=== PATIENT | female | born 1940 | race Caucasian/White ===

== ENCOUNTER 2019-04-23 11:30 | Outpatient (CLI) | payer MEDICARE, SELFPAY ==
--- NOTE | 2019-04-23 13:45 | MISC_ITS ---
This PFT report (Six Minute Walk) was originally documented on the incorrect visit. Report was moved to the correct account, [id number], on 04/27/2019. PFT Interpretation PFT Interpretation: DOS: 04/23/19 REQUESTING: Ray Moore NP REASON FOR TESTING: Post pulmonary rehab SIX MINUTE WALK This study was performed per ATS guidelines. This patient is on O2 at home, 3 L/min at rest at 4 L/min with exertion. The patient is on pulse O2 at home with an Inogen device. During this test she used continuous flow O2 from this department. The initial saturation was 89% sand pulse was 79. Blood pressure 136/70. She walked for 6 minutes without stopping completing 900 feet, 274 meters. She desaturated to 80% at the end of the walk, gradually improved to 92% at the end of recovery. Pulse increased to 103. IMPRESSION: Patient walked adequate distance for age without stopping. She was hypoxemic on 3 L/min at rest to 80% and 4 L/min with exertion on continuous flow oxygen. We recommend a dedicated Home O2 evaluation. Shara Mack MD Report Initialized date/time: Shara Mack MD 04/23/19 / [id number] Electronically signed by: Shara Mack MD 04/23/19 [id number] [facility]
== END 2019-04-23 11:31 ==
LOC: ANHPFT 07-17 07:29
PROVIDERS: PCP Internal Medicine; Visit Provider Nurse Practitioner Family
DX: J44.1 Chronic obstructive pulmonary disease with (acute) exacerbation (principal); Z72.0 Tobacco use
CPT/HCPCS: 94618

== ENCOUNTER 2019-10-05 10:28 | Outpatient (CLI) | payer MEDICARE, SELFPAY ==
[2019-10-05 10:59] LABS: Alanine Aminotransferase 14 U/L (4-35); Albumin Level 4.3 g/dL (3.5-5.1); Alkaline Phosphatase 88 U/L (38-126); Aspartate Amino Transferase 27 U/L (14-36); Bilirubin,Total 0.3 mg/dL (0.2-1.3); Blood Urea Nitrogen 17 mg/dL (7-17); Calcium 9.1 mg/dL (8.4-10.2); Carbon Dioxide 38 mmol/L (22-30); Chloride 99 mmol/L (98-107); Cholesterol 149 mg/dL (0-200); Estimated Glomerular Filt Rate > 60; Glucose 90 mg/dL (65-105); HDL Direct 71 mg/dL; Potassium 4.5 mmol/L (3.4-5.0); Sodium 140 mmol/L (137-145); Triglycerides 64 mg/dL (<150)
[2019-10-05 11:11] LABS: LDL Cholesterol Direct 56 mg/dL
== END 2019-10-05 10:29 | disposition home or self-care (01) ==
LOC: ANHLAB 10:30
PROVIDERS: PCP Internal Medicine; Visit Provider Nurse Practitioner
DX: Z79.899 Other long term (current) drug therapy (principal); E78.5 Hyperlipidemia, unspecified
CPT/HCPCS: 36415; 80053; 80061; 84443

== ENCOUNTER 2020-09-12 11:10 | Outpatient (CLI) | payer MEDICARE, SELFPAY ==
[2020-09-12 12:02] LABS: Hematocrit 45.9 % (37.0-47.0); Hemoglobin 14.2 g/dL (12.0-15.0)
[2020-09-12 12:18] LABS: Iron 101 ug/dL (37-170)
[2020-09-12 12:27] LABS: LDL Cholesterol Direct 58 mg/dL
[2020-09-12 12:28] LABS: Alanine Aminotransferase 21 U/L (4-35); Albumin Level 4.4 g/dL (3.5-5.1); Alkaline Phosphatase 95 U/L (38-126); Aspartate Amino Transferase 33 U/L (14-36); Bilirubin,Total 0.3 mg/dL (0.2-1.3); Blood Urea Nitrogen 17 mg/dL (7-17); Calcium 9.5 mg/dL (8.4-10.2); Carbon Dioxide > 40 mmol/L (22-30); Chloride 98 mmol/L (98-107); Cholesterol 162 mg/dL (0-200); Estimated Glomerular Filt Rate 60; Glucose 90 mg/dL (65-105); HDL Direct 74 mg/dL; Percent Iron Saturation 33 % (20-50); Potassium 4.5 mmol/L (3.4-5.0); Sodium 142 mmol/L (137-145); Triglycerides 75 mg/dL (<150)
== END 2020-09-12 11:11 | disposition home or self-care (01) ==
PROVIDERS: PCP Internal Medicine; Visit Provider Internal Medicine
DX: D64.9 Anemia, unspecified (principal); E78.5 Hyperlipidemia, unspecified; D50.9 Iron deficiency anemia, unspecified; I10 Essential (primary) hypertension; Z51.81 Encounter for therapeutic drug level monitoring; Z79.899 Other long term (current) drug therapy
CPT/HCPCS: 36415; 80053; 80061; 83540; 83550; 85014; 85018

== ENCOUNTER 2020-12-19 11:00 | Outpatient (CLI) | payer MEDICARE, SELFPAY ==
--- NOTE | ~2020-12-19 | CT_ITS ---
EXAMINATION: CT lung screening DATE: 12/19/2020 11:23 INDICATION: Personal history of nicotine dependence TECHNIQUE: Computed tomography (CT) of the chest was performed without intravenous contrast. The dose -length product was 119.85 mGy-cm. Automated exposure control and iterative reconstruction technique were employed. COMPARISON: Chest x-ray dated 09/09/2018 FINDINGS: Dependent atelectasis left lower lung. No thoracic lymphadenopathy. Heart size upper normal . No significant pleural or pericardial effusion. There is atherosclerosis of the aorta and coronary arteries. There are in numerable scattered calcified granulomas in the lung parenchyma. There are sma ll 2 mm left upper lobe nodules which are not clearly calcified. There is emphysema. There is a T11 b urst fracture, likely chronic. IMPRESSION: 1. Lung-RADS category 2: Benign appearance or behavior. Continue annual screening with noncontrast lo w-dose chest CT in 12 months. Reviewed, dictated and finalized at location A. IMPRESSION: 1. Lung-RADS category 2: Benign appearance or behavior. Continue annual screeni ng with noncontrast low-dose chest CT in 12 months.
== END 2020-12-19 11:01 | disposition home or self-care (01) ==
LOC: ANHIMG 11:05
PROVIDERS: PCP Internal Medicine; Visit Provider Nurse Practitioner Family
DX: Z87.891 Personal history of nicotine dependence (principal)
CPT/HCPCS: 71271

== ENCOUNTER 2021-03-25 08:27 | Outpatient (CLI) | payer MEDICARE, SELFPAY ==
[2021-03-25 09:03] LABS: Alanine Aminotransferase 13 U/L (4-35); Albumin Level 4.2 g/dL (3.5-5.1); Alkaline Phosphatase 107 U/L (38-126); Anion Gap 3 mmol/L (8-16); Aspartate Amino Transferase 25 U/L (14-36); Bilirubin,Total 0.4 mg/dL (0.2-1.3); Blood Urea Nitrogen 19 mg/dL (7-17); Calcium 9.3 mg/dL (8.4-10.2); Carbon Dioxide 39 mmol/L (22-30); Chloride 99 mmol/L (98-107); Cholesterol 148 mg/dL (0-200); Estimated Glomerular Filt Rate > 60; Glucose 103 mg/dL (65-110); HDL Direct 69 mg/dL; Potassium 4.5 mmol/L (3.4-5.0); Sodium 141 mmol/L (137-145); Triglycerides 98 mg/dL (<150)
[2021-03-25 09:13] LABS: LDL Cholesterol Direct 51 mg/dL
== END 2021-03-25 08:28 | disposition home or self-care (01) ==
PROVIDERS: PCP Internal Medicine; Visit Provider Nurse Practitioner
DX: E78.2 Mixed hyperlipidemia (principal)
CPT/HCPCS: 36415; 80053; 80061

== ENCOUNTER 2021-10-05 10:55 | Outpatient (CLI) | payer MEDICARE, SELFPAY ==
[2021-10-05 12:04] LABS: Alanine Aminotransferase 14 U/L (6-35); Alkaline Phosphatase 104 U/L (38-126); Aspartate Amino Transferase 28 U/L (14-36); Bilirubin,Total 0.4 mg/dL (0.2-1.3); Blood Urea Nitrogen 18 mg/dL (7-17); Carbon Dioxide > 40 mmol/L (22-30); Chloride 99 mmol/L (98-107); Cholesterol 146 mg/dL (0-200); Estimated Glomerular Filt Rate > 60; Glucose 89 mg/dL (65-110); HDL Direct 61 mg/dL; Potassium 4.4 mmol/L (3.4-5.0); Sodium 142 mmol/L (137-145); Triglycerides 80 mg/dL (<150)
[2021-10-05 12:06] LABS: Hematocrit 43.8 % (37.0-47.0); Hemoglobin 13.5 g/dL (12.0-15.0)
[2021-10-05 12:15] LABS: LDL Cholesterol Direct 53 mg/dL
== END 2021-10-05 10:56 | disposition home or self-care (01) ==
PROVIDERS: PCP Internal Medicine; Visit Provider Internal Medicine
DX: E78.5 Hyperlipidemia, unspecified (principal); I10 Essential (primary) hypertension; Z51.81 Encounter for therapeutic drug level monitoring; D64.9 Anemia, unspecified
CPT/HCPCS: 36415; 80053; 80061; 85014; 85018

== ENCOUNTER 2021-11-06 08:22 | Outpatient (CLI) | payer MEDICARE, SELFPAY | END 2021-11-06 08:23 | disposition home or self-care (01) | LOC: ANHAUDIO 08:25 | PROVIDERS: PCP Internal Medicine; Referring Provider Nurse Practitioner; Visit Provider Nurse Practitioner | DX: H90.3 Sensorineural hearing loss, bilateral (principal) | CPT/HCPCS: 92557; 92567 ==

== ENCOUNTER 2022-04-09 09:00 | Outpatient (RCR) | payer MEDICARE, SELFPAY | END 2022-04-09 23:59 | disposition home or self-care (01) | LOC: ANHAUDIO 09:00 | PROVIDERS: PCP Internal Medicine; Visit Provider Internal Medicine | DX: Z46.1 Encounter for fitting and adjustment of hearing aid (principal); H91.90 Unspecified hearing loss, unspecified ear | CPT/HCPCS: 99199; V5160; V5261 ==

== ENCOUNTER 2022-04-09 10:41 | Outpatient (CLI) | payer MEDICARE, SELFPAY ==
[2022-04-09 11:28] LABS: Basophils Absolute Auto 0.1 K/mm3 (0.0-0.1); Basophils Percent Auto 1.3 % (0.2-1.2); Eosinophils Absolute Auto 0.2 K/mm3 (0-0.3); Eosinophils Percent Auto 3.1 % (0-4.4); Hematocrit 42.9 % (37.0-47.0); Hemoglobin 12.9 g/dL (12.0-15.0); Immature Granulocyte Absolute 0.01 K/mm3 (0.00-0.031); Immature Granulocyte Percent A 0.2 % (0-0.5); Lymphocytes Absolute Auto 0.99 K/mm3 (0.9-3.2); Lymphocytes Percent Auto 15.5 % (18.3-44.2); Mean Corpuscular HGB Conc 30.1 g/dl (32-36); Mean Corpuscular Hemoglobin 26.7 pg (26-34); Mean Corpuscular Volume 88.8 fl (80-100); Monocytes Absolute Auto 0.4 K/mm3 (0.1-0.6); Monocytes Percent Auto 6.9 % (2.6-8.5); Neutrophils Absolute Auto 4.7 K/mm3 (1.3-6.7); Platelet Count Result 232 k/mm3 (150-375); Red Blood Count 4.83 M/mm3 (4.2-5.4); Red Cell Distribution Width 15.2 % (11.5-14.5); White Blood Count 6.4 K/mm3 (4.5-10.0)
[2022-04-09 11:52] LABS: Alanine Aminotransferase 18 U/L (6-35); Albumin Level 4.3 g/dL (3.5-5.1); Alkaline Phosphatase 95 U/L (38-126); Aspartate Amino Transferase 27 U/L (14-36); Bilirubin,Total 0.3 mg/dL (0.2-1.3); Blood Urea Nitrogen 15 mg/dL (7-17); Calcium 8.8 mg/dL (8.4-10.2); Carbon Dioxide > 40 mmol/L (22-30); Chloride 98 mmol/L (98-107); Cholesterol 151 mg/dL (0-200); Estimated Glomerular Filt Rate > 60; Glucose 89 mg/dL (65-110); HDL Direct 62 mg/dL; Potassium 4.4 mmol/L (3.4-5.0); Sodium 139 mmol/L (137-145); Triglycerides 93 mg/dL (<150)
[2022-04-09 11:54] LABS: LDL Cholesterol Direct 55 mg/dL
[2022-04-09 12:57] LABS: Vitamin D 25 Hydroxy 30.5 ng/mL
[2022-04-09 13:10] LABS: Iron 79 ug/dL (37-170)
[2022-04-09 13:32] LABS: Percent Iron Saturation 25 % (20-50)
== END 2022-04-09 10:42 | disposition home or self-care (01) ==
PROVIDERS: PCP Internal Medicine; Visit Provider Nurse Practitioner
DX: E78.2 Mixed hyperlipidemia (principal); Z13.21 Encounter for screening for nutritional disorder; D50.9 Iron deficiency anemia, unspecified; Z79.899 Other long term (current) drug therapy
CPT/HCPCS: 36415; 80053; 80061; 82306; 83540; 83550; 85025

== ENCOUNTER 2022-10-09 10:19 | Outpatient (CLI) | payer MEDICARE, SELFPAY ==
[2022-10-09 10:42] LABS: Basophils Absolute Auto 0.1 K/mm3 (0.0-0.1); Basophils Percent Auto 1.1 % (0.2-1.2); Eosinophils Absolute Auto 0.3 K/mm3 (0-0.3); Eosinophils Percent Auto 3.9 % (0-4.4); Hematocrit 47.3 % (37.0-47.0); Hemoglobin 14.4 g/dL (12.0-15.0); Immature Granulocyte Absolute 0.01 K/mm3 (0.00-0.031); Immature Granulocyte Percent A 0.2 % (0-0.5); Lymphocytes Absolute Auto 1.26 K/mm3 (0.9-3.2); Lymphocytes Percent Auto 19.8 % (18.3-44.2); Mean Corpuscular HGB Conc 30.4 g/dl (32-36); Mean Corpuscular Hemoglobin 26.3 pg (26-34); Mean Corpuscular Volume 86.3 fl (80-100); Mean Platelet Volume 10.6 fl (7.4-10.4); Monocytes Absolute Auto 0.5 K/mm3 (0.1-0.6); Monocytes Percent Auto 7.1 % (2.6-8.5); Neutrophils Absolute Auto 4.3 K/mm3 (1.3-6.7); Neutrophils Percent Auto 67.9 % (45.5-73.1); Platelet Count Result 236 k/mm3 (150-375); Red Blood Count 5.48 M/mm3 (4.2-5.4); Red Cell Distribution Width 15.2 % (11.5-14.5); White Blood Count 6.4 K/mm3 (4.5-10.0)
[2022-10-09 10:55] LABS: Alanine Aminotransferase 18 U/L (6-35); Albumin Level 4.3 g/dL (3.5-5.1); Alkaline Phosphatase 82 U/L (38-126); Aspartate Amino Transferase 29 U/L (14-36); Bilirubin,Total 0.5 mg/dL (0.2-1.3); Blood Urea Nitrogen 21 mg/dL (7-17); Calcium 9.5 mg/dL (8.4-10.2); Carbon Dioxide > 40 mmol/L (22-30); Chloride 96 mmol/L (98-107); Estimated Glomerular Filt Rate > 60; Glucose 96 mg/dL (65-110); Potassium 4.7 mmol/L (3.4-5.0); Sodium 140 mmol/L (137-145)
[2022-10-09 11:57] LABS: Hemoglobin A1C 5.2 % (<5.7)
== END 2022-10-09 10:20 | disposition home or self-care (01) ==
LOC: ANHLAB 10:20
PROVIDERS: PCP Family Medicine; Visit Provider Nurse Practitioner Family
DX: I10 Essential (primary) hypertension (principal); R73.01 Impaired fasting glucose; Z72.0 Tobacco use
CPT/HCPCS: 36415; 80053; 83036; 85025

== ENCOUNTER 2023-01-10 12:20 | Outpatient (CLI) | payer MEDICARE, SELFPAY ==
[2023-01-10] VITALS (7 sets, daily range): PULSE 77–87; O2SAT 84–90
--- NOTE | 2023-01-10 13:23 | HOMEO2EVAL ---
Evaluation was performed at [facility] Home Oxygen Evaluation RC: Home Oxygen (O2) Evaluation Start: 01/10/23 13:18 Freq: Status: Active Protocol: RPE Activity Type Activity Date Activity User E-sign Co-sign Detail Recorded Client Recorded Date Recorded By Document 01/10/23 12:30 [email or web address] [email or web address] 01/10/23 13:23 PKH Document 01/10/23 12:35 [email or web address] 01/10/23 13:23 PKH Document 01/10/23 12:40 [email or web address] [email or web address] 01/10/23 13:23 PKH Document 01/10/23 12:45 [email or web address] [email or web address] 01/10/23 13:23 PKH Document 01/10/23 12:55 [email or web address] [email or web address] 01/10/23 13:23 PKH Document 01/10/23 13:00 [email or web address] 01/10/23 13:23 PKH Document 01/10/23 13:20 [email or web address] [email or web address] 01/10/23 13:23 PKH 01/10/23 01/10/23 01/10/23 12:30 12:35 12:40 Home O2 Evaluation [Oxygen] -Test Phase Resting Resting Resting -Oxygen Delivery Room Air Nasal Cannula Nasal Cannula -Oxygen Flow Rate (L/min) 1 2 [Pulse Oximetry] -Pulse Oximetry (90-100 %) 84 L 85 L 87 L [Pulse Rate] -Pulse Rate (60-100 beats/min) 87 82 78 01/10/23 01/10/23 01/10/23 12:45 12:55 13:00 Home O2 Evaluation [Oxygen] -Test Phase Resting Exercise Exercise -Oxygen Delivery Nasal Cannula Nasal Cannula -Oxygen Flow Rate (L/min) 3 3 4 [Pulse Oximetry] -Pulse Oximetry (90-100 %) 89 L 87 L 90 [Pulse Rate] -Pulse Rate (60-100 beats/min) 80 77 78 01/10/23 13:20 Home O2 Evaluation [Oxygen] -Test Phase Resting -Oxygen Delivery Nasal Cannula -Oxygen Flow Rate (L/min) 3 [Pulse Oximetry] -Pulse Oximetry (90-100 %) 89 L [Pulse Rate] -Pulse Rate (60-100 beats/min) 80
== END 2023-01-10 12:21 | disposition home or self-care (01) ==
LOC: ANHPFT 12:21
PROVIDERS: PCP Family Medicine; Visit Provider Physician Assistant
DX: J44.9 Chronic obstructive pulmonary disease, unspecified (principal); J96.10 Chronic respiratory failure, unspecified whether with hypoxia or hypercapnia
CPT/HCPCS: 94618

== ENCOUNTER 2023-05-30 11:14 | Outpatient (CLI) | payer MEDICARE, SELFPAY ==
[2023-05-30 11:38] LABS: Basophils Absolute Auto 0.1 K/mm3 (0.0-0.1); Basophils Percent Auto 0.9 % (0.2-1.2); Eosinophils Absolute Auto 0.2 K/mm3 (0-0.3); Eosinophils Percent Auto 3.1 % (0-4.4); Hematocrit 46.9 % (37.0-47.0); Hemoglobin 13.9 g/dL (12.0-15.0); Immature Granulocyte Absolute 0.01 K/mm3 (0.00-0.031); Immature Granulocyte Percent A 0.2 % (0-0.5); Lymphocytes Absolute Auto 1.05 K/mm3 (0.9-3.2); Lymphocytes Percent Auto 16.5 % (18.3-44.2); Mean Corpuscular HGB Conc 29.6 g/dl (32-36); Mean Corpuscular Volume 87.7 fl (80-100); Mean Platelet Volume 10.9 fl (7.4-10.4); Monocytes Absolute Auto 0.4 K/mm3 (0.1-0.6); Monocytes Percent Auto 6.9 % (2.6-8.5); Neutrophils Absolute Auto 4.6 K/mm3 (1.3-6.7); Neutrophils Percent Auto 72.4 % (45.5-73.1); Platelet Count Result 225 k/mm3 (150-375); Red Blood Count 5.35 M/mm3 (4.2-5.4); Red Cell Distribution Width 15.9 % (11.5-14.5); White Blood Count 6.4 K/mm3 (4.5-10.0)
[2023-05-30 11:51] LABS: Alanine Aminotransferase 15 U/L (6-35); Albumin Level 4.1 g/dL (3.5-5.1); Alkaline Phosphatase 100 U/L (38-126); Anion Gap 5 mmol/L (8-16); Aspartate Amino Transferase 26 U/L (14-36); Bilirubin,Total 0.5 mg/dL (0.2-1.3); Blood Urea Nitrogen 21 mg/dL (7-17); Calcium 9.4 mg/dL (8.4-10.2); Carbon Dioxide 37 mmol/L (22-30); Chloride 100 mmol/L (98-107); Cholesterol 219 mg/dL (0-200); Estimated Glomerular Filt Rate > 60; Glucose 92 mg/dL (65-110); HDL Direct 71 mg/dL; Potassium 4.3 mmol/L (3.4-5.0); Sodium 142 mmol/L (137-145); Triglycerides 82 mg/dL (<150)
[2023-05-30 12:02] LABS: LDL Cholesterol Direct 107 mg/dL
[2023-05-30 12:03] LABS: Hemoglobin A1C 5.5 % (<5.7)
[2023-05-30 12:07] LABS: Iron 76 ug/dL (37-170)
[2023-05-30 12:16] LABS: Percent Iron Saturation 25 % (20-50)
[2023-05-30 12:25] LABS: Vitamin D 25 Hydroxy 27.7 ng/mL
== END 2023-05-30 11:15 | disposition home or self-care (01) ==
PROVIDERS: PCP Nurse Practitioner Family; Visit Provider Nurse Practitioner Family
DX: D50.9 Iron deficiency anemia, unspecified (principal); I10 Essential (primary) hypertension; E78.2 Mixed hyperlipidemia; F41.9 Anxiety disorder, unspecified; J44.9 Chronic obstructive pulmonary disease, unspecified; R73.01 Impaired fasting glucose; Z79.899 Other long term (current) drug therapy
CPT/HCPCS: 36415; 80053; 80061; 82306; 83036; 83540; 83550; 85025

== ENCOUNTER 2023-09-22 08:46 | Inpatient (IN) | payer MEDICARE, SELFPAY ==
[2023-09-22] VITALS (18 sets, daily range): BP systolic 124–137; BP diastolic 60–83; PULSE 77–125; RESP 18–28; TEMP 36.7–37.1; O2SAT 92–99; BMI 31.4
--- NOTE | 2023-09-22 | ECHO_ITS ---
Patient Info Name: Shara Pulido Age: 82 years : 1940 Gender: Female Ht: 63 in Wt: 177 lbs BSA: 1.92 m2 HR: 79 bpm BP: 137 / 60 mmHg Heart Rhythm: Sinus Rhythm Technical Quality: Fair Exam Date: 09/22/2023 4:09 PM Exam Location: Echo Lab Patient Status: Outpatient Admit Date: 09/22/2023 Staff Ordering Physician: Jaja James PA-C Strategic Development Manager: Nathaniel Dumas RDCS Attending Provider: Cristian Grande MD Referring Physician: Jacob TRAVIS; Exam Type: CA echo doppler w bubble study Study Info Indications I50.20 - Unspecified systolic (congestive) heart failure R06.02 - Shortness of breath Complete two-dimensional, color flow and Doppler transthoracic echocardiogram is performed with agitated saline. Contrast/Agitated Saline Contrast/Ag. Saline: Agitated Saline Amount: 14.00 ml IV Access Condition: patent with no signs of infiltration Summary 1. Hyperdynamic left ventricular systolic function with grade 1 diastolic noncompliance. 2. Calcified mitral valve annulus. 3. Mild pulmonic regurgitation. 4. Saline contrast injection demonstrates no intracardiac shunt. Left Ventricle Left ventricular chamber dimension is normal. Left ventricular systolic function is hyperdynamic, estimated at >70%. The left ventricular diastolic function is grade I diastolic dysfunction. Right Ventricle Right ventricular chamber dimension is normal. Left Atria Left atrial chamber dimension is mildly enlarged. Right Atria Right atrial chamber dimension is normal. Atrial Septum Intact interatrial septum visualized by agitated saline imaging. Aortic Valve The aortic valve is trileaflet. There is mild aortic valve sclerosis. Pulmonic Valve The pulmonic valve is normal. There is mild pulmonic regurgitation. Mitral Valve The mitral valve has normal leaflets. The mitral valve annulus is moderately calcified. Tricuspid Valve The tricuspid valve leaflets are normal. Pericardium/Pleural The pericardium appears normal. Aorta The aortic root size at the sinus of Valsalva is normal. Left Ventricular Outflow Tract Name Value Normal LVOT 2D LVOT Diameter 2.0 cm Pulmonic Valve Name Value Normal RVOT Doppler RVOT Peak Gradient 3 mmHg PV Doppler PV Peak Gradient 5 mmHg PV Regurgitation Doppler MD Peak End Diastolic Velocity 147 cm/s Mitral Valve Name Value Normal MV Doppler MV Decel [place] 346 cm/s2 MV PHT 61 ms MV Area (PHT)
--- NOTE | ~2023-09-22 | XR_ITS ---
XR chest 2V DATE: 09/22/2023 09:33 INDICATION: Shortness of breath starting last night. History of COPD. TECHNIQUE: AP and lateral views COMPARISON: 09/09/2018 portable AP chest 12/19/2020 CT lung screening examination FINDINGS: There is pulmonary vascular congestion and redistribution. Small bilateral pleural effusion s. Heart size is borderline. There is minimal infiltrate or atelectasis at the lung bases. Aortic arch calcification. Diffuse osteopenia. Prominent loss of height of T11; T11 burst fracture was noted on 12/19/2020 CDT ex amination. IMPRESSION: Pulmonary vascular congestion and redistribution and small pleural effusions consistent w ith congestive heart failure Aortic atherosclerosis Minimal atelectasis or infiltrate at the lung bases Reviewed, dictated and finalized at location B. IMPRESSION: Pulmonary vascular congestion and redistribution and small pleural effusions consistent with congestive heart failure Aortic atherosclerosis Minimal atelectasis or infiltrate at the lung bases
--- NOTE | ~2023-09-22 | US_ITS ---
EXAMINATION: US venous doppler [facility] DATE: 09/22/2023 20:05 INDICATION: Shortness of breath TECHNIQUE: Grayscale ultrasound images without and with compression and Doppler ultrasound images of the bilateral lower extremity veins were obtained. COMPARISON: None. FINDINGS: The visualized portions of right common femoral vein, profunda (deep) femoral vein, femoral vein, pop liteal vein, posterior tibial veins, peroneal veins and greater saphenous vein outflow are patent. The visualized portions of left common femoral vein, profunda femoral vein, femoral vein, popliteal v ein, posterior tibial veins and greater saphenous vein outflow are patent. IMPRESSION: 1. No deep venous thrombosis in either lower limb. Reviewed, dictated and finalized at location A.
--- NOTE | ~2023-09-22 | CT_ITS ---
EXAMINATION: CTA chest PE protocol DATE: 09/22/2023 10:08 INDICATION: Shortness of breath. TECHNIQUE: Computed tomography angiography (CTA) of the chest was performed with 100 mL Omnipaque-350 intravenous contrast timed to evaluate the pulmonary arteries. Coronal maximum intensity projection 3D-reconstructions were created by the technologist. Automated exposure control and iterative reconst ruction technique were employed. The dose-length product was 612.18 mGy-cm. COMPARISON: Chest CT 12/19/2020 FINDINGS: There is severe emphysema. There is mild dependent atelectasis bilaterally. Calcified pulmo nary nodules and calcified hilar mediastinal lymph nodes are consistent with old granulomatous diseas e. There are small pleural effusions. Cardiomegaly is noted. There are coronary artery calcifications . No pericardial effusion. There is no pulmonary embolus. Aortic atherosclerosis is noted. There are masses in the adrenal glands measuring up to 2.1 cm on the left without change, likely adenomas. Ther e is mild thoracic spondylosis. There is a chronic burst fracture of T11. There are chronic compressi on fractures of T12, L1, and L2. IMPRESSION: 1. No pulmonary embolus. Sensitivity is mildly decreased by motion artifact. 2. Small pleural effusions. 3. Severe emphysema. Reviewed, dictated and finalized at location A.
--- NOTE | 2023-09-22 08:56 | ECG_ITS ---
SEE SCANNED COPY FOR CONFIRMED REPORT MTDD
[2023-09-22 09:24] LABS: Basophils Absolute Auto 0.1 K/mm3 (0.0-0.1); Basophils Percent Auto 0.7 % (0.2-1.2); Eosinophils Absolute Auto 0.3 K/mm3 (0-0.3); Eosinophils Percent Auto 4.9 % (0-4.4); Hematocrit 34.7 % (37.0-47.0); Hemoglobin 10.3 g/dL (12.0-15.0); Immature Granulocyte Absolute 0.03 K/mm3 (0.00-0.031); Immature Granulocyte Percent A 0.4 % (0-0.5); Lymphocytes Absolute Auto 0.71 K/mm3 (0.9-3.2); Lymphocytes Percent Auto 10.6 % (18.3-44.2); Mean Corpuscular HGB Conc 29.7 g/dl (32-36); Mean Corpuscular Hemoglobin 26.6 pg (26-34); Mean Corpuscular Volume 89.7 fl (80-100); Mean Platelet Volume 11.3 fl (7.4-10.4); Monocytes Absolute Auto 0.5 K/mm3 (0.1-0.6); Monocytes Percent Auto 7.8 % (2.6-8.5); Neutrophils Absolute Auto 5.1 K/mm3 (1.3-6.7); Neutrophils Percent Auto 75.6 % (45.5-73.1); Platelet Count Result 195 k/mm3 (150-375); Red Blood Count 3.87 M/mm3 (4.2-5.4); Red Cell Distribution Width 15.2 % (11.5-14.5); White Blood Count 6.7 K/mm3 (4.5-10.0)
--- NOTE | 2023-09-22 09:32 | ED.SOB ---
HPI - SOB/Dyspnea General Chief Complaint: Shortness of Breath/Dyspnea <Jaja James PA-C - Last Filed: 09/22/23 12:32> Stated Complaint: SOB <CLARE Bustamante Last Filed: 09/22/23 12:32> Time Seen by Provider: 09/22/23 08:55 <CLARE Bustamante Last Filed: 09/22/23 12:32> Source: patient and old records reviewed <CLARE Bustamante Last Filed: 09/22/23 12:32> Mode of arrival: EMS <CLARE Bustamante Last Filed: 09/22/23 12:32> Limitations: no limitations <CLARE Bustamante Last Filed: 09/22/23 12:32> History of Present Illness HPI Narrative: Patient is an 82 y/o female, with PMH of COPD, HTN, chronic respiratory failure on home oxygen 3L/4L with exertion, J CARLOS on Trilogy, who presents to the ED via EMS with report of SOB. Patient reports having increased shortness of breath since last night. Reports SOB worse with any type of exertion. Had to increase her oxygen to 5 L at the rehab facility. She is currently at [facility] for rehabilitation after a right hip fracture, had surgery at [facility] on Tuesday. Patient also reports having recent cough and chest congestion. She denies fevers, chest pain, sick contacts, lower extremity pain or swelling. <CLARE Bustamante Last Filed: 09/22/23 12:32> Related Data Home Medications: Home Medications Medication Instructions Recorded Confirmed acetaminophen 325 mg tablet 650 mg PO Q6H PRN Pain 09/21/23 09/22/23 albuterol sulfate 2.5 mg/3 mL 2.5 mg inhalation BID PRN 09/21/23 09/22/23 (0.083 %) solution for nebulization Shortness Of Breath cholecalciferol (vitamin D3) 25 50 mcg PO DAILY 09/21/23 09/22/23 mcg (1,000 unit) tablet fluticasone fur. 100 mcg-umeclid 1 inh inhalation DAILY 09/21/23 09/22/23 62.5 mcg-vilant 25 mcg inhalat.powder (Trelegy Ellipta) losartan 100 mg tablet 100 mg PO DAILY 09/21/23 09/22/23 nifedipine 30 mg tablet,extended 30 mg PO DAILY 09/21/23 09/22/23 release 24 hr prednisone 5 mg tablet 2.5 mg PO DAILY 09/21/23 09/22/23 sertraline 100 mg tablet 100 mg PO DAILY 09/21/23 09/22/23 aspirin 81 mg tablet,delayed 81 mg PO QHS 09/22/23 09/22/23 release vit C 250 mg-vit E 90 mg-zinc 40 See Rx Instructions .Route .COMPLEX 09/22/23 09/22/23 mg-copper 1 [id number] capsule (PreserVision AREDS-2) <CLARE Bustamante Last Filed: 09/22/23 12:32> Allergies/Adverse Reactions: Allergies Allergy/AdvReac Type Severity Reaction Status Date / Time levofloxacin Allergy Unknown Hives Verified 09/22/23 14:54 <Jaja James PA-C - Last Filed: 09/22/23 12:32> Review of Systems Review of Systems: CONSTITUTIONAL: Denies fever, chills, or sweats. ENT: See HPI. CARDIOVASCULAR: See HPI. RESPIRATORY: See HPI. NEUROLOGIC: Denies headache, dizziness, numbness, or weakness. <CLARE Bustamante Last Filed: 09/22/23 12:32> All systems reviewed & are unremarkable except as noted in HPI and below <Jaja James PA-C - Last Filed: 09/22/23 12:32> [facility] Past Medical History Medical History: Medical History (Updated 09/22/23 @ 16:31 by Jan Lauren MD) Anxiety Basal cell carcinoma (BCC) of left nasal sidewall Chronic respiratory failure on home O2 COPD (chronic obstructive pulmonary disease) Essential (primary) hypertension Hearing loss Hypertension Iron deficiency anemia Macular degeneration of both eyes Mixed hyperlipidemia J CARLOS (obstructive sleep apnea) Other and unspecified hyperlipidemia Tobacco abuse <Jaja James PA-C - Last Filed: 09/22/23 12:32> Surgical History Surgical History: Surgical History History of hysterectomy History of repair of hip fracture (09/18/23) R subcapital femoral neck fracture, [facility] <Jaja James PA-C - Last Filed: 09/22/23 12:32> Family History Family His
[2023-09-22 09:37] LABS: INR 1.3; Prothrombin Time 16.3 Seconds (11.1-14.7)
[2023-09-22 09:38] LABS: Partial Thromboplastin Time 38.3 Seconds (22.3-36.8)
[2023-09-22 09:40] LABS: Alanine Aminotransferase 9 U/L (6-35); Albumin Level 3.3 g/dL (3.5-5.1); Alkaline Phosphatase 63 U/L (38-126); Anion Gap 1 mmol/L (4-12); Aspartate Amino Transferase 29 U/L (14-36); Bilirubin,Total 0.6 mg/dL (0.2-1.3); Blood Urea Nitrogen 15 mg/dL (7-17); Calcium 8.2 mg/dL (8.4-10.2); Carbon Dioxide 37 mmol/L (22-30); Chloride 102 mmol/L (98-107); Estimated CRCL calculation 61 ml/min; Estimated Glomerular Filt Rate > 60; Glucose 93 mg/dL (65-110); Sodium 140 mmol/L (137-145)
[2023-09-22 09:44] LABS: D Dimer 2.39 ug/mL (<0.48); Hypochromasia 1+; Platelet Estimate Adequate (Adequate); Schistocytes None Seen
[2023-09-22 09:51] LABS: NT Pro B Type Natriuretic Pept 1370 pg/mL (19.9-100); Troponin I < 0.012 ng/mL (0.000-0.034)
[2023-09-22 10:00] LABS: Influenza A QL RT-PCR Negative (Negative); Influenza B QL RT-PCR Negative (Negative); RSV RNA, RT-PCR Negative (Negative); SARS-CoV-2 RNA PCR Negative (Negative)
[2023-09-22 10:20] LABS: Alveolar/Arterial O2 Gradient 204.1 mmHg; Base Excess ABG 6.2 mEq/l (+/-2.0); Carboxyhemoglobin 1.2 % THb (0-2.0); Fractional Inspired Oxygen 44 %; HCO3 ABG 31.6 mEq/l (22.0-26.0); Methemoglobin ABG 0.3 %THb (0-1.5); Oxygen Content ABG 12.2 %vol (16.0-22.0); PO2 ABG 52.6 mmHg (80.0-100.0); Reduced Hemoglobin 12.1 %THb (0-5.0); pH ABG 7.418 (7.350-7.450)
[2023-09-22 10:22] LABS: Oxygen Saturation ABG 87.3 % (95.0-100.0)
[2023-09-22 10:23] LABS: Device NASAL CANNULA; Modified Allen's Test Pass; Oxyhemoglobin 86.4 % THb (90.0-100.0); Site Drawn RIGHT RADIAL
[2023-09-22] MEDS: LEVALBUTEROL NEB 1.25 MG/3 ML INHALATION (10:29)
[2023-09-22] MEDS: IPRATROPIUM BR 0.02% INH SOLN 0.5 MG/2.5 ML VIAL INHALATION ×3 (10:29→20:01)
--- NOTE | 2023-09-22 11:12 | PC.NURSE ---
Report given to Colton RUELAS, all questions answered
[2023-09-22] MEDS: methylPREDNISolone SOD SUCC 125 MG VIAL IV PUSH (12:27)
--- NOTE | 2023-09-22 12:27 | PM.IMHP ---
H&P: HPI History of Present Illness Date/Time: 09/22/23 18:00 Chief Complaint: SOB Narrative: 82 y/o F presents here with SOB with PMH of COPD, HTN, HLD, and basal cell carcinoma (s/p excision). Patient presents here via EMS from [facility] with shortness of breath. Shortness of breath began while patient was inpatient at [facility]. SOB worsened today after she exerted herself (walked to the restroom). Partially alleviated by increased supplemental O2 (up to 10L) and aggravated by exertion. Patient wears 3L at rest and 4-5L NC with exertion of supplemental O2 at baseline. Currently requiring 5L NC. Shortness of breath is accompanied by cough and congestion. Cough has been largely unproductive. Denies chest pain, palpitations, or syncope. Patient is currently at [facility] post-right subcapital femoral neck fracture. Fall occurred on 09/16 (Sat) after a ground level fall. Patient underwent surgical management of the fracture on 09/17 (Sun) at [facility] and was transferred to the rehab facility yesterday, 09/20 (Tue) for PT/OT. Patient still a smoker, patient estimates 2 cig per month and family estimates couple of cigs per week. Has been counseled previusly on smoking cessation. Initial VS at presentation: 98.6? F, HR 82, RR 28, 136/83, and 94% on 5L nasal cannula. ED workup showed: no leukocytosis, hemoglobin 10.3 ( moderate deviation from most recent lab in May of 2023, however does have history of anemia in 2019), INR 1.3, D-dimer elevated, no significant electrolyte derangements, creatinine 0.6 and GFR >60, BNP 1370, and viral PCR negative for flu/COVID/RSV. CXR shows pulmonary vascular congestion and redistribution, small pleural effusions consistent with congestive heart failure, aortic atherosclerosis, mental full atelectasis or infiltrate at the lung bases. Chest CTA showed no PE, small pleural effusions, and severe emphysema. Review of Systems Review of Systems: All systems reviewed & are unremarkable except as noted in HPI and below PMFSH Past Medical History Medical History (Updated 09/22/23 @ 16:31 by Jan Lauren MD) Anxiety Basal cell carcinoma (BCC) of left nasal sidewall Chronic respiratory failure on home O2 COPD (chronic obstructive pulmonary disease) Essential (primary) hypertension Hearing loss Hypertension Iron deficiency anemia Macular degeneration of both eyes Mixed hyperlipidemia J CARLOS (obstructive sleep apnea) Other and unspecified hyperlipidemia Tobacco abuse Surgical History Surgical History History of hysterectomy History of repair of hip fracture (09/18/23) R subcapital femoral neck fracture, [facility] Family History Family History Sibling Diabetes mellitus Family history of cardiovascular disease Family history of coronary artery disease Father Family history of cardiovascular disease Family history of malignant neoplasm Family history of emphysema Mother Family history of cardiovascular disease Other Asthma Social History Social History Smoking packs per day: 1 Smoking cigarettes per day: 20.0 Years smoked: 70 Smoking pack-years: 70.00 Smoking status: Current some day smoker Tobacco type: cigarettes Second hand tobacco smoke exposure: Yes Smoking end date: 05/02/19 Additional smoking assessment comments: Pt states she has one cigarette per month Alcohol intake: never Substance use: never Substance use type: does not use Do You Feel Safe in your Home?: Yes Lack of Transportation: No Lack of Food: Never True Current Housing: I Have Housing Concerned About Future Housing: No Difficulty Paying Gas/Electric Bills: No Difficulty Paying for Meds: No Currently Unemployed: No Education: Grade School Difficulty w/ Childcare or Family Ca
[2023-09-22] MEDS: FUROSEMIDE INJ 40 MG/4 ML VIAL IV PUSH ×2 (12:29→20:17)
[2023-09-22] MEDS: LEVALBUTEROL NEB 1.25 MG/3 ML 0.63 MG INHALATION ×2 (13:16→20:00)
--- NOTE | 2023-09-22 14:29 | ADMGEN ---
This patient, Shara Pulido, was admitted to Medical Room 252-01. Patient/family oriented to hospital policies and general routines including ID bracelet, bed and alarms, visiting hours, pain management, procedures, bathroom and other care routines, personal items, smoking policy, room service/diet, and visiting hours. Information on how to activate the Rapid Response Team has been discussed. Patient/Family are encouraged to report perceived risks to care and to ask questions if they do not understand what they are told or what they should do.
--- NOTE | 2023-09-22 15:23 | PM.CNPUL ---
Assessment and Plan Assessment and plan (1) Acute exacerbation of chronic obstructive pulmonary disease (COPD): Code(s): J44.1 - Chronic obstructive pulmonary disease with (acute) exacerbation Status: Acute Assessment and Plan: gold grade 3 group E COPD patient was 70 pack year tobacco use, PFTs from 2018 with very severe obstructive abnormality, FEV1 0.58 L, 33% predicted, ratio of 37%, hyperinflation, moderately decreased DLCO that normalized when adjusted for alveolar volume. Patient has chronic hypoxemic respiratory failure requiring 3 L at rest, 4 L with activity and 3 L with her trilogy at night. Patient has obstructive sleep apnea and is treated with trilogy. Patient currently has increased cough, increased phlegm production, worsening shortness of breath, worsening hypoxemia and is being treated for COPD exacerbation With steroids, bronchodilators and antibiotics. Plan: Patient is improved and 80% back to her baseline currently. patient receives Solu-Medrol 125 mg IV at 12 noon today. I will decrease her prednisone From 60 mg to 40 mg p.o. starting tomorrow. I will continue levalbuterol 1.25 nebulized q.6 hours and ipratropium 0.5 mg nebulized q.6 hours. I will stop her fluticasone inhaler she is on systemic steroids. The patient has no focal infiltrates on her CT scan suggestive of a pneumonia. She has a Levaquin allergy. I will add azithromycin. I will check a procalcitonin in the morning. I do not see previous alpha 1 anti trypsin genotype and I will send genotype and level tomorrow morning. Goal saturation 90-94% and will wean oxygen accordingly. Regarding other conditions that may be contributing to her respiratory issues the patient had an elevated BNP, small bilateral pleural effusions and was given Lasix for fluid overload. Echocardiogram has been ordered. Patient had a positive D-dimer with a negative CT angiogram of the chest. I will perform lower extremity Dopplers to exclude . DVT Will follow with you. (2) J CARLOS (obstructive sleep apnea): Code(s): G47.33 - Obstructive sleep apnea (adult) (pediatric) Status: Acute Assessment and Plan: Patient has a history of obstructive sleep apnea treated with trilogy. Recent download demonstrates her settings were rate of 12, tidal volume 530, EPAP 8 minimum, EPAP 16 maximum, minimum pressure support 10, maximum pressure support 20, inspiratory time 0.8. Her download demonstrated a mean expiratory pressure of 9, mean inspiratory pressure 25. Plan: I will place her on a hospital AVAPS mode with rate of 12, tidal volume 530, EPAP 8, minimal inspiratory pressure 10, maximum inspiratory pressure 20, inspiratory time 0.8, rise of 3 and 35% FiO2. History of Present Illness History of Present Illness Consult date: 09/22/23 Chief complaint: COPD Exacerbation,New onset CHF,SOB,Chronic 02 The Narrative: 09/22/2023: This is a new pulmonary consult for COPD exacerbation. Patient is followed in the Pulmonary and last seen on 08/22/2023. This is the note Shara is a pleasant 81yo F here for 6 month follow up regarding COPD, chronic respiratory failure on home oxygen 3L/min, J CARLOS on Trilogy. Her daughter, Swati, is with her today. COPD:?Today she tells me overall her breathing has been stable since her last visit without flare ups. Shortness of breath with exertion is stable and unchanged from last visit. Her main concern today is dry mouth and nose and we discussed some supportive care treatments. Dry cough recently. Denies wheezing. Denies feeling phlegm/mucus congestion in chest. Denies nocturnal awakenings with SOB or cough. She is compliant with Trelegy 100 1 puff daily; albuterol PRN by HFA and nebulizer. States she does not use albuterol puff rescue very often, but uses albuterol nebulizer around once per day. O2:?Uses home oxygen 3L/min at rest and 4L/min with activity. Uses a pulse oximeter to monitor her oxygen saturat
[2023-09-22] MEDS: AZITHROMYCIN 500 MG/NS 250 ML 500 MG/250 ML BAG 250 MG IVPB (17:47)
[2023-09-22] MEDS: FLUTICASONE PROP 110 MCG INHALER 12 GM (*SP) 2 PUFF INHALATION (20:01)
[2023-09-22] MEDS: ALPRAZolam (*CRX) 0.25 MG TABLET PO (20:17)
[2023-09-22] MEDS: ASPIRIN 81 MG ENTERIC TABLET PO (20:18)
[2023-09-22 21:38] LABS: MRSA (PCR) NOT DETECTED (NOT DETECTE)
[2023-09-23] VITALS (20 sets, daily range): BP systolic 99–144; BP diastolic 60–72; PULSE 64–122; RESP 18–24; TEMP 36.3–36.9; O2SAT 90–100
[2023-09-23] MEDS: ACETAMINOPHEN 325 MG TABLET 650 MG PO (01:49)
[2023-09-23] MEDS: IPRATROPIUM BR 0.02% INH SOLN 0.5 MG/2.5 ML VIAL INHALATION ×4 (02:26→20:37)
[2023-09-23] MEDS: LEVALBUTEROL NEB 1.25 MG/3 ML 0.63 MG INHALATION ×4 (02:26→20:37)
[2023-09-23 04:59] LABS: Basophils Percent Auto 0.3 % (0.2-1.2); Eosinophils Percent Auto 0.4 % (0-4.4); Hematocrit 31.5 % (37.0-47.0); Hemoglobin 9.7 g/dL (12.0-15.0); Immature Granulocyte Absolute 0.04 K/mm3 (0.00-0.031); Immature Granulocyte Percent A 0.6 % (0-0.5); Lymphocytes Absolute Auto 0.67 K/mm3 (0.9-3.2); Lymphocytes Percent Auto 9.7 % (18.3-44.2); Mean Corpuscular HGB Conc 30.8 g/dl (32-36); Mean Corpuscular Hemoglobin 26.9 pg (26-34); Mean Corpuscular Volume 87.3 fl (80-100); Mean Platelet Volume 11.6 fl (7.4-10.4); Monocytes Absolute Auto 0.5 K/mm3 (0.1-0.6); Monocytes Percent Auto 6.6 % (2.6-8.5); Neutrophils Absolute Auto 5.7 K/mm3 (1.3-6.7); Neutrophils Percent Auto 82.4 % (45.5-73.1); Platelet Count Result 201 k/mm3 (150-375); Red Blood Count 3.61 M/mm3 (4.2-5.4); Red Cell Distribution Width 15.1 % (11.5-14.5); White Blood Count 6.9 K/mm3 (4.5-10.0)
[2023-09-23 05:13] LABS: Alanine Aminotransferase 11 U/L (6-35); Albumin Level 3.2 g/dL (3.5-5.1); Alkaline Phosphatase 57 U/L (38-126); Aspartate Amino Transferase 33 U/L (14-36); Bilirubin,Total 0.5 mg/dL (0.2-1.3); Blood Urea Nitrogen 25 mg/dL (7-17); Calcium 8.1 mg/dL (8.4-10.2); Carbon Dioxide > 40 mmol/L (22-30); Chloride 97 mmol/L (98-107); Estimated CRCL calculation 47 ml/min; Estimated Glomerular Filt Rate > 60; Glucose 107 mg/dL (65-110); Potassium 3.8 mmol/L (3.4-5.0); Sodium 138 mmol/L (137-145)
[2023-09-23 05:32] LABS: Procalcitonin 0.1 ng/mL
[2023-09-23] MEDS: FLUTICASONE PROP 110 MCG INHALER 12 GM (*SP) 2 PUFF INHALATION ×2 (07:15→20:37)
--- NOTE | 2023-09-23 07:23 | PM.IMPN ---
Progress Note: A&P Assessment and Plan (1) Acute and chronic respiratory failure with hypoxia: Code(s): J96.21 - Acute and chronic respiratory failure with hypoxia Status: Acute Assessment and Plan: - did not meet SIRS criteria - ABG, initial: pH 7.418, pCO2 50, pO2 52.6, HCO3 31.6, O2 sat 87.3% on NC 6L. - CXR Pulmonary vascular congestion and redistribution and small pleural effusions consistent with congestive heart failure Aortic atherosclerosis Minimal atelectasis or infiltrate at the lung bases? - Chest CTA 1. No pulmonary embolus. Sensitivity is mildly decreased by motion artifact. 2. Small pleural effusions. 3. Severe emphysema. - WBC 6.7, did complain of cough/congestion, starting empiric abx for COPD exacerbation - BNP elevated - Viral PCR negative - suspect SOB is multifactorial/combined presentation of acute exacerbation of COPD and new onset CHF (see below) - continue AVAPS at night 09/22 note from pulm reviewed: Patient is improved and 80% back to her baseline currently.? patient receives Solu-Medrol 125 mg IV at 12 noon today. I will decrease her prednisone ? From 60 mg to 40 mg p.o. starting tomorrow. ? I will continue levalbuterol 1.25 nebulized q.6 hours and ipratropium 0.5 mg nebulized q.6 hours.? I will stop her fluticasone inhaler she is on systemic steroids. ? The patient has no focal infiltrates on her CT scan suggestive of a pneumonia.? She has a Levaquin allergy.? I will add azithromycin. ? I will check a procalcitonin in the morning.? I do not see previous alpha 1 anti trypsin genotype and I will send genotype and level tomorrow morning. ? Goal saturation 90-94% and will wean oxygen accordingly. (2) New onset of congestive heart failure: Code(s): I50.9 - Heart failure, unspecified Status: Acute Assessment and Plan: - BNP 1370 - evidence of vascular congestion/pleural effusions on imaging - no echo on file, ordered - starting Lasix 40 mg IVP BID - daily weights - monitor I&Os - trend renal function 09/22- echo completed- not read yet (3) Acute exacerbation of chronic obstructive pulmonary disease (COPD): Code(s): J44.1 - Chronic obstructive pulmonary disease with (acute) exacerbation Status: Acute Assessment and Plan: - sputum culture if obtainable - continue Levalbuterol/Atrovent nebs Q6H FELICIA - add prednisone 40 mg PO daily, hold home 2.5 mg PO daily - start empiric abx for COPD exacerbation: starting ceftriaxone and azithromycin on 09/21 - hold Trelegy inhaler - continue supplemental O2, wean as tolerated to home dose - pulmonology consulted, Lucian HOOD. reduced oral prednisone from 60 -> 40 adding procalcitonin add US of BLE o exclude DVT given elevated dimer check alpha 1 anti trypsin genotype - due to anxiety will frequently not take deep inhalation, adding IS 09/22: see plan above procalcitonin wnl (4) Iron deficiency anemia: Code(s): D50.9 - Iron deficiency anemia, unspecified Status: Acute Assessment and Plan: - Hgb 9.4, previously 13.9 in May - suspect this is reduced due to recent fracture and surgery - cannot exclude complication of home Eliquis, no signs of bleeding on exam or reports of dark/tarry stools/BRBPR/hematemesis - MCHC low, given hx of JOSE EDUARDO will add iron supplement (5) Essential (primary) hypertension: Code(s): I10 - Essential (primary) hypertension Status: Acute Assessment and Plan: - chronic, currently 130-144/60 - continue home medications: Losartan 100 mg daily, nifedipine 30 mg ER daily - monitor Plan Patient here with shortness of breath. Recent R hip fracture with surgical management on 09/17, the seed to [facility]. CT negative for PE. US of BLE added to rule out DVT. Workup consistent with new onset CHF and COPD exacerbation. Echo ordered and started on diuresis. Nebs, empiric ceftriaxone/azithromycin, and prednisone added. Continued syl
[2023-09-23] MEDS: LOSARTAN POTASSIUM 100 MG TABLET PO (09:16)
[2023-09-23] MEDS: predniSONE 20 MG TABLET 40 MG PO (09:16)
[2023-09-23] MEDS: SERTRALINE HCL 50 MG TABLET 100 MG PO (09:17)
[2023-09-23] MEDS: POLYSACCHARIDE IRON COMPLEX 150 MG CAPSULE PO (09:17)
[2023-09-23] MEDS: PANTOPRAZOLE 40 MG TABLET PO (09:17)
[2023-09-23] MEDS: NIFEdipine 30 MG TAB.ER.24 PO (09:17)
[2023-09-23] MEDS: FUROSEMIDE INJ 40 MG/4 ML VIAL IV PUSH ×2 (09:18→21:09)
[2023-09-23] MEDS: CHOLECALCIFEROL 1,000 UNITS TABLET 1000 UNITS PO (09:18)
--- NOTE | 2023-09-23 09:18 | PM.PNPUL ---
Progress Note: A&P Assessment and Plan (1) Acute exacerbation of chronic obstructive pulmonary disease (COPD): Code(s): J44.1 - Chronic obstructive pulmonary disease with (acute) exacerbation Status: Acute Assessment and Plan: GOLD grade 3 group E COPD patient was 70 pack year tobacco use, PFTs from 2018 with very severe obstructive abnormality, FEV1 0.58 L, 33% predicted, ratio of 37%, hyperinflation, moderately decreased DLCO that normalized when adjusted for alveolar volume. Patient has chronic hypoxemic respiratory failure requiring 3 L at rest, 4 L with activity and 3 L with her trilogy at night. Patient has obstructive sleep apnea and is treated with trilogy. Patient currently has increased cough, increased phlegm production, worsening shortness of breath, worsening hypoxemia and is being treated for COPD exacerbation With steroids, bronchodilators and antibiotics. Plan: Patient is improved and 80% back to her baseline currently. patient receives Solu-Medrol 125 mg IV at 12 noon today. I will decrease her prednisone From 60 mg to 40 mg p.o. starting tomorrow. I will continue levalbuterol 1.25 nebulized q.6 hours and ipratropium 0.5 mg nebulized q.6 hours. I will stop her fluticasone inhaler she is on systemic steroids. The patient has no focal infiltrates on her CT scan suggestive of a pneumonia. She has a Levaquin allergy. I will add azithromycin. I will check a procalcitonin in the morning. I do not see previous alpha 1 anti trypsin genotype and I will send genotype and level tomorrow morning. Goal saturation 90-94% and will wean oxygen accordingly. Regarding other conditions that may be contributing to her respiratory issues the patient had an elevated BNP, small bilateral pleural effusions and was given Lasix for fluid overload. Echocardiogram has been ordered. Patient had a positive D-dimer with a negative CT angiogram of the chest. I will perform lower extremity Dopplers to exclude DVT 09/23/23: overall patient states she is stable since yesterday. She is feeling 80% back to her normal. Overall she tells me she is breathing back at her baseline. She has no wheezing, her normal cough and no phlegm production. No hemoptysis. She is afebrile. White blood cell count 6.9, creatinine 0.8, procalcitonin 0.1. Patient is currently on 5 L nasal cannula saturations 92%. The patient slept well on the hospital noninvasive ventilator with the AVAPS settings and 35% FiO2. She said the air felt comfortable like her home machine although the mask was more uncomfortable than her home machine. Patient has diuresed 210 mL since admission her weight today is 80.4 with an admission weight of 81.2. Of note patient weight 75.3 kg on 08/22/2023. On further clarification according to the patient when she left [facility] postoperatively she was on 5 L at rest and when they walked her they had to increase her oxygen but she does not know the level that they needed to maintain adequate saturations. When she went to the rehab center at rest she was on 5 L and they had to increase her to 10 L with activity. Plan: Agree treatment for COPD exacerbation. Continue prednisone 40 mg p.o. q.day, day 2 of steroids. Continue ipratropium and levalbuterol nebulizers Q 6 hours. Patient is being treated for possible pneumonia with ceftriaxone and azithromycin, day 2. Would like to minimize patient's exposure to systemic steroids since she has recent fall with hip fracture and hip operation. She has no wheezing today. I will add nebulized budesonide today and if she is clinically stable without wheezes would discontinue steroids after tomorrow's morning dose. Blood cultures were not sent prior to antibiotics, procalcitonin is 0.1 this morning, she is afebrile and has no leukocytosis. Her cough and phlegm production are at her baseline. If she remains without evidence of pneumonia on 09/22 would discontinue ce
[2023-09-23] MEDS: ALPRAZolam (*CRX) 0.25 MG TABLET PO ×2 (09:26→21:57)
[2023-09-23] MEDS: polyethylene glycoL 3350 17 GM POWD.PACK PO (13:37)
[2023-09-23] MEDS: AZITHROMYCIN 500 MG/NS 250 ML 500 MG/250 ML BAG 250 MG IVPB (17:24)
[2023-09-23] MEDS: BUDESONIDE RESPULE NEB 0.5 MG/2 ML AMP INHALATION (20:37)
[2023-09-23] MEDS: ASPIRIN 81 MG ENTERIC TABLET PO (20:58)
[2023-09-24] VITALS (24 sets, daily range): BP systolic 107–137; BP diastolic 31–83; PULSE 69–101; RESP 16–24; TEMP 36.4–36.7; O2SAT 93–97
[2023-09-24] MEDS: IPRATROPIUM BR 0.02% INH SOLN 0.5 MG/2.5 ML VIAL INHALATION ×4 (02:07→19:59)
[2023-09-24] MEDS: LEVALBUTEROL NEB 1.25 MG/3 ML 0.63 MG INHALATION ×4 (02:07→19:58)
[2023-09-24] MEDS: ACETAMINOPHEN 325 MG TABLET 650 MG PO (02:13)
[2023-09-24] MEDS: BUDESONIDE RESPULE NEB 0.5 MG/2 ML AMP INHALATION ×3 (07:01→19:59)
[2023-09-24] MEDS: FLUTICASONE PROP 110 MCG INHALER 12 GM (*SP) 2 PUFF INHALATION ×2 (07:02→19:59)
[2023-09-24] MEDS: predniSONE 20 MG TABLET 40 MG PO (10:01)
[2023-09-24] MEDS: NIFEdipine 30 MG TAB.ER.24 PO (10:02)
[2023-09-24] MEDS: POLYSACCHARIDE IRON COMPLEX 150 MG CAPSULE PO (10:02)
[2023-09-24] MEDS: PANTOPRAZOLE 40 MG TABLET PO (10:02)
[2023-09-24] MEDS: LOSARTAN POTASSIUM 100 MG TABLET PO (10:02)
[2023-09-24] MEDS: FUROSEMIDE INJ 40 MG/4 ML VIAL IV PUSH ×2 (10:02→20:43)
[2023-09-24] MEDS: SERTRALINE HCL 50 MG TABLET 100 MG PO (10:02)
[2023-09-24] MEDS: CHOLECALCIFEROL 1,000 UNITS TABLET 1000 UNITS PO (10:02)
[2023-09-24] MEDS: ALPRAZolam (*CRX) 0.25 MG TABLET PO ×2 (10:14→23:50)
--- NOTE | 2023-09-24 12:20 | PM.IMPN ---
Progress Note: A&P Assessment and Plan (1) Acute and chronic respiratory failure with hypoxia: Code(s): J96.21 - Acute and chronic respiratory failure with hypoxia Status: Acute Assessment and Plan: - did not meet SIRS criteria - ABG, initial: pH 7.418, pCO2 50, pO2 52.6, HCO3 31.6, O2 sat 87.3% on NC 6L. - CXR Pulmonary vascular congestion and redistribution and small pleural effusions consistent with congestive heart failure Aortic atherosclerosis Minimal atelectasis or infiltrate at the lung bases? - Chest CTA 1. No pulmonary embolus. Sensitivity is mildly decreased by motion artifact. 2. Small pleural effusions. 3. Severe emphysema. - WBC 6.7, did complain of cough/congestion, starting empiric abx for COPD exacerbation - BNP elevated - Viral PCR negative - suspect SOB is multifactorial/combined presentation of acute exacerbation of COPD and new onset CHF (see below) - continue AVAPS at night 09/22 note from pulm reviewed: Patient is improved and 80% back to her baseline currently.? patient receives Solu-Medrol 125 mg IV at 12 noon today. I will decrease her prednisone ? From 60 mg to 40 mg p.o. starting tomorrow. ? I will continue levalbuterol 1.25 nebulized q.6 hours and ipratropium 0.5 mg nebulized q.6 hours.? I will stop her fluticasone inhaler she is on systemic steroids. ? The patient has no focal infiltrates on her CT scan suggestive of a pneumonia.? She has a Levaquin allergy.? I will add azithromycin. ? I will check a procalcitonin in the morning.? I do not see previous alpha 1 anti trypsin genotype and I will send genotype and level tomorrow morning. ? Goal saturation 90-94% and will wean oxygen accordingly. 09/23- prednisone stopped will stop ceftriaxone and continue Zithromax. continue IS, opt has her own Cpap now-w ill wear it at night. Worked with PT/OT yesterday- did well. continue with nebulizers today. If stable- trilogy tomorrow and stop nebulizer (2) New onset of congestive heart failure: Code(s): I50.9 - Heart failure, unspecified Status: Acute Assessment and Plan: - BNP 1370 - evidence of vascular congestion/pleural effusions on imaging - no echo on file, ordered - starting Lasix 40 mg IVP BID - daily weights - monitor I&Os - trend renal function 09/22- echo completed (3) Acute exacerbation of chronic obstructive pulmonary disease (COPD): Code(s): J44.1 - Chronic obstructive pulmonary disease with (acute) exacerbation Status: Acute Assessment and Plan: - sputum culture if obtainable - continue Levalbuterol/Atrovent nebs Q6H FELICIA - add prednisone 40 mg PO daily, hold home 2.5 mg PO daily - start empiric abx for COPD exacerbation: starting ceftriaxone and azithromycin on 09/21 - hold Trelegy inhaler - continue supplemental O2, wean as tolerated to home dose - pulmonology consulted, Lucian HOOD. reduced oral prednisone from 60 -> 40 adding procalcitonin add US of BLE o exclude DVT given elevated dimer check alpha 1 anti trypsin genotype - due to anxiety will frequently not take deep inhalation, adding IS 09/22: see plan above procalcitonin wnl (4) Iron deficiency anemia: Code(s): D50.9 - Iron deficiency anemia, unspecified Status: Acute Assessment and Plan: - Hgb 9.4, previously 13.9 in May - suspect this is reduced due to recent fracture and surgery - cannot exclude complication of home Eliquis, no signs of bleeding on exam or reports of dark/tarry stools/BRBPR/hematemesis - MCHC low, given hx of JOSE EDUARDO will add iron supplement (5) Essential (primary) hypertension: Code(s): I10 - Essential (primary) hypertension Status: Acute Assessment and Plan: - chronic, currently controlled - continue home medications: Losartan 100 mg daily, nifedipine 30 mg ER daily - monitor Plan Patient here with shortness of breath. Recent R hip fracture with surgical management on 09/17, the seed to [facility]
[2023-09-24] MEDS: AZITHROMYCIN 500 MG/NS 250 ML 500 MG/250 ML BAG 250 MG IVPB (18:42)
[2023-09-24] MEDS: ASPIRIN 81 MG ENTERIC TABLET PO (20:43)
[2023-09-24] MEDS: guaiFENesin 12 HR 600 MG TABCR PO (20:43)
[2023-09-25] VITALS (18 sets, daily range): BP systolic 126–150; BP diastolic 44–59; PULSE 68–100; RESP 16–20; TEMP 36.4–36.5; O2SAT 92–96
[2023-09-25] MEDS: IPRATROPIUM BR 0.02% INH SOLN 0.5 MG/2.5 ML VIAL INHALATION ×3 (01:38→13:30)
[2023-09-25] MEDS: LEVALBUTEROL NEB 1.25 MG/3 ML 0.63 MG INHALATION ×3 (01:38→13:30)
[2023-09-25] MEDS: ACETAMINOPHEN 325 MG TABLET 650 MG PO (02:35)
--- NOTE | 2023-09-25 08:04 | PM.IMPN ---
Progress Note: A&P Assessment and Plan (1) Acute and chronic respiratory failure with hypoxia: Code(s): J96.21 - Acute and chronic respiratory failure with hypoxia Status: Acute Assessment and Plan: - did not meet SIRS criteria - ABG, initial: pH 7.418, pCO2 50, pO2 52.6, HCO3 31.6, O2 sat 87.3% on NC 6L. - CXR Pulmonary vascular congestion and redistribution and small pleural effusions consistent with congestive heart failure Aortic atherosclerosis Minimal atelectasis or infiltrate at the lung bases? - Chest CTA 1. No pulmonary embolus. Sensitivity is mildly decreased by motion artifact. 2. Small pleural effusions. 3. Severe emphysema. - WBC 6.7, did complain of cough/congestion, starting empiric abx for COPD exacerbation - BNP elevated - Viral PCR negative - suspect SOB is multifactorial/combined presentation of acute exacerbation of COPD and new onset CHF (see below) - continue cpap at night 09/22 note from pulm reviewed: Patient is improved and 80% back to her baseline currently.? patient receives Solu-Medrol 125 mg IV at 12 noon today. I will decrease her prednisone ? From 60 mg to 40 mg p.o. starting tomorrow. ? I will continue levalbuterol 1.25 nebulized q.6 hours and ipratropium 0.5 mg nebulized q.6 hours.? I will stop her fluticasone inhaler she is on systemic steroids. ? The patient has no focal infiltrates on her CT scan suggestive of a pneumonia.? She has a Levaquin allergy.? I will add azithromycin. ? I will check a procalcitonin in the morning.? I do not see previous alpha 1 anti trypsin genotype and I will send genotype and level tomorrow morning. ? Goal saturation 90-94% and will wean oxygen accordingly. 09/23- prednisone stopped will stop ceftriaxone and continue Zithromax. continue IS, opt has her own Cpap now-w ill wear it at night. Worked with PT/OT yesterday- did well. continue with nebulizers today. If stable- trelegy tomorrow and stop nebulizer 09/24 will stop nebulizer and restart home trelegy (2) New onset of congestive heart failure: Code(s): I50.9 - Heart failure, unspecified Status: Acute Assessment and Plan: - BNP 1370 - evidence of vascular congestion/pleural effusions on imaging - no echo on file, ordered - starting Lasix 40 mg IVP BID - daily weights - monitor I&Os - trend renal function 09/22- echo completed [id number] 09/24- no acute events overnight- monitor I&o, tele (3) Acute exacerbation of chronic obstructive pulmonary disease (COPD): Code(s): J44.1 - Chronic obstructive pulmonary disease with (acute) exacerbation Status: Acute Assessment and Plan: - sputum culture if obtainable - continue Levalbuterol/Atrovent nebs Q6H FELICIA - add prednisone 40 mg PO daily, hold home 2.5 mg PO daily - start empiric abx for COPD exacerbation: starting ceftriaxone and azithromycin on 09/21 - hold Trelegy inhaler - continue supplemental O2, wean as tolerated to home dose - pulmonology consulted, Lucian HOOD. reduced oral prednisone from 60 -> 40 adding procalcitonin add US of BLE o exclude DVT given elevated dimer check alpha 1 anti trypsin genotype - due to anxiety will frequently not take deep inhalation, adding IS 09/22: see plan above procalcitonin wnl (4) Iron deficiency anemia: Code(s): D50.9 - Iron deficiency anemia, unspecified Status: Acute Assessment and Plan: - Hgb 9.4, previously 13.9 in May - suspect this is reduced due to recent fracture and surgery - cannot exclude complication of home Eliquis, no signs of bleeding on exam or reports of dark/tarry stools/BRBPR/hematemesis - MCHC low, given hx of JOSE EDUARDO will add iron supplement (5) Essential (primary) hypertension: Code(s): I10 - Essential (primary) hypertension Status: Acute Assessment and Plan: - chronic, currently controlled - continue home medications: Losartan 100 mg daily, nifedipine 30 mg ER daily - monitor
[2023-09-25] MEDS: FLUTICASONE PROP 110 MCG INHALER 12 GM (*SP) 2 PUFF INHALATION ×2 (08:26→19:58)
[2023-09-25] MEDS: guaiFENesin 12 HR 600 MG TABCR PO ×2 (10:13→21:19)
[2023-09-25] MEDS: PANTOPRAZOLE 40 MG TABLET PO (10:13)
[2023-09-25] MEDS: SERTRALINE HCL 50 MG TABLET 100 MG PO (10:13)
[2023-09-25] MEDS: MULTIVITAMINS THERAPEUTIC TAB (*BKC) 1 TABLET PO (10:13)
[2023-09-25] MEDS: NIFEdipine 30 MG TAB.ER.24 PO (10:14)
[2023-09-25] MEDS: LOSARTAN POTASSIUM 100 MG TABLET PO (10:14)
[2023-09-25] MEDS: FUROSEMIDE INJ 40 MG/4 ML VIAL IV PUSH (10:14)
[2023-09-25] MEDS: POLYSACCHARIDE IRON COMPLEX 150 MG CAPSULE PO (10:14)
[2023-09-25] MEDS: CHOLECALCIFEROL 1,000 UNITS TABLET 1000 UNITS PO (10:20)
[2023-09-25] MEDS: AZITHROMYCIN 500 MG/NS 250 ML 500 MG/250 ML BAG 250 MG IVPB (18:03)
[2023-09-25] MEDS: ASPIRIN 81 MG ENTERIC TABLET PO (21:19)
[2023-09-25] MEDS: ALPRAZolam (*CRX) 0.25 MG TABLET PO (21:21)
[2023-09-26] VITALS (14 sets, daily range): BP systolic 99–134; BP diastolic 40–55; PULSE 70–113; RESP 16–20; TEMP 36.6–37.1; O2SAT 88–98
--- NOTE | 2023-09-26 07:46 | PM.IMPN ---
Progress Note: A&P Assessment and Plan (1) Acute and chronic respiratory failure with hypoxia: Code(s): J96.21 - Acute and chronic respiratory failure with hypoxia Status: Acute Assessment and Plan: - did not meet SIRS criteria - ABG, initial: pH 7.418, pCO2 50, pO2 52.6, HCO3 31.6, O2 sat 87.3% on NC 6L. - CXR Pulmonary vascular congestion and redistribution and small pleural effusions consistent with congestive heart failure Aortic atherosclerosis Minimal atelectasis or infiltrate at the lung bases? - Chest CTA 1. No pulmonary embolus. Sensitivity is mildly decreased by motion artifact. 2. Small pleural effusions. 3. Severe emphysema. - WBC 6.7, did complain of cough/congestion, starting empiric abx for COPD exacerbation - BNP elevated - Viral PCR negative - suspect SOB is multifactorial/combined presentation of acute exacerbation of COPD and new onset CHF (see below) - continue cpap at night 09/22 note from pulm reviewed: Patient is improved and 80% back to her baseline currently.? patient receives Solu-Medrol 125 mg IV at 12 noon today. I will decrease her prednisone ? From 60 mg to 40 mg p.o. starting tomorrow. ? I will continue levalbuterol 1.25 nebulized q.6 hours and ipratropium 0.5 mg nebulized q.6 hours.? I will stop her fluticasone inhaler she is on systemic steroids. ? The patient has no focal infiltrates on her CT scan suggestive of a pneumonia.? She has a Levaquin allergy.? I will add azithromycin. ? I will check a procalcitonin in the morning.? I do not see previous alpha 1 anti trypsin genotype and I will send genotype and level tomorrow morning. ? Goal saturation 90-94% and will wean oxygen accordingly. 09/23- prednisone stopped will stop ceftriaxone and continue Zithromax. continue IS, opt has her own Cpap now-w ill wear it at night. Worked with PT/OT yesterday- did well. continue with nebulizers today. If stable- trelegy tomorrow and stop nebulizer 09/24 will stop nebulizer and restart home trelegy (2) New onset of congestive heart failure: Code(s): I50.9 - Heart failure, unspecified Status: Acute Assessment and Plan: - BNP 1370 - evidence of vascular congestion/pleural effusions on imaging - no echo on file, ordered - starting Lasix 40 mg IVP BID - daily weights - monitor I&Os - trend renal function 09/22- echo completed [id number] 09/24- no acute events overnight- monitor I&o, tele 09/25- unmeasured output. lasix was switchd to PO instead of IV in anticipation of discharge... (3) Acute exacerbation of chronic obstructive pulmonary disease (COPD): Code(s): J44.1 - Chronic obstructive pulmonary disease with (acute) exacerbation Status: Acute Assessment and Plan: - sputum culture if obtainable - continue Levalbuterol/Atrovent nebs Q6H FELICIA - add prednisone 40 mg PO daily, hold home 2.5 mg PO daily - start empiric abx for COPD exacerbation: starting ceftriaxone and azithromycin on 09/21 - hold Trelegy inhaler - continue supplemental O2, wean as tolerated to home dose - pulmonology consulted, Lucian HOOD. reduced oral prednisone from 60 -> 40 adding procalcitonin add US of BLE o exclude DVT given elevated dimer check alpha 1 anti trypsin genotype - due to anxiety will frequently not take deep inhalation, adding IS 09/22: see plan above procalcitonin wnl (4) Iron deficiency anemia: Code(s): D50.9 - Iron deficiency anemia, unspecified Status: Acute Assessment and Plan: - Hgb 9.4, previously 13.9 in May - suspect this is reduced due to recent fracture and surgery - cannot exclude complication of home Eliquis, no signs of bleeding on exam or reports of dark/tarry stools/BRBPR/hematemesis - MCHC low, given hx of JOSE EDUARDO will add iron supplement (5) Essential (primary) hypertension: Code(s): I10 - Essential (primary) hypertension Status: Acute Assessment and Plan: - chronic, currently control
[2023-09-26] MEDS: FLUTICASONE/UMECLIDIN/VILANTER 100-62.5-25 MCG ELLIPTA 1 PUFF INHALATION (08:11)
[2023-09-26 08:18] LABS: Basophils Absolute Auto 0.1 K/mm3 (0.0-0.1); Basophils Percent Auto 0.7 % (0.2-1.2); Eosinophils Absolute Auto 0.5 K/mm3 (0-0.3); Eosinophils Percent Auto 5.3 % (0-4.4); Hematocrit 35.4 % (37.0-47.0); Hemoglobin 10.8 g/dL (12.0-15.0); Immature Granulocyte Absolute 0.22 K/mm3 (0.00-0.031); Immature Granulocyte Percent A 2.2 % (0-0.5); Lymphocytes Absolute Auto 1.34 K/mm3 (0.9-3.2); Lymphocytes Percent Auto 13.2 % (18.3-44.2); Mean Corpuscular HGB Conc 30.5 g/dl (32-36); Mean Corpuscular Hemoglobin 26.9 pg (26-34); Mean Corpuscular Volume 88.1 fl (80-100); Mean Platelet Volume 11.2 fl (7.4-10.4); Monocytes Absolute Auto 0.8 K/mm3 (0.1-0.6); Monocytes Percent Auto 7.6 % (2.6-8.5); Neutrophils Absolute Auto 7.3 K/mm3 (1.3-6.7); Platelet Count Result 301 k/mm3 (150-375); Red Blood Count 4.02 M/mm3 (4.2-5.4); Red Cell Distribution Width 15.9 % (11.5-14.5); White Blood Count 10.2 K/mm3 (4.5-10.0)
[2023-09-26 08:43] LABS: Alanine Aminotransferase 31 U/L (6-35); Albumin Level 3.6 g/dL (3.5-5.1); Alkaline Phosphatase 67 U/L (38-126); Aspartate Amino Transferase 42 U/L (14-36); Bilirubin,Total 0.5 mg/dL (0.2-1.3); Blood Urea Nitrogen 40 mg/dL (7-17); Calcium 8.6 mg/dL (8.4-10.2); Carbon Dioxide > 40 mmol/L (22-30); Chloride 93 mmol/L (98-107); Estimated CRCL calculation 40 ml/min; Estimated Glomerular Filt Rate 60; Glucose 94 mg/dL (65-110); Potassium 3.3 mmol/L (3.4-5.0); Sodium 138 mmol/L (137-145)
[2023-09-26 08:58] LABS: NT Pro B Type Natriuretic Pept 104 pg/mL (19.9-100)
[2023-09-26] MEDS: FUROSEMIDE 40 MG TABLET PO (09:52)
[2023-09-26] MEDS: guaiFENesin 12 HR 600 MG TABCR PO ×2 (09:52→20:21)
[2023-09-26] MEDS: POLYSACCHARIDE IRON COMPLEX 150 MG CAPSULE PO (09:52)
[2023-09-26] MEDS: CHOLECALCIFEROL 1,000 UNITS TABLET 1000 UNITS PO (09:53)
[2023-09-26] MEDS: NIFEdipine 30 MG TAB.ER.24 PO (09:53)
[2023-09-26] MEDS: PANTOPRAZOLE 40 MG TABLET PO (09:53)
[2023-09-26] MEDS: MULTIVITAMINS THERAPEUTIC TAB (*BKC) 1 TABLET PO (09:53)
[2023-09-26] MEDS: LOSARTAN POTASSIUM 100 MG TABLET PO (09:53)
[2023-09-26] MEDS: SERTRALINE HCL 50 MG TABLET 100 MG PO (09:53)
--- NOTE | 2023-09-26 12:24 | PM.PNPUL ---
Progress Note: A&P Assessment and Plan (1) New onset of congestive heart failure: Code(s): I50.9 - Heart failure, unspecified Status: Acute (2) Acute and chronic respiratory failure with hypoxia: Code(s): J96.21 - Acute and chronic respiratory failure with hypoxia Status: Acute Assessment and Plan: This 82-year-old female with history of severe COPD related to severe confluent centrilobular emphysema by chest CT with chronic hypoxemic respiratory failure on home ventilatory support for COPD and obstructive sleep apnea, chronically on triple inhaler and also low-dose steroids until recently presumably for COPD exacerbations was hospitalized because of worsening shortness of breath and hypoxemia. She was found to have bilateral pleural effusions probably related to congestive heart failure/fluid overload; of note the patient recently underwent hip replacement and underwent physical therapy at the rehab center for 2 days following surgery. On physical exam the patient has distant breath sounds but no wheezing, related to her advanced COPD. She thinks she is back at baseline. She still on antibiotics and has also received treatment for COPD exacerbation with a steroids. Currently she is off steroids. Plan: Appears as though the patient is back at baseline. Okay to discharge her back to rehab center. She will continue with her triple inhaler short-acting bronchodilators and home oxygen and her home ventilator as before. Patient will need to to see her cytometry technologist at [place] [facility] in approximately 1 month from today. I will sign off please call with any questions. (3) SOB (shortness of breath): Code(s): R06.02 - Shortness of breath Status: Acute (4) Acute exacerbation of chronic obstructive pulmonary disease (COPD): Code(s): J44.1 - Chronic obstructive pulmonary disease with (acute) exacerbation Status: Acute (5) J CARLOS (obstructive sleep apnea): Code(s): G47.33 - Obstructive sleep apnea (adult) (pediatric) Status: Acute Subjective Date/time seen: 09/26/23 12:24 Interval history: This 82-year-old female has had a chronic hypoxemic respiratory failure related to advanced COPD. Patient was brought into the hospital after she was found to have a more shortness of breath and worsening hypoxemia at rehab center where she was going physical therapy following hip replacement. She has severe COPD by pulmonary function testing done 6 years ago. Her FEV1 in chart was 0.6 L or 33% predicted. The patient has been chronically on supplemental oxygen 247, maintenance bronchodilators, low-dose prednisone presumably for COPD exacerbations in. In addition she has history of obstructive sleep apnea and has been on trilogy ventilator. On admission she was found to have a small pleural effusions bilaterally. The patient has been treated with nebulized bronchodilators antibiotics and diuretics. Her respiratory status has improved over the last few days. Review of Systems Review of Systems: All systems reviewed & are unremarkable except as noted in HPI and below (HPI and below) Exam Narrative: GENERAL APPEARANCE: Well developed, well nourished, alert and cooperative, and appears to be in mild respiratory distress while on supplemental oxygen SKIN: Inspection of the skin reveals no rashes, ulcerations or petechiae. HEENT: Sclerae anicteric and conjunctivae pink and moist. Extraocular movements were intact and pupils were equal, round, and reactive to light. The oral mucosa, hard and soft palate, tongue and posterior pharynx were normal. NECK: Supple. There was no thyroid enlargement, and no tenderness, or masses were felt. CHEST: Increased AP diameter, mild kyphosis LUNGS: Distant breath sounds no wheezing CARDIAC: There was a regular rate and rhythm without any murmurs, gallops, rubs. ABDOMEN: Soft and nontender with normal bowel sounds. There was no organomegaly.
[2023-09-26] MEDS: AZITHROMYCIN 500 MG/NS 250 ML 500 MG/250 ML BAG 250 MG IVPB (17:16)
[2023-09-26] MEDS: ASPIRIN 81 MG ENTERIC TABLET PO (20:21)
[2023-09-26] MEDS: ALPRAZolam (*CRX) 0.25 MG TABLET PO (20:22)
[2023-09-26] MEDS: ACETAMINOPHEN 325 MG TABLET 650 MG PO (20:24)
[2023-09-27] VITALS (13 sets, daily range): BP systolic 126–143; BP diastolic 41–91; PULSE 67–97; RESP 18–24; TEMP 36.1–36.7; O2SAT 93–100
[2023-09-27] MEDS: FLUTICASONE PROP 110 MCG INHALER 12 GM (*SP) 2 PUFF INHALATION ×2 (07:09→20:18)
[2023-09-27] MEDS: FLUTICASONE/UMECLIDIN/VILANTER 100-62.5-25 MCG ELLIPTA 1 PUFF INHALATION (07:09)
[2023-09-27] MEDS: NIFEdipine 30 MG TAB.ER.24 PO (08:35)
[2023-09-27] MEDS: MULTIVITAMINS THERAPEUTIC TAB (*BKC) 1 TABLET PO (08:35)
[2023-09-27] MEDS: LOSARTAN POTASSIUM 100 MG TABLET PO (08:35)
[2023-09-27] MEDS: POLYSACCHARIDE IRON COMPLEX 150 MG CAPSULE PO (08:35)
[2023-09-27] MEDS: guaiFENesin 12 HR 600 MG TABCR PO ×2 (08:36→20:46)
[2023-09-27] MEDS: CHOLECALCIFEROL 1,000 UNITS TABLET 1000 UNITS PO (08:36)
[2023-09-27] MEDS: PANTOPRAZOLE 40 MG TABLET PO (08:36)
[2023-09-27] MEDS: SERTRALINE HCL 50 MG TABLET 100 MG PO (08:36)
[2023-09-27] MEDS: FUROSEMIDE 40 MG TABLET PO (08:36)
--- NOTE | 2023-09-27 08:53 | PM.IMPN ---
Progress Note: A&P Assessment and Plan (1) Acute and chronic respiratory failure with hypoxia: Code(s): J96.21 - Acute and chronic respiratory failure with hypoxia Status: Acute Assessment and Plan: - did not meet SIRS criteria - ABG, initial: pH 7.418, pCO2 50, pO2 52.6, HCO3 31.6, O2 sat 87.3% on NC 6L. - CXR Pulmonary vascular congestion and redistribution and small pleural effusions consistent with congestive heart failure Aortic atherosclerosis Minimal atelectasis or infiltrate at the lung bases? - Chest CTA 1. No pulmonary embolus. Sensitivity is mildly decreased by motion artifact. 2. Small pleural effusions. 3. Severe emphysema. - WBC 6.7, did complain of cough/congestion, starting empiric abx for COPD exacerbation - BNP elevated - Viral PCR negative - suspect SOB is multifactorial/combined presentation of acute exacerbation of COPD and new onset CHF (see below) - continue cpap at night 09/22 note from pulm reviewed: Patient is improved and 80% back to her baseline currently.? patient receives Solu-Medrol 125 mg IV at 12 noon today. I will decrease her prednisone ? From 60 mg to 40 mg p.o. starting tomorrow. ? I will continue levalbuterol 1.25 nebulized q.6 hours and ipratropium 0.5 mg nebulized q.6 hours.? I will stop her fluticasone inhaler she is on systemic steroids. ? The patient has no focal infiltrates on her CT scan suggestive of a pneumonia.? She has a Levaquin allergy.? I will add azithromycin. ? I will check a procalcitonin in the morning.? I do not see previous alpha 1 anti trypsin genotype and I will send genotype and level tomorrow morning. ? Goal saturation 90-94% and will wean oxygen accordingly. 09/23- prednisone stopped will stop ceftriaxone and continue Zithromax. continue IS, opt has her own Cpap now-w ill wear it at night. Worked with PT/OT yesterday- did well. continue with nebulizers today. If stable- trelegy tomorrow and stop nebulizer 09/24 will stop nebulizer and restart home trelegy 09/25- stable- continue 09/26 anticipate discharge back to facility (2) New onset of congestive heart failure: Code(s): I50.9 - Heart failure, unspecified Status: Acute Assessment and Plan: - BNP 1370 - evidence of vascular congestion/pleural effusions on imaging - no echo on file, ordered - starting Lasix 40 mg IVP BID - daily weights - monitor I&Os - trend renal function 09/22- echo completed [id number] 09/24- no acute events overnight- monitor I&o, tele 09/25- unmeasured output. lasix was switchd to PO instead of IV in anticipation of discharge... 09/26- stable (3) Acute exacerbation of chronic obstructive pulmonary disease (COPD): Code(s): J44.1 - Chronic obstructive pulmonary disease with (acute) exacerbation Status: Acute Assessment and Plan: - sputum culture if obtainable - continue Levalbuterol/Atrovent nebs Q6H FELICIA - add prednisone 40 mg PO daily, hold home 2.5 mg PO daily - start empiric abx for COPD exacerbation: starting ceftriaxone and azithromycin on 09/21 - hold Trelegy inhaler - continue supplemental O2, wean as tolerated to home dose - pulmonology consulted, Lucian HOOD. reduced oral prednisone from 60 -> 40 adding procalcitonin add US of BLE o exclude DVT given elevated dimer check alpha 1 anti trypsin genotype - due to anxiety will frequently not take deep inhalation, adding IS 09/22: see plan above procalcitonin wnl (4) Iron deficiency anemia: Code(s): D50.9 - Iron deficiency anemia, unspecified Status: Acute Assessment and Plan: - Hgb 9.4, previously 13.9 in May - suspect this is reduced due to recent fracture and surgery - cannot exclude complication of home Eliquis, no signs of bleeding on exam or reports of dark/tarry stools/BRBPR/hematemesis - MCHC low, given hx of JOSE EDUARDO will add iron supplement (5) Essential (primary) hypertension: Code(s): I10 - Essential (primary) hypertension
[2023-09-27 10:23] LABS: Alpha-1-Antitrypsin, QN 273 mg/dL (83-199)
--- NOTE | 2023-09-27 11:28 | P.DS_ITS ---
DS: Admitting Diagnosis Discharge Date 09/26 Admitting Diagnosis sob DS: Discharge Diagnosis Discharge Diagnosis (1) Acute and chronic respiratory failure with hypoxia: Code(s): J96.21 - Acute and chronic respiratory failure with hypoxia Status: Acute Assessment and Plan: - did not meet SIRS criteria - ABG, initial: pH 7.418, pCO2 50, pO2 52.6, HCO3 31.6, O2 sat 87.3% on NC 6L. - CXR Pulmonary vascular congestion and redistribution and small pleural effusions consistent with congestive heart failure Aortic atherosclerosis Minimal atelectasis or infiltrate at the lung bases? - Chest CTA 1. No pulmonary embolus. Sensitivity is mildly decreased by motion artifact. 2. Small pleural effusions. 3. Severe emphysema. - WBC 6.7, did complain of cough/congestion, starting empiric abx for COPD exacerbation - BNP elevated - Viral PCR negative - suspect SOB is multifactorial/combined presentation of acute exacerbation of COPD and new onset CHF (see below) - continue cpap at night 09/22 note from pulm reviewed: Patient is improved and 80% back to her baseline currently.? patient receives Solu-Medrol 125 mg IV at 12 noon today. I will decrease her prednisone ? From 60 mg to 40 mg p.o. starting tomorrow. ? I will continue levalbuterol 1.25 nebulized q.6 hours and ipratropium 0.5 mg nebulized q.6 hours.? I will stop her fluticasone inhaler she is on systemic steroids. ? The patient has no focal infiltrates on her CT scan suggestive of a pneumonia.? She has a Levaquin allergy.? I will add azithromycin. ? I will check a procalcitonin in the morning.? I do not see previous alpha 1 anti trypsin genotype and I will send genotype and level tomorrow morning. ? Goal saturation 90-94% and will wean oxygen accordingly. 09/23- prednisone stopped will stop ceftriaxone and continue Zithromax. continue IS, opt has her own Cpap now-w ill wear it at night. Worked with PT/OT yesterday- did well. continue with nebulizers today. If stable- trelegy tomorrow and stop nebulizer 09/24 will stop nebulizer and restart home trelegy 09/25- stable- continue 09/26 anticipate discharge back to facility (2) New onset of congestive heart failure: Code(s): I50.9 - Heart failure, unspecified Status: Acute Assessment and Plan: - BNP 1370 - evidence of vascular congestion/pleural effusions on imaging - no echo on file, ordered - starting Lasix 40 mg IVP BID - daily weights - monitor I&Os - trend renal function 09/22- echo completed [id number] 09/24- no acute events overnight- monitor I&o, tele 09/25- unmeasured output. lasix was switchd to PO instead of IV in anticipation of discharge... 09/26- stable (3) Acute exacerbation of chronic obstructive pulmonary disease (COPD): Code(s): J44.1 - Chronic obstructive pulmonary disease with (acute) exacerbation Status: Acute Assessment and Plan: - sputum culture if obtainable - continue Levalbuterol/Atrovent nebs Q6H FELICIA - add prednisone 40 mg PO daily, hold home 2.5 mg PO daily - start empiric abx for COPD exacerbation: starting ceftriaxone and azithromycin on 09/21 - hold Trelegy inhaler - continue supplemental O2, wean as tolerated to home dose - pulmonology consulted, Lucian HOOD. reduced oral prednisone from 60 -> 40 adding procalcitonin add US of BLE o exclude DVT given elevated dimer check alpha 1 anti trypsin genotype - due to anxiety will frequently not take deep inhalation, adding IS 09/22: see plan above procalcitonin wnl (4) Iron deficiency anemia: Code(s): D5
--- NOTE | 2023-09-27 15:37 | P.PNIM_ITS ---
Progress Note: A&P Assessment and Plan (1) Acute and chronic respiratory failure with hypoxia: Code(s): J96.21 - Acute and chronic respiratory failure with hypoxia Status: Acute Assessment and Plan: - did not meet SIRS criteria - ABG, initial: pH 7.418, pCO2 50, pO2 52.6, HCO3 31.6, O2 sat 87.3% on NC 6L. - CXR Pulmonary vascular congestion and redistribution and small pleural effusions consistent with congestive heart failure Aortic atherosclerosis Minimal atelectasis or infiltrate at the lung bases? - Chest CTA 1. No pulmonary embolus. Sensitivity is mildly decreased by motion artifact. 2. Small pleural effusions. 3. Severe emphysema. - WBC 6.7, did complain of cough/congestion, starting empiric abx for COPD exacerbation - BNP elevated - Viral PCR negative - suspect SOB is multifactorial/combined presentation of acute exacerbation of COPD and new onset CHF (see below) - continue cpap at night 09/22 note from pulm reviewed: Patient is improved and 80% back to her baseline currently.? patient receives Solu-Medrol 125 mg IV at 12 noon today. I will decrease her prednisone ? From 60 mg to 40 mg p.o. starting tomorrow. ? I will continue levalbuterol 1.25 nebulized q.6 hours and ipratropium 0.5 mg nebulized q.6 hours.? I will stop her fluticasone inhaler she is on systemic steroids. ? The patient has no focal infiltrates on her CT scan suggestive of a pneumonia.? She has a Levaquin allergy.? I will add azithromycin. ? I will check a procalcitonin in the morning.? I do not see previous alpha 1 anti trypsin genotype and I will send genotype and level tomorrow morning. ? Goal saturation 90-94% and will wean oxygen accordingly. 09/23- prednisone stopped will stop ceftriaxone and continue Zithromax. continue IS, opt has her own Cpap now-w ill wear it at night. Worked with PT/OT yesterday- did well. continue with nebulizers today. If stable- trelegy tomorrow and stop nebulizer 09/24 will stop nebulizer and restart home trelegy 09/25- stable- continue 09/26 anticipate discharge back to facility (2) New onset of congestive heart failure: Code(s): I50.9 - Heart failure, unspecified Status: Acute Assessment and Plan: - BNP 1370 - evidence of vascular congestion/pleural effusions on imaging - no echo on file, ordered - starting Lasix 40 mg IVP BID - daily weights - monitor I&Os - trend renal function 09/22- echo completed [id number] 09/24- no acute events overnight- monitor I&o, tele 09/25- unmeasured output. lasix was switchd to PO instead of IV in anticipation of discharge... 09/26- stable (3) Acute exacerbation of chronic obstructive pulmonary disease (COPD): Code(s): J44.1 - Chronic obstructive pulmonary disease with (acute) exacerbation Status: Acute Assessment and Plan: - sputum culture if obtainable - continue Levalbuterol/Atrovent nebs Q6H FELICIA - add prednisone 40 mg PO daily, hold home 2.5 mg PO daily - start empiric abx for COPD exacerbation: starting ceftriaxone and azithromycin on 09/21 - hold Trelegy inhaler - continue supplemental O2, wean as tolerated to home dose - pulmonology consulted, Lucian HOOD. reduced oral prednisone from 60 -> 40 adding procalcitonin add US of BLE o exclude DVT given elevated dimer check alpha 1 anti trypsin genotype - due to anxiety will frequently not take deep inhalation, adding IS 09/22: see plan above procalcitonin wnl (4) Iron deficiency anemia: Code(s): D50.9 - Iron deficiency anemia, unspecified Status: Acute Assessment and Plan:
[2023-09-27] MEDS: ASPIRIN 81 MG ENTERIC TABLET PO (20:46)
[2023-09-27] MEDS: ALPRAZolam (*CRX) 0.25 MG TABLET PO (20:46)
[2023-09-27] MEDS: ACETAMINOPHEN 325 MG TABLET 650 MG PO (20:52)
[2023-09-28] VITALS (7 sets, daily range): BP systolic 131; BP diastolic 64; PULSE 70–79; RESP 13–18; TEMP 36.4; O2SAT 91–100
--- NOTE | 2023-09-28 07:42 | PM.DS ---
DS: Admitting Diagnosis Discharge Date 09/28/2023 0800 Admitting Diagnosis Acute on chronic respiratory failure DS: Discharge Diagnosis Discharge Diagnosis (1) Acute and chronic respiratory failure with hypoxia: Code(s): J96.21 - Acute and chronic respiratory failure with hypoxia Status: Acute Assessment and Plan: - did not meet SIRS criteria - ABG, initial: pH 7.418, pCO2 50, pO2 52.6, HCO3 31.6, O2 sat 87.3% on NC 6L. - CXR Pulmonary vascular congestion and redistribution and small pleural effusions consistent with congestive heart failure Aortic atherosclerosis Minimal atelectasis or infiltrate at the lung bases? - Chest CTA 1. No pulmonary embolus. Sensitivity is mildly decreased by motion artifact. 2. Small pleural effusions. 3. Severe emphysema. - WBC 6.7, did complain of cough/congestion, starting empiric abx for COPD exacerbation - BNP elevated - Viral PCR negative - suspect SOB is multifactorial/combined presentation of acute exacerbation of COPD and new onset CHF (see below) - continue cpap at night 09/22 note from pulm reviewed: Patient is improved and 80% back to her baseline currently.? patient receives Solu-Medrol 125 mg IV at 12 noon today. I will decrease her prednisone ? From 60 mg to 40 mg p.o. starting tomorrow. ? I will continue levalbuterol 1.25 nebulized q.6 hours and ipratropium 0.5 mg nebulized q.6 hours.? I will stop her fluticasone inhaler she is on systemic steroids. ? The patient has no focal infiltrates on her CT scan suggestive of a pneumonia.? She has a Levaquin allergy.? I will add azithromycin. ? I will check a procalcitonin in the morning.? I do not see previous alpha 1 anti trypsin genotype and I will send genotype and level tomorrow morning. ? Goal saturation 90-94% and will wean oxygen accordingly. 09/23- prednisone stopped will stop ceftriaxone and continue Zithromax. continue IS, opt has her own Cpap now-w ill wear it at night. Worked with PT/OT yesterday- did well. continue with nebulizers today. If stable- trelegy tomorrow and stop nebulizer 09/24 will stop nebulizer and restart home trelegy 09/25- stable- continue 09/26 anticipate discharge back to facility (2) New onset of congestive heart failure: Code(s): I50.9 - Heart failure, unspecified Status: Acute Assessment and Plan: - BNP 1370 - evidence of vascular congestion/pleural effusions on imaging - no echo on file, ordered - starting Lasix 40 mg IVP BID - daily weights - monitor I&Os - trend renal function 09/22- echo completed [id number] 09/24- no acute events overnight- monitor I&o, tele 09/25- unmeasured output. lasix was switchd to PO instead of IV in anticipation of discharge... 09/26- stable (3) Acute exacerbation of chronic obstructive pulmonary disease (COPD): Code(s): J44.1 - Chronic obstructive pulmonary disease with (acute) exacerbation Status: Acute Assessment and Plan: - sputum culture if obtainable - continue Levalbuterol/Atrovent nebs Q6H FELICIA - add prednisone 40 mg PO daily, hold home 2.5 mg PO daily - start empiric abx for COPD exacerbation: starting ceftriaxone and azithromycin on 09/21 - hold Trelegy inhaler - continue supplemental O2, wean as tolerated to home dose - pulmonology consulted, Lucian HOOD. reduced oral prednisone from 60 -> 40 adding procalcitonin add US of BLE o exclude DVT given elevated dimer check alpha 1 anti trypsin genotype - due to anxiety will frequently not take deep inhalation, adding IS 09/22: see plan above procalcitonin wnl (4) Iron deficiency anemia: Code(s): D50.9 - Iron deficiency anemia, unspecified Status: Acute Assessment and Plan: - Hgb 9.4, previously 13.9 in May - suspect this is reduced due to recent fracture and surgery - cannot exclude complication of home Eliquis, no signs of bleeding on exam or reports of dark/tarry stools/BRBPR/hematemesis - MCHC low, given hx of JOSE EDUARDO wi
[2023-09-28] MEDS: PANTOPRAZOLE 40 MG TABLET PO (08:32)
[2023-09-28] MEDS: NIFEdipine 30 MG TAB.ER.24 PO (08:32)
[2023-09-28] MEDS: FLUTICASONE PROP 110 MCG INHALER 12 GM (*SP) 2 PUFF INHALATION (08:32)
[2023-09-28] MEDS: guaiFENesin 12 HR 600 MG TABCR PO (08:32)
[2023-09-28] MEDS: POLYSACCHARIDE IRON COMPLEX 150 MG CAPSULE PO (08:32)
[2023-09-28] MEDS: MULTIVITAMINS THERAPEUTIC TAB (*BKC) 1 TABLET PO (08:32)
[2023-09-28] MEDS: LOSARTAN POTASSIUM 100 MG TABLET PO (08:32)
[2023-09-28] MEDS: FUROSEMIDE 40 MG TABLET PO (08:32)
[2023-09-28] MEDS: CHOLECALCIFEROL 1,000 UNITS TABLET 1000 UNITS PO (08:32)
[2023-09-28] MEDS: SERTRALINE HCL 50 MG TABLET 100 MG PO (08:32)
== END 2023-09-28 14:19 | DRG 291 ==
LOC: ANHED 12:04 → ANH2MED 12:18
PROVIDERS: Internal Medicine Pulmonary Disease; Nurse Practitioner; Student in an Organized Health Care Education/Training Program; Admitting Provider Internal Medicine; Emergency Provider Physician Assistant; PCP Nurse Practitioner Family; Visit Provider Nurse Practitioner
DX: I11.0 Hypertensive heart disease with heart failure (principal); I50.33 Acute on chronic diastolic (congestive) heart failure; J96.21 Acute and chronic respiratory failure with hypoxia; J44.1 Chronic obstructive pulmonary disease with (acute) exacerbation; J96.10 Chronic respiratory failure, unspecified whether with hypoxia or hypercapnia; D50.9 Iron deficiency anemia, unspecified; E78.2 Mixed hyperlipidemia; H35.30 Unspecified macular degeneration; G47.33 Obstructive sleep apnea (adult) (pediatric); F41.9 Anxiety disorder, unspecified; W19.XXXD Unspecified fall, subsequent encounter; Z20.822 Contact with and (suspected) exposure to COVID-19; S72.011D Unspecified intracapsular fracture of right femur, subsequent encounter for closed fracture with routine healing; Z79.82 Long term (current) use of aspirin; Z99.81 Dependence on supplemental oxygen; Z72.0 Tobacco use
CPT/HCPCS: 36415; 36600; 71046; 71275; 80053; 82103; 82104; 82375; 82805; 83050; 83880; 84145; 84484; 85025; 85380; 85610; 85730; 87637; 87641; 93005; 93306; 93970; 94002; 94640; 96365; 96374; 96375; 97110; 97116; 97162; 97166; 97530; 97535; 99285; A9270; G0378; J0456; J0696; J1940; J2919; J7512; Q9967

== ENCOUNTER 2023-11-22 12:06 | Outpatient (CLI) | payer MEDICARE, SELFPAY ==
[2023-11-22 12:40] LABS: Basophils Absolute Auto 0.1 K/mm3 (0.0-0.1); Eosinophils Absolute Auto 0.3 K/mm3 (0-0.3); Eosinophils Percent Auto 3.8 % (0-4.4); Hematocrit 40.9 % (37.0-47.0); Immature Granulocyte Absolute 0.03 K/mm3 (0.00-0.031); Immature Granulocyte Percent A 0.4 % (0-0.5); Lymphocytes Absolute Auto 1.12 K/mm3 (0.9-3.2); Lymphocytes Percent Auto 15.8 % (18.3-44.2); Mean Corpuscular HGB Conc 29.3 g/dl (32-36); Mean Corpuscular Hemoglobin 25.6 pg (26-34); Mean Corpuscular Volume 87.2 fl (80-100); Mean Platelet Volume 11.5 fl (7.4-10.4); Monocytes Absolute Auto 0.5 K/mm3 (0.1-0.6); Monocytes Percent Auto 6.5 % (2.6-8.5); Neutrophils Absolute Auto 5.1 K/mm3 (1.3-6.7); Neutrophils Percent Auto 72.5 % (45.5-73.1); Platelet Count Result 306 k/mm3 (150-375); Red Blood Count 4.69 M/mm3 (4.2-5.4); White Blood Count 7.1 K/mm3 (4.5-10.0)
[2023-11-22 12:56] LABS: Alanine Aminotransferase 13 U/L (6-35); Albumin Level 4.2 g/dL (3.5-5.1); Alkaline Phosphatase 86 U/L (38-126); Anion Gap 6 mmol/L (4-12); Aspartate Amino Transferase 24 U/L (14-36); Bilirubin,Total 0.3 mg/dL (0.2-1.3); Blood Urea Nitrogen 14 mg/dL (7-17); Calcium 9.4 mg/dL (8.4-10.2); Carbon Dioxide 39 mmol/L (22-30); Chloride 96 mmol/L (98-107); Estimated Glomerular Filt Rate > 60; Glucose 86 mg/dL (65-110); Potassium 4.3 mmol/L (3.4-5.0); Sodium 141 mmol/L (137-145)
[2023-11-22 13:17] LABS: Iron 43 ug/dL (37-170)
[2023-11-22 13:23] LABS: Thyroid Stimulating Hormone 0.945 uIU/mL (0.465-4.680)
[2023-11-22 13:33] LABS: Percent Iron Saturation 12 % (20-50)
[2023-11-22 13:47] LABS: Free T4 Free Thyroxine 1.48 ng/mL (0.78-2.19)
== END 2023-11-22 12:07 | disposition home or self-care (01) ==
LOC: ANHLAB 12:09
PROVIDERS: PCP Nurse Practitioner Family; Visit Provider Nurse Practitioner Family
DX: D64.9 Anemia, unspecified (principal); D50.9 Iron deficiency anemia, unspecified; R19.7 Diarrhea, unspecified; R68.89 Other general symptoms and signs
CPT/HCPCS: 36415; 80053; 83540; 83550; 84439; 84443; 85025

== ENCOUNTER 2023-11-26 09:41 | Outpatient (CLI) | payer MEDICARE, SELFPAY ==
--- NOTE | ~2023-11-26 | XR_ITS ---
XR chest 2V 11/26/2023 10:00 Indication: History of COPD. Shortness of breath. Recent hospital stay. Procedure: 2 view chest Comparison: Comparison to multiple prior studies sequentially, with oldest reviewed study dated 07/2017. Findings: The lungs are hyperinflated which is consistent with, but not diagnostic of chronic obstruc tive pulmonary disease. Prominent central pulmonary arteries suggesting pulmonary hypertension. There is evidence of chronic granulomatous disease. Small pleural effusions. There are multiple lower thor acic wedge compression fractures which appear chronic. There is atherosclerosis of the aorta. Mild ca rdiomegaly. Basilar atelectasis. Impression: 1: Mild cardiomegaly with pulmonary vascular congestion. Reviewed, dictated and finalized at location B. Impression: 1: Mild cardiomegaly with pulmonary vascular congestion.
[2023-11-26 12:36] LABS: Toxigenic C. Diff NEGATIVE (NEGATIVE)
== END 2023-11-26 09:42 | disposition home or self-care (01) ==
PROVIDERS: PCP Nurse Practitioner Family; Visit Provider Nurse Practitioner Family
DX: J90 Pleural effusion, not elsewhere classified (principal); D50.9 Iron deficiency anemia, unspecified; D64.9 Anemia, unspecified; R19.7 Diarrhea, unspecified; R68.89 Other general symptoms and signs; I51.7 Cardiomegaly
CPT/HCPCS: 71046; 87045; 87177; 87209; 87425; 87427; 87449; 87493; 89055

== ENCOUNTER 2024-02-03 11:27 | Outpatient (CLI) | payer MEDICARE, SELFPAY ==
--- NOTE | ~2024-02-03 | XR_ITS ---
EXAMINATION: XR abdomen/kub 1V DATE: 02/03/2024 11:43 INDICATION: Diarrhea. TECHNIQUE: A supine view of the abdomen on 2 radiographs was obtained. COMPARISON: None. FINDINGS: There are no dilated loops of bowel. There is a moderate volume of stool in the colon. Ther e is a bipolar right hip hemiarthroplasty. IMPRESSION: 1. Nonobstructive bowel gas pattern. Reviewed, dictated and finalized at location A.
== END 2024-02-03 11:28 | disposition home or self-care (01) ==
LOC: ANHIMG 11:29
PROVIDERS: PCP Nurse Practitioner Family; Visit Provider Nurse Practitioner Family
DX: R14.3 Flatulence (principal); R19.7 Diarrhea, unspecified
CPT/HCPCS: 74018

== ENCOUNTER 2024-02-07 07:58 | Outpatient (CLI) | payer MEDICARE, SELFPAY ==
[2024-02-07 08:44] LABS: Basophils Absolute Auto 0.1 K/mm3 (0.0-0.1); Basophils Percent Auto 0.7 % (0.2-1.2); Eosinophils Absolute Auto 0.2 K/mm3 (0-0.3); Eosinophils Percent Auto 3.4 % (0-4.4); Hematocrit 44.6 % (37.0-47.0); Hemoglobin 13.2 g/dL (12.0-15.0); Immature Granulocyte Absolute 0.02 K/mm3 (0.00-0.031); Immature Granulocyte Percent A 0.3 % (0-0.5); Lymphocytes Absolute Auto 1.13 K/mm3 (0.9-3.2); Mean Corpuscular HGB Conc 29.6 g/dl (32-36); Mean Corpuscular Volume 84.6 fl (80-100); Mean Platelet Volume 10.9 fl (7.4-10.4); Monocytes Absolute Auto 0.6 K/mm3 (0.1-0.6); Monocytes Percent Auto 7.9 % (2.6-8.5); Neutrophils Absolute Auto 5.1 K/mm3 (1.3-6.7); Neutrophils Percent Auto 71.7 % (45.5-73.1); Platelet Count Result 211 k/mm3 (150-375); Red Blood Count 5.27 M/mm3 (4.2-5.4); Red Cell Distribution Width 18.1 % (11.5-14.5); White Blood Count 7.1 K/mm3 (4.5-10.0)
[2024-02-07 08:50] LABS: Add Urine Microscopic? YES; Appearance Urine Clear (Clear); Bacteria Urine 1+ /hpf; Bilirubin Urine Negative (Negative); Blood Urine Negative (Negative); Color Urine Yellow (Yellow); Glucose Urine UA Negative (Negative); Ketones Urine Negative (Negative); Leukocyte Esterase Ur 2+ LEU/UL (Negative); Nitrate Urine Negative (Negative); Non Pathogenic Casts 0-2; Protein Urine Trace mg/dL (Negative); RBC Urine 0-2 /hpf (0-2); Specific Grav Ur 1.024 (1.001-1.035); Squamous Epithelial Cell Urine Occasional /hpf (Few); Urobilinogen Urine 0.2 mg/dL (<2.0); WBC Urine 21-50 /hpf (0-3); pH Urine 5.5 (5.0-9.0)
[2024-02-07 09:05] LABS: Alanine Aminotransferase 19 U/L (6-35); Alkaline Phosphatase 105 U/L (38-126); Aspartate Amino Transferase 29 U/L (14-36); Bilirubin,Total 0.3 mg/dL (0.2-1.3); Blood Urea Nitrogen 23 mg/dL (7-17); Calcium 8.8 mg/dL (8.4-10.2); Carbon Dioxide > 40 mmol/L (22-30); Chloride 99 mmol/L (98-107); Cholesterol 214 mg/dL (0-200); Estimated Glomerular Filt Rate > 60; Glucose 91 mg/dL (65-110); HDL Direct 62 mg/dL; Sodium 143 mmol/L (137-145); Triglycerides 112 mg/dL (<150)
[2024-02-07 09:10] LABS: LDL Cholesterol Direct 90 mg/dL
[2024-02-07 09:27] LABS: Anisocytosis 1+; Platelet Estimate Adequate (Adequate); Schistocytes None Seen
[2024-02-09 00:32] LABS: Amphetamines NEGATIVE ng/mL (<500); Barbiturates NEGATIVE ng/mL (<300); Benzodiazepines POSITIVE ng/mL (<100); Cocaine Metabolite NEGATIVE ng/mL (<150); Marijuana Metabolite NEGATIVE ng/mL (<20); Methadone Metabolite NEGATIVE ng/mL (<100); Opiates NEGATIVE ng/mL (<100); Oxidant NEGATIVE mcg/mL (<200); PCP NEGATIVE ng/mL (<25); pH 5.5 (4.5-9.0)
== END 2024-02-07 07:59 | disposition home or self-care (01) ==
PROVIDERS: PCP Nurse Practitioner Family; Visit Provider Nurse Practitioner Family
DX: J44.9 Chronic obstructive pulmonary disease, unspecified (principal); I10 Essential (primary) hypertension; G47.33 Obstructive sleep apnea (adult) (pediatric); R78.2 Finding of cocaine in blood; Z51.81 Encounter for therapeutic drug level monitoring
CPT/HCPCS: 36415; 80053; 80061; 80307; 81001; 85025

== ENCOUNTER 2024-03-09 13:47 | Inpatient (IN) | payer MEDICARE, SELFPAY ==
[2024-03-09] VITALS (16 sets, daily range): BP systolic 101–146; BP diastolic 44–62; PULSE 79–122; RESP 18–36; TEMP 36.6–37.1; O2SAT 89–100; BMI 28.0
--- NOTE | ~2024-03-09 | XR_ITS ---
EXAMINATION: XR chest 1V portable DATE: 03/09/2024 14:31 INDICATION: Shortness of breath. TECHNIQUE: A single frontal view of the chest was obtained. COMPARISON: Chest 2 views 11/26/2023, chest CT 09/22/2023 FINDINGS: There are lucencies in the lungs, consistent with emphysema. Calcified pulmonary nodules an d calcified hilar and mediastinal lymph nodes are consistent with old granulomatous disease. There is mild atelectasis at the lung bases. No pleural effusion or pneumothorax. Cardiomegaly is noted. IMPRESSION: 1. Emphysema. 2. Mild atelectasis at the lung bases. 3. Cardiomegaly. Reviewed, dictated and finalized at location A. CTOR OF PATIENT SAFETY
--- NOTE | 2024-03-09 13:52 | ECG_ITS ---
Test Date: 2024-03-09 14:05:31 Measurements Intervals [place] Rate: 120 P: 80 [place]: 146 QRS: 64 QRSD: 138 T: 32 QT: 354 QTc: 502 Interpretive Statements SINUS TACHYCARDIA WITH FREQUENT VENTRICULAR PREMATURE COMPLEXES RIGHT AXIS DEVIATIONRIGHT BUNDLE BRANCH BLOCK BASELINE ARTIFACT- I, II, III, AVR, AVL, AVF, V1-V6 ABNORMAL ECG No previous ECG available for comparison Electronically Signed On 03-09-2024 14:32:31 [employer] by David Carter D.O.
--- NOTE | 2024-03-09 14:01 | ED_ITS ---
HPI - SOB/Dyspnea General Chief Complaint: Shortness of Breath/Dyspnea Stated Complaint: dyspnea Time Seen by Provider: 03/09/24 13:48 Source: patient Limitations: no limitations History of Present Illness HPI Narrative: Patient with advanced COPD on home oxygen presenting for severe respiratory distress. Has had a cough and congestion worsening for the last few days in the breathing worse today. EMS found her at 80% on her home oxygen and placed her on 5 L nasal cannula which brought her up to 89% and then on CPAP. Immediately placed on BiPAP she wrap here. States she is feeling slightly better but still short of breath. She got a breathing treatment EN route. Related Data Home Medications Medication Instructions Recorded Confirmed cholecalciferol (vitamin D3) 25 50 mcg PO DAILY 09/21/23 03/05/24 mcg (1,000 unit) tablet nifedipine 30 mg tablet,extended 30 mg PO DAILY 09/21/23 03/05/24 release 24 hr vit C 250 mg-vit E 90 mg-zinc 40 See Rx Instructions .Route .COMPLEX 09/22/23 03/05/24 mg-copper 1 [id number]-[id number] capsule (PreserVision AREDS-2) Allergies Allergy/AdvReac Type Severity Reaction Status Date / Time levofloxacin Allergy Unknown Itching,Hiv Verified 03/09/24 14:16 es Review of Systems Review of Systems: All systems reviewed & are unremarkable except as noted in HPI and below PMFSH Past Medical History Medical History Anxiety Basal cell carcinoma (BCC) of left nasal sidewall Chronic respiratory failure on home O2 Compression fracture of body of thoracic vertebra COPD (chronic obstructive pulmonary disease) Epigastric abdominal pain Essential (primary) hypertension Hearing loss Hypertension Iron deficiency anemia Macular degeneration of both eyes Mixed hyperlipidemia J CARLOS (obstructive sleep apnea) Osteoporosis Other and unspecified hyperlipidemia Tobacco abuse Surgical History Surgical History History of hysterectomy History of repair of hip fracture (09/18/23) R subcapital femoral neck fracture, [facility] Family History Family History Sibling Diabetes mellitus Family history of cardiovascular disease Family history of coronary artery disease Father Family history of cardiovascular disease Family history of malignant neoplasm Family history of emphysema Mother Family history of cardiovascular disease Other Asthma Social History Social History Years smoked: 70 Smoking status: Former smoker Second hand tobacco smoke exposure: Yes Additional smoking assessment comments: Pt states she has one cigarette per month Alcohol intake: never Substance use: never Substance use type: does not use Do You Feel Safe in your Home?: Yes Lack of Transportation: No Lack of Food: Never True Current Housing: I Have Housing Concerned About Future Housing: No Difficulty Paying Gas/Electric Bills: No Difficulty Paying for Meds: No Currently Unemployed: No Education: Grade School Difficulty w/ Childcare or Family Care: No Living arrangements: with family Occupation/Education: retired Gender identity (if verbalized by the patient): Female Sexual Orientation (if Verbalized by the Patient): Straight or Heterosexual Spiritual care concerns: No Agree to blood products: Yes Exam Narrative: Constitutional: Generally well appearing, moderate to severe respiratory distress Head: Atraumatic, no deformities. Eyes: Pupils equal, round, and reactive to light. Neck: Supple, no tracheal deviation, no JVD. ENMT: Mucous membranes moist Cardiovascular: S1, S2 auscultated. No murmurs, rubs, or gallops. No S3/S4. Normal Distal pulses. No peripheral edema. Respiratory: Lung sounds diminished bilaterally. Mild wheezing expiratory. No rales or rhonchi. Respiratory distress Gastrointestinal: Abdomen was soft and non-tender. Non-distended. No rebound or guarding. Genitourinary: Deferred Musculoskeletal: Normal muscle tone and bulk. No obvious deformities or ten derness over extremities. Skin: No rashes. Neurological: Strength 5/5 in extremities. Cranial nerves I-XII grossly intact. Distal sensation intact. Mental Status: Awake, alert and oriented x3. Follows commands Course Vital Signs Vital signs: Vital Signs Temperature 36.6 C 03/09/24 13:47 Pulse Rate 122 H 03/09/24 13:47 Respiratory Rate 31 H 03/09/24 13:47 Blood Pressure 102/44 L 03/09/24 13:47 Pulse Oximetry 94 03/09/24 13:47 Oxygen Delivery BiPAP 03/09/24 13:47 Temperature 36.6 C 03/09/24 13:47 Pulse Rate 119 H 03/09/24 13:59 Respiratory Rate 36 H 03/09/24 13:59 Blood Pressure 101/45 L 03/09/24 13:59 Pulse Oximetry 98 03/09/24 13:59 Oxygen Delivery BiPAP 03/09/24 13:59 MDM - SOB/Dyspnea MDM Narrative Medical decision making narrative: 83-year-old with COPD brought for acute respiratory distress. Media placed in room. Given CPAP transition. Saturating 100% feeling ?better. Her breathing treatment EN route. IV established. She is tachycardic and on the hypotensive side so obtained sepsis workup uncertain antibiotics. Given IV fluid bolus 30 cc/kg. Patient recess, looking somewhat improved, heart rate is coming down and blood pressures improved after IV fluid bolus. Will remain on BiPAP. Given dexamethasone. Discussed with hospitalist and will admit to IMU for acute hypoxic respiratory failure requiring BiPAP, COPD exacerbation. Patient is agreeable Lab Data 03/09/24 14:09 03/09/24 14:09 Labs: Lab Results 03/09/24 03/09/24 Range/Units 14:09 14:23 WBC 14.2 H (4.5-10.0) K/mm3 RBC 4.84 (4.2-5.4) M/mm3 Hgb 12.5 (12.0-15.0) g/dL Hct 40.4 (37.0-47.0) % MCV 83.5 (80-100) fl MCH 25.8 L (26-34) pg MCHC 30.9 L (32-36) g/dl RDW 18.3 H (11.5-14.5) % Plt Count 187 (150-375) k/mm3 MPV 10.8 H (7.4-10.4) fl Immature Gran % (Auto) 0.4 (0-0.5) % Neut % (Auto) 81.7 H (45.5-73.1) % Lymph % (Auto) 9.7 L (18.3-44.2) % [place] % (Auto) 7.3 (2.6-8.5) % Eos % (Auto) 0.5 (0-4.4) % Baso % (Auto) 0.4 (0.2-1.2) % Lymph # (Auto) 1.38 (0.9-3.2) K/mm3 [place] # (Auto) 1.0 H (0.1-0.6) K/mm3 Eos # (Auto) 0.1 (0-0.3) K/mm3 Baso # (Auto) 0.1 (0.0-0.1) K/mm3 Abs Immat Gran (auto) 0.05 H (0.00-0.031) K/mm3 Absolute Neuts (auto) 11.6 H (1.3-6.7) K/mm3 Absolute Nucleated RBC 0.000 (0.0-0.012) K/mm3 Nucleated RBC % 0.0 (0.0-0.2) % PT 15.0 H (11.1-14.7) Seconds INR 1.1 APTT 30.1 (22.3-36.8) Seconds Expiratory Pressure 7 CMH2O Inspiratory Pressure 14 CMH2O Sodium 137 (137-145) mmol/L Potassium 3.5 (3.4-5.0) mmol/L Chloride 96 L (98-107) mmol/L Carbon Dioxide 34 H (22-30) mmol/L Anion Gap 7 (4-12) mmol/L BUN 21 H (7-17) mg/dL Creatinine 0.60 L (0.7-1.0) mg/dL Estim Creat Clear Calc 51 ml/min Estimated GFR > 60 (59 - ) Glucose 133 H (65-110) mg/dL Lactic Acid 1.6 (0.7-2.0) mmol/L Calcium 9.6 (8.4-10.2) mg/dL Total Bilirubin 0.8 (0.2-1.3) mg/dL AST 20 (14-36) U/L ALT 12 (6-35) U/L Alkaline Phosphatase 109 (38-126) U/L Troponin I < 0.012 (0.000-0.034) ng/mL C-Reactive Protein 3.5 H (<1.0) mg/dL Total Protein 8.0 (6.3-8.2) g/dL Albumin 4.3 (3.5-5.1) g/dL ABG Data ABG results: 03/09/24 14:23 Puncture Site Right radial ABG pH 7.367 ABG pCO2 54.6 H ABG pO2 56.4 L ABG PO2/FiO2 Ratio 1.88 ABG HCO3 30.6 H ABG O2 Saturation 87.9 L ABG O2 Content 16.3 ABG Base Excess 4.0 A-a Gradient 93.3 Oxyhemoglobin 87.7 L* Total Hemoglobin 13.2 O2 Delivery Device Non-invasive vent O2 Liters/Min Not Reportable Vent Rate 12 FiO2 30 Discharge Plan Discharge Clinical Impression: Acute hypoxic on chronic hypercapnic respiratory failure, Acute exacerbation of chronic obstructive pulmonary disease Sepsis Qualifiers: Sepsis type: sepsis due to unspecified organism Sepsis acute organ dysfunction status: with acute organ dysfunction Severe sepsis acute organ dysfunction type: acute respiratory failure Acute respiratory failure type: with hypoxia Severe sepsis shock status: without septic shock Qualified Code(s): A41.9 - Sepsis, unspecified organism Patient Disposition: Still a Patient Condition: Serious Prescriptions: No Action sertraline 100 mg tablet 150 mg PO DAILY Qty: 135 1RF alprazolam 0.25 mg tablet See Rx Instructions PO TID PRN (Reason: Anxiety) Qty: 90 0RF Rx Instructions: .25mg or .5 mg tid prn anxiety Trelegy Ellipta 200-62.5-25 mcg blister with device 0RF omeprazole 40 mg capsule,delayed release(DR/EC) 40 mg PO DAILY 30 Days Qty: 30 2RF PreserVision AREDS-2 250-90-40-1 mg Capsule See Rx Instructions .ROUTE .COMPLEX Rx Instructions: Pt takes BID, morning and evening. losartan 100 mg tablet 100 mg PO DAILY Qty: 90 1RF diphenoxylate-atropine [Lomotil] 2.5-0.025 mg tablet 1 tablet PO TID PRN (Reason: diarrhea) Qty: 30 0RF Trelegy Ellipta 100-62.5-25 mcg blister with device 1 inh inhalation DAILY Qty: 60 3RF Rx Instructions: Rinse mouth and spit after each use albuterol sulfate 90 mcg/actuation HFA aerosol inhaler 1 - 2 puff inhalation Q4-6H PRN (Reason: shortness of breath or wheezing) Qty: 8.5 3RF albuterol sulfate 2.5 mg /3 mL (0.083 %) Solution For Nebulization 2.5 mg inhalation BID@0800,1400 Qty: 75 0RF acetaminophen 325 mg Tablet 975 mg PO BID PRN (Reason: Pain) Qty: 14 0RF cholecalciferol (vitamin D3) 25 mcg (1,000 unit) Tablet 50 mcg PO DAILY nifedipine 30 mg tablet extended release 24hr 30 mg PO DAILY Follow-up/Referrals: Sita Syed APRN [Primary Care Provider] - Time of Disposition: 15:08
[2024-03-09] MEDS: dexAMETHasone SOD PHOS INJ 10 MG/ML 1 ML VIAL IV PUSH (14:17)
[2024-03-09] MEDS: SODIUM CHLORIDE 0.9% IV 2,000 ML/1,000 ML BAG 999 ML IV CONT ×2 (14:19→15:46)
[2024-03-09] MEDS: cefTRIAXone 2 GM/NS 100 ML 2 GM/100 ML BAG IVPB (14:21)
[2024-03-09 14:24] LABS: Basophils Absolute Auto 0.1 K/mm3 (0.0-0.1); Basophils Percent Auto 0.4 % (0.2-1.2); Eosinophils Absolute Auto 0.1 K/mm3 (0-0.3); Eosinophils Percent Auto 0.5 % (0-4.4); Hematocrit 40.4 % (37.0-47.0); Hemoglobin 12.5 g/dL (12.0-15.0); Immature Granulocyte Absolute 0.05 K/mm3 (0.00-0.031); Immature Granulocyte Percent A 0.4 % (0-0.5); Lymphocytes Absolute Auto 1.38 K/mm3 (0.9-3.2); Lymphocytes Percent Auto 9.7 % (18.3-44.2); Mean Corpuscular HGB Conc 30.9 g/dl (32-36); Mean Corpuscular Hemoglobin 25.8 pg (26-34); Mean Corpuscular Volume 83.5 fl (80-100); Mean Platelet Volume 10.8 fl (7.4-10.4); Monocytes Percent Auto 7.3 % (2.6-8.5); Neutrophils Absolute Auto 11.6 K/mm3 (1.3-6.7); Neutrophils Percent Auto 81.7 % (45.5-73.1); Platelet Count Result 187 k/mm3 (150-375); Red Blood Count 4.84 M/mm3 (4.2-5.4); Red Cell Distribution Width 18.3 % (11.5-14.5); White Blood Count 14.2 K/mm3 (4.5-10.0)
[2024-03-09 14:26] LABS: Alveolar/Arterial O2 Gradient 93.3 mmHg; Fractional Inspired Oxygen 30 %; HCO3 ABG 30.6 mEq/l (22.0-26.0); Oxygen Content ABG 16.3 %vol (16.0-22.0); PCO2 ABG 54.6 mmHg (35.0-45.0); PO2 ABG 56.4 mmHg (80.0-100.0); PO2 FiO2 Ratio Arterial Blood 1.88 %; Total Hemoglobin 13.2 g/dL (12.0-18.0); pH ABG 7.367 (7.350-7.450)
[2024-03-09 14:28] LABS: Oxygen Saturation ABG 87.9 % (95.0-100.0)
[2024-03-09 14:29] LABS: Device NON-INVASIVE VENT; Modified Allen's Test Pass; Oxyhemoglobin 87.7 % THb (90.0-100.0); Site Drawn RIGHT RADIAL
[2024-03-09 14:30] LABS: Non-Invasive Expiratory Pressure 7 CMH2O; Non-Invasive Inspiratory Pressure 14 CMH2O; Non-Invasive Vent Rate 12 /MIN
[2024-03-09 14:36] LABS: INR 1.1
[2024-03-09 14:37] LABS: Partial Thromboplastin Time 30.1 Seconds (22.3-36.8)
[2024-03-09 14:46] LABS: Lactic Acid Reflex 1.6 mmol/L (0.7-2.0)
[2024-03-09 14:50] LABS: Alanine Aminotransferase 12 U/L (6-35); Albumin Level 4.3 g/dL (3.5-5.1); Alkaline Phosphatase 109 U/L (38-126); Anion Gap 7 mmol/L (4-12); Aspartate Amino Transferase 20 U/L (14-36); Bilirubin,Total 0.8 mg/dL (0.2-1.3); Blood Urea Nitrogen 21 mg/dL (7-17); Calcium 9.6 mg/dL (8.4-10.2); Carbon Dioxide 34 mmol/L (22-30); Chloride 96 mmol/L (98-107); Estimated CRCL calculation 51 ml/min; Estimated Glomerular Filt Rate > 60; Glucose 133 mg/dL (65-110); Potassium 3.5 mmol/L (3.4-5.0); Sodium 137 mmol/L (137-145)
[2024-03-09 15:07] LABS: CRP 3.5 mg/dL (<1.0); Troponin I < 0.012 ng/mL (0.000-0.034)
[2024-03-09] MEDS: VANCOMYCIN 1,750 MG/NS 500 ML 1,750 MG/500 ML BAG 250 MG IVPB (15:46)
[2024-03-09 16:33] LABS: MRSA (PCR) NOT DETECTED (NOT DETECTE)
--- NOTE | 2024-03-09 17:22 | ADMGEN ---
This patient, Shara Pulido, was admitted to IMU Room 207-01 at 1722. Patient/family oriented to hospital policies and general routines including ID bracelet, bed and alarms, visiting hours, pain management, procedures, bathroom and other care routines, personal items, smoking policy, room service/diet, and visiting hours. Information on how to activate the Rapid Response Team has been discussed. Patient/Family are encouraged to report perceived risks to care and to ask questions if they do not understand what they are told or what they should do.
--- NOTE | 2024-03-09 17:45 | PM.IMHP ---
H&P: HPI History of Present Illness Date/Time: 03/09/24 17:30 Chief Complaint: Shortness of breath. Narrative: This is a very pleasant 83-year-old female with chronic respiratory failure with hypoxia on home oxygen, chronic obstructive pulmonary disease, obstructive sleep apnea on BiPAP, hypertension, depression, and anxiety who presented to the emergency department for evaluation of shortness of breath. The patient provides the following history. She has not been feeling well since Tuesday with increasing dyspnea on lesser and lesser exertion, wheezing, and a nonproductive cough. She has been taking Mucinex however her cough remains productive though she feels as though she has something to cough up. Her appetite has not been great and she has been a bit nauseated as well. She had sweats yesterday. She denies fever, sinus congestion, sore throat, chest pain, pleuritic pain, vomiting, lower extremity edema, and calf pain. No known sick contacts. On EMS arrival her SpO2 was 89% on her usual 5 L.. She was given Solu-Medrol 125 mg and was administered a DuoNeb. In the ED: She rides on CPAP but was transition to BiPAP on arrival due to work of breathing, with improvement. She has been afebrile since arrival. Labs were significant for a WBC count of 14.2, CRP 3.5, lactic acid 1.6, carbon dioxide 24. Chest x-ray showed emphysema, mild atelectasis at the lung bases, and cardiomegaly. She received another DuoNeb and ceftriaxone 2 g. She is being admitted in this setting for further treatment of COPD exacerbation. Review of Systems Review of Systems: 12 systems were reviewed and are negative except for as per HPI. [facility] Past Medical History Medical History (Updated 03/09/24 @ 23:12 by Natasha Davenport PA-C) Anxiety Basal cell carcinoma (BCC) of left nasal sidewall Chronic obstructive pulmonary disease Chronic respiratory failure with hypoxia, on home oxygen therapy Compression fracture of body of thoracic vertebra Hearing loss Hypertension Iron deficiency anemia Macular degeneration of both eyes Mixed hyperlipidemia Obstructive sleep apnea treated with BiPAP Osteoporosis Surgical History Surgical History (Updated 03/09/24 @ 18:11 by Natasha Davenport PA-C) History of bilateral cataract extraction History of carpal tunnel release History of hysterectomy for benign disease History of repair of hip fracture (09/18/23) R subcapital femoral neck fracture, [facility] Family History Family History Sibling Diabetes mellitus Family history of cardiovascular disease Family history of coronary artery disease Father Family history of cardiovascular disease Family history of malignant neoplasm Family history of emphysema Mother Family history of cardiovascular disease Other Asthma Social History Social History (Updated 03/09/24 @ 18:11 by Natasha Davenport PA-C) Social History: Surrogate medical decision maker: Swati Lau, daughter. Code status: Full code. Years smoked: 70 Smoking status: Former smoker Second hand tobacco smoke exposure: Yes Additional smoking assessment comments: Pt states she has one cigarette per month Alcohol intake: never Substance use: never Substance use type: does not use Do You Feel Safe in your Home?: Yes Lack of Transportation: No Lack of Food: Never True Current Housing: I Do Not Have Housing Concerned About Future Housing: No Difficulty Paying Gas/Electric Bills: No Difficulty Paying for Meds: No Currently Unemployed: No Education: Grade School Difficulty w/ Childcare or Family Care: No Living arrangements: with family Occupation/Education: retired Spiritual care concerns: No Agree to blood products: Yes Meds Home Medications and Allergies Home Medications Medication Instructions Recorded Confirmed Type cholecalciferol (vitamin D3) 25 50 mcg PO DAILY 09/21/23 03/09/24 History mcg (1,000 unit) tablet nifedipine 30 mg tablet,extended 30 mg PO DAILY 09/21/23 03/09/24 History release 24 hr vit C 250 mg-vit E 90 mg-zinc 40 1 cap PO BID 09/22/23 03/09/24 History mg-copper 1 [id number] capsule (PreserVision AREDS-2) losartan 100 mg tablet 100 mg PO DAILY #90 tabs 11/11/23 03/09/24 Rx albuterol sulfate 90 mcg/actuation 1 inh inhalation QID PRN Shortness 03/09/24 03/09/24 History aerosol inhaler Of Breath Or Wheezing alprazolam 0.25 mg tablet 0.25 mg PO TID PRN Anxiety 03/09/24 03/09/24 History fluticasone fur. 100 mcg-umeclid 1 inh inhalation DAILY 03/09/24 03/09/24 History 62.5 mcg-vilant 25 mcg inhalat.powder (Trelegy Ellipta) omeprazole 40 mg capsule,delayed 40 mg PO QAM 03/09/24 03/09/24 History release prednisone 5 mg tablet 2.5 mg PO DAILY 03/09/24 03/09/24 History sertraline 100 mg tablet 100 mg PO DAILY 03/09/24 03/09/24 History Allergies Allergy/AdvReac Type Severity Reaction Status Date / Time levofloxacin Allergy Unknown Itching,Hiv Verified 03/09/24 14:16 es Vital Signs Vital Signs - 24 hr 03/09/24 13:47 03/09/24 13:59 03/09/24 13:59 Temperature 97.8 F Pulse Rate 122 H 120 H Respiratory Rate 31 H Blood Pressure 102/44 L Pulse Oximetry 94 94 Oxygen Delivery BiPAP BiPAP Oxygen Flow Rate 03/09/24 13:59 03/09/24 13:59 03/09/24 14:30 Temperature Pulse Rate 122 H 119 H 113 H Respiratory Rate 24 H 36 H 20 Blood Pressure 101/45 L 117/58 L Pulse Oximetry 97 98 100 Oxygen Delivery BiPAP Oxygen Flow Rate 03/09/24 14:45 03/09/24 15:17 03/09/24 15:59 Temperature 97.8 F Pulse Rate 107 H 108 H 100 Respiratory Rate 27 H 23 H 25 H Blood Pressure 134/57 L 146/56 H 121/44 L Pulse Oximetry 100 100 100 Oxygen Delivery Oxygen Flow Rate 03/09/24 15:57 03/09/24 16:15 03/09/24 17:25 Temperature Pulse Rate 96 102 H Respiratory Rate 18 33 H Blood Pressure 121/44 L Pulse Oximetry 100 100 92 Oxygen Delivery BiPAP Nasal Cannula Oxygen Flow Rate 3 Exam Narrative: General: Chronically ill-appearing female sitting up in bed in no acute distress. Weight: 71.9 kg. BMI: 20.1. HEENT: Slightly hard of hearing. She is wearing corrective lenses. PERRL, EOMI. Sclera anicteric. Oral mucosa moist. Neck: Supple. No JVD. Respiratory: Mildly tachypneic. She is speaking in full sentences appears in no respiratory distress. Significantly diminished lung sounds throughout with expiratory wheezing. Occasional cough. Cardiovascular: Regular rate and rhythm with S1-S2. Occasional ectopy. Gastrointestinal: Abdomen is soft, nontender, and nondistended with positive bowel sounds. Skin: Warm and dry. No rash or lesions on limited exam. Extremities: No cyanosis, clubbing, or edema. Radial and pedal pulses intact. No palpable knots or cords. Negative Keri sign bilaterally. Neurological: Alert. Cranial nerves 2-12 are grossly intact. No gross focal deficits to casual conversation. Psychiatric: Pleasant and cooperative with normal mood and affect. Judgment and insight intact. H&P: Results Labs Labs: Short CBC 03/09/24 Range/Units 14:09 WBC 14.2 H (4.5-10.0) K/mm3 Hgb 12.5 (12.0-15.0) g/dL Hct 40.4 (37.0-47.0) % Plt Count 187 (150-375) k/mm3 BMP 03/09/24 14:09 Sodium 137 Potassium 3.5 Chloride 96 L Carbon Dioxide 34 H BUN 21 H Creatinine 0.60 L Glucose 133 H Calcium 9.6 Cardiac Enzymes 03/09/24 Range/Units 14:09 Troponin I < 0.012 (0.000-0.034) ng/mL Liver Function 03/09/24 Range/Units 14:09 Total Bilirubin 0.8 (0.2-1.3) mg/dL AST 20 (14-36) U/L ALT 12 (6-35) U/L Alkaline Phosphatase 109 (38-126) U/L Albumin 4.3 (3.5-5.1) g/dL Imaging Chest X-Ray 03/09/24 14:33 IMPRESSION: 1. Emphysema. 2. Mild atelectasis at the lung bases. 3. Cardiomegaly. ABG ABG results: 03/09/24 14:23 Puncture Site Right radial ABG pH 7.367 ABG pCO2 54.6 H ABG pO2 56.4 L ABG PO2/FiO2 Ratio 1.88 ABG HCO3 30.6 H ABG O2 Saturation 87.9 L ABG O2 Content 16.3 ABG Base Excess 4.0 A-a Gradient 93.3 Oxyhemoglobin 87.7 L* Total Hemoglobin 13.2 O2 Delivery Device Non-invasive vent O2 Liters/Min Not Reportable Vent Rate 12 FiO2 30 Assessment and Plan Assessment and plan (1) Acute and chronic respiratory failure with hypoxia: Code(s): J96.21 - Acute and chronic respiratory failure with hypoxia Status: Acute (2) Acute exacerbation of chronic obstructive pulmonary disease (COPD): Code(s): J44.1 - Chronic obstructive pulmonary disease with (acute) exacerbation Status: Acute (3) Obstructive sleep apnea treated with BiPAP: Code(s): G47.33 - Obstructive sleep apnea (adult) (pediatric) Status: Acute (4) Hypertension: Code(s): I10 - Essential (primary) hypertension Status: Acute Plan The patient presented to the emergency department for evaluation of shortness of breath as detailed in HPI. Labs, imaging, EKG, and all reports were personally reviewed. Clinically she has is COPD exacerbation, possibly precipitated by URI. Chest x-ray did not show any acute findings however given new cough she has been started on antibiotics. Continue scheduled bronchodilators and Solu-Medrol. She is currently at her baseline oxygen requirement. BiPAP will be provided for the patient to use while hospitalized. Blood pressures were reviewed and they are stable. Her home medications will be reviewed and resumed as appropriate. Findings and treatment plan were discussed with the patient and her daughter. Questions were solicited and answered to satisfaction. The patient's medical management will be taken over by the hospitalist team in a.m. Quality VTE Prophylaxis VTE prophylaxis: pharmacologic ordered Hospitalist [facility] Advance Care Plan I have confirmed that the patient's Advanced Care Plan is present, code status is documented, or surrogate decision maker is listed in patient medical record.: Yes Medication Reconciliation I have utilized all available resources to obtain, update and review the patients current medications (includes all prescriptions, OTC, herbals, cannabis, and nutritional supplements).: Yes
[2024-03-09] MEDS: IPRATROPIUM BR 0.02% INH SOLN 0.5 MG/2.5 ML VIAL INHALATION (23:31)
[2024-03-09] MEDS: guaiFENesin 12 HR 600 MG TABCR 1200 MG PO (23:46)
[2024-03-09] MEDS: AZITHROMYCIN 250 MG TABLET 500 MG PO (23:46)
[2024-03-09] MEDS: methylPREDNISolone SOD SUCC 125 MG VIAL 60 MG IV PUSH (23:47)
[2024-03-09] MEDS: OPTI-GEN TAB 1 TABLET PO (23:47)
[2024-03-09] MEDS: ALPRAZolam (*CRX) 0.25 MG TABLET PO (23:47)
[2024-03-10] VITALS (28 sets, daily range): BP systolic 113–141; BP diastolic 51–100; PULSE 61–96; RESP 18–34; TEMP 36.4–36.8; O2SAT 90–100
--- NOTE | 2024-03-10 | ECHO_ITS ---
Patient Info Name: Shara Pulido Age: 83 years : 1940 Gender: Female Ht: 63 in Wt: 155 lbs BSA: 1.79 m2 HR: 70 bpm Heart Rhythm: Sinus Rhythm Technical Quality: Good Exam Date: 03/10/2024 12:04 PM Exam Location: Echo Lab Patient Status: Inpatient Admit Date: 03/09/2024 Staff Ordering Physician: Joel Palacios MD Security Officers And Guards: Keyur Rich RDCS Attending Provider: Joel Palacios MD Exam Type: CA echo doppler color flow Study Info Indications - chf Complete two-dimensional, color flow and Doppler transthoracic echocardiogram is performed. Summary 1. Complete two-dimensional, color flow and Doppler transthoracic echocardiogram is performed. 2. Left ventricular chamber dimension is normal. 3. Left ventricular systolic function is normal, estimated at 65-70%. 4. There is no increased left ventricular wall thickness. 5. Left ventricular septal wall motion is normal. 6. The left ventricular diastolic function is grade I diastolic dysfunction. 7. Right ventricular chamber dimension is normal. 8. Right ventricular systolic function is normal. 9. There is mild tricuspid valve regurgitation. 10. Moderate pulmonary hypertension, estimated pulmonary arterial systolic pressure is 51 mmHg. Left Ventricle Left ventricular chamber dimension is normal. Left ventricular systolic function is normal, estimated at 65-70%. There is no increased left ventricular wall thickness. Left ventricular septal wall motion is normal. The left ventricular diastolic function is grade I diastolic dysfunction. Right Ventricle Right ventricular chamber dimension is normal. Right ventricular systolic function is normal. Left Atria Left atrial chamber dimension is normal. Right Atria Right atrial chamber dimension is normal. Aortic Valve The aortic valve is trileaflet. There is no aortic valve sclerosis. There is no aortic valve stenosis. There is no aortic valve regurgitation. Pulmonic Valve The pulmonic valve is not well visualized. Mitral Valve There is no mitral valve stenosis. There is trace mitral valve regurgitation. Moderate mitral annular calcification. Tricuspid Valve The tricuspid valve leaflets are normal. There is no significant tricuspid valve stenosis. There is mild tricuspid valve regurgitation. Moderate pulmonary hypertension, estimated pulmonary arterial systolic pressure is 51 mmHg. Pericardium/Pleural The pericardium appears normal. There is no pericardial effusion. Inferior Vena Cava Dilated inferior vena cava with >50% collapse upon inspiration consistent with normal right atrial pressure, 10 mmHg. Aorta The aortic root size at the sinus of Valsalva is normal. The prox ascending aorta size is normal. Left Ventricular Outflow Tract Name Value Normal LVOT 2D LVOT Diameter 2.1 cm LVOT Doppler LVOT Peak Gradient 6 mmHg LVOT Mean Gradient 4 mmHg LVOT VTI 31 cm LVOT VTI/AV VTI Ratio 0.8 LVOT Stroke Volume 106 ml LVOT CO 8.2 l/min LVOT CI 4.6 l/min/m2 Mitral Valve Name Value Normal MV Doppler MV Peak Gradient 12 mmHg MV Mean Gradient 5 mmHg MV Decel [place] 569 cm/s2 MV PHT 52 ms MV Area (PHT) 4.3 cm2 4.0-5.0 MV Area (Cont Eq VTI) 2.4 cm2 MV Regurgitation Doppler MR Peak Gradient 81 mmHg MV Diastolic Function MV E Peak Velocity 101 cm/s MV A Peak Velocity 135 cm/s MV E/A 0.7 MV Decel Time 178 ms MV Annular TDI MV E/e' (Septal) 14.4 <=8.0 MV E/e' (Lateral) 12.8 <=8.0 MV E/e' (Average) 13.6 Tricuspid Valve Name Value Normal TV Regurgitation Doppler TR Peak Velocity 319 cm/s TR Peak Gradient 41 mmHg Estimated PAP/RSVP RA Pressure 10 mmHg <=5 PA Systolic Pressure 51 mmHg <36 RV Systolic Pressure 51 mmHg <36 Aortic Valve Name Value Normal AV Doppler AV Peak Velocity 164 cm/s AV Peak Gradient 11 mmHg AV Mean Gradient 7 mmHg AV VTI 37 cm AV Area (Cont Eq VTI) 2.8 cm2 >=3.0 AV Area (Cont Eq Carl) 2.6 cm2 AV Regurgitation 2D LVOT Area 3.4 cm2 AV Regurgitation Doppler AR Decel Time 8,905 ms AR Decel [place] 36 cm/s2 AR PHT 2,583 ms Ventricles Name Value Normal LV Dimensions 2D/MM IVS Diastolic Thickness (2D) 1.1 cm 0.6-1.0 LVID Diastole (2D) 4.0 cm 3.8-5.2 LVIW Diastolic Thickness (2D) 1.1 cm 0.6-0.9 LVID Systole (2D) 2.5 cm 2.2-3.5 LVOT Diameter 2.1 cm LV Mass (2D Cubed) 143.74 g 67.00-162.00 LV Mass Index (2D Cubed) 80 g/m2 43-95 Relative Wall Thickness (2D) 0.53 LV Fractional Shortening/Ejection Fraction 2D/MM LV Fractional Shortening (2D) 38 % 27-45 LV EF (2D Teicholz) 69 % 54-74 LV Diastolic Volume (4C MOD) 90 ml LV EF (4C MOD) 78 % LV Diastolic Volume (2C MOD) 70 ml LV EF (2C MOD) 53 % LV Diastolic Volume (BP MOD) 80 ml 46-106 LV Diastolic Volume Index (BP MOD) 45 ml/m2 29-61 LV Systolic Volume (BP MOD) 26 ml 14-42 LV Systolic Volume Index (BP MOD) 15 ml/m2 8-24 LV EF (BP MOD) 67 % 54-74 LV Diastolic Length (4C) 7.4 cm LV Systolic Length (4C) 5.9 cm LV Stroke Volume (4C MOD) 70 ml Atria Name Value Normal LA Dimensions LA Volume (4C A-L) 32 ml LA Volume (BP A-L) 42 ml RA Dimensions RA Area (4C) 14.1 cm2 <=18.0 Report Signatures
[2024-03-10 00:26] LABS: Add Urine Microscopic? YES; Appearance Urine Cloudy (Clear); Bacteria Urine None Seen /hpf; Bilirubin Urine Negative (Negative); Blood Urine Negative (Negative); Color Urine Yellow (Yellow); Glucose Urine UA Negative (Negative); Ketones Urine Trace mg/dL (Negative); Leukocyte Esterase Ur Negative LEU/UL (Negative); Nitrate Urine Negative (Negative); Protein Urine Trace mg/dL (Negative); RBC Urine 0-2 /hpf (0-2); Specific Grav Ur 1.016 (1.001-1.035); Squamous Epithelial Cell Urine None Seen /hpf (Few); Urobilinogen Urine 0.2 mg/dL (<2.0); WBC Urine 0-5 /hpf (0-3); pH Urine 5.5 (5.0-9.0)
[2024-03-10 00:35] LABS: Influenza A QL RT-PCR Negative (Negative); Influenza B QL RT-PCR Negative (Negative); SARS-CoV-2 RNA PCR Negative (Negative)
[2024-03-10 04:52] LABS: Hematocrit 35.5 % (37.0-47.0); Mean Corpuscular Hemoglobin 25.9 pg (26-34); Mean Corpuscular Volume 83.5 fl (80-100); Mean Platelet Volume 11.3 fl (7.4-10.4); Platelet Count Result 165 k/mm3 (150-375); Red Blood Count 4.25 M/mm3 (4.2-5.4); Red Cell Distribution Width 18.1 % (11.5-14.5)
[2024-03-10 05:02] LABS: Anion Gap 3 mmol/L (4-12); Blood Urea Nitrogen 18 mg/dL (7-17); Calcium 8.2 mg/dL (8.4-10.2); Carbon Dioxide 32 mmol/L (22-30); Chloride 104 mmol/L (98-107); Estimated CRCL calculation 57 ml/min; Estimated Glomerular Filt Rate > 60; Glucose 159 mg/dL (65-110); Magnesium 1.8 mg/dL (1.6-2.3); Potassium 4.1 mmol/L (3.4-5.0); Sodium 139 mmol/L (137-145)
[2024-03-10] MEDS: methylPREDNISolone SOD SUCC 125 MG VIAL 60 MG IV PUSH ×3 (06:45→18:30)
[2024-03-10] MEDS: IPRATROPIUM BR 0.02% INH SOLN 0.5 MG/2.5 ML VIAL INHALATION ×2 (07:00→11:00)
[2024-03-10] MEDS: FLUTICASONE/UMECLIDIN/VILANTER 100-62.5-25 MCG ELLIPTA 1 PUFF INHALATION (07:00)
--- NOTE | 2024-03-10 07:31 | PM.IMPN ---
Progress Note: A&P Assessment and Plan (1) Acute and chronic respiratory failure with hypoxia: Code(s): J96.21 - Acute and chronic respiratory failure with hypoxia Status: Acute (2) Acute exacerbation of chronic obstructive pulmonary disease (COPD): Code(s): J44.1 - Chronic obstructive pulmonary disease with (acute) exacerbation Status: Acute (3) Obstructive sleep apnea treated with BiPAP: Code(s): G47.33 - Obstructive sleep apnea (adult) (pediatric) Status: Acute (4) Hypertension: Code(s): I10 - Essential (primary) hypertension Status: Acute Plan The patient presented to the emergency department for evaluation of shortness of breath as detailed in HPI. Labs, imaging, EKG, and all reports were personally reviewed. Clinically she has is COPD exacerbation, possibly precipitated by URI. Chest x-ray did not show any acute findings however given new cough she has been started on antibiotics. Continue scheduled bronchodilators and Solu-Medrol. She is currently at her baseline oxygen requirement. BiPAP will be provided for the patient to use while hospitalized. Blood pressures were reviewed and they are stable. Her home medications will be reviewed and resumed as appropriate. Findings and treatment plan were discussed with the patient and her daughter. Questions were solicited and answered to satisfaction. The patient's medical management will be taken over by the hospitalist team in a.m. COPD exacerbation vs CHF exacerbation -Previous exacerbation on 09/22/2023 -Multiple comorbid conditions including CHF -COPD Exacerbation requiring BiPAP -Pulmonology workup done as OP -Home O2 3L -Long Smoking Hx -ECHO ordered -D/C Vancomycin since Nasal MRSA not detected -Started on Ceftriaxone and Azithromycin -Negative for Influenza and COVID -Ordered RSV -Methylprednisone 60 mg IV q 6hrs -On Trelegy Ellipta home med -Ipratropium q 4hrs Diastolic heart failure -Continue nifedipine 30 mg p.o. q.d. -Continue losartan 100 mg p.o. q.d. -09/22/23 - Echo - Hyperdynamic LV systolic function with grade I diastolic dysfunction. Calcified mitral valve annulus. Mild pulmonic regurgitation. No intracardiac shunt on bubble study. -She was seen by Biopro[employer] Engineer Dr Italia Raymundo on 01/24/2024 ,advised in regards to her diastolic HF she did have an episode of fluid retention after having surgery back in August 2023, that was treated with Lasix. He advised conservative management with Losartan and nifedipine. -ECHO ordered Subjective Date/time seen: 03/10/24 07:31 Interval history: 83-year-old female with a past medical surgical history of chronic respiratory failure on home oxygen, J CARLOS on Trilogy,anxiety, basal cell carcinoma, COPD on 3 L NC, hypertension, iron deficiency anemia, macular degeneration both eyes, hyperlipidemia, obstructed sleep apnea, osteoporosis, hysterectomy, hip fracture, and tobacco use,chronic diarrhea (resolved)since mid-October 2023, following a partial hip replacement surgery. Off note 09/22/23 - Echo - Hyperdynamic LV systolic function with grade I diastolic dysfunction. Calcified mitral valve annulus. Mild pulmonic regurgitation. No intracardiac shunt on bubble study. 09/22/23 - CTA chest - There is severe emphysema. There is mild dependent atelectasis bilaterally. Calcified pulmonary nodules and calcified hilar mediastinal lymph nodes are consistent with old granulomatous disease. There are small pleural effusions. Cardiomegaly is noted. There are coronary artery calcifications. No pericardial effusion. There is no pulmonary embolus. Aortic atherosclerosis is noted. 09/22/23 - CXR - Pulmonary vascular congestion and redistribution and small pleural effusions consistent with congestive heart failure. Aortic atherosclerosis. Minimal atelectasis or infiltrate at the lung bases. 01/10/23 - Home O2 eval - She required 3L/min O2 at rest and 4L/min O2 with exertion. 12/19/20 - LDCT chest - Emphysema. Dependent atelectasis left lower lung. Numerable scattered calcified granulomas in the lung parenchyma. Small 2 mm left upper lobe nodules not clearly calcified. She had a fall on 09/17/23 and broke her hip, hospitalized [facility] and had hip replacement surgery the following day. After 3 or 4 days at [facility] post-op she was discharged to [facility], stayed overnight and the following day she had issues with SOB and was brought to [facility]. She was hospitalized 09/21-09/28/23 for COPD exacerbation and suspected new onset CHF. CXR with pulmonary vascular congestion and pleural effusions. Treated with steroids and nebulizer treatments, as well as antibiotics for COPD exacerbation. She was seen by our pulmonary team while inpatient - Dr Lauren and Dr Winn. Discharged to [facility] 09/28/23 and discharged from rehab 10/10/23. She was seen by Biopro[employer] Engineer Dr Italia Raymundo on 01/24/2024 ,advised in regards to her diastolic HF she did have an episode of fluid retention after having surgery back in August 2023, that was treated with Lasix. He advised conservative management with Losartan and nifedipine. She seen by Josy Barnes on 02/02 and recorded as she is compliant with Trelegy 100 1 puff daily; albuterol PRN by HFA and nebulizer. States she is using albuterol HFA multiple times per week but usually not daily. She has not been using her nebulizer breathing treatments.Uses home oxygen 3L/min at rest and 4L/min with activity. She tells me she is pretty much using 3 liters/minute at all times. She checks her oxygen saturation every morning and tells me her resting oxygen saturation on 3 liters/minute is typically 90%. She sometimes remembers to increase her oxygen to 4 L with exertion 03/09: Presented to the emergency department for evaluation of shortness of breath. The patient provides the following history. She has not been feeling well since Tuesday with increasing dyspnea on lesser and lesser exertion, wheezing, and a nonproductive cough. She has been taking Mucinex however her cough remains productive though she feels as though she has something to cough up. Her appetite has not been great and she has been a bit nauseated as well. She had sweats yesterday. She denies fever, sinus congestion, sore throat, chest pain, pleuritic pain, vomiting, lower extremity edema, and calf pain. No known sick contacts. On EMS arrival her SpO2 was 89% on her usual 5 L.. She was given Solu-Medrol 125 mg and was administered a DuoNeb. In the ED: She rides on CPAP but was transition to BiPAP on arrival due to work of breathing, with improvement. She has been afebrile since arrival. Labs were significant for a WBC count of 14.2, CRP 3.5, lactic acid 1.6, carbon dioxide 24. Chest x-ray showed emphysema, mild atelectasis at the lung bases, and cardiomegaly. She received another DuoNeb and ceftriaxone 2 g. She is being admitted in this setting for further treatment of COPD exacerbation. Review of Systems Review of Systems: 12 systems were reviewed and are negative except for as per HPI. Exam Narrative: General: Chronically ill-appearing female sitting up in bed in no acute distress. Weight: 71.9 kg. BMI: 20.1. HEENT: Slightly hard of hearing. She is wearing corrective lenses. PERRL, EOMI. Sclera anicteric. Oral mucosa moist. Neck: Supple. No JVD. Respiratory: Mildly tachypneic. She is speaking in full sentences appears in no respiratory distress. Significantly diminished lung sounds throughout with expiratory wheezing. Occasional cough. Cardiovascular: Regular rate and rhythm with S1-S2. Occasional ectopy. Gastrointestinal: Abdomen is soft, nontender, and nondistended with positive bowel sounds. Skin: Warm and dry. No rash or lesions on limited exam. Extremities: No cyanosis, clubbing, or edema. Radial and pedal pulses intact. No palpable knots or cords. Negative Keri sign bilaterally. Neurological: Alert. Cranial nerves 2-12 are grossly intact. No gross focal deficits to casual conversation. Psychiatric: Pleasant and cooperative with normal mood and affect. Judgment and insight intact. Objective Data Vital Signs Vital Signs: Vital Signs - 24 hr 03/09/24 13:47 03/09/24 13:59 03/09/24 13:59 Temperature 97.8 F Pulse Rate 122 H 120 H Respiratory Rate 31 H Blood Pressure 102/44 L Pulse Oximetry 94 94 Oxygen Delivery BiPAP BiPAP Oxygen Flow Rate Fraction of Inspired Oxygen 03/09/24 13:59 03/09/24 13:59 03/09/24 14:30 Temperature Pulse Rate 122 H 119 H 113 H Respiratory Rate 24 H 36 H 20 Blood Pressure 101/45 L 117/58 L Pulse Oximetry 97 98 100 Oxygen Delivery BiPAP Oxygen Flow Rate Fraction of Inspired Oxygen 03/09/24 14:45 03/09/24 15:17 03/09/24 15:59 Temperature 97.8 F Pulse Rate 107 H 108 H 100 Respiratory Rate 27 H 23 H 25 H Blood Pressure 134/57 L 146/56 H 121/44 L Pulse Oximetry 100 100 100 Oxygen Delivery Oxygen Flow Rate Fraction of Inspired Oxygen 03/09/24 15:57 03/09/24 16:15 03/09/24 17:25 Temperature Pulse Rate 96 102 H Respiratory Rate 18 33 H Blood Pressure 121/44 L Pulse Oximetry 100 100 92 Oxygen Delivery BiPAP Nasal Cannula Oxygen Flow Rate 3 Fraction of Inspired Oxygen 03/09/24 17:22 03/09/24 18:00 03/09/24 19:00 Temperature 98.8 F Pulse Rate 107 H 103 H Respiratory Rate 28 H Blood Pressure 132/47 L Pulse Oximetry 89 L 91 Oxygen Delivery Nasal Cannula Oxygen Flow Rate 5 Fraction of Inspired Oxygen 03/09/24 20:00 03/09/24 20:45 03/09/24 23:32 Temperature 98 F Pulse Rate 94 94 79 Respiratory Rate 20 20 20 Blood Pressure 103/62 Pulse Oximetry 96 96 Oxygen Delivery Nasal Cannula Oxygen Flow Rate 5 Fraction of Inspired Oxygen 03/10/24 00:00 03/10/24 00:10 03/10/24 00:55 Temperature 97.6 F Pulse Rate 86 86 77 Respiratory Rate 34 H 32 H 23 H Blood Pressure 113/52 L Pulse Oximetry 100 100 100 Oxygen Delivery BiPAP BiPAP Oxygen Flow Rate Fraction of Inspired Oxygen 55 03/10/24 03:00 03/10/24 03:00 03/10/24 03:09 Temperature Pulse Rate 83 83 82 Respiratory Rate 24 H 24 H 23 H Blood Pressure Pulse Oximetry 99 Oxygen Delivery BiPAP Oxygen Flow Rate Fraction of Inspired Oxygen 03/09/24 20:00 03/09/24 22:00 03/10/24 00:00 Temperature Pulse Rate 98 87 83 Respiratory Rate Blood Pressure Pulse Oximetry Oxygen Delivery Oxygen Flow Rate Fraction of Inspired Oxygen 03/10/24 02:00 03/10/24 04:00 03/10/24 04:00 Temperature 97.7 F Pulse Rate 76 68 67 Respiratory Rate 24 H Blood Pressure 132/62 Pulse Oximetry 100 Oxygen Delivery Oxygen Flow Rate Fraction of Inspired Oxygen 03/10/24 04:00 Temperature Pulse Rate 67 Respiratory Rate 24 H Blood Pressure Pulse Oximetry 100 Oxygen Delivery BiPAP Oxygen Flow Rate Fraction of Inspired Oxygen 55 Intake/Output Intake/Output: Intake & Output 03/07/24 03/08/24 03/09/24 03/10/24 23:59 23:59 23:59 23:59 Intake Total 2840 400 Output Total 1100 Balance 1740 400 Meds/Results Medications: Active Medications Generic Name Dose Route Start Last Admin Trade Name Freq PRN Reason Stop Dose Admin Alprazolam 0.25 mg 03/09/24 23:03 03/09/24 23:47 Alprazolam (*Crx) 0.25 Mg Tablet PO 0.25 mg TID PRN Administration Anxiety Azithromycin 250 mg 03/10/24 09:00 Azithromycin 250 Mg Tablet PO 03/13/24 09:01 DAILY [facility] Enoxaparin Sodium 40 mg 03/10/24 09:00 Enoxaparin 40 Mg/0.4 Ml Syringe SUB-Q DAILY [facility] Fluticasone/Umeclidinium/Vilanterol 1 puff 03/10/24 09:00 Fluticasone/Umeclidin/Vilanter 100-62.5-25 Mcg Ellipta INHALATION DAILY [facility] Guaifenesin 1,200 mg 03/10/24 09:00 Guaifenesin 12 Hr 600 Mg Tabcr PO Q12HR [facility] Vancomycin HCl 1,250 mg in 250 mls @ 166.667 mls/hr 03/10/24 15:00 Vancomycin 1,250 Mg/Ns 250 Ml IVPB Q24H [facility] Ipratropium [place] 0.5 mg 03/10/24 00:00 03/10/24 06:51 Ipratropium Br 0.02% Inh Soln 0.5 Mg/2.5 Ml Vial INHALATION Not Given Q4HRT [facility] Losartan Potassium 100 mg 03/10/24 09:00 Losartan Potassium 100 Mg Tablet PO DAILY [facility] Methylprednisolone Sodium Succinate 60 mg 03/10/24 00:00 03/10/24 06:45 Methylprednisolone Sod Succ 125 Mg Vial IV PUSH 60 mg Q6H FELICIA Administration Multivitamins/Minerals 1 tablet 03/10/24 09:00 Opti-Gen Tab PO BID [facility] Nifedipine 30 mg 03/10/24 09:00 Nifedipine 30 Mg Tab.Er.24 PO DAILY [facility] Pantoprazole Sodium 40 mg 03/10/24 09:00 Pantoprazole 40 Mg Tablet PO Q12HR [facility] Sertraline HCl 100 mg 03/10/24 09:00 Sertraline Hcl 50 Mg Tablet PO DAILY [facility] Vitamin D 2,000 units 03/10/24 09:00 Cholecalciferol 1,000 Units Tablet PO DAILY [facility] Radiology Results: ITS Impressions Chest X-Ray 03/09/24 14:33 IMPRESSION: 1. Emphysema. 2. Mild atelectasis at the lung bases. 3. Cardiomegaly. Labs Labs: Laboratory Results - last 24 hr 03/09/24 03/09/24 03/09/24 14:09 14:23 15:16 WBC 14.2 H RBC 4.84 Hgb 12.5 Hct 40.4 MCV 83.5 MCH 25.8 L MCHC 30.9 L RDW 18.3 H Plt Count 187 MPV 10.8 H Immature Gran % (Auto) 0.4 Neut % (Auto) 81.7 H Lymph % (Auto) 9.7 L [place] % (Auto) 7.3 Eos % (Auto) 0.5 Baso % (Auto) 0.4 Lymph # (Auto) 1.38 [place] # (Auto) 1.0 H Eos # (Auto) 0.1 Baso # (Auto) 0.1 Abs Immat Gran (auto) 0.05 H Absolute Neuts (auto) 11.6 H Absolute Nucleated RBC 0.000 Nucleated RBC % 0.0 PT 15.0 H INR 1.1 APTT 30.1 Puncture Site Right radial ABG pH 7.367 ABG pCO2 54.6 H ABG pO2 56.4 L ABG PO2/FiO2 Ratio 1.88 ABG HCO3 30.6 H ABG O2 Saturation 87.9 L ABG O2 Content 16.3 ABG Base Excess 4.0 A-a Gradient 93.3 Oxyhemoglobin 87.7 L* Total Hemoglobin 13.2 O2 Delivery Device Non-invasive vent O2 Liters/Min Not Reportable Vent Rate 12 FiO2 30 Expiratory Pressure 7 Inspiratory Pressure 14 Sodium 137 Potassium 3.5 Chloride 96 L Carbon Dioxide 34 H Anion Gap 7 BUN 21 H Creatinine 0.60 L Estim Creat Clear Calc 51 Estimated GFR > 60 Glucose 133 H Lactic Acid 1.6 Calcium 9.6 Magnesium Total Bilirubin 0.8 AST 20 ALT 12 Alkaline Phosphatase 109 Troponin I < 0.012 C-Reactive Protein 3.5 H Total Protein 8.0 Albumin 4.3 Urine Color Urine Appearance Urine pH Ur Specific [place] Urine Protein Urine Glucose (UA) Urine Ketones Ur Blood (Man) Urine Nitrate Urine Bilirubin Urine Urobilinogen Leukocyte Esterase Rfl Urine RBC Urine WBC Ur Squamous Epith Cells Urine Bacteria Urine Casts Nasal MRSA (PCR) Not detected Influenza A (RT-PCR) Influenza B (RT-PCR) SARS-CoV-2 RNA (RT-PCR) 03/09/24 03/09/24 03/10/24 22:52 23:56 04:45 WBC 12.0 H RBC 4.25 Hgb 11.0 L Hct 35.5 L MCV 83.5 MCH 25.9 L MCHC 31.0 L RDW 18.1 H Plt Count 165 MPV 11.3 H Immature Gran % (Auto) Neut % (Auto) Lymph % (Auto) [place] % (Auto) Eos % (Auto) Baso % (Auto) Lymph # (Auto) [place] # (Auto) Eos # (Auto) Baso # (Auto) Abs Immat Gran (auto) Absolute Neuts (auto) Absolute Nucleated RBC Nucleated RBC % PT INR APTT Puncture Site ABG pH ABG pCO2 ABG pO2 ABG PO2/FiO2 Ratio ABG HCO3 ABG O2 Saturation ABG O2 Content ABG Base Excess A-a Gradient Oxyhemoglobin Total Hemoglobin O2 Delivery Device O2 Liters/Min Vent Rate FiO2 Expiratory Pressure Inspiratory Pressure Sodium 139 Potassium 4.1 Chloride 104 Carbon Dioxide 32 H Anion Gap 3 L BUN 18 H Creatinine 0.60 L Estim Creat Clear Calc 57 Estimated GFR > 60 Glucose 159 H Lactic Acid Calcium 8.2 L Magnesium 1.8 Total Bilirubin AST ALT Alkaline Phosphatase Troponin I C-Reactive Protein Total Protein Albumin Urine Color Yellow Urine Appearance Cloudy H Urine pH 5.5 Ur Specific [place] 1.016 Urine Protein Trace Urine Glucose (UA) Negative Urine Ketones Trace H Ur Blood (Man) Negative Urine Nitrate Negative Urine Bilirubin Negative Urine Urobilinogen 0.2 Leukocyte Esterase Rfl Negative Urine RBC 0-2 Urine WBC 0-5 Ur Squamous Epith Cells None seen Urine Bacteria None seen Urine Casts 3-5 Nasal MRSA (PCR) Influenza A (RT-PCR) Negative Influenza B (RT-PCR) Negative SARS-CoV-2 RNA (RT-PCR) Negative Quality VTE Prophylaxis VTE prophylaxis: pharmacologic ordered Hospitalist MIPS Advance Care Plan I have confirmed that the patient's Advanced Care Plan is present, code status is documented, or surrogate decision maker is listed in patient medical record.: Yes Medication Reconciliation I have utilized all available resources to obtain, update and review the patients current medications (includes all prescriptions, OTC, herbals, cannabis, and nutritional supplements).: Yes
[2024-03-10] MEDS: NIFEdipine 30 MG TAB.ER.24 PO (08:23)
[2024-03-10] MEDS: ENOXAPARIN 40 MG/0.4 ML SYRINGE SUB-Q (08:23)
[2024-03-10] MEDS: CHOLECALCIFEROL 1,000 UNITS TABLET 2000 UNITS PO (08:24)
[2024-03-10] MEDS: ALPRAZolam (*CRX) 0.25 MG TABLET PO ×2 (08:24→22:09)
[2024-03-10] MEDS: PANTOPRAZOLE 40 MG TABLET PO ×2 (08:24→22:07)
[2024-03-10] MEDS: LOSARTAN POTASSIUM 100 MG TABLET PO (08:24)
[2024-03-10] MEDS: SERTRALINE HCL 50 MG TABLET 100 MG PO (08:24)
[2024-03-10] MEDS: AZITHROMYCIN 250 MG TABLET PO (08:24)
[2024-03-10] MEDS: OPTI-GEN TAB 1 TABLET PO ×2 (08:25→18:29)
[2024-03-10] MEDS: guaiFENesin 12 HR 600 MG TABCR 1200 MG PO ×2 (08:25→22:07)
--- NOTE | 2024-03-10 15:21 | P.CONPL_ITS ---
Assessment and Plan Assessment and plan (1) Acute exacerbation of chronic obstructive pulmonary disease (COPD): Code(s): J44.1 - Chronic obstructive pulmonary disease with (acute) exacerbation Status: Acute Assessment and Plan: She is GOLD 3 based on the 2018 PFT with FEV1 33% predicted, 0.58 L and FEV1/FVC 37%. We have no recent PFTs in the system, these are 6 years old, so she may be in the GOLD 4 end-stage area by now. She has not had an exacerb[facility] of [facility], was in the hospital in August 2023 transferred to acute care from rehab where she was getting better from her right hip fracture and had new onset CHF. She does appear to be having a COPD exacerbation now. (2) Acute hypoxic on chronic hypercapnic respiratory failure: Code(s): J96.01 - Acute respiratory failure with hypoxia; J96.12 - Chronic respiratory failure with hypercapnia Status: Acute Assessment and Plan: She is on 5 L/min at home, had a saturation of 80% at home before arrival, then 89% on her usual 5 l/min. Now she is on 5 L/min with sat 92-99%. She uses a Trilogy non invasive ventilator at home, and here used BiPAP for her March 09 ABG pH 7.36; pCo2 54.6; pO2 56.4; HCO3 = 30.6, saturation 87.9 on BiPAP 14/7 with O2 - 30% rate 12; pCO2 has been 50 -77 over the last few years. (3) Steroid-dependent COPD: Code(s): J44.9 - Chronic obstructive pulmonary disease, unspecified; Z92.241 - Personal history of systemic steroid therapy Status: Acute Assessment and Plan: She has been on steroids for years for her COPD, recently stopped, not sure how many days ago, but this may have precipitated her deterioration. (4) History of tobacco abuse: Code(s): Z87.891 - Personal history of nicotine dependence Status: Acute Assessment and Plan: Last cigarette was November 04, 2023; has not smoked in earnest since about August 2023. Smoked 70 pack years. (5) SOB (shortness of breath): Code(s): R06.02 - Shortness of breath Status: Acute Assessment and Plan: She was admitted with increased shortness of breath, has poor exercise tolerance, has not had pulmonary rehabilitation. She had PT for her right hip s urgery in August 2023. We need to talk about pulmonary rehab when she is stable. (6) J CARLOS (obstructive sleep apnea): Code(s): G47.33 - Obstructive sleep apnea (adult) (pediatric) Status: Acute Assessment and Plan: She uses a Trilogy AVAPS mode non invasive ventilator at home, can use this here Her settings rate 12 breaths per minute, tidal volume 530 mL, EPAP maximum 16 cm water pressure, EPAP minimum 8 cm water pressure, inspiratory time 0.8 seconds, rise of 3. Plan plan: 1. Continue treatment for COPD exacerbation, reduce dose of steroids to solumedrol 40 mg IV Q 8 hrs, continue nebulized short acting bronchodilator, stop ipratropium with acute urinary retention as the anticholinergic can cause this problem; vibratory valve to help clear secretions. 2. She is a candidate to start dupilumab for COPD after discharge with an admission for COPD exacerbation on out-patient therapy with triple inhalers, and her eosinophils are > than 300 on September 23, 2023. She has been on oral steroids for years, 2.5 mg every other day, stopped recently, and this may have caused her to worsen. Dupixent is out patient only, and we can start this a couple weeks after discharge when she is stable. 3. She can choose to use a half a nebulized albuterol treatment if she gets too tachycardic with a whole treatment. 4. She is paying too much for nebulized albuterol; several hundred dollars. Her albuterol inhalers are very inexpensive. She needs to be able to use nebulized albuterol or lev-albuterol if we can get this approved and if it causes less tachycardia. 5. Discuss pulmonary rehab after discharge. She will need another PFT and walk study. 6. Expect at least 2 nights in the hospital. History of Present Illness History of Present Illness Consult date: 03/10/24 Requesting physician: Joel Palacios MD Chief complaint: Respiratory failure Narrative: Patient was seen Mar 10, 2024 at 17:00 Room 207. Her daughter Jennifer is a the bedside playing [employer] with her. NEW: Shara Pulido is an 83-year-old woman known to our service, last office visit 02/03/2024; Has COPD, chronic hypercapnic hypoxemic respiratory failure on O2 5 L/min at home, J CARLOS on Trilogy, compliant with using Trilogy. She has a remote history of histoplasmosis. She lives with daughter Jennifer and her sone in law. Patient quit smoking October 2023. She is up to date on all vaccines, has had RSV, flu, updated COVID booster and pneumococcal vaccine. She is managed on Trelegy 100, one puff a day, and albuterol inhaler, not often. She rarely uses albuterol in the nebulizer due to getting tremors, but daughter says that her quality of life is much better when she uses albuterol at least once a day. They are also over-paying for this, a few hundred dollars a prescription which should be a very low cost; albuterol solution is a $4/$10 drug at most pharmacies. She is not very active, has an electric scooter when she is out of the house; she can walk down a few stairs to the garage to get to the car. Cannot walk up stairs, cannot do laundry. She makes breakfast and lunch, cleans her room, not much else. She has not had pulmonary rehab, but did have rehab after her hip fracture and repair August 2023. She had a routine GI appt on Tuesday, Mar 05. She started feeling sick TuesdayMar 07, first with a sore throat that left by the next day, then more dyspnea, n on-productive coughing, wheezing without chest pain, leg swelling, fever or chills, and no GI symptoms. That evening, she had a generous serving of ice cream while Jennifer and her were out of the house. She tried Mucinex without much help. She has not been exposed to any sick contacts. She stopped taking her prednisone more than a few days before admission, no clear reason why. She says that she missed a day or two of prednisone, however her daughter thinks it was more days. She has not used her albuterol in the nebulizer for the last 6 months. Some of the information she is giving me today is different from what she told Josy in the office in January. She called our office Tuesday with symptoms, was told to go to ER. Her daughter was taking her by car, was pulling out of driveway when the patient felt hot all over, vomited. They pulled back in the driveway, called 911. She had a nebulizer breathing treatment in the ambulance & vomited again. Her sat was 89% on her home O2 of 5 L. She came to ER, had stable CXR without pneumonia, WBC elevated 14.2, lactic acid 1.6, no fever, stable BP 139/62. She was treated with IV solumedrol, nebulized bronchodilators, antibiotics empirically although she has no infiltrate. She had acute urinary retention, had to have a straight cath to get urine out, bladder scan showed a big bladder. I cannot find the amount of residual urine, but she has ipratropium on her in-patient medication list, and I stopped it because it is an anticholinergic, can cause acute urinary retention. HISTORY = = = = = = = = = = = last office visit with N.R; 02/03/2024; 83yo F here for follow up regarding COPD, chronic respiratory failure on home oxygen, J CARLOS on Trilogy. Her daughter, Swati, is with her today. She lives at home with her other daughter, Jennifer. She had a fall on 09/17/23 and broke her hip, [facility] and had hip replacement surgery the following day. After 3 or 4 days at [facility] post-op she was discharged to [facility], stayed overnight and the following day she had issues with SOB and was brought to [facility]. She was hospitalized 09/21-09/28/23 for COPD exacerbation and suspected new onset CHF. CXR with pulmonary vascular congestion and pleural effusions. Treated with steroids and nebulizer treatments, as well as antibiotics for COPD exacerbation. She was seen by our pulmonary team while inpatient - Dr Lauren and Dr Winn. Discharged to [facility] 09/28/23 and discharged from rehab 10/10/23. S COPD: Overall she's doing much better than she was 3 months ago at our last visit. Had a slow recovery after hip surgery and her hospitalization as detailed above. She has been regaining some strength and tells me today her breathing feels back to her baseline now. Overall shortness of breath improved. States she is not coughing much. Occasional wheezing heard by her daughter though she does not notice this. Denies chest congestion. Denies chest pain. She is compliant with Trelegy 100 1 puff daily; albuterol PRN by HFA and nebulizer. States she is using albuterol HFA multiple times per week but usually not daily. She has not been using her nebulizer breathing treatments. O2: Uses home oxygen 3L/min at rest and 4L/min with activity. She tells me she is pretty much using 3 liters/minute at all times. She checks her oxygen saturation every morning and tells me her resting oxygen saturation on 3 liters/minute is typically 90%. She sometimes remembers to increase her oxygen to 4 L with exertion. Sleep: She is compliant wearing Trilogy with sleep every night. States overall she is sleeping okay. Nocturia 0-1 time per night. Denies morning headaches. She is using a fullface mass with trilogy which is working well for her. Tobacco: She quit smoking for the most part in 2019, but occasionally still smokes a cigarette. Her last cigarette was October 2023. DATA * She had a higher than normal alpha-1 anti-trypsin level September 23, 2023 = 273, so she does not have A1AT deficiency. * PFT 2018 - FEV1 0.58 L, 33%, FEV1% = 37%. this is severe COPD. * 03/09/24 WBC 14.2, Mar 10, wbc 12K. Mar 09, 2024= 7.36/54.6/56.4/30.6/87.9 on BiPAP 14/7 30% rate 12; pCO2 has been 50 -77 over the last few years; in 2018 was over 100; Na+ 139, K+ 4.1, Chloride 104, CO2 = 32, BUN 18, creat 0.6, glucose 159 * 03/09/24; CXR : 1. Emphysema. 2. Mild atelectasis at the lung bases. 3. Cardiomegaly. Calcium 8.2, Magnesium 1.8; 09/22/23 - Echo - Hyperdynamic LV systolic function with grade I diastolic dysfunction. Calcified mitral valve annulus. Mild pulmonic regurgitation. No intracardiac shunt on bubble study. * 09/22/23 - CTA chest - There is severe emphysema. There is mild dependent atelectasis bilaterally. Calcified pulmonary nodules and calcified hilar mediastinal lymph nodes are consistent with old granulomatous disease. There are small pleural effusions. Cardiomegaly is noted. There are coronary artery calcifications. No pericardial effusion. There is no pulmonary embolus. Aortic atherosclerosis is noted. * 09/22/23 - CXR - Pulmonary vascular congestion and redistribution and small pleural effusions consistent with congestive heart failure. Aortic atherosclerosis. Minimal atelectasis or infiltrate at the lung bases. * 01/10/23 - Home O2 eval - She required 3L/min O2 at rest and 4L/min O2 with exertion. * 12/19/20 - LDCT chest - Emphysema. Dependent atelectasis left lower lung. Numerable scattered calcified granulomas in the lung parenchyma. Small 2 mm left upper lobe nodules not clearly calcified. Review of Systems Review of Systems: All systems reviewed & are unremarkable except as noted in HPI and below [facility] Past Medical History Medical History (Updated 03/10/24 @ 20:06 by Shara Mack MD) Anxiety Basal cell carcinoma (BCC) of left nasal sidewall Chronic obstructive pulmonary disease Chronic respiratory failure with hypoxia, on home oxygen therapy Compression fracture of body of thoracic vertebra Hearing loss Histoplasmosis Hypertension Iron deficiency anemia Macular degeneration of both eyes Mixed hyperlipidemia Obstructive sleep apnea treated with BiPAP Osteoporosis Surgical History Surgical History (Updated 03/09/24 @ 18:11 by Natasha Davenport PA-C) History of bilateral cataract extraction History of carpal tunnel release History of hysterectomy for benign disease History of repair of hip fracture (09/18/23) R subcapital femoral neck fracture, [facility] Family History Family History Sibling Diabetes mellitus Family history of cardiovascular disease Family history of coronary artery disease Father Family history of cardiovascular disease Family history of malignant neoplasm Family history of emphysema Mother Family history of cardiovascular disease Other Asthma Social History Social History (Updated 03/09/24 @ 18:11 by Natasha Davenport PA-C) Social History: Surrogate medical decision maker: Swati Lua, daughter. Code status: Full code. Years smoked: 70 Smoking status: Former smoker Second hand tobacco smoke exposure: Yes Additional smoking assessment comments: Pt states she has one cigarette per month Alcohol intake: never Substance use: never Substance use type: does not use Do You Feel Safe in your Home?: Yes Lack of Transportation: No Lack of Food: Never True Current Housing: I Do Not Have Housing Concerned About Future Housing: No Difficulty Paying Gas/Electric Bills: No Difficulty Paying for Meds: No Currently Unemployed: No Education: Grade School Difficulty w/ Childcare or Family Care: No Living arrangements: with family Occupation/Education: retired Spiritual care concerns: No Agree to blood products: Yes Meds Home Medications and Allergies Home Medications Medication Instructions Recorded Confirmed Type cholecalciferol (vitamin D3) 25 50 mcg PO DAILY 09/21/23 03/09/24 History mcg (1,000 unit) tablet nifedipine 30 mg tablet,extended 30 mg PO DAILY 09/21/23 03/09/24 History release 24 hr vit C 250 mg-vit E 90 mg-zinc 40 1 cap PO BID 09/22/23 03/09/24 History mg-copper 1 [id number] capsule (PreserVision AREDS-2) losartan 100 mg tablet 100 mg PO DAILY #90 tabs 11/11/23 03/09/24 Rx albuterol sulfate 90 mcg/actuation 1 inh inhalation QID PRN Shortness 03/09/24 03/09/24 History aerosol inhaler Of Breath Or Wheezing alprazolam 0.25 mg tablet 0.25 mg PO TID PRN Anxiety 03/09/24 03/09/24 History fluticasone fur. 100 mcg-umeclid 1 inh inhalation DAILY 03/09/24 03/09/24 History 62.5 mcg-vilant 25 mcg inhalat.powder (Trelegy Ellipta) omeprazole 40 mg capsule,delayed 40 mg PO QAM 03/09/24 03/09/24 History release prednisone 5 mg tablet 2.5 mg PO DAILY 03/09/24 03/09/24 History sertraline 100 mg tablet 100 mg PO DAILY 03/09/24 03/09/24 History Allergies Allergy/AdvReac Type Severity Reaction Status Date / Time levofloxacin Allergy Unknown Itching,Hiv Verified 03/09/24 14:16 es Vital Signs Vital Signs - 24 hr 03/09/24 15:59 03/09/24 15:57 03/09/24 16:15 Temperature 36.6 C Pulse Rate 100 96 102 H Respiratory Rate 25 H 18 33 H Blood Pressure 121/44 L 121/44 L Pulse Oximetry 100 100 100 Oxygen Delivery BiPAP Oxygen Flow Rate Fraction of Inspired Oxygen 03/09/24 17:25 03/09/24 17:22 03/09/24 18:00 Temperature 37.1 C Pulse Rate 107 H 103 H Respiratory Rate 28 H Blood Pressure 132/47 L Pulse Oximetry 92 89 L Oxygen Delivery Nasal Cannula Oxygen Flow Rate 3 Fraction of Inspired Oxygen 03/09/24 19:00 03/09/24 20:00 03/09/24 20:45 Temperature 36.6 C Pulse Rate 94 94 Respiratory Rate 20 20 Blood Pressure 103/62 Pulse Oximetry 91 96 96 Oxygen Delivery Nasal Cannula Nasal Cannula Oxygen Flow Rate 5 5 Fraction of Inspired Oxygen 03/09/24 23:32 03/10/24 00:00 03/10/24 00:10 Temperature 36.4 C Pulse Rate 79 86 86 Respiratory Rate 20 34 H 32 H Blood Pressure 113/52 L Pulse Oximetry 100 100 Oxygen Delivery BiPAP Oxygen Flow Rate Fraction of Inspired Oxygen 55 03/10/24 00:55 03/10/24 03:00 03/10/24 03:00 Temperature Pulse Rate 77 83 83 Respiratory Rate 23 H 24 H 24 H Blood Pressure Pulse Oximetry 100 99 Oxygen Delivery BiPAP BiPAP Oxygen Flow Rate Fraction of Inspired Oxygen 03/10/24 03:09 03/09/24 20:00 03/09/24 22:00 Temperature Pulse Rate 82 98 87 Respiratory Rate 23 H Blood Pressure Pulse Oximetry Oxygen Delivery Oxygen Flow Rate Fraction of Inspired Oxygen 03/10/24 00:00 03/10/24 02:00 03/10/24 04:00 Temperature Pulse Rate 83 76 68 Respiratory Rate Blood Pressure Pulse Oximetry Oxygen Delivery Oxygen Flow Rate Fraction of Inspired Oxygen 03/10/24 04:00 03/10/24 04:00 03/10/24 07:00 Temperature 36.5 C Pulse Rate 67 67 79 Respiratory Rate 24 H 24 H 20 Blood Pressure 132/62 Pulse Oximetry 100 100 97 Oxygen Delivery BiPAP Nasal Cannula Oxygen Flow Rate 5 Fraction of Inspired Oxygen 55 03/10/24 07:00 03/10/24 07:10 03/10/24 08:00 Temperature Pulse Rate 79 82 Respiratory Rate 20 20 Blood Pressure Pulse Oximetry 96 Oxygen Delivery Nasal Cannula Oxygen Flow Rate 5 Fraction of Inspired Oxygen 03/10/24 08:16 03/10/24 06:00 03/10/24 06:50 Temperature 36.5 C Pulse Rate 96 72 74 Respiratory Rate 20 22 H Blood Pressure 125/51 L Pulse Oximetry 96 97 Oxygen Delivery Nasal Cannula Oxygen Flow Rate 5 Fraction of Inspired Oxygen 03/10/24 11:00 03/10/24 11:00 03/10/24 11:10 Temperature Pulse Rate 88 88 87 Respiratory Rate 20 20 20 Blood Pressure Pulse Oximetry 95 Oxygen Delivery Nasal Cannula Oxygen Flow Rate 5 Fraction of Inspired Oxygen 03/10/24 08:00 03/10/24 10:00 03/10/24 11:44 Temperature 36.7 C Pulse Rate 94 89 72 Respiratory Rate 18 Blood Pressure 134/56 L Pulse Oximetry 98 Oxygen Delivery Oxygen Flow Rate Fraction of Inspired Oxygen 03/10/24 11:44 03/10/24 12:00 03/10/24 14:00 Temperature Pulse Rate 84 85 Respiratory Rate Blood Pressure Pulse Oximetry 99 Oxygen Delivery Nasal Cannula Oxygen Flow Rate 5 Fraction of Inspired Oxygen Exam Narrative: GEN: Alert, oriented, mild increased respiratory effort. She is wearing nasal cannula with O2 at 5 L/min. Not in distress. She can speak in short sentences. Memory is a bit off. HEENT: pupils are equal, EOMI, symmetrical face; oral membranes moist, Mallampati II airway NECK: Trachea is midline CHEST: Equal air entry, symmetric excursion, decreased clear breath sounds without wheezing CV: Regular S1S2 no m/g/r ABD : (+) bowel sounds Extremities : no clubbing, cyanosis, or edema PSYCH: normal thought and speech Results Laboratory Findings 03/10/24 04:45 03/10/24 04:45 ABG, PT/INR, D-dimer: ABG ABG pH 7.367 (7.350-7.450) 03/09/24 14:23 ABG pCO2 54.6 mmHg (35.0-45.0) H 03/09/24 14:23 ABG pO2 56.4 mmHg (80.0-100.0) L 03/09/24 14:23 ABG O2 Saturation 87.9 % (95.0-100.0) L 03/09/24 14:23 PT/INR, D-dimer PT 15.0 Seconds (11.1-14.7) H 03/09/24 14:09 INR 1.1 03/09/24 14:09 Abnormal lab findings: Abnormal Labs 03/09/24 03/09/24 03/09/24 14:09 14:23 23:56 WBC 14.2 H Hgb Hct MCH 25.8 L MCHC 30.9 L RDW 18.3 H MPV 10.8 H Neut % (Auto) 81.7 H Lymph % (Auto) 9.7 L [place] # (Auto) 1.0 H Abs Immat Gran (auto) 0.05 H Absolute Neuts (auto) 11.6 H PT 15.0 H ABG pCO2 54.6 H ABG pO2 56.4 L ABG HCO3 30.6 H ABG O2 Saturation 87.9 L Oxyhemoglobin 87.7 L* Chloride 96 L Carbon Dioxide 34 H Anion Gap BUN 21 H Creatinine 0.60 L Glucose 133 H Calcium C-Reactive Protein 3.5 H Urine Appearance Cloudy H Urine Ketones Trace H 03/10/24 04:45 WBC 12.0 H Hgb 11.0 L Hct 35.5 L MCH 25.9 L MCHC 31.0 L RDW 18.1 H MPV 11.3 H Neut % (Auto) Lymph % (Auto) Fallon # (Auto) Abs Immat Gran (auto) Absolute Neuts (auto) PT ABG pCO2 ABG pO2 ABG HCO3 ABG O2 Saturation Oxyhemoglobin Chloride Carbon Dioxide 32 H Anion Gap 3 L BUN 18 H Creatinine 0.60 L Glucose 159 H Calcium 8.2 L C-Reactive Protein Urine Appearance Urine Ketones
[2024-03-10 21:37] LABS: Influenza A QL RT-PCR Negative (Negative); Influenza B QL RT-PCR Negative (Negative); RSV RNA, RT-PCR Negative (Negative); SARS-CoV-2 RNA PCR Negative (Negative)
[2024-03-10] MEDS: methylPREDNISolone SOD SUCC 40 MG VIAL IV PUSH (22:08)
[2024-03-11] VITALS (21 sets, daily range): BP systolic 128–147; BP diastolic 53–60; PULSE 55–99; RESP 14–24; TEMP 36.4–36.8; O2SAT 95–100
[2024-03-11] MEDS: IPRATROPIUM BR 0.02% INH SOLN 0.5 MG/2.5 ML VIAL (03:09)
[2024-03-11] MEDS: methylPREDNISolone SOD SUCC 40 MG VIAL IV PUSH ×3 (05:09→21:21)
[2024-03-11 05:17] LABS: Hematocrit 36.1 % (37.0-47.0); Hemoglobin 10.9 g/dL (12.0-15.0); Mean Corpuscular HGB Conc 30.2 g/dl (32-36); Mean Corpuscular Hemoglobin 25.5 pg (26-34); Mean Corpuscular Volume 84.5 fl (80-100); Mean Platelet Volume 11.3 fl (7.4-10.4); Platelet Count Result 186 k/mm3 (150-375); Red Blood Count 4.27 M/mm3 (4.2-5.4); White Blood Count 13.1 K/mm3 (4.5-10.0)
[2024-03-11 05:35] LABS: Alanine Aminotransferase 16 U/L (6-35); Albumin Level 3.6 g/dL (3.5-5.1); Alkaline Phosphatase 90 U/L (38-126); Anion Gap 3 mmol/L (4-12); Aspartate Amino Transferase 24 U/L (14-36); Bilirubin,Total 0.4 mg/dL (0.2-1.3); Blood Urea Nitrogen 22 mg/dL (7-17); Calcium 8.4 mg/dL (8.4-10.2); Carbon Dioxide 32 mmol/L (22-30); Chloride 105 mmol/L (98-107); Estimated CRCL calculation 58 ml/min; Estimated Glomerular Filt Rate > 60; Glucose 133 mg/dL (65-110); Potassium 3.8 mmol/L (3.4-5.0); Sodium 140 mmol/L (137-145)
[2024-03-11] MEDS: ENOXAPARIN 40 MG/0.4 ML SYRINGE SUB-Q (08:21)
[2024-03-11] MEDS: guaiFENesin 12 HR 600 MG TABCR 1200 MG PO ×2 (08:21→21:21)
[2024-03-11] MEDS: OPTI-GEN TAB 1 TABLET PO ×2 (08:22→17:36)
[2024-03-11] MEDS: ALPRAZolam (*CRX) 0.25 MG TABLET PO ×2 (08:22→21:24)
[2024-03-11] MEDS: SERTRALINE HCL 50 MG TABLET 100 MG PO (08:22)
[2024-03-11] MEDS: AZITHROMYCIN 250 MG TABLET PO (08:22)
[2024-03-11] MEDS: CHOLECALCIFEROL 1,000 UNITS TABLET 2000 UNITS PO (08:22)
[2024-03-11] MEDS: NIFEdipine 30 MG TAB.ER.24 PO (08:22)
[2024-03-11] MEDS: PANTOPRAZOLE 40 MG TABLET PO ×2 (08:22→21:21)
[2024-03-11] MEDS: LOSARTAN POTASSIUM 100 MG TABLET PO (08:22)
[2024-03-11] MEDS: FLUTICASONE/UMECLIDIN/VILANTER 100-62.5-25 MCG ELLIPTA 1 PUFF INHALATION (09:42)
--- NOTE | 2024-03-11 11:26 | P.PNIM_ITS ---
Progress Note: A&P Assessment and Plan (1) Acute and chronic respiratory failure with hypoxia: Code(s): J96.21 - Acute and chronic respiratory failure with hypoxia Status: Acute (2) Acute exacerbation of chronic obstructive pulmonary disease (COPD): Code(s): J44.1 - Chronic obstructive pulmonary disease with (acute) exacerbation Status: Acute (3) Obstructive sleep apnea treated with BiPAP: Code(s): G47.33 - Obstructive sleep apnea (adult) (pediatric) Status: Acute (4) Hypertension: Code(s): I10 - Essential (primary) hypertension Status: Acute Plan The patient presented to the emergency department for evaluation of shortness of breath as detailed in HPI. Labs, imaging, EKG, and all reports were personally reviewed. Clinically she has is COPD exacerbation, possibly precipitated by URI. Chest x-ray did not show any acute findings however given new cough she has been started on antibiotics. Continue scheduled bronchodilators and Solu-Medrol. She is currently at her baseline oxygen requirement. BiPAP will be provided for the patient to use while hospitalized. Blood pressures were reviewed and they are stable. Her home medications will be reviewed and resumed as appropriate. Findings and treatment plan were discussed with the patient and her daughter. Questions were solicited and answered to satisfaction. The patient's medical management will be taken over by the hospitalist team in a.m. COPD exacerbation vs CHF exacerbation -Previous exacerbation on 09/22/2023 -Multiple comorbid conditions including CHF -COPD Exacerbation requiring BiPAP -She has been on steroids for years for her COPD, recently stopped, not sure how many days ago, but this may have precipitated her deterioration. -GOLD stage E requiring Dupixent -Pulmonology workup done as OP -Home O2 3L -Long Smoking Hx -ECHO ordered -D/C Vancomycin since Nasal MRSA not detected -Started on Ceftriaxone and Azithromycin -Negative for Influenza and COVID -Ordered RSV -Methylprednisone 60 mg IV q 6hrs -On Trelegy Ellipta home med -d/c Ipratropium q 4hrs due to urinary retention Diastolic heart failure -Continue nifedipine 30 mg p.o. q.d. -Continue losartan 100 mg p.o. q.d. -09/22/23 - Echo - Hyperdynamic LV systolic function with grade I diastolic dysfunction. Calcified mitral valve annulus. Mild pulmonic regurgitation. No intracardiac shunt on bubble study. -She was seen by [employer] Dr Italia Raymundo on 01/24/2024 ,advised in regards to her diastolic HF she did have an episode of fluid retention after having surgery back in August 2023, that was treated with Lasix. He advised conservative management with Losartan and nifedipine. -ECHO ordered Subjective Date/time seen: 03/11/24 11:26 Interval history: No acute events overnight. Patient is evaluated by and patient was pleased to meet her since she has seen her before and managed her COPD. According to [employer] Project Mgr she is GOLD E (Eosinophils >300)requiring Dupixent and can be started as OP. Patient also needs pulmonary rehab after discharge. Review of Systems Review of Systems: 12 systems were reviewed and are negativ e except for as per HPI. Exam Narrative: General: Chronically ill-appearing female sitting up in bed in no acute distress. Weight: 71.9 kg. BMI: 20.1. HEENT: Slightly hard of hearing. She is wearing corrective lenses. PERRL, EOMI. Sclera anicteric. Oral mucosa moist. Neck: Supple. No JVD. Respiratory: Mildly tachypneic. She is speaking in full sentences appears in no respiratory distress. Significantly diminished lung sounds throughout with expiratory wheezing. Occasional cough. Cardiovascular: Regular rate and rhythm with S1-S2. Occasional ectopy. Gastrointestinal: Abdomen is soft, nontender, and nondistended with positive bowel sounds. Skin: Warm and dry. No rash or lesions on limited exam. Extremities: No cyanosis, clubbing, or edema. Radial and pedal pulses intact. No palpable knots or cords. Negative Keri sign bilaterally. Neurological: Alert. Cranial nerves 2-12 are grossly intact. No gross focal deficits to casual conversation. Psychiatric: Pleasant and cooperative with normal mood and affect. Judgment and insight intact. Objective Data Vital Signs Vital Signs: Vital Signs - 24 hr 03/10/24 11:44 03/10/24 11:44 03/10/24 12:00 Temperature 98.1 F Pulse Rate 72 84 Respiratory Rate 18 Blood Pressure 134/56 L Pulse Oximetry 98 99 Oxygen Delivery Nasal Cannula Oxygen Flow Rate 5 Fraction of Inspired Oxygen 03/10/24 14:00 03/10/24 16:11 03/10/24 16:00 Temperature 98.1 F Pulse Rate 85 87 Respiratory Rate 20 Blood Pressure 139/62 Pulse Oximetry 92 97 Oxygen Delivery Nasal Cannula Oxygen Flow Rate 5 Fraction of Inspired Oxygen 03/10/24 16:00 03/10/24 18:00 03/10/24 19:54 Temperature 98.2 F Pulse Rate 89 80 96 Respiratory Rate 19 Blood Pressure 141/100 H Pulse Oximetry 96 Oxygen Delivery Oxygen Flow Rate Fraction of Inspired Oxygen 03/10/24 20:12 03/10/24 23:21 03/10/24 21:00 Temperature 98.2 F Pulse Rate 88 61 96 Respiratory Rate 20 24 H 19 Blood Pressure 121/51 L Pulse Oximetry 90 99 96 Oxygen Delivery Nasal Cannula Nasal Cannula Oxygen Flow Rate 5 5 Fraction of Inspired Oxygen 03/10/24 20:00 03/10/24 22:00 03/11/24 00:00 Temperature Pulse Rate 77 78 56 L Respiratory Rate Blood Pressure Pulse Oximetry Oxygen Delivery Oxygen Flow Rate Fraction of Inspired Oxygen 03/11/24 00:00 03/11/24 02:00 03/11/24 03:00 Temperature Pulse Rate 61 63 58 L Respiratory Rate 24 H 14 Blood Pressure Pulse Oximetry 99 99 Oxygen Delivery BiPAP BiPAP Oxygen Flow Rate Fraction of Inspired Oxygen 55 03/11/24 03:00 03/11/24 03:10 03/11/24 03:53 Temperature 98.3 F Pulse Rate 58 L 62 67 Respiratory Rate 14 16 18 Blood Pressure 142/57 H Pulse Oximetry 100 Oxygen Delivery Oxygen Flow Rate Fraction of Inspired Oxygen 03/11/24 04:00 03/11/24 04:00 03/11/24 06:00 Temperature Pulse Rate 67 55 L 81 Respiratory Rate 18 Blood Pressure Pulse Oximetry 100 Oxygen Delivery BiPAP Oxygen Flow Rate Fraction of Inspired Oxygen 55 03/11/24 07:53 03/11/24 08:00 03/11/24 09:42 Temperature 97.6 F Pulse Rate 72 Respiratory Rate 16 Blood Pressure 140/57 L Pulse Oximetry 98 97 95 Oxygen Delivery High Flow Nasal Cannula Nasal Cannula Oxygen Flow Rate 3.5 3.5 Fraction of Inspired Oxygen Intake/Output Intake/Output: Intake & Output 03/08/24 03/09/24 03/10/24 03/11/24 23:59 23:59 23:59 23:59 Intake Total 2840 1640 490 Output Total 0126 053 7913 Balance 1740 790 -560 Meds/Results Medications: Active Medications Generic Name Dose Route Start Last Admin Trade Name Krystal PRN Reason Stop Dose Admin Alprazolam 0.25 mg 03/09/24 23:03 03/11/24 08:22 Alprazolam (*Crx) 0.25 Mg Tablet PO 0.25 mg TID PRN Administration Anxiety Azithromycin 250 mg 03/10/24 09:00 03/11/24 08:22 Azithromycin 250 Mg Tablet PO 03/13/24 09:01 250 mg DAILY FELICIA Administration Enoxaparin Sodium 40 mg 03/10/24 09:00 03/11/24 08:21 Enoxaparin 40 Mg/0.4 Ml Syringe SUB-Q 40 mg DAILY FELICIA Administration Fluticasone/Umeclidinium/Vilanterol 1 puff 03/10/24 09:00 03/11/24 09:42 Fluticasone/Umeclidin/Vilanter 100-62.5-25 Mcg Ellipta INHALATION 1 puff DAILY FELICIA Administration Guaifenesin 1,200 mg 03/10/24 09:00 03/11/24 08:21 Guaifenesin 12 Hr 600 Mg Tabcr PO 1,200 mg Q12HR FELICIA Administration Ceftriaxone Sodium 1 gm in 50 mls @ 100 mls/hr 03/10/24 09:00 03/11/24 08:22 Rocephin 1 Gm/Ns 50 Ml IVPB 100 mls/hr Q24H FELICIA Administration Losartan Potassium 100 mg 03/10/24 09:00 03/11/24 08:22 Losartan Potassium 100 Mg Tablet PO 100 mg DAILY FELICIA Administration Methylprednisolone Sodium Succinate 40 mg 03/10/24 22:00 03/11/24 05:09 Methylprednisolone Sod Succ 40 Mg Vial IV PUSH 40 mg Q8HR FELICIA Administration Multivitamins/Minerals 1 tablet 03/10/24 09:00 03/11/24 08:22 Opti-Gen Tab PO 1 tablet BID FELICIA Administration Nifedipine 30 mg 03/10/24 09:00 03/11/24 08:22 Nifedipine 30 Mg Tab.Er.24 PO 30 mg DAILY FELICIA Administration Pantoprazole Sodium 40 mg 03/10/24 09:00 03/11/24 08:22 Pantoprazole 40 Mg Tablet PO 40 mg Q12HR FELICIA Administration Perflutren Lipid Microsphere 0 ml 03/10/24 07:56 Perflutren Lipid Microspheres 1.5 Ml Vial Diluted To 10 Ml Total Volume IV PUSH 03/13/24 07:56 ONCE PRN adequate visualization Protocol Sertraline HCl 100 mg 03/10/24 09:00 03/11/24 08:22 Sertraline Hcl 50 Mg Tablet PO 100 mg DAILY FELICIA Administration Vitamin D 2,000 units 03/10/24 09:00 03/11/24 08:22 Cholecalciferol 1,000 Units Tablet PO 2,000 units DAILY FELICIA Administration Radiology Results: ITS Impressions Chest X-Ray 03/09/24 14:33 IMPRESSION: 1. Emphysema. 2. Mild atelectasis at the lung bases. 3. Cardiomegaly. Labs Labs: Laboratory Results - last 24 hr 03/10/24 03/10/24 03/11/24 13:17 13:17 04:45 WBC 13.1 H RBC 4.27 Hgb 10.9 L Hct 36.1 L MCV 84.5 MCH 25.5 L MCHC 30.2 L RDW 18.0 H Plt Count 186 MPV 11.3 H Sodium 140 Potassium 3.8 Chloride 105 Carbon Dioxide 32 H Anion Gap 3 L BUN 22 H Creatinine 0.60 L Estim Creat Clear Calc 58 Estimated GFR > 60 Glucose 133 H Calcium 8.4 Total Bilirubin 0.4 AST 24 ALT 16 Alkaline Phosphatase 90 Total Protein 7.0 Albumin 3.6 Influenza A (RT-PCR) Negative Influenza B (RT-PCR) Negative RSV (RT-PCR) Cancelled Negative SARS-CoV-2 RNA (RT-PCR) Negative Quality VTE Prophylaxis VTE prophylaxis: pharmacologic ordered Hospitalist MIPS Advance Care Plan I have confirmed that the patient's Advanced Care Plan is present, code status is documented, or surrogate decision maker is listed in patient medical record.: Yes Medication Reconciliation I have utilized all available resources to obtain, update and review the patients current medications (includes all prescriptions, OTC, herbals, cannabis, and nutritional supplements).: Yes
[2024-03-11] MEDS: BISMUTH SUBSALICYLATE 262 MG CHEWABLE TABLET 524 MG PO (12:21)
--- NOTE | 2024-03-11 14:18 | P.PNPL_ITS ---
Progress Note: A&P Assessment and Plan (1) Acute exacerbation of chronic obstructive pulmonary disease (COPD): Code(s): J44.1 - Chronic obstructive pulmonary disease with (acute) exacerbation Status: Acute Assessment and Plan: She is GOLD 3 based on the 2018 PFT with FEV1 33% predicted, 0.58 L and FEV1/FVC 37%. We have no recent PFTs in the system, these are 6 years old, so she may be in the GOLD 4 end-stage area by now. She has not had an exacerbation of [facility], was in the hospital in August 2023 transferred to acute care from rehab where she was getting better from her right hip fracture and had new onset CHF. She does appear to be having a COPD exacerbation now, improving on steroids, broncodilators, empiric antibiotics without pneumonia on CXR. She had acute urinary retention with concerns for UTI on this admission, however I do not see any cultures showing UTI. . (2) Acute hypoxic on chronic hypercapnic respiratory failure: Code(s): J96.01 - Acute respiratory failure with hypoxia; J96.12 - Chronic respiratory failure with hypercapnia Status: Acute Assessment and Plan: She is on 5 L/min at home, had a saturation of 80% at home before arrival, then 89% on her usual 5 l/min. Now she is on 5 L/min with sat 92-99%. She uses a Trilogy non invasive ventilator at home, and here used BiPAP for her March 09 ABG pH 7.36; pCo2 54.6; pO2 56.4; HCO3 = 30.6, saturation 87.9 on BiPAP 14/ with O2 - 30% rate 12; pCO2 has been 50 -77 over the last few years. She is now on 5 L/min, sat is high 90s, so O2 now could be weaned. (3) Steroid-dependent COPD: Code(s): J44.9 - Chronic obstructive pulmonary disease, unspecified; Z92.241 - Personal history of systemic steroid therapy Status: Acute Assessment and Plan: She has been on steroids for years for her COPD, recently stopped, not sure how many days ago, but this may have precipitated her deterioration. She was taking 5 mg, a half a tablet every other day. Sh has been on higher amounts. Since she has been steroid dependent since 2018, she has stayed out of the hospital. Her last admission for COPD was 2018 in [place] with another pulmonary group. This is her first admission since 2018. Kiersten does not have sputum, only has when sick at times, none regularly. My plan is to start Dupixent when she is stable, this is an out patient medication. She qualifies with increased eosinophils. : (4) History of tobacco abuse: Code(s): Z87.891 - Personal history of nicotine dependence Status: Acute Assessment and Plan: Last cigarette was November 04, 2023; has not smoked in earnest since about August 2023. Smoked 70 pack years. She also needs to avoid second hand smoke. (5) SOB (shortness of breath): Code(s): R06.02 - Shortness of breath Status: Acute Assessment and Plan: She was admitted with increased shortness of breath, has poor exercise tolerance, has not had pulmonary rehabilitation. She had PT for her right hip surgery in August 2023. We need to talk about pulmonary rehab when she is stable. (6) J CARLOS (obstructive sleep apnea): Code(s): G47.33 - Obstructive sleep apnea (adult) (pediatric) Status: Acute Assessment and Plan: She uses a Trilogy AVAPS mode non invasive ventilator at home, can use this here Her settings rate 12 breaths per minute, tidal volume 530 mL, EPAP maximum 16 cm water pressure, EPAP minimum 8 cm water pressure, inspiratory time 0.8 seconds, rise of 3. Plan plan: 1. Continue treatment for COPD exacerbation, reduce dose of steroids; continue nebulized short acting bronchodilator, no ipratropium with acute urinary retention as the anticholinergic can cause this problem; vibratory valve to help clear secretions. 2. She is a candidate to start dupilumab for COPD after discharge with an admission for COPD exacerbation on out-patient therapy with triple inhalers, and her eosinophils are > than 300 on September 23, 2023. She has been on oral steroids for years, 2.5 mg every other day, stopped recently, and this may have caused her to worsen. Dupixent is out patient only, and we can start this a couple weeks after discharge when she is stable. 3. She can choose to use a half a nebulized albuterol treatment if she gets too tachycardic with a whole treatment. 4. She is paying too much for nebulized albuterol; several hundred dollars. Her albuterol inhalers are very inexpensive. She needs to be able to use nebulized albuterol or lev-albuterol if we can get this approved and if it causes less tachycardia. 5. Discuss pulmonary rehab after discharge. She will need another PFT and walk study. Subjective Date/time seen: 03/11/24 14:18 Interval history: hospital follow up; 03.11.24; Feeling better, daughter is at the bedside. She is not producing any sputum. O2 requirement is stable; She is eating and drinking well. Weight is up 11.9.24; new consult; Shara Pulido is an 83-year-old woman known to our service, last office visit 02/03/2024; Has COPD, chronic hypercapnic hypoxemic respiratory failure on O2 5 L/min at home, J CARLOS on Trilogy, compliant with using Trilogy. She has a remote history of histoplasmosis. She lives with daughter Jennifer and her son in law. Patient quit smoking October 2023. She is up to date on all vaccines, has had RSV, flu, updated COVID booster and pneumococcal vaccine. She is managed on Trelegy 100, one puff a day, and albuterol inhaler, not often. She rarely uses albuterol in the nebulizer due to getting tremors, but daughter says that her quality of life is much better when she uses albuterol at least once a day. They are also over-paying for this, a few hundred dollars a prescription which should be a very low cost; albuterol solution is a $4/$10 drug at most pharmacies. She is not very active, has an electric scooter when she is out of the house; she can walk down a few stairs to the garage to get to the car. Cannot walk up stairs, cannot do laundry. She makes breakfast and lunch, cleans her room, not much else. She has not had pulmonary rehab, but did have rehab after her hip fracture and repair August 2023. She had a routine GI appt on Mar 05. She started feeling sick TuesdayMar 07, first with a sore throat that left by the next day, then more dyspnea, non-productive coughing, wheezing without chest pain, leg swelling, fever or chills, and no GI symptoms. That evening, she had a generous serving of ice cream while Jennifer and her were out of the house. She tried Mucinex without much help. She has not been exposed to any sick contacts. She stopped taking her prednisone more than a few days before admission, no clear reason why. She says that she missed a day or two of prednisone, however her daughter thinks it was more days. She has not used her albuterol in the nebulizer for the last 6 months. Some of the information she is giving me today is different from what she told Josy in the office in January. She called our office Tuesday with symptoms, was told to go to ER. Her daughter was taking her by car, was pulling out of driveway when the patient felt hot all over, vomited. They pulled back in the driveway, called 911. She had a nebulizer breathing treatment in the ambulance & vomited again. Her sat was 89% on her home O2 of 5 L. She came to ER, had stable CXR without pneumonia, WBC elevated 14.2, lactic acid 1.6, no fever, stable BP 139/62. She was treated with IV solumedrol, nebulized bronchodilators, antibiotics empirically although she has no infiltrate. She had acute urinary retention, had to have a straight cath to get urine out, bladder scan showed a big bladder. I cannot find the amount of residual urine, but she has ipratropium on her in-patient medication list, and I stopped it because it is an anticholinergic, can cause acute urinary retention. HISTORY = = = = = = = = = = = last office visit with [facility]; 02/03/2024; 83yo F here for follow up regarding COPD, chronic respiratory failure on home oxygen, J CARLOS on Trilogy. Her daughter, Swati, is with her today. She lives at home with her other daughter, Jennifer. She had a fall on 09/17/23 and broke her hip, [facility] and had hip replacement surgery the following day. After 3 or 4 days at [facility] post-op she was discharged to [facility], stayed overnight and the following day she had issues with SOB and was brought to [facility]. She was hospitalized 09/21-09/28/23 for COPD exacerbation and suspected new onset CHF. CXR with pulmonary vascular congestion and pleural effusions. Treated with steroids and nebulizer treatments, as well as antibiotics for COPD exacerbation. She was seen by our pulmonary team while inpatient - Dr Lauren and Dr Winn. Discharged to [facility] 09/28/23 and discharged from rehab 10/10/23. S COPD: Overall she's doing much better than she was 3 months ago at our last visit. Had a slow recovery after hip surgery and her hospitalization as detailed above. She has been regaining some strength and tells me today her breathing feels back to her baseline now. Overall shortness of breath improved. States she is not coughing much. Occasional wheezing heard by her daughter though she does not notice this. Denies chest congestion. Denies chest pain. She is compliant with Trelegy 100 1 puff daily; albuterol PRN by HFA and nebulizer. States she is using albuterol HFA multiple times per week but usually not daily. She has not been using her nebulizer breathing treatments. O2: Uses home oxygen 3L/min at rest and 4L/min with activity. She tells me she is pretty much using 3 liters/minute at all times. She checks her oxygen saturation every morning and tells me her resting oxygen saturation on 3 liters/minute is typically 90%. She sometimes remembers to increase her oxygen to 4 L with exertion. Sleep: She is compliant wearing Trilogy with sleep every night. States overall she is sleeping okay. Nocturia 0-1 time per night. Denies morning headaches. She is using a fullface mass with trilogy which is working well for her. Tobacco: She quit smoking for the most part in 2019, but occasionally still smokes a cigarette. Her last cigarette was October 2023. DATA * She had a higher than normal alpha-1 anti-trypsin level September 23, 2023 = 273, so she does not have A1AT deficiency. * PFT 2018 - FEV1 0.58 L, 33%, FEV1% = 37%. this is severe COPD. * 03/09/24 WBC 14.2, Mar 9, wbc 12K. Mar 09, 2024= 7.36/54.6/56.4/30.6/87.9 on BiPAP 14/7 30% rate 12; pCO2 has been 50 -77 over the last few years; in 2019 was over 100; Na+ 139, K+ 4.1, Chloride 104, CO2 = 32, BUN 18, creat 0.6, glucose 159 * 03/09/24; CXR : 1. Emphysema. 2. Mild atelectasis at the lung bases. 3. Cardiomegaly. Calcium 8.2, Magnesium 1.8; 09/22/23 - Echo - Hyperdynamic LV systolic function with grade I diastolic dysfunction. Calcified mitral valve annulus. Mild pulmonic regurgitation. No intracardiac shunt on bubble study. * 09/22/23 - CTA chest - There is severe emphysema. There is mild dependent atelectasis bilaterally. Calcified pulmonary nodules and calcified hilar mediastinal lymph nodes are consistent with old granulomatous disease. There are small pleural effusions. Cardiomegaly is noted. There are coronary artery calcifications. No pericardial effusion. There is no pulmonary embolus. Aortic atherosclerosis is noted. * 09/22/23 - CXR - Pulmonary vascular congestion and redistribution and small pleural effusions consistent with congestive heart failure. Aortic atherosclerosis. Minimal atelectasis or infiltrate at the lung bases. * 01/10/23 - Home O2 eval - She required 3L/min O2 at rest and 4L/min O2 with exertion. * 12/19/20 - LDCT chest - Emphysema. Dependent atelectasis left lower lung. Numerable scattered calcified granulomas in the lung parenchyma. Small 2 mm left upper lobe nodules not clearly calcified. Review of Systems Review of Systems: All systems reviewed & are unremarkable except as noted in HPI and below Exam Narrative: GEN: Alert, oriented, mild increased respiratory effort. She is wearing nasal cannula with O2 at 5 L/min. Not in distress. She can speak in short sentences. NECK: Trachea is midline CHEST: Equal air entry, symmetric excursion, decreased clear breath sounds without wheezing CV: Regular S1S2 no m/g/r ABD : (+) bowel sounds Extremities : no clubbing, cyanosis, or edema PSYCH: normal thought and speech Objective Data Vital Signs Vital Signs: Vital Signs - 24 hr 03/10/24 16:11 03/10/24 16:00 03/10/24 16:00 Temperature 36.7 C Pulse Rate 87 89 Respiratory Rate 20 Blood Pressure 139/62 Pulse Oximetry 92 97 Oxygen Delivery Nasal Cannula Oxygen Flow Rate 5 Fraction of Inspired Oxygen 03/10/24 18:00 03/10/24 19:54 03/10/24 20:12 Temperature 36.8 C Pulse Rate 80 96 88 Respiratory Rate 19 20 Blood Pressure 141/100 H Pulse Oximetry 96 90 Oxygen Delivery Nasal Cannula Oxygen Flow Rate 5 Fraction of Inspired Oxygen 03/10/24 23:21 03/10/24 21:00 03/10/24 20:00 Temperature 36.8 C Pulse Rate 61 96 77 Respiratory Rate 24 H 19 Blood Pressure 121/51 L Pulse Oximetry 99 96 Oxygen Delivery Nasal Cannula Oxygen Flow Rate 5 Fraction of Inspired Oxygen 03/10/24 22:00 03/11/24 00:00 03/11/24 00:00 Temperature Pulse Rate 78 56 L 61 Respiratory Rate 24 H Blood Pressure Pulse Oximetry 99 Oxygen Delivery BiPAP Oxygen Flow Rate Fraction of Inspired Oxygen 55 03/11/24 02:00 03/11/24 03:00 03/11/24 03:00 Temperature Pulse Rate 63 58 L 58 L Respiratory Rate 14 14 Blood Pressure Pulse Oximetry 99 Oxygen Delivery BiPAP Oxygen Flow Rate Fraction of Inspired Oxygen 03/11/24 03:10 03/11/24 03:53 03/11/24 04:00 Temperature 36.8 C Pulse Rate 62 67 67 Respiratory Rate 16 18 18 Blood Pressure 142/57 H Pulse Oximetry 100 100 Oxygen Delivery BiPAP Oxygen Flow Rate Fraction of Inspired Oxygen 55 03/11/24 04:00 03/11/24 06:00 03/11/24 07:53 Temperature 36.4 C Pulse Rate 55 L 81 72 Respiratory Rate 16 Blood Pressure 140/57 L Pulse Oximetry 98 Oxygen Delivery Oxygen Flow Rate Fraction of Inspired Oxygen 03/11/24 08:00 03/11/24 09:42 03/11/24 11:42 Temperature Pulse Rate Respiratory Rate Blood Pressure Pulse Oximetry 97 95 98 Oxygen Delivery High Flow Nasal Cannula Nasal Cannula Nasal Cannula Oxygen Flow Rate 3.5 3.5 3.5 Fraction of Inspired Oxygen 03/11/24 12:00 03/11/24 08:00 03/11/24 12:00 Temperature 36.4 C L Pulse Rate 79 91 85 Respiratory Rate 16 Blood Pressure 146/60 H Pulse Oximetry 100 Oxygen Delivery Oxygen Flow Rate Fraction of Inspired Oxygen 03/11/24 10:00 Temperature Pulse Rate 92 Respiratory Rate Blood Pressure Pulse Oximetry Oxygen Delivery Oxygen Flow Rate Fraction of Inspired Oxygen Intake/Output Intake/Output: Intake & Output 03/08/24 03/09/24 03/10/24 03/11/24 23:59 23:59 23:59 23:59 Intake Total 2840 1640 740 Output Total 0795 077 6122 Balance 1740 790 -310 Meds/Results Medications: Active Medications Generic Name Dose Route Start Last Admin Trade Name Freq PRN Reason Stop Dose Admin Alprazolam 0.25 mg 03/09/24 23:03 03/11/24 08:22 Alprazolam (*Crx) 0.25 Mg Tablet PO 0.25 mg TID PRN Administration Anxiety Azithromycin 250 mg 03/10/24 09:00 03/11/24 08:22 Azithromycin 250 Mg Tablet PO 03/13/24 09:01 250 mg DAILY FELICIA Administration Bismuth Subsalicylate 524 mg 03/11/24 12:02 03/11/24 12:21 Bismuth Subsalicylate 262 Mg Chewable Tablet PO 524 mg Q1H PRN Administration Indigestion Enoxaparin Sodium 40 mg 03/10/24 09:00 03/11/24 08:21 Enoxaparin 40 Mg/0.4 Ml Syringe SUB-Q 40 mg DAILY FELICIA Administration Fluticasone/Umeclidinium/Vilanterol 1 puff 03/10/24 09:00 03/11/24 09:42 Fluticasone/Umeclidin/Vilanter 100-62.5-25 Mcg Ellipta INHALATION 1 puff DAILY FELICIA Administration Guaifenesin 1,200 mg 03/10/24 09:00 03/11/24 08:21 Guaifenesin 12 Hr 600 Mg Tabcr PO 1,200 mg Q12HR FELICIA Administration Ceftriaxone Sodium 1 gm in 50 mls @ 100 mls/hr 03/10/24 09:00 03/11/24 08:22 Rocephin 1 Gm/Ns 50 Ml IVPB 100 mls/hr Q24H FELICIA Administration Losartan Potassium 100 mg 03/10/24 09:00 03/11/24 08:22 Losartan Potassium 100 Mg Tablet PO 100 mg DAILY FELICIA Administration Methylprednisolone Sodium Succinate 40 mg 03/10/24 22:00 03/11/24 14:04 Methylprednisolone Sod Succ 40 Mg Vial IV PUSH 40 mg Q8HR FELICIA Administration Multivitamins/Minerals 1 tablet 03/10/24 09:00 03/11/24 08:22 Opti-Gen Tab PO 1 tablet BID FELICIA Administration Nifedipine 30 mg 03/10/24 09:00 03/11/24 08:22 Nifedipine 30 Mg Tab.Er.24 PO 30 mg DAILY FELICIA Administration Pantoprazole Sodium 40 mg 03/10/24 09:00 03/11/24 08:22 Pantoprazole 40 Mg Tablet PO 40 mg Q12HR FELICIA Administration Perflutren Lipid Microsphere 0 ml 03/10/24 07:56 Perflutren Lipid Microspheres 1.5 Ml Vial Diluted To 10 Ml Total Volume IV PUSH 03/13/24 07:56 ONCE PRN adequate visualization Protocol Sertraline HCl 100 mg 03/10/24 09:00 03/11/24 08:22 Sertraline Hcl 50 Mg Tablet PO 100 mg DAILY FELICIA Administration Vitamin D 2,000 units 03/10/24 09:00 03/11/24 08:22 Cholecalciferol 1,000 Units Tablet PO 2,000 units DAILY FELICIA Administration Radiology Results: ITS Impressions Chest X-Ray 03/09/24 14:33 IMPRESSION: 1. Emphysema. 2. Mild atelectasis at the lung bases. 3. Cardiomegaly. Labs Labs: Laboratory Results - last 24 hr 03/10/24 03/10/24 03/11/24 13:17 13:17 04:45 WBC 13.1 H RBC 4.27 Hgb 10.9 L Hct 36.1 L MCV 84.5 MCH 25.5 L MCHC 30.2 L RDW 18.0 H Plt Count 186 MPV 11.3 H Sodium 140 Potassium 3.8 Chloride 105 Carbon Dioxide 32 H Anion Gap 3 L BUN 22 H Creatinine 0.60 L Estim Creat Clear Calc 58 Estimated GFR > 60 Glucose 133 H Calcium 8.4 Total Bilirubin 0.4 AST 24 ALT 16 Alkaline Phosphatase 90 Total Protein 7.0 Albumin 3.6 Influenza A (RT-PCR) Negative Influenza B (RT-PCR) Negative RSV (RT-PCR) Cancelled Negative SARS-CoV-2 RNA (RT-PCR) Negative
[2024-03-11 15:02] LABS: Vancomycin Trough < 5.0 ug/mL (10.0-20.0)
[2024-03-12] VITALS (16 sets, daily range): BP systolic 122–160; BP diastolic 52–87; PULSE 55–102; RESP 18–23; TEMP 36.4–37.2; O2SAT 92–100
[2024-03-12 04:13] LABS: Hematocrit 35.7 % (37.0-47.0); Mean Corpuscular HGB Conc 30.8 g/dl (32-36); Mean Corpuscular Hemoglobin 25.9 pg (26-34); Mean Platelet Volume 11.2 fl (7.4-10.4); Platelet Count Result 210 k/mm3 (150-375); Red Blood Count 4.25 M/mm3 (4.2-5.4); Red Cell Distribution Width 18.2 % (11.5-14.5); White Blood Count 9.7 K/mm3 (4.5-10.0)
[2024-03-12 04:27] LABS: Alanine Aminotransferase 21 U/L (6-35); Albumin Level 3.5 g/dL (3.5-5.1); Alkaline Phosphatase 87 U/L (38-126); Anion Gap 3 mmol/L (4-12); Aspartate Amino Transferase 28 U/L (14-36); Bilirubin,Total 0.3 mg/dL (0.2-1.3); Blood Urea Nitrogen 28 mg/dL (7-17); Calcium 8.2 mg/dL (8.4-10.2); Carbon Dioxide 35 mmol/L (22-30); Chloride 102 mmol/L (98-107); Estimated CRCL calculation 58 ml/min; Estimated Glomerular Filt Rate > 60; Glucose 122 mg/dL (65-110); Potassium 4.4 mmol/L (3.4-5.0); Sodium 140 mmol/L (137-145)
[2024-03-12] MEDS: methylPREDNISolone SOD SUCC 40 MG VIAL IV PUSH (06:19)
[2024-03-12] MEDS: FLUTICASONE/UMECLIDIN/VILANTER 100-62.5-25 MCG ELLIPTA 1 PUFF INHALATION (07:58)
[2024-03-12] MEDS: ENOXAPARIN 40 MG/0.4 ML SYRINGE SUB-Q (08:49)
[2024-03-12] MEDS: AZITHROMYCIN 250 MG TABLET PO (08:49)
[2024-03-12] MEDS: guaiFENesin 12 HR 600 MG TABCR 1200 MG PO ×2 (08:49→20:28)
[2024-03-12] MEDS: CHOLECALCIFEROL 1,000 UNITS TABLET 2000 UNITS PO (08:49)
[2024-03-12] MEDS: PANTOPRAZOLE 40 MG TABLET PO ×2 (08:50→20:28)
[2024-03-12] MEDS: LOSARTAN POTASSIUM 100 MG TABLET PO (08:50)
[2024-03-12] MEDS: SERTRALINE HCL 50 MG TABLET 100 MG PO (08:50)
[2024-03-12] MEDS: OPTI-GEN TAB 1 TABLET PO ×2 (08:50→17:11)
[2024-03-12] MEDS: NIFEdipine 30 MG TAB.ER.24 PO (08:50)
[2024-03-12] MEDS: ALPRAZolam (*CRX) 0.25 MG TABLET PO ×2 (08:50→17:11)
--- NOTE | 2024-03-12 10:19 | PCRCNOTE ---
Requested trilogy download for Brandon Becerra will fax jason.
--- NOTE | 2024-03-12 10:52 | PM.PNPUL ---
Progress Note: A&P Assessment and Plan (1) Acute exacerbation of chronic obstructive pulmonary disease (COPD): Code(s): J44.1 - Chronic obstructive pulmonary disease with (acute) exacerbation Status: Acute Assessment and Plan: GOLD grade 3 group E COPD patient with a history of 70 pack years, quit November 04, 2023, 2017 PFT with FEV1 33% predicted, 0.58 L and FEV1/FVC 37%. We have no recent PFTs in the system, these are 6 years old, so she may be in the GOLD 4 end-stage area by now. CT scan 09/22/2023 with severe panlobular emphysema apices greater than bases. She is on a trilogy noninvasive ventilator at night. She has chronic hypoxemic respiratory failure requiring 3.5 L at rest and 4-5 L with activity. She wears 3.5 L bleed in at night. Patient has been on prednisone Since 2018 which was recently stopped. She had been on 2.5 every other day. last hospitalization with 201703/11/24: She has not had an exacerbation of COPD in awhile, was in the hospital in August 2023 transferred to acute care from rehab where she was getting better from her right hip fracture and had new onset CHF. She does appear to be having a COPD exacerbation now, improving on steroids, broncodilators, empiric antibiotics without pneumonia on CXR. Plan: 1. Continue treatment for COPD exacerbation, reduce dose of steroids; continue nebulized short acting bronchodilator, no ipratropium with acute urinary retention as the anticholinergic can cause this problem; vibratory valve to help clear secretions. 2. She is a candidate to start dupilumab for COPD after discharge with an admission for COPD exacerbation on out-patient therapy with triple inhalers, and her eosinophils are > than 300 on September 23, 2023. She has been on oral steroids for years, 2.5 mg every other day, stopped recently, and this may have caused her to worsen. Dupixent is out patient only, and we can start this a couple weeks after discharge when she is stable. 3. She can choose to use a half a nebulized albuterol treatment if she gets too tachycardic with a whole treatment. 4. She is paying too much for nebulized albuterol; several hundred dollars. Her albuterol inhalers are very inexpensive. She needs to be able to use nebulized albuterol or lev-albuterol if we can get this approved and if it causes less tachycardia. 5. Discuss pulmonary rehab after discharge. She will need another PFT and walk study. 03/12/24: Overall patient continues to improve. She tells me she is breathing at her baseline. Her cough is at her baseline. She has a slight increase in her phlegm production that is clear. She has no wheezing. She is afebrile. White blood cell count 9.7, creatinine 0.6. Patient is on 3.5 L nasal cannula saturations 96%. Patient wore the hospital BiPAP rate of 12, pressures 14/7, inspiratory time 1.0, rise of 3 with an FiO2 to of 55% and said that this was not as good as her home trilogy machine but she was able to get some sleep. Plan: I will change the patient's Solu-Medrol to prednisone 40 q.day (day 4). continue trelegy 100 at 1 inhalation a day, guaifenesin 1200 mg p.o. q.12 hours, ceftriaxone and azithromycin both day 4. Patient is currently stable on her home oxygen of 3.5 L at rest. I have but attempted to get download from patient's noninvasive ventilator use through via [employer] If the patient remains clinically stable will consider discharge on 03/13/2024 on these pulmonary medications: Prednisone 40 mg PO Q day X 1 day. Trelegy 100- 62.5-25 at 1 puff q.day Albuterol 2 puffs q.4 hours p.r.n. shortness of breath or wheezing. Oxygen per formal home O2 assessment on the day of discharge. Trilogy noninvasive ventilator with 3.5 L bleed in at night Discussed with Dr. Palacios, will follow with you. (2) J CARLOS (obstructive sleep apnea): Code(s): G47.33 - Obstructive sleep apnea (adult) (pediatric) Status: Acute Assessment and Plan: She uses a Trilogy AVAPS mode non invasive ventilator at home, can use this here. Previous download demonstrates her settings were rate of 12, tidal volume 530, EPAP 8 minimum, EPAP 16 maximum, minimum pressure support 10, maximum pressure support 20, inspiratory time 0.8. Her download demonstrated a mean expiratory pressure of 9, mean inspiratory pressure 25. Her settings rate 12 breaths per minute, tidal volume 530 mL, EPAP maximum 16 cm water pressure, EPAP minimum 8 cm water pressure, inspiratory time 0.8 seconds, rise of 3. 03/12/24: Patient wore the hospital BiPAP rate of 12, pressures 14/7, inspiratory time 1.0, rise of 3 with an FiO2 to of 55% and said that this was not as good as her home trilogy machine but she was able to get some sleep. Plan: will continue hospital BiPAP as patient will hopefully be discharged tomorrow and decrease FiO2 to 35% Subjective Date/time seen: 03/12/24 10:52 Interval history: 03/10/24 Patient was seen Mar 10, 2024 at 17:00 Room 207. Her daughter Jennifer is a the bedside playing combionic with her. NEW Consult: Shara Pulido is an 83-year-old woman known to our service, last office visit 02/03/2024; Has COPD, chronic hypercapnic hypoxemic respiratory failure on O2 5 L/min at home, J CARLOS on Trilogy, compliant with using Trilogy. She has a remote history of histoplasmosis. She lives with daughter Jennifer and her sone in law. Patient quit smoking October 2023. She is up to date on all vaccines, has had RSV, flu, updated COVID booster and pneumococcal vaccine. She is managed on Trelegy 100, one puff a day, and albuterol inhaler, not often. She rarely uses albuterol in the nebulizer due to getting tremors, but daughter says that her quality of life is much better when she uses albuterol at least once a day. They are also over-paying for this, a few hundred dollars a prescription which should be a very low cost; albuterol solution is a $4/$10 drug at most pharmacies. She is not very active, has an electric scooter when she is out of the house; she can walk down a few stairs to the garage to get to the car. Cannot walk up stairs, cannot do laundry. She makes breakfast and lunch, cleans her room, not much else. She has not had pulmonary rehab, but did have rehab after her hip fracture and repair August 2023. She had a routine GI appt on Mar 05. She started feeling sick TuesdayMar 07, first with a sore throat that left by the next day, then more dyspnea, non-productive coughing, wheezing without chest pain, leg swelling, fever or chills, and no GI symptoms. That evening, she had a generous serving of ice cream while Jennifer and her were out of the house. She tried Mucinex without much help. She has not been exposed to any sick contacts. She stopped taking her prednisone more than a few days before admission, no clear reason why. She says that she missed a day or two of prednisone, however her daughter thinks it was more days. She has not used her albuterol in the nebulizer for the last 6 months. Some of the information she is giving me today is different from what she told Josy in the office in January. She called our office Tuesday with symptoms, was told to go to ER. Her daughter was taking her by car, was pulling out of driveway when the patient felt hot all over, vomited. They pulled back in the driveway, called 911. She had a nebulizer breathing treatment in the ambulance & vomited again. Her sat was 89% on her home O2 of 5 L. She came to ER, had stable CXR without pneumonia, WBC elevated 14.2, lactic acid 1.6, no fever, stable BP 139/62. She was treated with IV solumedrol, nebulized bronchodilators, antibiotics empirically although she has no infiltrate. She had acute urinary retention, had to have a straight cath to get urine out, bladder scan showed a big bladder. I cannot find the amount of residual urine, but she has ipratropium on her in-patient medication list, and I stopped it because it is an anticholinergic, can cause acute urinary retention. 03/11/24; Feeling better, daughter is at the bedside. She is not producing any sputum. O2 requirement is stable; She is eating and drinking well. Weight is up. 03/12/24: Overall patient continues to improve. She tells me she is breathing at her baseline. Her cough is at her baseline. She has a slight increase in her phlegm production that is clear. She has no wheezing. She is afebrile. White blood cell count 9.7, creatinine 0.6. Patient is on 3.5 L nasal cannula saturations 96%. Patient wore the hospital BiPAP rate of 12, pressures 14/7, inspiratory time 1.0, rise of 3 with an FiO2 to of 55% and said that this was not as good as her home trilogy machine but she was able to get some sleep. = = = = = = = = = = = HISTORY last office visit with N.R; 02/03/2024; 83yo F here for follow up regarding COPD, chronic respiratory failure on home oxygen, J CARLOS on Trilogy. Her daughter, Swati, is with her today. She lives at home with her other daughter, Jennifer. She had a fall on 09/17/23 and broke her hip, hospitalized at [facility] and had hip replacement surgery the following day. After 3 or 4 days at [facility] post-op she was discharged to [facility], stayed overnight and the following day she had issues with SOB and was brought to [facility]. She was hospitalized 09/21-09/28/23 for COPD exacerbation and suspected new onset CHF. CXR with pulmonary vascular congestion and pleural effusions. Treated with steroids and nebulizer treatments, as well as antibiotics for COPD exacerbation. She was seen by our pulmonary team while inpatient - Dr Lauren and Dr Winn. Discharged to [facility] 09/28/23 and discharged from rehab 10/10/23. S COPD: Overall she's doing much better than she was 3 months ago at our last visit. Had a slow recovery after hip surgery and her hospitalization as detailed above. She has been regaining some strength and tells me today her breathing feels back to her baseline now. Overall shortness of breath improved. States she is not coughing much. Occasional wheezing heard by her daughter though she does not notice this. Denies chest congestion. Denies chest pain. She is compliant with Trelegy 100 1 puff daily; albuterol PRN by HFA and nebulizer. States she is using albuterol HFA multiple times per week but usually not daily. She has not been using her nebulizer breathing treatments. O2: Uses home oxygen 3L/min at rest and 4L/min with activity. She tells me she is pretty much using 3 liters/minute at all times. She checks her oxygen saturation every morning and tells me her resting oxygen saturation on 3 liters/minute is typically 90%. She sometimes remembers to increase her oxygen to 4 L with exertion. Sleep: She is compliant wearing Trilogy with sleep every night. States overall she is sleeping okay. Nocturia 0-1 time per night. Denies morning headaches. She is using a fullface mass with trilogy which is working well for her. Tobacco: She quit smoking for the most part in 2019, but occasionally still smokes a cigarette. Her last cigarette was October 2023. DATA * She had a higher than normal alpha-1 anti-trypsin level September 23, 2023 = 273, so she does not have A1AT deficiency. * PFT 2018 - FEV1 0.58 L, 33%, FEV1% = 37%. this is severe COPD. * 03/09/24 WBC 14.2, Mar 9, wbc 12K. Mar 09, 2024= 7.36/54.6/56.4/30.6/87.9 on BiPAP 14/ 30% rate 12; pCO2 has been 50 -77 over the last few years; in 2018 was over 100; Na+ 139, K+ 4.1, Chloride 104, CO2 = 32, BUN 18, creat 0.6, glucose 159 * 03/09/24; CXR : 1. Emphysema. 2. Mild atelectasis at the lung bases. 3. Cardiomegaly. Calcium 8.2, Magnesium 1.8; 09/22/23 - Echo - Hyperdynamic LV systolic function with grade I diastolic dysfunction. Calcified mitral valve annulus. Mild pulmonic regurgitation. No intracardiac shunt on bubble study. * 09/22/23 - CTA chest - There is severe emphysema. There is mild dependent atelectasis bilaterally. Calcified pulmonary nodules and calcified hilar mediastinal lymph nodes are consistent with old granulomatous disease. There are small pleural effusions. Cardiomegaly is noted. There are coronary artery calcifications. No pericardial effusion. There is no pulmonary embolus. Aortic atherosclerosis is noted. * 09/22/23 - CXR - Pulmonary vascular congestion and redistribution and small pleural effusions consistent with congestive heart failure. Aortic atherosclerosis. Minimal atelectasis or infiltrate at the lung bases. * 01/10/23 - Home O2 eval - She required 3L/min O2 at rest and 4L/min O2 with exertion. * 12/19/20 - LDCT chest - Emphysema. Dependent atelectasis left lower lung. Numerable scattered calcified granulomas in the lung parenchyma. Small 2 mm left upper lobe nodules not clearly calcified. Review of Systems Constitutional: Constitutional: Reports no additional constitutional complaints Eyes: Eyes: Reports no additional eye complaints ENT: Reports system reviewed and no additional complaints, except as documented Cardiovascular: Cardiovascular: Reports no additional cardiovascular complaints Respiratory: Respiratory: Reports no additional respiratory complaints Gastrointestinal: Gastrointestinal: Reports no additional gastrointestinal complaints Musculoskeletal: Musculoskeletal: Reports no additional musculoskeletal complaints Neurologic: Reports system reviewed and no additional complaints, except as documented Psychiatric: Psychiatric: Reports no additional psychiatric complaints Endocrine: Endocrine: Reports no additional endocrine complaints Hematologic/Lymphatic: Hematologic/Lymphatic: Reports no additional hematologic/lymphatic complaints Allergic/Immunologic: Allergic/Immunologic: Reports no additional allergic/immunologic complaints Exam Const: General: cooperative, healthy appearing and comfortable Orientation/consciousness: oriented to person, oriented to place and oriented to time HENMT: Head: normal to inspection Ears: hearing grossly normal bilaterally Eyes: General: appearance normal, both eyes and all related structures Neck: Neck: normal visual inspection Chest: Chest palpation & inspection: normal inspection of the chest Resp: Effort & Inspection: normal respiratory effort and able to speak in complete sentences Auscultation: no crackles, no rales, no rhonchi, no wheezes and lung sounds not diminished Cardio: Jugular venous distension: no JVD GI: Inspection: normal to inspection GI Palp: No abdominal tenderness Skin: General skin exam: normal color Neuro: General: oriented to person, oriented to place and oriented to time Extrem: General: normal to inspection Psych: Appearance: grossly normal Objective Data Vital Signs Vital Signs: Vital Signs - 24 hr 03/11/24 11:42 03/11/24 12:00 03/11/24 12:00 Temperature 36.4 C L Pulse Rate 79 85 Respiratory Rate 16 Blood Pressure 146/60 H Pulse Oximetry 98 100 Oxygen Delivery Nasal Cannula Oxygen Flow Rate 3.5 Fraction of Inspired Oxygen 03/11/24 16:00 03/11/24 16:00 03/11/24 14:00 Temperature 36.7 C Pulse Rate 79 84 Respiratory Rate 24 H Blood Pressure 147/58 H Pulse Oximetry 96 97 Oxygen Delivery Nasal Cannula Oxygen Flow Rate 15 Fraction of Inspired Oxygen 03/11/24 16:00 03/11/24 19:55 03/11/24 20:00 Temperature 36.6 C Pulse Rate 86 78 Respiratory Rate 20 Blood Pressure 138/53 L Pulse Oximetry 99 99 Oxygen Delivery Nasal Cannula Oxygen Flow Rate 3.5 Fraction of Inspired Oxygen 03/11/24 22:50 03/11/24 23:54 03/12/24 00:00 Temperature 36.6 C Pulse Rate 65 59 L Respiratory Rate 22 H 20 Blood Pressure 128/56 L Pulse Oximetry 97 99 Oxygen Delivery BiPAP BiPAP Oxygen Flow Rate Fraction of Inspired Oxygen 55 03/11/24 18:00 03/11/24 20:00 03/11/24 22:00 Temperature Pulse Rate 99 76 71 Respiratory Rate Blood Pressure Pulse Oximetry Oxygen Delivery Oxygen Flow Rate Fraction of Inspired Oxygen 03/12/24 00:00 03/12/24 01:54 03/12/24 02:00 Temperature Pulse Rate 74 59 L 68 Respiratory Rate 23 H Blood Pressure Pulse Oximetry 100 Oxygen Delivery BiPAP Oxygen Flow Rate Fraction of Inspired Oxygen 03/12/24 04:42 03/12/24 04:00 03/12/24 04:00 Temperature 37.2 C Pulse Rate 55 L 58 L Respiratory Rate 23 H Blood Pressure 140/63 Pulse Oximetry 100 100 Oxygen Delivery BiPAP Oxygen Flow Rate Fraction of Inspired Oxygen 55 03/12/24 06:00 03/12/24 07:59 Temperature Pulse Rate 89 Respiratory Rate Blood Pressure Pulse Oximetry 97 Oxygen Delivery Nasal Cannula Oxygen Flow Rate 4 Fraction of Inspired Oxygen Intake/Output Intake/Output: Intake & Output 03/09/24 03/10/24 03/11/24 03/12/24 23:59 23:59 23:59 23:59 Intake Total 2840 1640 1330 240 Output Total 5202 762 9907 Balance 1740 790 -120 240 Meds/Results Medications: Active Medications Generic Name Dose Route Start Last Admin Trade Name Freq PRN Reason Stop Dose Admin Alprazolam 0.25 mg 03/09/24 23:03 03/12/24 08:50 Alprazolam (*Crx) 0.25 Mg Tablet PO 0.25 mg TID PRN Administration Anxiety Azithromycin 250 mg 03/10/24 09:00 03/12/24 08:49 Azithromycin 250 Mg Tablet PO 03/13/24 09:01 250 mg DAILY FELICIA Administration Bismuth Subsalicylate 524 mg 03/11/24 12:02 03/11/24 12:21 Bismuth Subsalicylate 262 Mg Chewable Tablet PO 524 mg Q1H PRN Administration Indigestion Enoxaparin Sodium 40 mg 03/10/24 09:00 03/12/24 08:49 Enoxaparin 40 Mg/0.4 Ml Syringe SUB-Q 40 mg DAILY FELICIA Administration Fluticasone/Umeclidinium/Vilanterol 1 puff 03/10/24 09:00 03/12/24 07:58 Fluticasone/Umeclidin/Vilanter 100-62.5-25 Mcg Ellipta INHALATION 1 puff DAILY FELICIA Administration Guaifenesin 1,200 mg 03/10/24 09:00 03/12/24 08:49 Guaifenesin 12 Hr 600 Mg Tabcr PO 1,200 mg Q12HR FELICIA Administration Ceftriaxone Sodium 1 gm in 50 mls @ 100 mls/hr 03/10/24 09:00 03/12/24 10:12 Rocephin 1 Gm/Ns 50 Ml IVPB 100 mls/hr Q24H FELICIA Administration Losartan Potassium 100 mg 03/10/24 09:00 03/12/24 08:50 Losartan Potassium 100 Mg Tablet PO 100 mg DAILY FELICIA Administration Methylprednisolone Sodium Succinate 40 mg 03/10/24 22:00 03/12/24 06:19 Methylprednisolone Sod Succ 40 Mg Vial IV PUSH 40 mg Q8HR FELICIA Administration Multivitamins/Minerals 1 tablet 03/10/24 09:00 03/12/24 08:50 Opti-Gen Tab PO 1 tablet BID FELICIA Administration Nifedipine 30 mg 03/10/24 09:00 03/12/24 08:50 Nifedipine 30 Mg Tab.Er.24 PO 30 mg DAILY FELICIA Administration Pantoprazole Sodium 40 mg 03/10/24 09:00 03/12/24 08:50 Pantoprazole 40 Mg Tablet PO 40 mg Q12HR FELICIA Administration Perflutren Lipid Microsphere 0 ml 03/10/24 07:56 Perflutren Lipid Microspheres 1.5 Ml Vial Diluted To 10 Ml Total Volume IV PUSH 03/13/24 07:56 ONCE PRN adequate visualization Protocol Sertraline HCl 100 mg 03/10/24 09:00 03/12/24 08:50 Sertraline Hcl 50 Mg Tablet PO 100 mg DAILY FELICIA Administration Vitamin D 2,000 units 03/10/24 09:00 03/12/24 08:49 Cholecalciferol 1,000 Units Tablet PO 2,000 units DAILY FELICIA Administration Radiology Results: ITS Impressions Chest X-Ray 03/09/24 14:33 IMPRESSION: 1. Emphysema. 2. Mild atelectasis at the lung bases. 3. Cardiomegaly. Labs Labs: Laboratory Results - last 24 hr 03/11/24 03/12/24 14:03 04:09 WBC 9.7 RBC 4.25 Hgb 11.0 L Hct 35.7 L MCV 84.0 MCH 25.9 L MCHC 30.8 L RDW 18.2 H Plt Count 210 MPV 11.2 H Sodium 140 Potassium 4.4 Chloride 102 Carbon Dioxide 35 H Anion Gap 3 L BUN 28 H Creatinine 0.60 L Estim Creat Clear Calc 58 Estimated GFR > 60 Glucose 122 H Calcium 8.2 L Total Bilirubin 0.3 AST 28 ALT 21 Alkaline Phosphatase 87 Total Protein 7.0 Albumin 3.5 Vancomycin Trough < 5.0 L
--- NOTE | 2024-03-12 11:21 | PM.IMPN ---
Progress Note: A&P Assessment and Plan (1) Acute and chronic respiratory failure with hypoxia: Code(s): J96.21 - Acute and chronic respiratory failure with hypoxia Status: Acute (2) Acute exacerbation of chronic obstructive pulmonary disease (COPD): Code(s): J44.1 - Chronic obstructive pulmonary disease with (acute) exacerbation Status: Acute (3) Obstructive sleep apnea treated with BiPAP: Code(s): G47.33 - Obstructive sleep apnea (adult) (pediatric) Status: Acute (4) Hypertension: Code(s): I10 - Essential (primary) hypertension Status: Acute Plan The patient presented to the emergency department for evaluation of shortness of breath as detailed in HPI. Labs, imaging, EKG, and all reports were personally reviewed. Clinically she has is COPD exacerbation, possibly precipitated by URI. Chest x-ray did not show any acute findings however given new cough she has been started on antibiotics. Continue scheduled bronchodilators and Solu-Medrol. She is currently at her baseline oxygen requirement. BiPAP will be provided for the patient to use while hospitalized. Blood pressures were reviewed and they are stable. Her home medications will be reviewed and resumed as appropriate. Findings and treatment plan were discussed with the patient and her daughter. Questions were solicited and answered to satisfaction. The patient's medical management will be taken over by the hospitalist team in a.m. COPD exacerbation vs CHF exacerbation -Previous exacerbation on 09/22/2023 -Multiple comorbid conditions including CHF -COPD Exacerbation requiring BiPAP -She has been on steroids for years for her COPD, recently stopped, not sure how many days ago, but this may have precipitated her deterioration. -GOLD stage E requiring Dupixent -Pulmonology workup done as OP -Home O2 3L -Long Smoking Hx -ECHO ordered -D/C Vancomycin since Nasal MRSA not detected -S/P Ceftriaxone and Azithromycin -She will finish Cefdinir 2 doses tomorrow. -Negative for Influenza and COVID -Ordered RSV -Methylprednisone 60 mg IV q 6hrs -On Trelegy Ellipta home med -d/c Ipratropium q 4hrs due to urinary retention Diastolic heart failure -Continue nifedipine 30 mg p.o. q.d. -Continue losartan 100 mg p.o. q.d. -09/22/23 - Echo - Hyperdynamic LV systolic function with grade I diastolic dysfunction. Calcified mitral valve annulus. Mild pulmonic regurgitation. No intracardiac shunt on bubble study. -She was seen by Accounting Administrative Assistant Dr Italia Raymundo on 01/24/2024 ,advised in regards to her diastolic HF she did have an episode of fluid retention after having surgery back in August 2023, that was treated with Lasix. He advised conservative management with Losartan and nifedipine. - ECHO shows Left ventricular systolic function is normal, estimated at 65-70%. Subjective Date/time seen: 03/12/24 11:21 Interval history: 83-year-old female with a past medical surgical history of chronic respiratory failure on home oxygen, J CARLOS on Trilogy,anxiety, basal cell carcinoma, COPD on 3 L NC, hypertension, iron deficiency anemia, macular degeneration both eyes, hyperlipidemia, obstructed sleep apnea, osteoporosis, hysterectomy, hip fracture, and tobacco use,chronic diarrhea (resolved)since mid-October 2023, following a partial hip replacement surgery. Off note 09/22/23 - Echo - Hyperdynamic LV systolic function with grade I diastolic dysfunction. Calcified mitral valve annulus. Mild pulmonic regurgitation. No intracardiac shunt on bubble study. 09/22/23 - CTA chest - There is severe emphysema. There is mild dependent atelectasis bilaterally. Calcified pulmonary nodules and calcified hilar mediastinal lymph nodes are consistent with old granulomatous disease. There are small pleural effusions. Cardiomegaly is noted. There are coronary artery calcifications. No pericardial effusion. There is no pulmonary embolus. Aortic atherosclerosis is noted. 09/22/23 - CXR - Pulmonary vascular congestion and redistribution and small pleural effusions consistent with congestive heart failure. Aortic atherosclerosis. Minimal atelectasis or infiltrate at the lung bases. 01/10/23 - Home O2 eval - She required 3L/min O2 at rest and 4L/min O2 with exertion. 12/19/20 - LDCT chest - Emphysema. Dependent atelectasis left lower lung. Numerable scattered calcified granulomas in the lung parenchyma. Small 2 mm left upper lobe nodules not clearly calcified. She had a fall on 09/17/23 and broke her hip, [facility] and had hip replacement surgery the following day. After 3 or 4 days at [facility] post-op she was discharged to [facility], stayed overnight and the following day she had issues with SOB and was brought to [facility]. She was hospitalized 09/21-09/28/23 for COPD exacerbation and suspected new onset CHF. CXR with pulmonary vascular congestion and pleural effusions. Treated with steroids and nebulizer treatments, as well as antibiotics for COPD exacerbation. She was seen by our pulmonary team while inpatient - Dr Lauren and Dr Winn. Discharged to [facility] 09/28/23 and discharged from rehab 10/10/23. She was seen by Accounting Administrative Assistant Dr Italia Raymundo on 01/24/2024 ,advised in regards to her diastolic HF she did have an episode of fluid retention after having surgery back in August 2023, that was treated with Lasix. He advised conservative management with Losartan and nifedipine. She seen by Josy Barnes on 02/02 and recorded as she is compliant with Trelegy 100 1 puff daily; albuterol PRN by HFA and nebulizer. States she is using albuterol HFA multiple times per week but usually not daily. She has not been using her nebulizer breathing treatments.Uses home oxygen 3L/min at rest and 4L/min with activity. She tells me she is pretty much using 3 liters/minute at all times. She checks her oxygen saturation every morning and tells me her resting oxygen saturation on 3 liters/minute is typically 90%. She sometimes remembers to increase her oxygen to 4 L with exertion Presented to the emergency department for evaluation of shortness of breath. The patient provides the following history. She has not been feeling well since Tuesday with increasing dyspnea on lesser and lesser exertion, wheezing, and a nonproductive cough. She has been taking Mucinex however her cough remains productive though she feels as though she has something to cough up. Her appetite has not been great and she has been a bit nauseated as well. She had sweats yesterday. She denies fever, sinus congestion, sore throat, chest pain, pleuritic pain, vomiting, lower extremity edema, and calf pain. No known sick contacts. On EMS arrival her SpO2 was 89% on her usual 5 L.. She was given Solu-Medrol 125 mg and was administered a DuoNeb. In the ED: She rides on CPAP but was transition to BiPAP on arrival due to work of breathing, with improvement. She has been afebrile since arrival. Labs were significant for a WBC count of 14.2, CRP 3.5, lactic acid 1.6, carbon dioxide 24. Chest x-ray showed emphysema, mild atelectasis at the lung bases, and cardiomegaly. She received another DuoNeb and ceftriaxone 2 g. She is being admitted in this setting for further treatment of COPD exacerbation. 03/11: No acute events overnight. Patient is evaluated by and patient was pleased to meet her since she has seen her before and managed her COPD. According to [employer] Installation [employer] she is GOLD E (Eosinophils >300)requiring Dupixent and can be started as OP. Patient also needs pulmonary rehab after discharge. 03/12: Patient has some episodes of diarrhea . C.Diff tested. No acute events overnight. Currently on Trelegy Ellipta and Prednisone 40mg PO QD. ECHO shows Left ventricular systolic function is normal, estimated at 65-70%.She will finish cefdinir 2 doses tomorrow. Patient completed Ceftriaxone today. Review of Systems Review of Systems: 12 systems were reviewed and are negative except for as per HPI. Exam Narrative: General: Chronically ill-appearing female sitting up in bed in no acute distress. Weight: 71.9 kg. BMI: 20.1. HEENT: Slightly hard of hearing. She is wearing corrective lenses. PERRL, EOMI. Sclera anicteric. Oral mucosa moist. Neck: Supple. No JVD. Respiratory: Mildly tachypneic. She is speaking in full sentences appears in no respiratory distress. Significantly diminished lung sounds throughout with expiratory wheezing. Occasional cough. Cardiovascular: Regular rate and rhythm with S1-S2. Occasional ectopy. Gastrointestinal: Abdomen is soft, nontender, and nondistended with positive bowel sounds. Skin: Warm and dry. No rash or lesions on limited exam. Extremities: No cyanosis, clubbing, or edema. Radial and pedal pulses intact. No palpable knots or cords. Negative Keri sign bilaterally. Neurological: Alert. Cranial nerves 2-12 are grossly intact. No gross focal deficits to casual conversation. Psychiatric: Pleasant and cooperative with normal mood and affect. Judgment and insight intact. Objective Data Vital Signs Vital Signs: Vital Signs - 24 hr 03/11/24 11:42 03/11/24 12:00 03/11/24 12:00 Temperature 97.5 F L Pulse Rate 79 85 Respiratory Rate 16 Blood Pressure 146/60 H Pulse Oximetry 98 100 Oxygen Delivery Nasal Cannula Oxygen Flow Rate 3.5 Fraction of Inspired Oxygen 03/11/24 16:00 03/11/24 16:00 03/11/24 14:00 Temperature 98.0 F Pulse Rate 79 84 Respiratory Rate 24 H Blood Pressure 147/58 H Pulse Oximetry 96 97 Oxygen Delivery Nasal Cannula Oxygen Flow Rate 15 Fraction of Inspired Oxygen 03/11/24 16:00 03/11/24 19:55 03/11/24 20:00 Temperature 98 F Pulse Rate 86 78 Respiratory Rate 20 Blood Pressure 138/53 L Pulse Oximetry 99 99 Oxygen Delivery Nasal Cannula Oxygen Flow Rate 3.5 Fraction of Inspired Oxygen 03/11/24 22:50 03/11/24 23:54 03/12/24 00:00 Temperature 98 F Pulse Rate 65 59 L Respiratory Rate 22 H 20 Blood Pressure 128/56 L Pulse Oximetry 97 99 Oxygen Delivery BiPAP BiPAP Oxygen Flow Rate Fraction of Inspired Oxygen 55 03/11/24 18:00 03/11/24 20:00 03/11/24 22:00 Temperature Pulse Rate 99 76 71 Respiratory Rate Blood Pressure Pulse Oximetry Oxygen Delivery Oxygen Flow Rate Fraction of Inspired Oxygen 03/12/24 00:00 03/12/24 01:54 03/12/24 02:00 Temperature Pulse Rate 74 59 L 68 Respiratory Rate 23 H Blood Pressure Pulse Oximetry 100 Oxygen Delivery BiPAP Oxygen Flow Rate Fraction of Inspired Oxygen 03/12/24 04:42 03/12/24 04:00 03/12/24 04:00 Temperature 98.9 F Pulse Rate 55 L 58 L Respiratory Rate 23 H Blood Pressure 140/63 Pulse Oximetry 100 100 Oxygen Delivery BiPAP Oxygen Flow Rate Fraction of Inspired Oxygen 55 03/12/24 06:00 03/12/24 07:59 Temperature Pulse Rate 89 Respiratory Rate Blood Pressure Pulse Oximetry 97 Oxygen Delivery Nasal Cannula Oxygen Flow Rate 4 Fraction of Inspired Oxygen Intake/Output Intake/Output: Intake & Output 03/09/24 03/10/24 03/11/24 03/12/24 23:59 23:59 23:59 23:59 Intake Total 2840 1640 1330 240 Output Total 1102 457 9205 Balance 1740 790 -120 240 Meds/Results Medications: Active Medications Generic Name Dose Route Start Last Admin Trade Name Freq PRN Reason Stop Dose Admin Alprazolam 0.25 mg 03/09/24 23:03 03/12/24 08:50 Alprazolam (*Crx) 0.25 Mg Tablet PO 0.25 mg TID PRN Administration Anxiety Azithromycin 250 mg 03/10/24 09:00 03/12/24 08:49 Azithromycin 250 Mg Tablet PO 03/13/24 09:01 250 mg DAILY FELICIA Administration Bismuth Subsalicylate 524 mg 03/11/24 12:02 03/11/24 12:21 Bismuth Subsalicylate 262 Mg Chewable Tablet PO 524 mg Q1H PRN Administration Indigestion Enoxaparin Sodium 40 mg 03/10/24 09:00 03/12/24 08:49 Enoxaparin 40 Mg/0.4 Ml Syringe SUB-Q 40 mg DAILY FELICIA Administration Fluticasone/Umeclidinium/Vilanterol 1 puff 03/10/24 09:00 03/12/24 07:58 Fluticasone/Umeclidin/Vilanter 100-62.5-25 Mcg Ellipta INHALATION 1 puff DAILY FELICIA Administration Guaifenesin 1,200 mg 03/10/24 09:00 03/12/24 08:49 Guaifenesin 12 Hr 600 Mg Tabcr PO 1,200 mg Q12HR FELICIA Administration Ceftriaxone Sodium 1 gm in 50 mls @ 100 mls/hr 03/10/24 09:00 03/12/24 10:12 Rocephin 1 Gm/Ns 50 Ml IVPB 100 mls/hr Q24H FELICIA Administration Losartan Potassium 100 mg 03/10/24 09:00 03/12/24 08:50 Losartan Potassium 100 Mg Tablet PO 100 mg DAILY FELICIA Administration Multivitamins/Minerals 1 tablet 03/10/24 09:00 03/12/24 08:50 Opti-Gen Tab PO 1 tablet BID FELICIA Administration Nifedipine 30 mg 03/10/24 09:00 03/12/24 08:50 Nifedipine 30 Mg Tab.Er.24 PO 30 mg DAILY FELICIA Administration Pantoprazole Sodium 40 mg 03/10/24 09:00 03/12/24 08:50 Pantoprazole 40 Mg Tablet PO 40 mg Q12HR FELICIA Administration Perflutren Lipid Microsphere 0 ml 03/10/24 07:56 Perflutren Lipid Microspheres 1.5 Ml Vial Diluted To 10 Ml Total Volume IV PUSH 03/13/24 07:56 ONCE PRN adequate visualization Protocol Prednisone 40 mg 03/12/24 11:15 Prednisone 20 Mg Tablet PO DAILY@0800 FELICIA Sertraline HCl 100 mg 03/10/24 09:00 03/12/24 08:50 Sertraline Hcl 50 Mg Tablet PO 100 mg DAILY FELICIA Administration Vitamin D 2,000 units 03/10/24 09:00 03/12/24 08:49 Cholecalciferol 1,000 Units Tablet PO 2,000 units DAILY FELICIA Administration Radiology Results: ITS Impressions Chest X-Ray 03/09/24 14:33 IMPRESSION: 1. Emphysema. 2. Mild atelectasis at the lung bases. 3. Cardiomegaly. Labs Labs: Laboratory Results - last 24 hr 03/11/24 03/12/24 14:03 04:09 WBC 9.7 RBC 4.25 Hgb 11.0 L Hct 35.7 L MCV 84.0 MCH 25.9 L MCHC 30.8 L RDW 18.2 H Plt Count 210 MPV 11.2 H Sodium 140 Potassium 4.4 Chloride 102 Carbon Dioxide 35 H Anion Gap 3 L BUN 28 H Creatinine 0.60 L Estim Creat Clear Calc 58 Estimated GFR > 60 Glucose 122 H Calcium 8.2 L Total Bilirubin 0.3 AST 28 ALT 21 Alkaline Phosphatase 87 Total Protein 7.0 Albumin 3.5 Vancomycin Trough < 5.0 L Quality VTE Prophylaxis VTE prophylaxis: pharmacologic ordered Hospitalist MIPS Advance Care Plan I have confirmed that the patient's Advanced Care Plan is present, code status is documented, or surrogate decision maker is listed in patient medical record.: Yes Medication Reconciliation I have utilized all available resources to obtain, update and review the patients current medications (includes all prescriptions, OTC, herbals, cannabis, and nutritional supplements).: Yes
[2024-03-12] MEDS: predniSONE 20 MG TABLET 40 MG PO (17:11)
--- NOTE | 2024-03-12 18:13 | PC.NURSE ---
Transferred to room 347 per hospital bed from IMU. Belongings verified.
[2024-03-12 19:46] LABS: Toxigenic C. Diff NEGATIVE (NEGATIVE)
[2024-03-13] VITALS (12 sets, daily range): BP systolic 175–187; BP diastolic 63–70; PULSE 52–93; RESP 20–25; TEMP 36.2–36.4; O2SAT 86–100
[2024-03-13 05:47] LABS: Hematocrit 40.3 % (37.0-47.0); Hemoglobin 12.4 g/dL (12.0-15.0); Mean Corpuscular HGB Conc 30.8 g/dl (32-36); Mean Corpuscular Hemoglobin 26.1 pg (26-34); Mean Corpuscular Volume 84.7 fl (80-100); Platelet Count Result 275 k/mm3 (150-375); Red Blood Count 4.76 M/mm3 (4.2-5.4); Red Cell Distribution Width 18.1 % (11.5-14.5); White Blood Count 9.1 K/mm3 (4.5-10.0)
[2024-03-13 05:57] LABS: Alanine Aminotransferase 23 U/L (6-35); Albumin Level 3.9 g/dL (3.5-5.1); Alkaline Phosphatase 86 U/L (38-126); Anion Gap 5 mmol/L (4-12); Aspartate Amino Transferase 23 U/L (14-36); Bilirubin,Total 0.3 mg/dL (0.2-1.3); Blood Urea Nitrogen 24 mg/dL (7-17); Calcium 8.6 mg/dL (8.4-10.2); Carbon Dioxide 39 mmol/L (22-30); Chloride 99 mmol/L (98-107); Estimated CRCL calculation 50 ml/min; Estimated Glomerular Filt Rate > 60; Glucose 92 mg/dL (65-110); Potassium 3.7 mmol/L (3.4-5.0); Sodium 143 mmol/L (137-145)
--- NOTE | 2024-03-13 08:46 | PM.PNPUL ---
Progress Note: A&P Assessment and Plan (1) Acute exacerbation of chronic obstructive pulmonary disease (COPD): Code(s): J44.1 - Chronic obstructive pulmonary disease with (acute) exacerbation Status: Acute Assessment and Plan: GOLD grade 3 group E COPD patient with a history of 70 pack years, quit November 04, 2023, 2017 PFT with FEV1 33% predicted, 0.58 L and FEV1/FVC 37%. We have no recent PFTs in the system, these are 6 years old, so she may be in the GOLD 4 end-stage area by now. CT scan 09/22/2023 with severe panlobular emphysema apices greater than bases. She is on a trilogy noninvasive ventilator at night. She has chronic hypoxemic respiratory failure requiring 3.5 L at rest and 4-5 L with activity. She wears 3.5 L bleed in at night. Patient has been on prednisone Since 2018 which was recently stopped. She had been on 2.5 every other day. last hospitalization with 201703/11/24: She has not had an exacerbation of COPD in awhile, was in the hospital in August 2023 transferred to acute care from rehab where she was getting better from her right hip fracture and had new onset CHF. She does appear to be having a COPD exacerbation now, improving on steroids, broncodilators, empiric antibiotics without pneumonia on CXR. Plan: 1. Continue treatment for COPD exacerbation, reduce dose of steroids; continue nebulized short acting bronchodilator, no ipratropium with acute urinary retention as the anticholinergic can cause this problem; vibratory valve to help clear secretions. 2. She is a candidate to start dupilumab for COPD after discharge with an admission for COPD exacerbation on out-patient therapy with triple inhalers, and her eosinophils are > than 300 on September 23, 2023. She has been on oral steroids for years, 2.5 mg every other day, stopped recently, and this may have caused her to worsen. Dupixent is out patient only, and we can start this a couple weeks after discharge when she is stable. 3. She can choose to use a half a nebulized albuterol treatment if she gets too tachycardic with a whole treatment. 4. She is paying too much for nebulized albuterol; several hundred dollars. Her albuterol inhalers are very inexpensive. She needs to be able to use nebulized albuterol or lev-albuterol if we can get this approved and if it causes less tachycardia. 5. Discuss pulmonary rehab after discharge. She will need another PFT and walk study. 03/12/24: Overall patient continues to improve. She tells me she is breathing at her baseline. Her cough is at her baseline. She has a slight increase in her phlegm production that is clear. She has no wheezing. She is afebrile. White blood cell count 9.7, creatinine 0.6. Patient is on 3.5 L nasal cannula saturations 96%. Patient wore the hospital BiPAP rate of 12, pressures 14/7, inspiratory time 1.0, rise of 3 with an FiO2 to of 55% and said that this was not as good as her home trilogy machine but she was able to get some sleep. Plan: I will change the patient's Solu-Medrol to prednisone 40 q.day (day 4). continue trelegy 100 at 1 inhalation a day, guaifenesin 1200 mg p.o. q.12 hours, ceftriaxone and azithromycin both day 4. Patient is currently stable on her home oxygen of 3.5 L at rest. I have but attempted to get download from patient's noninvasive ventilator use through via [employer]. 03/13/24: Patient continues to slowly improve. States she is breathing normal. She has a small cough that is at her baseline which is dry. She has no wheezing. Saturations on 3.5 L nasal cannula 95%. White blood cell count 9.1, creatinine 0.7. Patient wore the hospital BiPAP last night and was able to sleep a little bit mostly because noise in the room. From a pulmonary perspective patient can be discharged on these pulmonary medications: Prednisone 40 mg PO Q day X 1 day. cefdinir 300 mg p.o. b.i.d. x3 days Trelegy 100-62.5-25 at 1 puff q.day Albuterol 2 puffs q.4 hours p.r.n. shortness of breath or wheezing. Oxygen per formal home O2 assessment which I have ordered. when she naps or sleeps: Trilogy noninvasive ventilator through [employer] AVAPS AE mode with breath rate 12, tidal volume 530, minimum EPAP 8, maximum EPAP 16, minimum pressure support 10, maximum pressure support 20. Maximum pressure 30. AVAPS rate 5 with 3.5 L bleed in. Follow-up in the Pulmonary Clinic in approximately [address] Palacios, will sign off, call with questions. (2) J CARLOS (obstructive sleep apnea): Code(s): G47.33 - Obstructive sleep apnea (adult) (pediatric) Status: Acute Assessment and Plan: She uses a Trilogy AVAPS mode non invasive ventilator at home, can use this here. Previous download demonstrates her settings were rate of 12, tidal volume 530, EPAP 8 minimum, EPAP 16 maximum, minimum pressure support 10, maximum pressure support 20, inspiratory time 0.8. Her download demonstrated a mean expiratory pressure of 9, mean inspiratory pressure 25. Her settings rate 12 breaths per minute, tidal volume 530 mL, EPAP maximum 16 cm water pressure, EPAP minimum 8 cm water pressure, inspiratory time 0.8 seconds, rise of 3. 03/12/24: Patient wore the hospital BiPAP rate of 12, pressures 14/7, inspiratory time 1.0, rise of 3 with an FiO2 to of 55% and said that this was not as good as her home trilogy machine but she was able to get some sleep. Plan: will continue hospital BiPAP as patient will hopefully be discharged tomorrow and decrease FiO2 to 35%. Later in the day I obtained a download from [employer] from 08/14/2023 through 11/11/2023. Patient is on a [employer] trilogy with AVAPS AE mode, breath rate 12, tidal volume 530, minimum EPAP 8, maximum EPAP 16, minimum pressure support 10, maximum pressure support 20. Maximum pressure 30. AVAPS rate 5. % of days with usage greater than or equal to 4 hours is 89%. Average usage on days used is 7 hours and 23 minutes. Weekly average respiratory rate 12-14. Weekly average tidal volume 650-780. Weekly average EPAP 8-8.7. Weekly average IPAP 21-26. Weekly average minute ventilation 8.7 to 10.6. Weekly average leak 75-110. 03/13/24: Patient wore the hospital BiPAP with full face mask and 30% FiO2 last night. Plan: Patient to be discharged on her home trilogy with the above settings and 3.5 L bleed in. Subjective Date/time seen: 03/13/24 08:46 Interval history: 03/10/24 Patient was seen Mar 10, 2024 at 17:00 Room 207. Her daughter Jennifer is a the bedside playing [employer] with her. NEW Consult: Shara Pulido is an 83-year-old woman known to our service, last office visit 02/03/2024; Has COPD, chronic hypercapnic hypoxemic respiratory failure on O2 5 L/min at home, J CARLOS on Trilogy, compliant with using Trilogy. She has a remote history of histoplasmosis. She lives with daughter Jennifer and her sone in law. Patient quit smoking October 2023. She is up to date on all vaccines, has had RSV, flu, updated COVID booster and pneumococcal vaccine. She is managed on Trelegy 100, one puff a day, and albuterol inhaler, not often. She rarely uses albuterol in the nebulizer due to getting tremors, but daughter says that her quality of life is much better when she uses albuterol at least once a day. They are also over-paying for this, a few hundred dollars a prescription which should be a very low cost; albuterol solution is a $4/$10 drug at most pharmacies. She is not very active, has an electric scooter when she is out of the house; she can walk down a few stairs to the garage to get to the car. Cannot walk up stairs, cannot do laundry. She makes breakfast and lunch, cleans her room, not much else. She has not had pulmonary rehab, but did have rehab after her hip fracture and repair August 2023. She had a routine GI appt on Tuesday, Mar 05. She started feeling sick TuesdayMar 07, first with a sore throat that left by the next day, then more dyspnea, non-productive coughing, wheezing without chest pain, leg swelling, fever or chills, and no GI symptoms. That evening, she had a generous serving of ice cream while Jennifer and her were out of the house. She tried Mucinex without much help. She has not been exposed to any sick contacts. She stopped taking her prednisone more than a few days before admission, no clear reason why. She says that she missed a day or two of prednisone, however her daughter thinks it was more days. She has not used her albuterol in the nebulizer for the last 6 months. Some of the information she is giving me today is different from what she told Josy in the office in January. She called our office Tuesday with symptoms, was told to go to ER. Her daughter was taking her by car, was pulling out of driveway when the patient felt hot all over, vomited. They pulled back in the driveway, called 911. She had a nebulizer breathing treatment in the ambulance & vomited again. Her sat was 89% on her home O2 of 5 L. She came to ER, had stable CXR without pneumonia, WBC elevated 14.2, lactic acid 1.6, no fever, stable BP 139/62. She was treated with IV solumedrol, nebulized bronchodilators, antibiotics empirically although she has no infiltrate. She had acute urinary retention, had to have a straight cath to get urine out, bladder scan showed a big bladder. I cannot find the amount of residual urine, but she has ipratropium on her in-patient medication list, and I stopped it because it is an anticholinergic, can cause acute urinary retention. 03/11/24; Feeling better, daughter is at the bedside. She is not producing any sputum. O2 requirement is stable; She is eating and drinking well. Weight is up. 03/12/24: Overall patient continues to improve. She tells me she is breathing at her baseline. Her cough is at her baseline. She has a slight increase in her phlegm production that is clear. She has no wheezing. She is afebrile. White blood cell count 9.7, creatinine 0.6. Patient is on 3.5 L nasal cannula saturations 96%. Patient wore the hospital BiPAP rate of 12, pressures 14/7, inspiratory time 1.0, rise of 3 with an FiO2 to of 55% and said that this was not as good as her home trilogy machine but she was able to get some sleep. Later in the day I obtained a download from [employer] from 08/14/2023 through 11/11/2023. Patient is on a [employer]ita trilogy with AVAPS AE mode, breath rate 12, tidal volume 530, minimum EPAP 8, maximum EPAP 16, minimum pressure support 10, maximum pressure support 20. Maximum pressure 30. AVAPS rate 5. % of days with usage greater than or equal to 4 hours is 89%. Average usage on days used is 7 hours and 23 minutes. Weekly average respiratory rate 12-14. Weekly average tidal volume 650-780. Weekly average EPAP 8-8.7. Weekly average IPAP 21-26. Weekly average minute ventilation 8.7 to 10.6. Weekly average leak 75-110. 03/13/24: Patient continues to slowly improve. States she is breathing normal. She has a small cough that is at her baseline which is dry. She has no wheezing. Saturations on 3.5 L nasal cannula 95%. White blood cell count 9.1, creatinine 0.7. Patient wore the hospital BiPAP last night and was able to sleep a little bit mostly because noise in the room. = = = = = = = = = = = HISTORY last office visit with N.R; 02/03/2024; 83yo F here for follow up regarding COPD, chronic respiratory failure on home oxygen, J CARLOS on Trilogy. Her daughter, Swati, is with her today. She lives at home with her other daughter, Jennifer. She had a fall on 09/17/23 and broke her hip, hospitalized at [facility] and had hip replacement surgery the following day. After 3 or 4 days at [facility] post-op she was discharged to [facility], stayed overnight and the following day she had issues with SOB and was brought to [facility]. She was hospitalized 09/21-09/28/23 for COPD exacerbation and suspected new onset CHF. CXR with pulmonary vascular congestion and pleural effusions. Treated with steroids and nebulizer treatments, as well as antibiotics for COPD exacerbation. She was seen by our pulmonary team while inpatient - Dr Lauren and Dr Winn. Discharged to [facility] 09/28/23 and discharged from rehab 10/10/23. S COPD: Overall she's doing much better than she was 3 months ago at our last visit. Had a slow recovery after hip surgery and her hospitalization as detailed above. She has been regaining some strength and tells me today her breathing feels back to her baseline now. Overall shortness of breath improved. States she is not coughing much. Occasional wheezing heard by her daughter though she does not notice this. Denies chest congestion. Denies chest pain. She is compliant with Trelegy 100 1 puff daily; albuterol PRN by HFA and nebulizer. States she is using albuterol HFA multiple times per week but usually not daily. She has not been using her nebulizer breathing treatments. O2: Uses home oxygen 3L/min at rest and 4L/min with activity. She tells me she is pretty much using 3 liters/minute at all times. She checks her oxygen saturation every morning and tells me her resting oxygen saturation on 3 liters/minute is typically 90%. She sometimes remembers to increase her oxygen to 4 L with exertion. Sleep: She is compliant wearing Trilogy with sleep every night. States overall she is sleeping okay. Nocturia 0-1 time per night. Denies morning headaches. She is using a fullface mass with trilogy which is working well for her. Tobacco: She quit smoking for the most part in 2019, but occasionally still smokes a cigarette. Her last cigarette was October 2023. DATA * She had a higher than normal alpha-1 anti-trypsin level September 23, 2023 = 273, so she does not have A1AT deficiency. * PFT 2018 - FEV1 0.58 L, 33%, FEV1% = 37%. this is severe COPD. * 03/09/24 WBC 14.2, Mar 9, wbc 12K. Mar 09, 2024= 7.36/54.6/56.4/30.6/87.9 on BiPAP 14/7 30% rate 12; pCO2 has been 50 -77 over the last few years; in 2019 was over 100; Na+ 139, K+ 4.1, Chloride 104, CO2 = 32, BUN 18, creat 0.6, glucose 159 * 03/09/24; CXR : 1. Emphysema. 2. Mild atelectasis at the lung bases. 3. Cardiomegaly. Calcium 8.2, Magnesium 1.8; 09/22/23 - Echo - Hyperdynamic LV systolic function with grade I diastolic dysfunction. Calcified mitral valve annulus. Mild pulmonic regurgitation. No intracardiac shunt on bubble study. * 09/22/23 - CTA chest - There is severe emphysema. There is mild dependent atelectasis bilaterally. Calcified pulmonary nodules and calcified hilar mediastinal lymph nodes are consistent with old granulomatous disease. There are small pleural effusions. Cardiomegaly is noted. There are coronary artery calcifications. No pericardial effusion. There is no pulmonary embolus. Aortic atherosclerosis is noted. * 09/22/23 - CXR - Pulmonary vascular congestion and redistribution and small pleural effusions consistent with congestive heart failure. Aortic atherosclerosis. Minimal atelectasis or infiltrate at the lung bases. * 01/10/23 - Home O2 eval - She required 3L/min O2 at rest and 4L/min O2 with exertion. * 12/19/20 - LDCT chest - Emphysema. Dependent atelectasis left lower lung. Numerable scattered calcified granulomas in the lung parenchyma. Small 2 mm left upper lobe nodules not clearly calcified. Review of Systems Review of Systems: All systems reviewed & are unremarkable except as noted in HPI and below Constitutional: Constitutional: Reports no additional constitutional complaints Eyes: Eyes: Reports no additional eye complaints ENT: Reports system reviewed and no additional complaints, except as documented Cardiovascular: Cardiovascular: Reports no additional cardiovascular complaints Respiratory: Respiratory: Reports no additional respiratory complaints Gastrointestinal: Gastrointestinal: Reports no additional gastrointestinal complaints Musculoskeletal: Musculoskeletal: Reports no additional musculoskeletal complaints Neurologic: Reports system reviewed and no additional complaints, except as documented Psychiatric: Psychiatric: Reports no additional psychiatric complaints Endocrine: Endocrine: Reports no additional endocrine complaints Hematologic/Lymphatic: Hematologic/Lymphatic: Reports no additional hematologic/lymphatic complaints Allergic/Immunologic: Allergic/Immunologic: Reports no additional allergic/immunologic complaints Exam Const: General: cooperative, healthy appearing and comfortable Orientation/consciousness: oriented to person, oriented to place and oriented to time HENMT: Head: normal to inspection Ears: hearing grossly normal bilaterally Eyes: General: appearance normal, both eyes and all related structures Neck: Neck: normal visual inspection Chest: Chest palpation & inspection: normal inspection of the chest Resp: Effort & Inspection: normal respiratory effort and able to speak in complete sentences Auscultation: no crackles, no rales, no rhonchi, no wheezes and lung sounds not diminished Cardio: Jugular venous distension: no JVD GI: Inspection: normal to inspection Skin: General skin exam: normal color Neuro: General: oriented to person, oriented to place and oriented to time Extrem: General: normal to inspection Psych: Appearance: grossly normal Objective Data Vital Signs Vital Signs: Vital Signs - 24 hr 03/12/24 11:53 03/12/24 12:00 03/12/24 16:10 Temperature 36.7 C 36.6 C Pulse Rate 88 82 Respiratory Rate 20 18 Blood Pressure 122/87 160/66 H Pulse Oximetry 100 95 99 Oxygen Delivery Nasal Cannula Oxygen Flow Rate 3.5 03/12/24 18:15 03/12/24 12:00 03/12/24 16:00 Temperature Pulse Rate 88 98 102 H Respiratory Rate Blood Pressure Pulse Oximetry Oxygen Delivery Oxygen Flow Rate 03/12/24 21:56 03/12/24 20:00 03/12/24 22:00 Temperature 36.4 C Pulse Rate 84 63 Respiratory Rate 20 Blood Pressure 142/52 H Pulse Oximetry 98 93 Oxygen Delivery Nasal Cannula Oxygen Flow Rate 3.5 03/13/24 00:59 03/13/24 00:00 03/13/24 06:00 Temperature 36.2 C L Pulse Rate 57 L 52 L 66 Respiratory Rate 25 H 20 Blood Pressure 187/70 H Pulse Oximetry 97 100 Oxygen Delivery BiPAP Oxygen Flow Rate 03/13/24 08:00 Temperature 36.4 C L Pulse Rate 57 L Respiratory Rate 20 Blood Pressure 175/63 H Pulse Oximetry 97 Oxygen Delivery Oxygen Flow Rate Intake/Output Intake/Output: Intake & Output 03/10/24 03/11/24 03/12/24 03/13/24 23:59 23:59 23:59 23:59 Intake Total 1640 1330 720 500 Output Total 850 1450 600 Balance 790 -120 120 500 Meds/Results Medications: Active Medications Generic Name Dose Route Start Last Admin Trade Name Freq PRN Reason Stop Dose Admin Alprazolam 0.25 mg 03/09/24 23:03 03/12/24 17:11 Alprazolam (*Crx) 0.25 Mg Tablet PO 0.25 mg TID PRN Administration Anxiety Azithromycin 250 mg 03/10/24 09:00 03/12/24 08:49 Azithromycin 250 Mg Tablet PO 03/13/24 09:01 250 mg DAILY FELICIA Administration Bismuth Subsalicylate 524 mg 03/11/24 12:02 03/11/24 12:21 Bismuth Subsalicylate 262 Mg Chewable Tablet PO 524 mg Q1H PRN Administration Indigestion Cefdinir 300 mg 03/13/24 09:00 Cefdinir 300 Mg Capsule PO 03/13/24 21:01 Q12HR FELICIA Enoxaparin Sodium 40 mg 03/10/24 09:00 03/12/24 08:49 Enoxaparin 40 Mg/0.4 Ml Syringe SUB-Q 40 mg DAILY FELICIA Administration Fluticasone/Umeclidinium/Vilanterol 1 puff 03/10/24 09:00 03/12/24 07:58 Fluticasone/Umeclidin/Vilanter 100-62.5-25 Mcg Ellipta INHALATION 1 puff DAILY FELICIA Administration Guaifenesin 1,200 mg 03/10/24 09:00 03/12/24 20:28 Guaifenesin 12 Hr 600 Mg Tabcr PO 1,200 mg Q12HR FELICIA Administration Losartan Potassium 100 mg 03/10/24 09:00 03/12/24 08:50 Losartan Potassium 100 Mg Tablet PO 100 mg DAILY FELICIA Administration Multivitamins/Minerals 1 tablet 03/10/24 09:00 03/12/24 17:11 Opti-Gen Tab PO 1 tablet BID FELICIA Administration Nifedipine 30 mg 03/10/24 09:00 03/12/24 08:50 Nifedipine 30 Mg Tab.Er.24 PO 30 mg DAILY FELICIA Administration Pantoprazole Sodium 40 mg 03/10/24 09:00 03/12/24 20:28 Pantoprazole 40 Mg Tablet PO 40 mg Q12HR FELICIA Administration Prednisone 40 mg 03/12/24 11:15 03/12/24 17:11 Prednisone 20 Mg Tablet PO 40 mg DAILY@0800 FELICIA Administration Sertraline HCl 100 mg 03/10/24 09:00 03/12/24 08:50 Sertraline Hcl 50 Mg Tablet PO 100 mg DAILY FELICIA Administration Vitamin D 2,000 units 03/10/24 09:00 03/12/24 08:49 Cholecalciferol 1,000 Units Tablet PO 2,000 units DAILY FELICIA Administration Radiology Results: ITS Impressions Chest X-Ray 03/09/24 14:33 IMPRESSION: 1. Emphysema. 2. Mild atelectasis at the lung bases. 3. Cardiomegaly. Labs Labs: Laboratory Results - last 24 hr 03/12/24 03/13/24 17:55 05:37 WBC 9.1 RBC 4.76 Hgb 12.4 Hct 40.3 MCV 84.7 MCH 26.1 MCHC 30.8 L RDW 18.1 H Plt Count 275 MPV 11.0 H Sodium 143 Potassium 3.7 Chloride 99 Carbon Dioxide 39 H Anion Gap 5 BUN 24 H Creatinine 0.70 Estim Creat Clear Calc 50 Estimated GFR > 60 Glucose 92 Calcium 8.6 Total Bilirubin 0.3 AST 23 ALT 23 Alkaline Phosphatase 86 Total Protein 8.0 Albumin 3.9 C. difficile (PCR) Negative
[2024-03-13] MEDS: FLUTICASONE/UMECLIDIN/VILANTER 100-62.5-25 MCG ELLIPTA 1 PUFF INHALATION (08:51)
[2024-03-13] MEDS: ENOXAPARIN 40 MG/0.4 ML SYRINGE SUB-Q (09:24)
[2024-03-13] MEDS: NIFEdipine 30 MG TAB.ER.24 PO (09:24)
[2024-03-13] MEDS: CEFDINIR 300 MG CAPSULE PO (09:24)
[2024-03-13] MEDS: CHOLECALCIFEROL 1,000 UNITS TABLET 2000 UNITS PO (09:25)
[2024-03-13] MEDS: OPTI-GEN TAB 1 TABLET PO (09:25)
[2024-03-13] MEDS: predniSONE 20 MG TABLET 40 MG PO (09:25)
[2024-03-13] MEDS: SERTRALINE HCL 50 MG TABLET 100 MG PO (09:25)
[2024-03-13] MEDS: PANTOPRAZOLE 40 MG TABLET PO (09:25)
[2024-03-13] MEDS: guaiFENesin 12 HR 600 MG TABCR 1200 MG PO (09:26)
[2024-03-13] MEDS: AZITHROMYCIN 250 MG TABLET PO (09:26)
[2024-03-13] MEDS: LOSARTAN POTASSIUM 100 MG TABLET PO (09:29)
--- NOTE | 2024-03-13 12:09 | P.DS_ITS ---
DS: Admitting Diagnosis Discharge Date 03/13/2024 Admitting Diagnosis SOB DS: Discharge Diagnosis Discharge Diagnosis (1) Acute exacerbation of chronic obstructive pulmonary disease (COPD): Code(s): J44.1 - Chronic obstructive pulmonary disease with (acute) exacerbation Status: Acute (2) Acute and chronic respiratory failure with hypoxia: Code(s): J96.21 - Acute and chronic respiratory failure with hypoxia Status: Acute DS: Summary Hospital Course Hospital Course: This is a very pleasant 83-year-old female with chronic respiratory failure with hypoxia on home oxygen, chronic obstructive pulmonary disease, obstructive sleep apnea on BiPAP, hypertension, depression, and anxiety who presented to the emergency department for evaluation of shortness of breath. The patient provides the following history. She has not been feeling well since Tuesday with increasing dyspnea on lesser and lesser exertion, wheezing, and a nonproductive cough. She has been taking Mucinex however her cough remains productive though she feels as though she has something to cough up. Her appetite has not been great and she has been a bit nauseated as well. She had sweats yesterday. She denies fever, sinus congestion, sore throat, chest pain, pleuritic pain, vomiting, lower extremity edema, and calf pain. No known sick contacts. On EMS arrival her SpO2 was 89% on her usual 5 L.. She was given Solu-Medrol 125 mg and was administered a DuoNeb. In the ED: She rides on CPAP but was transition to BiPAP on arrival due to work of breathing, with improvement. She has been afebrile since arrival. Labs were significant for a WBC count of 14.2, CRP 3.5, lactic acid 1.6, carbon dioxide 24. Chest x-ray showed emphysema, mild atelectasis at the lung bases, and cardiomegaly. She received another DuoNeb and ceftriaxone 2 g. She is being admitted in this setting for further treatment of COPD exacerbation. Patient was started on Steroid, bronchodilators and nighttime NIV. Pulmonology was consulted and adjusted home Trilogy NIV settings. Patient was transitioned back to home baseline oxygen 3.5 liters. Patient was discharged on 3 days Cefdinir, 1 more day of Prednisone 40mg, continue Trelegy and PRN Albuterol, continue nighttime Trilogy with the following settings: Rate 12, TD 530, EPAP 8 minimum and 16 maximum, minimum pressure support 10 , maximum 20. Maximum pressure 30, AVAPS 5 with 3.5L oxygen bleed in. Patient will follow up with PCP in 3-5 days, and F/u with pulmonology as instructed aSSESSMENT AND PLAN COPD exacerbation vs CHF exacerbation CONTIUE ABOVE CARE Diastolic heart failure -Continue nifedipine 30 mg p.o. q.d. -Continue losartan 100 mg p.o. q.d. -09/22/23 - Echo - Hyperdynamic LV systolic function with grade I diastolic dysfunction. Calcified mitral valve annulus. Mild pulmonic regurgitation. No intracardiac shunt on bubble study. -She was seen by Curator Of Education Dr Italia Raymundo on 01/24/2024 ,advised in regards to her diastolic HF she did have an episode of fluid retention after having surgery back in August 2023, that was treated with Lasix. He advised conservative management with Losartan and nifedipine. - ECHO shows Left ventricular systolic function is normal, estimated at 65-70%. Continue Losartan and Nifedipine and f/u with PCP in 3-5 days Time Spent with Patient Time attestation: Total time spent providing and/or coordinating discharge services: DS: Data Data Completed and Pending Labs on day of discharge: Labs from last 24 hours 03/13/24 03/12/24 05:37 17:55 WBC 9.1 RBC 4.76 Hgb 12.4 Hct 40.3 MCV 84.7 MCH 26.1 MCHC 30.8 L RDW 18.1 H Plt Count 275 MPV 11.0 H Sodium 143 Potassium 3.7 Chloride 99 Carbon Dioxide 39 H Anion Gap 5 BUN 24 H Creatinine 0.70 Estim Creat Clear Calc 50 Estimated GFR > 60 Glucose 92 Calcium 8.6 Total Bilirubin 0.3 AST 23 ALT 23 Alkaline Phosphatase 86 Total Protein 8.0 Albumin 3.9 C. difficile (PCR) Negative Preliminary micro results at discharge 03/09/24 14:09 Blood Culture - Preliminary Blood 03/09/24 14:09 Blood Culture - Preliminary Blood Discharge Plan Discharge Attending physician on discharge: Dara Mcdonald Consulting providers: Shara Mack Discharging Clinician: Dara Mcdonald Anticipated Discharge Date/Time: 03/13/24 11:47 Patient Disposition: Home, Self-Care Activity: as tolerated Diet: as tolerated Discharge Instructions: Trilogy noninvasive ventilator through [employer] AVAPS AE mode with breath rate 12, tidal volume 530, minimum EPAP 8, maximum EPAP 16, minimum pressure support 10, maximum pressure support 20. Maximum pressure 30. AVAPS rate 5 w ith 3.5 L bleed in. per pulmonology Patient Instructions: Antibiotic Form Stand Alone Forms: General Discharge Information Follow-up/Referrals: Shara Mack MD [Physician] - (F/u with Dr Mack as instructed ) Sita Syed APRN [Primary Care Provider] - (F/w with PCP in 3-5 days ) Discharge Medications: New cefdinir 300 mg capsule 300 mg PO Q12H 3 Days Qty: 6 0RF prednisone 20 mg tablet 40 mg PO DAILY 1 Days Qty: 2 0RF Continued PreserVision AREDS-2 250-90-40-1 mg Capsule 1 cap PO BID prednisone 5 mg tablet 2.5 mg PO DAILY albuterol sulfate [ProAir HFA] 90 mcg/actuation Hfa Aerosol Inhaler 1 inh INHALATION QID PRN (Reason: Shortness Of Breath Or Wheezing) Trelegy Ellipta 100-62.5-25 mcg blister with device 1 inh INHALATION DAILY sertraline 100 mg tablet 100 mg PO DAILY alprazolam 0.25 mg tablet 0.25 mg PO TID PRN (Reason: Anxiety) omeprazole 40 mg capsule,delayed release(DR/EC) 40 mg PO QAM losartan 100 mg tablet 100 mg PO DAILY Qty: 90 1RF cholecalciferol (vitamin D3) 25 mcg (1,000 unit) Tablet 50 mcg PO DAILY nifedipine 30 mg tablet extended release 24hr 30 mg PO DAILY Date of admission: 03/09/24 15:09 Primary Care Provider: Sita Syed Admitting Provider: Joel Palacios Attending physician on admission: Joel Palacios Condition: Improved
--- NOTE | 2024-03-13 13:05 | HOMEO2EVAL ---
Evaluation was performed at [facility] Home Oxygen Evaluation RC: Home Oxygen (O2) Evaluation Start: 03/13/24 08:43 Freq: ONCE Status: Active Protocol: RPE Activity Type Activity Date Activity User E-sign Co-sign Detail Recorded Client Recorded Date Recorded By Document 03/13/24 12:30 [email or web address] 03/13/24 13:05 SUSIE Document 03/13/24 12:35 [email or web address] [email or web address] 03/13/24 13:05 SUSIE Document 03/13/24 12:40 [email or web address] [email or web address] 03/13/24 13:05 SUSIE Document 03/13/24 12:41 [email or web address] [email or web address] 03/13/24 13:05 SUSIE Document 03/13/24 12:45 SUSIE [email or web address] 03/13/24 13:05 SUSIE 03/13/24 03/13/24 03/13/24 12:30 12:35 12:40 Home O2 Evaluation [Oxygen] -Test Phase Resting Exercise Exercise -Oxygen Delivery Nasal Cannula Nasal Cannula Nasal Cannula -Oxygen Flow Rate (L/min) 3.5 3.5 4.5 [Pulse Oximetry] -Pulse Oximetry (90-100 %) 91 86 L 88 L [Pulse Rate] -Pulse Rate (60-100 beats/min) 80 88 [Comments] -Home Oxygen Evaluation Comments [Charges] -Evaluation Charges O2 Evaluation by Pulmonary 03/13/24 03/13/24 12:41 12:45 Home O2 Evaluation [Oxygen] -Test Phase Exercise Resting -Oxygen Delivery Nasal Cannula Nasal Cannula -Oxygen Flow Rate (L/min) 5 3.5 [Pulse Oximetry] -Pulse Oximetry (90-100 %) 90 91 [Pulse Rate] -Pulse Rate (60-100 beats/min) 93 72 [Comments] -Home Oxygen Evaluation Comments PT REQUIRES 3.5 L WITH REST AND 5 L WITH ACTIVITY. PT HAS [facility] FOR HOME O2 AND HAS POC [Charges] -Evaluation Charges
--- NOTE | 2024-03-13 13:06 | PCRCNOTE ---
HOME O2 EVAL DONE, 3.5 L AT REST, 5 L WITH ACTIVITY. PT HAS [facility] FOR O2 AND [facility] FOR TRILOGY UNIT. PT HAS POC IN ROOM FOR TRANSPORT HOME. RN NOTIFIED.
== END 2024-03-13 15:20 | disposition home or self-care (01) | DRG 190 ==
LOC: ANHED 15:08 → ANHIMU 16:45 → ANH3MED 03-12 18:07
PROVIDERS: Physician Assistant; Admitting Provider General Practice; Emergency Provider Emergency Medicine; PCP Nurse Practitioner Family; Visit Provider Internal Medicine
DX: J44.1 Chronic obstructive pulmonary disease with (acute) exacerbation (principal); J96.21 Acute and chronic respiratory failure with hypoxia; I50.32 Chronic diastolic (congestive) heart failure; I11.0 Hypertensive heart disease with heart failure; D50.9 Iron deficiency anemia, unspecified; E78.2 Mixed hyperlipidemia; B39.9 Histoplasmosis, unspecified; H35.30 Unspecified macular degeneration; G47.33 Obstructive sleep apnea (adult) (pediatric); M81.0 Age-related osteoporosis without current pathological fracture; F03.90 Unspecified dementia, unspecified severity, without behavioral disturbance, psychotic disturbance, mood disturbance, and anxiety; F32.A Depression, unspecified; F41.9 Anxiety disorder, unspecified; Z20.822 Contact with and (suspected) exposure to COVID-19; Z99.81 Dependence on supplemental oxygen; Z87.891 Personal history of nicotine dependence; Z79.52 Long term (current) use of systemic steroids
CPT/HCPCS: 36415; 36600; 71045; 80048; 80053; 80202; 81001; 82805; 83605; 83735; 84484; 85018; 85025; 85027; 85610; 85730; 86140; 87040; 87070; 87205; 87493; 87634; 87636; 87637; 87641; 93005; 93306; 94002; 94003; 94618; 94640; 94668; 96361; 96365; 96375; 99285; A9270; J0696; J1100; J1650; J2919; J3370; J7030; J7050; J7512

== ENCOUNTER 2024-04-17 10:06 | Outpatient (CLI) | payer MEDICARE, SELFPAY ==
--- NOTE | ~2024-04-17 | US_ITS ---
Abdominal Sonogram: Real-time sonographic imaging of the abdomen was performed. Clinical History: Right upper quadrant pain Findings: The liver appears echogenic, with no evidence of mass lesion or bile duct dilatation. Main portal vein demonstrates normal direction of flow. The spleen is normal in size without evidence of focal lesion. The gallbladder is well distended, and contains small echogenic gallstones. The common bile duct measures 4 mm. The visualized pancreas, aorta, and IVC are unremarkable. The right kidne y measures 9.3 cm in length and the left kidney measures 10.8 cm. There is no hydronephrosis or zee l calculus. Right renal cyst noted. Impression: Diffuse fatty infiltration of the liver. Cholelithiasis. Reviewed, dictated and finalized at [facility]. F METER READER Impression: Diffuse fatty infiltration of the liver. Cholelithiasis.
== END 2024-04-17 10:07 | disposition home or self-care (01) ==
LOC: MICIMG 10:07
PROVIDERS: PCP Nurse Practitioner Family; Visit Provider Nurse Practitioner Family
DX: K76.0 Fatty (change of) liver, not elsewhere classified (principal); K80.20 Calculus of gallbladder without cholecystitis without obstruction
CPT/HCPCS: 76700

== ENCOUNTER 2024-07-30 12:05 | Inpatient (IN) | payer MEDICARE, SELFPAY ==
[2024-07-30] VITALS (31 sets, daily range): BP systolic 102–137; BP diastolic 55–98; PULSE 96–158; RESP 17–34; TEMP 36.7–36.9; O2SAT 79–100; BMI 29.4
--- NOTE | ~2024-07-30 | XR_ITS ---
XR chest 2V 07/30/2024 13:10 Indication: Shortness of breath Procedure: 2 view chest Comparison: Comparison to multiple prior studies sequentially, with oldest reviewed study dated 09/09. Findings: Bibasilar infiltrates are present which may represent atelectasis or pneumonia. Mild cardio megaly. There is atherosclerosis. There are scattered calcified granulomas of the lungs. There are lo wer thoracic and upper lumbar compression fractures which appear chronic. Impression: 1: Bibasilar infiltrates may represent atelectasis or pneumonia. Reviewed, dictated and finalized at location A. Impression: 1: Bibasilar infiltrates may represent atelectasis or pneumonia.
--- NOTE | ~2024-07-30 | XR_ITS ---
EXAMINATION: XR chest 2V DATE: 08/01/2024 11:25 INDICATION: Dyspnea TECHNIQUE: PA and lateral views of the chest were obtained. COMPARISON: Chest radiograph dated 07/30/[address] dated 09/22/2023 FINDINGS: Small bilateral pleural effusions. Mild streaky bibasilar opacities and favor atelectasis over mild p ulmonary edema or pneumonia. There are also multiple small bilateral calcified pulmonary nodules most prominent in the lower lung zones which along with calcified bilateral hilar and mediastinal lymph n odes are consistent with old granulomatous disease. No pneumothorax. Heart size is normal. Thoracolum bar dextroscoliosis with moderate spondylosis. Again seen are a few chronic compression fractures in the lower thoracic and upper lumbar spine. IMPRESSION: 1. Small bilateral pleural effusions with associated mild bibasilar atelectasis versus less likely mi ld pulmonary edema or pneumonia. Reviewed, dictated and finalized at location A. IMPRESSION: 1. Small bilateral pleural effusions with associated mild bibasilar atelectasis versus less likely mild pulmonary edema or pneumonia.
--- NOTE | ~2024-07-30 | CT_ITS ---
EXAMINATION: CT diagnostic chest wo con DATE: 08/02/2024 17:33 INDICATION: resp failure TECHNIQUE: Computed tomography (CT) of the chest was performed with 100 mL Omnipaque-350 intravenous contrast. Automated exposure control and iterative reconstruction technique were employed. The dose-l ength product was 150.63 mGy-cm. COMPARISON: [facility] 09/22/2023; x-ray chest 08/01/2024, 07/20/2024, and 11/26/2023. FINDINGS: CHEST: Thoracic aorta: No significant dilation. Moderate atherosclerotic calcified plaque. Lung parenchyma and airways: Severe emphysematous change. Multiple calcified granulomas. Mild depende nt consolidation. Thoracic inlet, axillae and chest wall: No thyroid or soft tissue mass. No axillary lymphadenopathy. Mediastinum: No mass or lymphadenopathy. Heart and pericardium: Aortic valve and mitral calcification. Small volume pericardial fluid collecti on. Coronary artery calcifications: Mild. Pleura: No effusion or mass. Upper abdomen: No significant finding. Thoracic bones: Severe height loss at T10, with posterior cortical involvement and 2 mm retropulsion. Sclerosis of the T10 vertebral body. Redemonstration of the severe burst fracture at T11, with minim al retropulsion, unchanged. Mild stable compression deformities at T12 and L1. IMPRESSION: Mild bilateral subsegmental dependent consolidation, presumably representing atelectasis. Infection i s not excluded. Severe emphysematous change. Small pericardial effusion. Severe burst fracture at T10, likely subacute, probably occurred between the 11/26/2023 and 07/30/2024 chest radiographs. Diffuse sclerosis at this level could concerning for pathologic fracture. Reviewed, dictated and finalized at location K. IMPRESSION: Mild bilateral subsegmental dependent consolidation, presumably representing at electasis. Infection is not excluded. Severe emphysematous change. Small pericardial effusion. Severe burst fracture at T10, likely subacute, probably occurred between the and 07/30/2024 chest radiographs. Diffuse sclerosis at this level could concerning for pathologic fracture.
--- NOTE | 2024-07-30 12:21 | ECG_ITS ---
Test Date: 2024-07-30 12:52:25 Measurements Intervals [place] Rate: 100 P: 70 [place]: 126 QRS: 61 QRSD: 141 T: 7 QT: 373 QTc: 482 Interpretive Statements SINUS TACHYCARDIA POSSIBLE LEFT ATRIAL ENLARGEMENT [-0.1mV P WAVE IN V1/V2] RIGHT BUNDLE BRANCH BLOCK [120+ ms QRS DURATION, UPRIGHT V1, 40+ ms S IN I/aVL/V4/V5/V6] ABNORMAL ECG Electronically Signed On 07-30-2024 14:06:59 CDT by Don Landry M.D.
[2024-07-30 13:46] LABS: Influenza A QL RT-PCR Negative (Negative); Influenza B QL RT-PCR Negative (Negative); RSV RNA, RT-PCR Negative (Negative); SARS-CoV-2 RNA PCR Negative (Negative)
[2024-07-30 14:34] LABS: Alanine Aminotransferase 12 U/L (6-35); Albumin Level 3.9 g/dL (3.5-5.1); Alkaline Phosphatase 109 U/L (38-126); Aspartate Amino Transferase 20 U/L (14-36); Bilirubin,Total 0.6 mg/dL (0.2-1.3); Blood Urea Nitrogen 16 mg/dL (7-17); Calcium 8.9 mg/dL (8.4-10.2); Carbon Dioxide > 40 mmol/L (22-30); Chloride 97 mmol/L (98-107); Estimated CRCL calculation 46 ml/min; Estimated Glomerular Filt Rate > 60; Glucose 123 mg/dL (65-110); Sodium 143 mmol/L (137-145)
[2024-07-30 14:49] LABS: Basophils Absolute Auto 0.1 K/mm3 (0.0-0.1); Basophils Percent Auto 0.5 % (0.2-1.2); Eosinophils Absolute Auto 0.1 K/mm3 (0-0.3); Eosinophils Percent Auto 0.6 % (0-4.4); Hematocrit 39.9 % (37.0-47.0); Immature Granulocyte Absolute 0.04 K/mm3 (0.00-0.031); Immature Granulocyte Percent A 0.4 % (0-0.5); Lymphocytes Absolute Auto 0.67 K/mm3 (0.9-3.2); Lymphocytes Percent Auto 6.1 % (18.3-44.2); Mean Corpuscular HGB Conc 30.1 g/dl (32-36); Mean Corpuscular Hemoglobin 26.3 pg (26-34); Mean Corpuscular Volume 87.3 fl (80-100); Mean Platelet Volume 11.9 fl (7.4-10.4); Monocytes Absolute Auto 0.9 K/mm3 (0.1-0.6); Monocytes Percent Auto 8.2 % (2.6-8.5); Neutrophils Absolute Auto 9.3 K/mm3 (1.3-6.7); Neutrophils Percent Auto 84.2 % (45.5-73.1); Platelet Count Result 215 k/mm3 (150-375); Red Blood Count 4.57 M/mm3 (4.2-5.4); Red Cell Distribution Width 15.1 % (11.5-14.5); White Blood Count 11.1 K/mm3 (4.5-10.0)
[2024-07-30 15:00] LABS: Alveolar/Arterial O2 Gradient 109.7 mmHg; Base Excess ABG 9.6 mEq/l (+/-2.0); Carboxyhemoglobin 1.2 % THb (0-2.0); Fractional Inspired Oxygen 34 %; HCO3 ABG 36.9 mEq/l (22.0-26.0); Methemoglobin ABG 0.4 %THb (0-1.5); Oxygen Content ABG 15.9 %vol (16.0-22.0); Oxygen Saturation ABG 89.4 % (95.0-100.0); PO2 FiO2 Ratio Arterial Blood 1.74 %; Reduced Hemoglobin 9.4 %THb (0-5.0); Total Hemoglobin 12.7 g/dL (12.0-18.0); pH ABG 7.383 (7.350-7.450)
[2024-07-30 15:05] LABS: PCO2 ABG 63.3 mmHg (35.0-45.0)
[2024-07-30 15:06] LABS: Device NASAL CANNULA; Liters per Minute 3.5 LPM; Modified Allen's Test Pass; Site Drawn RIGHT RADIAL
[2024-07-30] MEDS: ALBUTEROL SULFATE NEB 2.5 MG/3 ML INH 10 MG INHALATION (15:09)
[2024-07-30] MEDS: IPRATROPIUM BR 0.02% INH SOLN 0.5 MG/2.5 ML VIAL 1 MG INHALATION (15:09)
--- OUTSIDE RECORDS SUMMARY | 2024-07-30 15:35 | XMS_ITS | Clinical Summary ---
Author Organization [facility] Address [address] [place] [address] Care Team Providers Care Manager Pool Name Role Phone Marichuy Vasquez PA-C Primary Care Provider [phone] Source Comments [facility],non-owned Affiliates and Associated Physician Practices is amultiple site organization consisting of ambulatory clinics and hospital sitesin [place], [place], [place] and [place]. This disclosure is being madepursuant to the Care Everywhere program and may not contain all information available regarding this patient. Last updated 18.[facility] Allergies Active Allergy Reactions Criticality Noted Date Comments Levofloxacin Anaphylaxis High 09/17/2023 Medications * Be aware that medications may not be up to date on this document. Alwaysverify current medications with the patient. Medication Sig Dispensed Refills Start Date End Date Status albuterol (Proventil;Ventol in) (2.5 MG/3ML) 0.083% nebulizer solution Inhale 2.5 (two and one-half) mg by mouth 2 times daily as needed for Shortness of Breath 04/21/2023 Active ALPRAZolam (Xanax) 0.25 MG tablet Take 1 (one) tablet by mouth 3 times daily as needed for Anxiety 08/05/2023 Active Trelegy Ellipta 100-62.5-25 MCG/ACT Inhale 1 (one) puff by mouth once daily 07/07/2023 Active losartan (Cozaar) 100 MG tablet Take 1 (one) tablet by mouth once daily 09/16/2023 Active NIFEdipine CR osmotic 24hr (Procardia-XL) 30 MG tablet Take 1 (one) tablet by mouth once daily 09/16/2023 Active predniSONE (Deltasone) 5 MG tablet Take 0.5 (one-half) tablet by mouth once daily For chronic COPD 09/06/2023 Active sertraline (Zoloft) 100 MG tablet Take 1 (one) tablet by mouth once daily 08/25/2023 Active acetaminophen (Tylenol) 325 MG tablet Take 2 (two) tablets by mouth every 6 hours as needed Maximum allowable Acetaminophen amount = 4 Grams (4000 mg) / 24 hours. 09/21/2023 Active polyethylene glycol 3350 (Miralax) 17 g packet Take 17 (seventeen) g by mouth 2 times daily 09/21/2023 Active apixaban (Eliquis) 5 MG tablet Take 0.5 (one-half) tablet by mouth 2 times daily for 32 days 30 tablet 1 09/21/2023 Active apixaban (Eliquis) 2.5 MG tablet TAKE ONE TABLET BY MOUTH 2 TIMES A DAY FOR 32 DAYS 64 tablet 1 09/21/2023 09/20/2024 Active Active Problems Problem Noted Date Diagnosed Date Chronic respiratory failure with hypoxia 024 J CARLOS (obstructive sleep apnea) 09/18/2023 Essential hypertension 09/18/2023 Generalized anxiety disorder 09/18/2023 COPD (chronic obstructive pulmonary disease) Compression fracture of body of thoracic vertebr a 09/18/2023 Fall, initial encounter 09/17/2023 Other fracture of right femu r, initial encounter for closed fracture 09/17/2023 Immunizations Name Administration Dates Next Due COVID PFIZER 12+YR 30MCG/0.3mL 02/04/2023 COVID PFIZER BIVALENT 12Y+ 30mcg/0.3ML 02/14/2022 Covid Pfizer primary Monoval ent 12+ yr 0.3ml 09/26/2021 Covid Pfizer primary monoval ent 12+ yr 0.3mL Purple cap 02/07/2021,07/20/2020,06/29/2020 INFLUENZA VACCINE, ADJUVANTE D, QUADR. (FLUAD QUADRIVALENT; 65Y+) (AIIV4) 02/14/2022,02/07/2021 INFLUENZA VACCINE, HIGH-DOSE , QUADR. (FLUZONE HIGH-DOSE QUADRIVALENT; 65Y+), 0.7 ML (HD-IIV4) 02/04/2023 INFLUENZA VACCINE, HIGH-DOSE , TRIV. (FLUZONE HIGH-DOSE TRIVALENT; 65Y+) (HD-IIV3) 01/12/2019,01/18/2018,12/30/2016,2015 INFLUENZA VACCINE, QUADR. (A FLURIA, FLUZONE QUADRIVALENT; 6MO+) (IIV4) 01/01/2016 INFLUENZA VACCINE, QUADR. (F LUZONE; FLULAVAL; FLUARIX; AFLURIA QUADRIVALENT; 6MO+), 0.5 ML (IIV4) 02/03/2020 PNEUMOCOCCAL PPV VACCINE 05/02/2013 Pneumococcal Pcv13 Conj 05/02/2014 RSV ABRYSVO PREG OR 60y+ 0.5mL 02/04/2023 TDAP, HISTORIC VACCINE 12/28/2020 ZOSTER VACCINE, LIVE 05/02/2014 Social History Tobacco Use Types Packs/Day Years Used Date Smoking Tobacco: Every Day Cigarettes Smokeless Tobacco: Never Tobacco Cessation:Ready to Q uit: No; Counseling Given: No Alcohol Use Standard Drinks/Week Comments Never 0 (1 standard drink = 0.6 oz pur e alcohol) AUDIT-C Answer Date Recorded Q1: How often do you have a drink containing alcohol? Never 09/18/2023 Q2: How many drinks containi ng alcohol do you have on a typical day when you are drinking? Patient does not drink Frequency of Binge Drinking Not on file 08/30 Overall Financial Resource Strain (CARDIA) Answe r Date Recorded How hard is it for you to pa y for the very basics like food, housing, medical care, and heating? Not hard at all 09/18/2023 [facility] of Occupat ional Health - Occupational Stress Questionnaire Answer Date Recorded Do you feel stress - tense, restless, nervous, or anxious, or unable to sleep at night because your mind is troubled all the time - these days? Not at all 09/18/2023 Hunger Vital Sign Answer Date Recorded Within the past 12 months, y ou worried that your food would run out before you got the money to buy more. Never true 09/18/19 24 Within the past 12 months, t he food you bought just didn't last and you didn't have money to get more. Never true 09/18/2023 PRAPARE - Transportation Answer Date Re corded In the past 12 months, has l ack of transportation kept you from medical appointments or from getting medications? No 08/30 In the past 12 months, has l ack of transportation kept you from meetings, work, or from getting things needed for daily living? No 09/18/2023 Housing Stability Vital Sign Answer Angelo e Recorded In the last 12 months, was t here a time when you were not able to pay the mortgage or rent on time? No 09/18/2023 In the last 12 months, how many places have you lived? 1 09/18/2023 In the last 12 months, was t here a time when you did not have a steady place to sleep or slept in a mcfp (including now)? No 09/18/2023 Sex and Gender Information Value Date Recorded Sex Assigned at Not on file Gender Identity Not on file Sexual Orientation Not on file Last Filed Vital Signs Vital Sign Reading Time Taken Comments Blood Pressure 132/52 09/21/2023 11:13 AM CDT Pulse 89 09/21/2023 11:13 AM CDT Temperature 36.9 C (98.5 F) 09/21/2023 11:13 AM CDT Respiratory Rate 18 09/21/2023 11:13 AM CDT Oxygen Saturation 93% 09/21/2023 11:13 AM CDT Inhaled Oxygen Concentration 40% 09/21/2023 3 :50 AM CDT Weight 75.8 kg (167 lb) 10/24/2023 1:00 PM CDT Height 162.6 cm (5' 4 ) 10/24/2023 1:00 PM CDT Body Mass Index 28.67 10/24/2023 1:00 PM CDT Plan of Treatment Health Maintenance Due Date Last Done Comments BONE DENSITY TESTING 1940 MEDICARE AWV 12 MONTHS 1940 ZOSTER VACCINE (2 of 3) 06/27/2014 05/02/2014 COVID-19 VACCINE ( season) 2024 02/04/2023, 02/14/2022, 09/26/2021, Additional history exists INFLUENZA VACCINE (#1) 2024 3, 02/14/2022, 02/07/2021, Additional history exists DEPRESSION SCREENING 05/02/2024 MEDICARE AWV CALENDAR YEAR 2024 DTAP/TDAP/TD VACCINES (2 - Td or Tdap) 12/28/2030 12/28/2020 PNEUMOCOCCAL VACCINE 50+ Completed 05/02/2014, 05/2013 Respiratory Syncytial Virus (RSV) Vaccine Pt: or over 60 yrs Completed 02/04/2023 HEPATITIS B VACCINE Aged Out No longe r eligible based on patient's age to complete this topic HIB VACCINE Aged Out No longer eligi ble based on patient's age to complete this topic HPV VACCINE Aged Out No longer eligi ble based on patient's age to complete this topic MENINGOCOCCAL (Group B) VACCINE SHARED DECISION-MAKING Aged Out No longer eligible based on patient's age to complete this topic MENINGOCOCCAL GROUPS A/C/Y/W VACCINE Aged Out No longer eligible based on patient's age to complete this topic Medical Devices Implanted Type Area Motor Runner Device Identifier Shelf Expiration Date Model / Serial / Lot Spcr Cmnt 12mm Acld Unv Hip Dist Implanted:Qty: 1 on 09/18/2023 by Lulu Aguilar MD at [facility] Other (Type not listed) Right: Femur [employer] - neutrinitys 03/08/2028 [id number] / / [id number] Stem Fem 145mm Hip 127d 5 48mm Ofst Cmnt Implanted:Qty: 1 on 09/18/2023 by Lulu Aguilar MD at [facility] Other (Type not listed) Right: Femur [employer] 10/07/2027 [id number] / / [id number] Head Biplr 46mm 28mm Uhr Unv Hip Cocr Implanted:Qty: 1 on 09/18/2023 by Lulu Aguilar MD at [facility] Other (Type not listed) Right: Femur [employer] 08/25/2025 [id number] / / [id number] Head Fem +0mm Ofst Tpr 28mm Hip Blx D Implanted:Qty: 1 on 09/18/2023 by Lulu Aguilar MD at [facility] Other (Type not listed) Right: Femur [employer] 03/14/2028 [id number] Cmnt Bone Smpx Ptbr Fd Radopq Prebl Implanted:Qty: 2 on 09/18/2023 by Lulu Aguilar MD at [facility] Other (Type not listed) Right: Femur [employer] 12/30/2024 [id number] / / [id number] Advance Directives * Full Code (Latest Code Status on File) Date Activated Date Inactivated Comments 09/17/2023 5:23 PM 09/21/2023 5:19 PM Care Teams Manager Pool Relationship Specialty Start Date End Date Marichuy Vasquez PA-C [address] [place] [address] PCP - General Physician Account Underwriter 09/17/23
--- OUTSIDE RECORDS SUMMARY | 2024-07-30 15:35 | XMS_ITS | Referral Summary ---
Author Organization [facility] [address] Address [address] [place] [address] Care Team Providers Care Framing Specialist Name Role Phone Sita Syed NP Primary Care Provider [phone] Allergies No known active allergies Medications ALPRAZolam (XANAX) 0.25 mg tablet Take 1 tablet (0.25 mg total) by mouth 3 (three) times a day as needed for anxiety Active acetaminophen (TYLENOL) 325 mg tablet Take 2 tablets (650 mg total) by mouth every 6 (six) hours as needed for pain Active albuterol 0.63 mg/3 mL nebulizer solution Take 3 mL (0.63 mg total) by nebulization every 6 (six) hours as needed for wheezing Active losartan (COZAAR) 100 mg tablet Take 1 tablet (100 mg total) by mouth daily Active NIFEdipine (NIFEdipine CC) 30 mg 24 hr tablet Take 1 tablet (30 mg total) by mouth daily Active predniSONE (DELTASONE) 2.5 mg tablet Take by mouth daily Active sertraline (ZOLOFT) 100 mg tablet Take 1 tablet (100 mg total) by mouth daily Active aspirin 81 mg enteric coated tablet Take 1 tablet (81 mg total) by mouth daily Active vit A/vit C/vit E/zinc/copper (PRESERVISION AREDS ORAL) Take by mouth Acti ve ferrous sulfate 325 mg (65 mg of elemental iron) tabletIndicatio ns:Iron Deficiency Anemia Take 1 tablet (325 mg total) by mouth daily with breakfast Active coenzyme Q10 10 mg capsule Take 1 capsule (10 mg total) by mouth daily Active fluticasone/ume clidin/vilanter (TRELEGY ELLIPTA INHAL) Inhale Activ e albuterol HFA (PROVENTIL HFA,VENTOLIN HFA,PROAIR HFA) 90 mcg/actuation inhaler Inhale 2 puffs every 6 (six) hours as needed for wheezing Active Active Problems Problem Noted Date Diagnosed Date Chronic diastolic heart failure 01/23/2024 Essential hypertension 01/23/2024 Social History Tobacco Use Types Packs/Day Years Used Date Smoking Tobacco: Former Cigarettes Tobacco Cessation:Counseling Given: Not Answered Personal Safety Answer Date Recorded Getting School Help Needed Not on file 09/26 Comments Unknown Sex and Gender Information Value Date Recorded Sex Assigned at Not on file 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 Gender Identity Not on file Sexual Orientation Not on file Last Filed Vital Signs Vital Sign Reading Time Taken Comments Blood Pressure 130/80 01/23/2024 12:41 PM CDT Pulse 102 01/23/2024 12:41 PM CDT Temperature 36.6 C (97.8 F) 02/21/2017 5:24 PM CDT Respiratory Rate - - Oxygen Saturation 90% 06/16/2017 10:45 AM WIND PROJECT MANAGER Inhaled Oxygen Concentration - - Weight 68.9 kg (152 lb) 01/23/2024 12:41 PM CDT Height 160 cm (5' 3 ) 01/23/2024 12:41 PM CDT Body Mass Index 26.93 01/23/2024 12:41 PM CDT Plan of Treatment Not on file Insurance MEDICARE RAILROAD [facility] Care Teams Framing Specialist Relationship Specialty Start Date End Date Sita Syed NP [address] [facility] [address] [address] PCP - General Nurse Practitioner 01/23/24
--- OUTSIDE RECORDS SUMMARY | 2024-07-30 15:35 | XMS_ITS | Clinical Summary ---
Author Organization [facility] [address] Address [address] [place] [address] Care Team Providers Care Pathological Technician Name Role Phone Sita Syed NP Primary Care Provider [phone] Allergies No known active allergies Medications ALPRAZolam [...] diastolic heart failure 01/23/2024 Essential hypertension 01/23/2024 Surgical History Surgery Date Site/Laterality Comments HYSTERECTOMY Medical History Medical History Date Comments Shortness of breath Heart failure (HCC) COPD (chronic obstructive pulmonary disease) (HC C) Family History Medical History Relation Name Comments Heart disease Father Heart disease Mother Relation Name Status Comments Father Mother Social History Tobacco Use Types Packs/Day Years Used Date Smoking Tobacco: Former Cigarettes Tobacco Cessation:Counseling Given: Not Answered Personal Safety Answer Date Recorded Getting School Help Needed Not on file 09/26 Comments Unknown Sex and Gender Information Value Date Recorded Sex Assigned at Not on file 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 Gender Identity Not on file Sexual Orientation Not on file Obstetrics History Last Filed Vital Signs Vital Sign Reading Time Taken Comments Blood Pressure 130/80 01/23/2024 12:41 PM CDT Pulse 102 01/23/2024 12:41 PM CDT Temperature 36.6 C (97.8 F) 02/21/2017 5:24 PM CDT Respiratory Rate - - Oxygen Saturation 90% 06/16/2017 10:45 AM FREELANCE RECRUITER Inhaled Oxygen Concentration - - Weight 68.9 kg (152 lb) 01/23/2024 12:41 PM CDT Height 160 cm (5' 3 ) 01/23/2024 12:41 PM CDT Body Mass Index 26.93 01/23/2024 12:41 PM CDT Plan of Treatment Health Maintenance Due Date Last Done Comments Depression Screening 1940 Fall Risk Assessment 1940 Osteoporosis Screening-Bone Density Scan 1940 Hepatitis B Screening 12[birth year]13/1958 Well Visit 65+ 12/13/2004 Zoster Vaccine (2 of 3) 06/27/2014 05/02/2014 Covid-19 Vaccine (2023-2 5 season) 2024 02/04/2023, 02/14/2022, 09/26/2021, Additional history exists Influenza Vaccine (#1) 2024 , 02/14/2022, 02/07/2021, Additional history exists DTaP/Tdap/Td Vaccine (2 - Td or Tdap) 12/28/2030 12/28/2020 Pneumococcal vaccine 65+ Completed 05/02/2014, 05/2013 Insurance MEDICARE RAILROAD [facility] Care Teams Pathological Technician Relationship Specialty Start Date End Date Sita Syed NP [address] [place] [address] PCP - General Nurse Practitioner 01/23/24
--- NOTE | 2024-07-30 16:28 | ED_ITS ---
HPI - SOB/Dyspnea General Chief Complaint: Shortness of Breath/Dyspnea Stated Complaint: SOB Time Seen by Provider: 07/30/24 14:08 History of Present Illness HPI Narrative: Patient is an 83-year-old female who presents ER with shortness of breath and cough. Worsening over last week. Cough is productive. Denies fever. Chronically O2 dependent on 3 L and has had to increase her O2. She has been using nebulizer treatments twice a day but she has anxiety and has difficulty tolerating these treatments. No known sick contacts. No chest pain. Related Data Home Medications ?Medication ?Instructions ?Recorded ?Confirmed ?Last Taken ?Type cholecalciferol (vitamin D3) 25 50 mcg PO DAILY 09/21/23 06/11/24 03/09/24 10:00 History mcg (1,000 unit) tablet vit C 250 mg-vit E 90 mg-zinc 40 1 cap PO BID 09/22/23 06/11/24 03/09/24 09:00 History mg-copper 1 gr-rnocra-yjyzqe capsule (PreserVision AREDS-2) albuterol sulfate 2.5 mg/3 mL 2.5 mg inhalation Q4-6H PRN 04/02/24 06/11/24 Unknown History (0.083 %) solution for nebulization Allergies Allergy/AdvReac Type Severity Reaction Status Date / Time levofloxacin Allergy Unknown Itching,Hiv Verified 06/11/24 11:03 es Review of Systems 2 Review of Systems: All systems reviewed & are unremarkable except as noted in HPI and below Constitutional: Constitutional: Reports no additional constitutional complaints ENT: Reports system reviewed and no additional complaints, except as documented Cardiovascular: Cardiovascular: Reports no additional cardiovascular complaints Respiratory: Respiratory: Reports no additional respiratory complaints [facility] Past Medical History Medical History (Updated 07/30/24 @ 20:45 by Delfin Escamilla MD) 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 Obstructive sleep apnea treated with BiPAP Chronic obstructive pulmonary disease Chronic respiratory failure with hypoxia, on home oxygen therapy Compression fracture of body of thoracic vertebra Osteoporosis Hearing loss Anxiety Iron deficiency anemia Macular degeneration of both eyes Mixed hyperlipidemia Basal cell carcinoma (BCC) of left nasal sidewall Hypertension Surgical History Surgical History History of hysterectomy for benign disease History of bilateral cataract extraction History of carpal tunnel release History of repair of hip fracture (09/18/23) R subcapital femoral neck fracture, [facility] Family History Family History Sibling Diabetes mellitus Family history of cardiovascular disease Family history of coronary artery disease Father Family history of cardiovascular disease Family history of malignant neoplasm Family history of emphysema Mother Family history of cardiovascular disease Other Asthma Social History Social History Social History: Surrogate medical decision maker: Swati Lau, daughter. Code status: Full code. Years smoked: 70 Smoking status: Former smoker Second hand tobacco smoke exposure: Yes Additional smoking assessment comments: Pt states she has one cigarette per month Alcohol intake: never Substance use: never Substance use type: does not use Do You Feel Safe in your Home?: Yes Lack of Transportation: No Lack of Food: Never True Current Housing: I Do Not Have Housing Concerned About Future Housing: No Difficulty Paying Gas/Electric Bills: No Difficulty Paying for Meds: No Currently Unemployed: No Education: Grade School Difficulty w/ Childcare or Family Care: No Living arrangements: with family Occupation/Education: retired Spiritual care concerns: No Agree to blood products: Yes Exam 2 Narrative: GENERAL: Chronically ill-appearing, well-nourished, and in no acute distress. HEAD: Normocephalic, atraumatic. ENT: Mucous membranes moist. NECK: Supple. CHEST: Diminished lung sounds with diffuse wheezing. No respiratory distress. HEART: Regular rate and rhythm. Normal peripheral pulses. ABDOMEN: Soft, nontender, nondistended. EXTREMITIES: Normal range of motion. No edema. SKIN: Warm, dry, no rash. NEURO: Alert and oriented x3. PSYCH: Normal mood and affect. Course Course Emergency Course: Patient having difficulty tolerating hour long nebulizer treatment. Chest x-ray with atelectasis versus pneumonia. Patient is hypercapnic with pCO2 63.3. Would benefit from observation, scheduled treatments and she cannot tolerate prolonged treatments. Patient became hypoxic in the 70s and had to switch to non-rebreather. Admit to IMU. IV antibiotics ordered as well. Vital Signs Vital signs: Vital Signs Temperature 98.4 F 07/30/24 12:09 Pulse Rate 105 H 07/30/24 12:09 Respiratory Rate 20 07/30/24 12:09 Blood Pressure 119/73 07/30/24 12:09 Pulse Oximetry 95 07/30/24 12:09 Oxygen Delivery Nasal Cannula 07/30/24 12:09 Oxygen Flow Rate 4.5 07/30/24 12:09 Temperature 98.4 F 07/30/24 12:09 Pulse Rate 115 H 07/30/24 16:41 Respiratory Rate 20 07/30/24 16:41 Blood Pressure 130/98 H 07/30/24 16:41 Pulse Oximetry 96 07/30/24 16:41 Oxygen Delivery Nasal Cannula 07/30/24 12:18 Oxygen Flow Rate 4.5 07/30/24 12:18 MDM - SOB/Dyspnea Lab Data 07/30/24 12:59 07/30/24 12:59 Labs: Lab Results 07/30/24 07/30/24 07/30/24 Range/Units 12:59 13:00 14:58 WBC 11.1 H (4.5-10.0) K/mm3 RBC 4.57 (4.2-5.4) M/mm3 Hgb 12.0 (12.0-15.0) g/dL Hct 39.9 (37.0-47.0) % MCV 87.3 (80-100) fl MCH 26.3 (26-34) pg MCHC 30.1 L (32-36) g/dl RDW 15.1 H (11.5-14.5) % Plt Count 215 (150-375) k/mm3 MPV 11.9 H (7.4-10.4) fl Immature Gran % (Auto) 0.4 (0-0.5) % Neut % (Auto) 84.2 H (45.5-73.1) % Lymph % (Auto) 6.1 L (18.3-44.2) % Daniels % (Auto) 8.2 (2.6-8.5) % Eos % (Auto) 0.6 (0-4.4) % Baso % (Auto) 0.5 (0.2-1.2) % Lymph # (Auto) 0.67 L (0.9-3.2) K/mm3 Daniels # (Auto) 0.9 H (0.1-0.6) K/mm3 Eos # (Auto) 0.1 (0-0.3) K/mm3 Baso # (Auto) 0.1 (0.0-0.1) K/mm3 Abs Immat Gran (auto) 0.04 H (0.00-0.031) K/mm3 Absolute Neuts (auto) 9.3 H (1.3-6.7) K/mm3 Absolute Nucleated RBC 0.000 (0.0-0.012) K/mm3 Nucleated RBC % 0.0 (0.0-0.2) % Methemoglobin 0.4 (0-1.5) %THb Sodium 143 (137-145) mmol/L Potassium 4.0 (3.4-5.0) mmol/L Chloride 97 L (98-107) mmol/L Carbon Dioxide > 40 H (22-30) mmol/L Anion Gap (4-12) mmol/L BUN 16 (7-17) mg/dL Creatinine 0.65 L (0.7-1.0) mg/dL Estim Creat Clear Calc 46 ml/min Estimated GFR > 60 (59 - ) Glucose 123 H (65-110) mg/dL Calcium 8.9 (8.4-10.2) mg/dL Total Bilirubin 0.6 (0.2-1.3) mg/dL AST 20 (14-36) U/L ALT 12 (6-35) U/L Alkaline Phosphatase 109 (38-126) U/L Total Protein 8.0 (6.3-8.2) g/dL Albumin 3.9 (3.5-5.1) g/dL Influenza A (RT-PCR) Negative (Negative) Influenza B (RT-PCR) Negative (Negative) RSV (RT-PCR) Negative (Negative) SARS-CoV-2 RNA (RT-PCR) Negative (Negative) ABG Data ABG results: 07/30/24 14:58 Puncture Site Right radial ABG pH 7.383 ABG pCO2 63.3 H* ABG pO2 59.0 L ABG PO2/FiO2 Ratio 1.74 ABG HCO3 36.9 H ABG O2 Saturation 89.4 L ABG O2 Content 15.9 L ABG Base Excess 9.6 A-a Gradient 109.7 Oxyhemoglobin 89.0 L Carboxyhemoglobin 1.2 Reduced Hemoglobin 9.4 H Total Hemoglobin 12.7 O2 Delivery Device Nasal cannula O2 Liters/Min 3.5 FiO2 34 Imaging Data Radiologist's impression: ITS Impressions Chest X-Ray 07/30/24 13:11 Impression: 1: Bibasilar infiltrates may represent atelectasis or pneumonia. Critical Care Time Critical Care Time Critical Care Time: Yes Total Critical Care Time: 35 Discharge Plan Discharge Clinical Impression: Chronic hypercapnic respiratory failure, Anxiety, Pneumonia Patient Disposition: Still a Patient Condition: Stable
[2024-07-30] MEDS: ACETAMINOPHEN 325 MG TABLET 650 MG PO (17:11)
[2024-07-30] MEDS: methylPREDNISolone SOD SUCC 125 MG VIAL 60 MG IV PUSH ×2 (17:12→23:09)
--- NOTE | 2024-07-30 17:25 | P.HP_ITS ---
H&P: HPI History of Present Illness Date/Time: 07/30/24 17:25 Chief Complaint: Shortness of breath and congestion. Narrative: This is a very pleasant 83-year-old female with chronic respiratory failure with hypoxia on 3.5 to 4 L home oxygen, steroid dependent chronic obstructive pulmonary disease on prednisone 5 mg daily, obstructive sleep apnea on BiPAP, hypertension, depression, and anxiety who presented to the emergency department for evaluation of shortness of breath and congestion. About a month ago she had an upper respiratory infection for which she was prescribed antibiotics but she never bounced back to baseline. At baseline she can ambulate around the home and do light cooking and cleaning with mild shortness of breath. She uses a scooter when she goes out in the community shopping. Over the last week she has become increasingly short of breath on lesser and lesser exertion. Her chronic cough has increased and is now productive of cali colored sputum. She has been using her nebulizer twice a day with some benefit. Today she was having a lot of difficulty catching her breath which in turn made her very anxious and she tells me that she went into a panic and felt as though she could not breathe. On EMS arrival her SpO2 was in the low 80s on 3 L nasal cannula. She was administered a DuoNeb en route with some improvement. She denies fever, headache, sinus congestion, sore throat, pleuritic pain, vomiting, diarrhea, edema, and calf pain. In the ED: Vitals on arrival include a temperature of 98.4?, blood pressure 119/73, pulse 105, respiratory 20, SpO2 95%. Labs are significant for WBC count 11.1, serum carbon dioxide greater than 40, creatinine 0.65. She tested negative for influenza, RSV, and COVID. Chest x-ray showed bibasilar infiltrates which could be atelectasis or pneumonia. ABG showed a pH of 7.383, pCO2 63.3, PO2 59, HC03 36.9. She was administered another DuoNeb as well as methylprednisone and azithromycin and ceftriaxone. She reports feeling much better at this time does not feel that she needs to go on her BiPAP until tonight. Review of Systems Review of Systems: 12 systems were reviewed and are negativ e except for as per HPI. 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 Obstructive sleep apnea treated with BiPAP Chronic obstructive pulmonary disease Chronic respiratory failure with hypoxia, on home oxygen therapy Compression fracture of body of thoracic vertebra Osteoporosis Hearing loss Anxiety Iron deficiency anemia Macular degeneration of both eyes Mixed hyperlipidemia Basal cell carcinoma (BCC) of left nasal sidewall Hypertension Surgical History Surgical History History of hysterectomy for benign disease History of bilateral cataract extraction History of carpal tunnel release History of repair of hip fracture (09/18/23) R subcapital femoral neck fracture, [facility] Family History Family History Sibling Diabetes mellitus Family history of cardiovascular disease Family history of coronary artery disease Father Family history of cardiovascular disease Family history of malignant neoplasm Family history of emphysema Mother Family history of cardiovascular disease Other Asthma Social History Social History Social History: Surrogate medical decision maker: Swati Lau, daughter. Code status: Full code. Years smoked: 70 Smoking status: Former smoker Second hand tobacco smoke exposure: Yes Additional smoking assessment comments: Pt states she has one cigarette per month Alcohol intake: never Substance use: never Substance use type: does not use Do You Feel Safe in your Home?: Yes Lack of Transportation: No Lack of Food: Never True Current Housing: I Do Not Have Housing Concerned About Future Housing: No Difficulty Paying Gas/Electric Bills: No Difficulty Paying for Meds: No Currently Unemployed: No Education: Grade School Difficulty w/ Childcare or Family Care: No Living arrangements: with family Occupation/Education: retired Spiritual care concerns: No Agree to blood products: Yes Meds Home Medications and Allergies Home Medications ?Medication ?Instructions ?Recorded ?Confirmed ?Type cholecalciferol (vitamin D3) 25 50 mcg PO DAILY 09/21/23 06/11/24 History mcg (1,000 unit) tablet vit C 250 mg-vit E 90 mg-zinc 40 1 cap PO BID 09/22/23 06/11/24 History mg-copper 1 jk-dugwfw-yjcjaz capsule (PreserVision AREDS-2) albuterol sulfate 2.5 mg/3 mL 2.5 mg inhalation Q4-6H PRN 12/02/24 02/10/25 History (0.083 %) solution for nebulization albuterol sulfate 90 mcg/actuation 1 - 2 puff inhalation Q4-6H PRN 04/02/24 06/11/24 Rx aerosol inhaler shortness of breath or wheezing #8.5 grams losartan 100 mg tablet See Rx Instructions .Route 04/05/24 06/11/24 Rx .COMPLEX #90 tabs sertraline 100 mg tablet 100 mg PO DAILY #90 tabs 04/05/24 06/11/24 Rx omeprazole 40 mg capsule,delayed 40 mg PO DAILY #90 caps 04/12/24 06/11/24 Rx release ursodiol 300 mg capsule 300 mg PO BID #180 caps 04/18/24 06/11/24 Rx nifedipine 30 mg tablet,extended 30 mg PO DAILY #90 tabs 05/03/24 06/11/24 Rx release 24 hr dupilumab 300 mg/2 mL subcutaneous 300 mg (2 mL) subcut .every 2 06/11/24 06/11/24 Rx pen injector (Xytis) weeks #4 mL epinephrine 0.3 mg/0.3 mL 0.3 mg (0.3 mL) IM ONCE #2 ea 06/11/24 06/11/24 Rx injection, auto-injector (EpiPen 2-Juan) fluticasone fur. 100 mcg-umeclid 1 inh inhalation DAILY #180 ea 06/11/24 06/11/24 Rx 62.5 mcg-vilant 25 mcg inhalat.powder (Trelegy Ellipta) alprazolam 0.25 mg tablet 0.25 mg PO TID PRN Anxiety #90 tabs 06/13/24 Rx prednisone 5 mg tablet See Rx Instructions .Route 06/25/24 Rx .COMPLEX #30 tabs Allergies Allergy/AdvReac Type Severity Reaction Status Date / Time levofloxacin Allergy Unknown Itching,Hiv Verified 06/11/24 11:03 es Vital Signs Vital Signs - 24 hr 07/30/24 12:09 07/30/24 12:18 07/30/24 12:18 Temperature 98.4 F Pulse Rate 105 H Respiratory Rate 20 Blood Pressure 119/73 Pulse Oximetry 95 96 96 Oxygen Delivery Nasal Cannula Nasal Cannula Nasal Cannula Oxygen Flow Rate 4.5 4.5 4.5 07/30/24 12:19 07/30/24 14:31 07/30/24 15:10 Temperature Pulse Rate 110 H 107 H 106 H Respiratory Rate 20 24 H Blood Pressure 137/55 L Pulse Oximetry 93 Oxygen Delivery Oxygen Flow Rate 07/30/24 16:41 Temperature Pulse Rate 115 H Respiratory Rate 20 Blood Pressure 130/98 H Pulse Oximetry 96 Oxygen Delivery Oxygen Flow Rate Exam Narrative: General: Mildly ill-appearing female sitting up in bed receiving a DuoNeb. Weight: 67 kg. BMI: 26.2. HEENT: Slightly hard of hearing. She is wearing corrective lenses. PERRL, EOMI. Sclera anicteric. Oral mucosa moist. Neck: Supple. No JVD. Respiratory: Mildly tachypneic. She is able to speak in full sentences. Feels better after receiving Ativan. Significantly diminished air intake throughout with prolonged expiratory wheezing. Cardiovascular: Tachycardic with occasional ectopy. Gastrointestinal: Abdomen is soft, nontender, and nondistended with positive bowel sounds. Skin: Warm and dry. No rash or lesions on limited exam. Extremities: No cyanosis, clubbing, or edema. Radial and pedal pulses intact. No palpable knots or cords. Negative Keri sign bilaterally. Neurological: Alert. Cranial nerves 2-12 are grossly intact. Essential tremors of the head and arms. No gross focal deficits to casual conversation. Psychiatric: Pleasant and cooperative with normal mood. She is a bit anxious which she states is due to the neb. H&P: Results Labs Labs: Short CBC 07/30/24 Range/Units 12:59 WBC 11.1 H (4.5-10.0) K/mm3 Hgb 12.0 (12.0-15.0) g/dL Hct 39.9 (37.0-47.0) % Plt Count 215 (150-375) k/mm3 BMP 07/30/24 12:59 Sodium 143 Potassium 4.0 Chloride 97 L Carbon Dioxide > 40 H BUN 16 Creatinine 0.65 L Glucose 123 H Calcium 8.9 Liver Function 07/30/24 Range/Units 12:59 Total Bilirubin 0.6 (0.2-1.3) mg/dL AST 20 (14-36) U/L ALT 12 (6-35) U/L Alkaline Phosphatase 109 (38-126) U/L Albumin 3.9 (3.5-5.1) g/dL Imaging Chest X-Ray 07/30/24 13:11 Impression: 1: Bibasilar infiltrates may represent atelectasis or pneumonia. Assessment and Plan Assessment and plan (1) Acute exacerbation of chronic obstructive pulmonary disease (COPD): Code(s): J44.1 - Chronic obstructive pulmonary disease with (acute) exacerbation Status: Acute (2) Acute on chronic respiratory failure with hypoxia and hypercapnia: Code(s): J96.21 - Acute and chronic respiratory failure with hypoxia; J96.22 - Acute and chronic respiratory failure with hypercapnia Status: Acute (3) Pneumonia: Code(s): J18.9 - Pneumonia, unspecified organism Status: Acute (4) Hypertension: Code(s): I10 - Essential (primary) hypertension Status: Acute (5) Obstructive sleep apnea treated with BiPAP: Code(s): G47.33 - Obstructive sleep apnea (adult) (pediatric) Status: Acute (6) Anxiety: Code(s): F41.9 - Anxiety disorder, unspecified Status: Acute Plan The patient went to emergency department for evaluation of increasing shortness of breath over the past 1 week as per HPI. Labs, imaging, EKG, and all reports were personally reviewed. Clinically she has evidence of a COPD exacerbation which may very well have been precipitated by a viral infection several weeks ag o. She has been started on scheduled bronchodilators and methylprednisolone. Chest x-ray shows possible pneumonia versus atelectasis and we will continue with empiric antibiotics as well. Sputum culture ordered. Blood gas appears near her baseline. BiPAP will be provided for the patient to use while hospitalized. Blood pressures are stable. Continue alprazolam which she does take at home p.r.n. for anxiety. The rest of her home medications will be reviewed and resumed as appropriate. Findings and treatment plan were discussed with the patient. Questions were solicited and answered to satisfaction. The patient's medical management will be taken over by the hospitalist team in a.m. Quality VTE Prophylaxis VTE prophylaxis: pharmacologic ordered The patient has been admitted under observation status. Hospitalist MIPS Advance Care Plan I have confirmed that the patient's Advanced Care Plan is present, code status is documented, or surrogate decision maker is listed in patient medical record.: Yes Medication Reconciliation I have utilized all available resources to obtain, update and review the patients current medications (includes all prescriptions, OTC, herbals, cannabis, and nutritional supplements).: Yes
[2024-07-30] MEDS: AZITHROMYCIN 500 MG/NS 250 ML 500 MG/250 ML BAG 250 MG IVPB (17:40)
[2024-07-30] MEDS: LORazepam INJ (*CRX) 2 MG/ML VIAL 0.5 MG IV PUSH (17:47)
--- NOTE | 2024-07-30 20:13 | PC.NURSE ---
RT notified that pt is boarded and they had a neb treatment ordered.
[2024-07-30] MEDS: IPRATROPIUM 0.5 MG/ALBUTEROL SULFATE 2.5 MG AMPUL.NEB 3 ML INHALATION (20:47)
--- NOTE | 2024-07-30 21:59 | ADMGEN ---
This patient, Shara Pulido, was admitted to 3 [facility] Surg Room 330-02. Patient/family oriented to hospital policies and general routines including ID bracelet, bed and alarms, visiting hours, pain management, procedures, bathroom and other care routines, personal items, smoking policy, room service/diet, and visiting hours. Information on how to activate the Rapid Response Team has been discussed. Patient/Family are encouraged to report perceived risks to care and to ask questions if they do not understand what they are told or what they should do.
[2024-07-30] MEDS: guaiFENesin 12 HR 600 MG TABCR 1200 MG PO (22:57)
[2024-07-31] VITALS (17 sets, daily range): BP systolic 116–156; BP diastolic 53–71; PULSE 77–101; RESP 18–24; TEMP 35.7–36.7; O2SAT 91–98; BMI 29.2
[2024-07-31 00:35] LABS: MRSA (PCR) NOT DETECTED (NOT DETECTE)
[2024-07-31] MEDS: IPRATROPIUM 0.5 MG/ALBUTEROL SULFATE 2.5 MG AMPUL.NEB 3 ML INHALATION ×4 (02:50→21:38)
[2024-07-31] MEDS: methylPREDNISolone SOD SUCC 125 MG VIAL 60 MG IV PUSH ×4 (05:04→23:23)
[2024-07-31 06:05] LABS: Hematocrit 37.4 % (37.0-47.0); Hemoglobin 11.2 g/dL (12.0-15.0); Mean Corpuscular HGB Conc 29.9 g/dl (32-36); Mean Platelet Volume 12.1 fl (7.4-10.4); Platelet Count Result 219 k/mm3 (150-375); Red Cell Distribution Width 15.1 % (11.5-14.5); White Blood Count 10.8 K/mm3 (4.5-10.0)
[2024-07-31 06:26] LABS: Anion Gap 4 mmol/L (4-12); Blood Urea Nitrogen 29 mg/dL (7-17); Calcium 8.7 mg/dL (8.4-10.2); Carbon Dioxide 38 mmol/L (22-30); Chloride 100 mmol/L (98-107); Estimated CRCL calculation 33 ml/min; Estimated Glomerular Filt Rate 52; Glucose 144 mg/dL (65-110); Potassium 3.9 mmol/L (3.4-5.0); Sodium 142 mmol/L (137-145)
[2024-07-31] MEDS: ENOXAPARIN 40 MG/0.4 ML SYRINGE SUB-Q (08:29)
[2024-07-31] MEDS: guaiFENesin 12 HR 600 MG TABCR 1200 MG PO ×2 (08:29→21:13)
[2024-07-31] MEDS: AZITHROMYCIN 500 MG/NS 250 ML 500 MG/250 ML BAG 125 MG IVPB (12:12)
--- NOTE | 2024-07-31 13:34 | PC.NURSE ---
0800 Dr Bobby notified that home meds need to be restarted.
--- NOTE | 2024-07-31 13:35 | PC.NURSE ---
1315 Dr Bobby notified that patient's home meds need to be restarted and she is tachy 120's on tele with activity.
[2024-07-31] MEDS: ALPRAZolam (*CRX) 0.25 MG TABLET PO (13:49)
--- NOTE | 2024-07-31 16:41 | P.PNIM_ITS ---
Progress Note: A&P Assessment and Plan (1) Acute exacerbation of chronic obstructive pulmonary disease (COPD): Code(s): J44.1 - Chronic obstructive pulmonary disease with (acute) exacerbation Status: Acute (2) Acute on chronic respiratory failure with hypoxia and hypercapnia: Code(s): J96.21 - Acute and chronic respiratory failure with hypoxia; J96.22 - Acute and chronic respiratory failure with hypercapnia Status: Acute (3) Pneumonia: Code(s): J18.9 - Pneumonia, unspecified organism Status: Acute (4) Hypertension: Code(s): I10 - Essential (primary) hypertension Status: Acute (5) Obstructive sleep apnea treated with BiPAP: Code(s): G47.33 - Obstructive sleep apnea (adult) (pediatric) Status: Acute (6) Anxiety: Code(s): F41.9 - Anxiety disorder, unspecified Status: Acute Plan Acute on chronic respiratory failure with hypercapnia and hypoxia From COPD exacerbation Continue Bronchodilators and Steroid Continue Abx currently at baseline oxygen Monitor CODP exacerbation Contiue above care Pneumonia CXR bibasilar infiltrates Blood and SPutum cultures Continue Rocephin and Azithromycin monitor HTN titrate home meds with clinical course J CARLOS continue nighttime BIPAP Anxiety continue home meds DVT prophylaxis on Sq Lovenox The patient went to emergency department for evaluation of increasing shortness of breath over the past 1 week as per HPI. Labs, imaging, EKG, and all reports were personally reviewed. Clinically she has evidence of a COPD exacerbation which may very well have been precipitated by a viral infection several weeks ago. She has been started on scheduled bronchodilators and methylprednisolone. Chest x-ray shows possible pneumonia versus atelectasis and we will continue with empiric antibiotics as well. Sputum culture ordered. Blood gas appears near her baseline. BiPAP will be provided for the patient to use while hospitalized. Blood pressures are stable. Continue alprazolam which she does take at home p.r.n. for anxiety. The rest of her home medications will be reviewed and resumed as appropriate. Findings and treatment plan were discussed with the patient. Questions were solicited and answered to satisfaction. The patient's medical management will be taken over by the hospitalist team in a.m. Subjective Date/time seen: 07/31/24 16:41 Interval history: Patient comfortable at bedside Review of Systems Review of Systems: 12 systems were reviewed and are negativ e except for as per HPI. Exam Narrative: General: Mildly ill-appearing female sitting up in bed receiving a DuoNeb. Weight: 67 kg. BMI: 26.2. HEENT: Slightly hard of hearing. She is wearing corrective lenses. PERRL, EOMI. Sclera anicteric. Oral mucosa moist. Neck: Supple. No JVD. Respiratory: Mildly tachypneic. She is able to speak in full sentences. Feels better after receiving Ativan. Significantly diminished air intake throughout with prolonged expiratory wheezing. Cardiovascular: Tachycardic with occasional ectopy. Gastrointestinal: Abdomen is soft, nontender, and nondistended with positive bowel sounds. Skin: Warm and dry. No rash or lesions on limited exam. Extremities: No cyanosis, clubbing, or edema. Radial and pedal pulses intact. No palpable knots or cords. Negative Keri sign bilaterally. Neurological: Alert. Cranial nerves 2-12 are grossly intact. Essential tremors of the head and arms. No gross focal deficits to casual conversation. Psychiatric: Pleasant and cooperative with normal mood. She is a bit anxious which she states is due to the neb. Objective Data Vital Signs Vital Signs: Vital Signs - 24 hr 07/30/24 17:16 07/30/24 17:30 07/30/24 17:48 Temperature Pulse Rate 115 H 158 H 123 H Respiratory Rate 29 H 34 H 21 H Blood Pressure 105/84 Pulse Oximetry 90 79 L 99 Oxygen Delivery Oxygen Flow Rate 07/30/24 18:00 07/30/24 18:16 07/30/24 18:30 Temperature Pulse Rate 123 H 118 H 114 H Respiratory Rate 29 H 27 H 17 Blood Pressure Pulse Oximetry 98 95 Oxygen Delivery Oxygen Flow Rate 07/30/24 18:46 07/30/24 18:47 07/30/24 19:00 Temperature Pulse Rate 113 H 110 H 104 H Respiratory Rate 26 H 20 25 H Blood Pressure 120/87 Pulse Oximetry 89 L 98 98 Oxygen Delivery Oxygen Flow Rate 07/30/24 19:15 07/30/24 19:30 07/30/24 19:31 Temperature Pulse Rate 106 H 104 H 104 H Respiratory Rate 26 H 22 H 23 H Blood Pressure 123/60 Pulse Oximetry 99 100 96 Oxygen Delivery Oxygen Flow Rate 07/30/24 19:45 07/30/24 19:55 07/30/24 20:00 Temperature Pulse Rate 102 H 106 H Respiratory Rate 20 29 H Blood Pressure Pulse Oximetry 98 99 100 Oxygen Delivery Non-Rebreather Mask Oxygen Flow Rate 10 07/30/24 20:15 07/30/24 20:17 07/30/24 20:30 Temperature Pulse Rate 105 H 105 H 96 Respiratory Rate 23 H 27 H 24 H Blood Pressure 102/81 Pulse Oximetry 98 99 99 Oxygen Delivery Oxygen Flow Rate 07/30/24 20:41 07/30/24 20:48 07/30/24 20:59 Temperature Pulse Rate 104 H 105 H 105 H Respiratory Rate 20 22 H 21 H Blood Pressure 102/81 Pulse Oximetry 99 Oxygen Delivery Oxygen Flow Rate 07/30/24 22:00 07/30/24 22:57 07/30/24 23:15 Temperature 98.0 F Pulse Rate 110 H Respiratory Rate 22 H 25 H Blood Pressure 122/55 L Pulse Oximetry 91 93 95 Oxygen Delivery BiPAP BiPAP Oxygen Flow Rate 07/31/24 00:00 07/31/24 02:50 07/31/24 02:55 Temperature Pulse Rate 91 84 85 Respiratory Rate 20 21 H Blood Pressure Pulse Oximetry 93 Oxygen Delivery BiPAP Oxygen Flow Rate 07/31/24 04:03 07/31/24 05:44 07/31/24 08:00 Temperature 98.1 F Pulse Rate 95 77 Respiratory Rate 20 Blood Pressure 116/53 L Pulse Oximetry 97 95 Oxygen Delivery Nasal Cannula Oxygen Flow Rate 3.5 07/31/24 08:00 07/31/24 08:51 07/31/24 08:51 Temperature Pulse Rate 101 H 81 Respiratory Rate 20 Blood Pressure Pulse Oximetry 95 Oxygen Delivery Nasal Cannula Oxygen Flow Rate 3.5 07/31/24 09:19 07/31/24 12:00 07/31/24 14:00 Temperature 96.2 F L Pulse Rate 89 97 100 Respiratory Rate 20 18 Blood Pressure 137/66 Pulse Oximetry 97 Oxygen Delivery Oxygen Flow Rate 07/31/24 15:55 07/31/24 16:00 07/31/24 16:06 Temperature Pulse Rate 92 100 91 Respiratory Rate 20 20 Blood Pressure Pulse Oximetry Oxygen Delivery Oxygen Flow Rate Intake/Output Intake/Output: Intake & Output 07/28/24 07/29/24 07/30/24 07/31/24 23:59 23:59 23:59 23:59 Intake Total 300 560 Balance 300 560 Meds/Results Medications: Active Medications Generic Name Dose Route Start Last Admin Trade Name Freq PRN Reason Stop Dose Admin Acetaminophen 650 mg 07/30/24 16:53 07/30/24 17:11 Acetaminophen 325 Mg Tablet PO 650 mg Q4H PRN Administration Mild Pain (1-3) or Fever Albuterol/Ipratropium 3 ml 07/30/24 20:00 07/31/24 15:51 Ipratropium 0.5 Mg/Albuterol Sulfate 2.5 Mg Ampul.Neb 3 Ml INHALATION 3 ml Q6HRT FELICIA Administration Alprazolam 0.25 mg 07/31/24 13:17 07/31/24 13:49 Alprazolam (*Crx) 0.25 Mg Tablet PO 0.25 mg TID PRN Administration Anxiety Enoxaparin Sodium 40 mg 07/31/24 09:00 07/31/24 08:29 Enoxaparin 40 Mg/0.4 Ml Syringe SUB-Q 40 mg DAILY FELICIA Administration Fluticasone/Umeclidinium/Vilanterol 1 puff 08/01/24 08:00 Fluticasone/Umeclidin/Vilanter 100-62.5-25 Mcg Ellipta INHALATION DAILYRT FELICIA Guaifenesin 1,200 mg 07/30/24 21:00 07/31/24 08:29 Guaifenesin 12 Hr 600 Mg Tabcr PO 1,200 mg Q12HR FELICIA Administration Ceftriaxone Sodium 1 gm in 50 mls @ 100 mls/hr 07/31/24 12:00 07/31/24 11:37 Rocephin 1 Gm/Ns 50 Ml IVPB 100 mls/hr Q24H FELICIA Administration Azithromycin 500 mg in 250 mls @ 250 mls/hr 07/31/24 12:00 07/31/24 12:12 Zithromax IVPB 125 mls/hr Q24H FELICIA Administration Methylprednisolone Sodium Succinate 60 mg 07/31/24 00:00 07/31/24 11:37 Methylprednisolone Sod Succ 125 Mg Vial IV PUSH 60 mg Q6HR FELICIA Administration Ondansetron HCl 4 mg 07/30/24 16:53 Ondansetron Inj 4 Mg/2 Ml Vial IV PUSH Q4H PRN Nausea Pantoprazole Sodium 40 mg 07/31/24 21:00 Pantoprazole 40 Mg Tablet PO Q12HR FELICIA Sertraline HCl 100 mg 08/01/24 09:00 Sertraline Hcl 50 Mg Tablet PO DAILY COUNT INCLUDES THE [facility] Ursodiol 300 mg 07/31/24 17:00 Ursodiol 300 Mg Capsule PO BID COUNT INCLUDES THE [facility] Radiology Results: ITS Impressions Chest X-Ray 07/30/24 13:11 Impression: 1: Bibasilar infiltrates may represent atelectasis or pneumonia. Labs Labs: Laboratory Results - last 24 hr 07/30/24 07/31/24 23:02 05:55 WBC 10.8 H RBC 4.30 Hgb 11.2 L Hct 37.4 MCV 87.0 MCH 26.0 MCHC 29.9 L RDW 15.1 H Plt Count 219 MPV 12.1 H Sodium 142 Potassium 3.9 Chloride 100 Carbon Dioxide 38 H Anion Gap 4 BUN 29 H D Creatinine 1.01 H Estim Creat Clear Calc 33 Estimated GFR 52 L Glucose 144 H Calcium 8.7 Magnesium 2.0 Nasal MRSA (PCR) Not detected Quality VTE Prophylaxis VTE prophylaxis: pharmacologic ordered
[2024-07-31] MEDS: ursodioL 300 MG CAPSULE PO (17:09)
[2024-07-31] MEDS: PANTOPRAZOLE 40 MG TABLET PO (21:13)
[2024-08-01] VITALS (19 sets, daily range): BP systolic 140–165; BP diastolic 64–89; PULSE 77–111; RESP 16–20; TEMP 36–36.5; O2SAT 92–98
[2024-08-01] MEDS: IPRATROPIUM 0.5 MG/ALBUTEROL SULFATE 2.5 MG AMPUL.NEB 3 ML INHALATION ×4 (02:49→20:28)
[2024-08-01] MEDS: ALPRAZolam (*CRX) 0.25 MG TABLET PO ×2 (03:44→16:27)
[2024-08-01] MEDS: methylPREDNISolone SOD SUCC 125 MG VIAL 60 MG IV PUSH (06:12)
[2024-08-01 06:57] LABS: Basophils Percent Auto 0.2 % (0.2-1.2); Hematocrit 38.5 % (37.0-47.0); Hemoglobin 11.5 g/dL (12.0-15.0); Immature Granulocyte Absolute 0.08 K/mm3 (0.00-0.031); Immature Granulocyte Percent A 0.6 % (0-0.5); Lymphocytes Absolute Auto 0.41 K/mm3 (0.9-3.2); Lymphocytes Percent Auto 3.1 % (18.3-44.2); Mean Corpuscular HGB Conc 29.9 g/dl (32-36); Mean Corpuscular Hemoglobin 25.8 pg (26-34); Mean Corpuscular Volume 86.3 fl (80-100); Monocytes Absolute Auto 0.3 K/mm3 (0.1-0.6); Monocytes Percent Auto 2.2 % (2.6-8.5); Neutrophils Absolute Auto 12.4 K/mm3 (1.3-6.7); Neutrophils Percent Auto 93.9 % (45.5-73.1); Platelet Count Result 256 k/mm3 (150-375); Red Blood Count 4.46 M/mm3 (4.2-5.4); Red Cell Distribution Width 14.9 % (11.5-14.5); White Blood Count 13.2 K/mm3 (4.5-10.0)
[2024-08-01 07:08] LABS: Alanine Aminotransferase 16 U/L (6-35); Albumin Level 3.7 g/dL (3.5-5.1); Alkaline Phosphatase 105 U/L (38-126); Anion Gap 6 mmol/L (4-12); Aspartate Amino Transferase 25 U/L (14-36); Bilirubin,Total 0.3 mg/dL (0.2-1.3); Blood Urea Nitrogen 34 mg/dL (7-17); Calcium 9.1 mg/dL (8.4-10.2); Carbon Dioxide 37 mmol/L (22-30); Chloride 98 mmol/L (98-107); Estimated CRCL calculation 39 ml/min; Estimated Glomerular Filt Rate > 60; Glucose 131 mg/dL (65-110); Potassium 3.8 mmol/L (3.4-5.0); Sodium 141 mmol/L (137-145)
[2024-08-01 07:53] LABS: Anisocytosis 1+; Band Neutrophils Percent 0 % (0-6); Platelet Estimate Adequate (Adequate); Schistocytes None Seen
[2024-08-01 07:54] LABS: Hypochromasia 1+
[2024-08-01] MEDS: FLUTICASONE/UMECLIDIN/VILANTER 100-62.5-25 MCG ELLIPTA 1 PUFF INHALATION (08:35)
[2024-08-01] MEDS: PANTOPRAZOLE 40 MG TABLET PO ×2 (09:30→20:24)
[2024-08-01] MEDS: ENOXAPARIN 40 MG/0.4 ML SYRINGE SUB-Q (09:30)
[2024-08-01] MEDS: SERTRALINE HCL 50 MG TABLET 100 MG PO (09:30)
[2024-08-01] MEDS: guaiFENesin 12 HR 600 MG TABCR 1200 MG PO ×2 (09:31→20:25)
[2024-08-01] MEDS: predniSONE 20 MG TABLET 40 MG PO (09:31)
[2024-08-01] MEDS: ursodioL 300 MG CAPSULE PO ×2 (09:31→16:27)
--- NOTE | 2024-08-01 11:10 | PC.NURSE ---
To Radiology per wheelchair for chest x-ray.
[2024-08-01] MEDS: AZITHROMYCIN 500 MG/NS 250 ML 500 MG/250 ML BAG 250 MG IVPB (12:06)
--- NOTE | 2024-08-01 12:56 | P.PNIM_ITS ---
Progress Note: A&P Assessment and Plan (1) Acute exacerbation of chronic obstructive pulmonary disease (COPD): Code(s): J44.1 - Chronic obstructive pulmonary disease with (acute) exacerbation Status: Acute (2) Acute on chronic respiratory failure with hypoxia and hypercapnia: Code(s): J96.21 - Acute and chronic respiratory failure with hypoxia; J96.22 - Acute and chronic respiratory failure with hypercapnia Status: Acute (3) Pneumonia: Code(s): J18.9 - Pneumonia, unspecified organism Status: Acute (4) Hypertension: Code(s): I10 - Essential (primary) hypertension Status: Acute (5) Obstructive sleep apnea treated with BiPAP: Code(s): G47.33 - Obstructive sleep apnea (adult) (pediatric) Status: Acute (6) Anxiety: Code(s): F41.9 - Anxiety disorder, unspecified Status: Acute Plan Acute on chronic respiratory failure with hypercapnia and hypoxia From COPD exacerbation Continue Bronchodilators and Steroid Continue Abx currently at baseline oxygen, but very dyspneic Monitor COPD exacerbation Continue above care Pneumonia CXR bibasilar infiltrates Blood and Sputum cultures Continue Rocephin and Azithromycin monitor HTN titrate home meds with clinical course J CARLOS continue nighttime BIPAP Anxiety continue home meds DVT prophylaxis on Sq Lovenox PT/OT eval Subjective Date/time seen: 08/01/24 12:56 Interval history: Appears dyspneic at bedside, although on her baseline oxygen Awaiting PT/OT eval Review of Systems Review of Systems: 12 systems were reviewed and are negativ e except for as per HPI. Exam Narrative: General: Mildly ill-appearing female sitting up in bed receiving a DuoNeb. Weight: 67 kg. BMI: 26.2. HEENT: Slightly hard of hearing. She is wearing corrective lenses. PERRL, EOMI. Sclera anicteric. Oral mucosa moist. Neck: Supple. No JVD. Respiratory: Mildly tachypneic. She is able to speak in full sentences. Feels better after receiving Ativan. Significantly diminished air intake throughout with prolonged expiratory wheezing. Cardiovascular: Tachycardic with occasional ectopy. Gastrointestinal: Abdomen is soft, nontender, and nondistended with positive bowel sounds. Skin: Warm and dry. No rash or lesions on limited exam. Extremities: No cyanosis, clubbing, or edema. Radial and pedal pulses intact. No palpable knots or cords. Negative Keri sign bilaterally. Neurological: Alert. Cranial nerves 2-12 are grossly intact. Essential tremors of the head and arms. No gross focal deficits to casual conversation. Psychiatric: Pleasant and cooperative with normal mood. She is a bit anxious which she states is due to the neb. Objective Data Vital Signs Vital Signs: Vital Signs - 24 hr 07/31/24 14:00 07/31/24 15:55 07/31/24 16:00 Temperature 96.2 F L Pulse Rate 100 92 100 Respiratory Rate 18 20 Blood Pressure 137/66 Pulse Oximetry 97 Oxygen Delivery Oxygen Flow Rate 07/31/24 16:06 07/31/24 20:00 07/31/24 21:38 Temperature Pulse Rate 91 95 Respiratory Rate 20 Blood Pressure Pulse Oximetry 98 Oxygen Delivery Nasal Cannula Oxygen Flow Rate 4 07/31/24 21:38 07/31/24 22:00 07/31/24 23:00 Temperature 98.0 F Pulse Rate 81 91 Respiratory Rate 20 24 H 24 H Blood Pressure 156/71 H Pulse Oximetry 93 91 Oxygen Delivery Autopap Oxygen Flow Rate 08/01/24 00:00 08/01/24 02:49 08/01/24 04:00 Temperature Pulse Rate 88 86 96 Respiratory Rate 19 Blood Pressure Pulse Oximetry Oxygen Delivery Oxygen Flow Rate 08/01/24 04:11 08/01/24 06:00 08/01/24 08:00 Temperature 97.0 F L Pulse Rate 81 Respiratory Rate 20 Blood Pressure 165/64 H Pulse Oximetry 93 95 95 Oxygen Delivery Nasal Cannula Nasal Cannula Oxygen Flow Rate 4 4.5 08/01/24 08:00 08/01/24 08:35 08/01/24 10:30 Temperature Pulse Rate 94 83 Respiratory Rate 16 Blood Pressure Pulse Oximetry 93 Oxygen Delivery Nasal Cannula Oxygen Flow Rate 3.5 08/01/24 10:33 08/01/24 12:00 Temperature Pulse Rate 84 93 Respiratory Rate 16 Blood Pressure Pulse Oximetry Oxygen Delivery Oxygen Flow Rate Intake/Output Intake/Output: Intake & Output 07/29/24 07/30/24 07/31/24 08/01/24 23:59 23:59 23:59 23:59 Intake Total 300 1100 790 Balance 300 1100 790 Meds/Results Medications: Active Medications Generic Name Dose Route Start Last Admin Trade Name Freq PRN Reason Stop Dose Admin Acetaminophen 650 mg 07/30/24 16:53 07/30/24 17:11 Acetaminophen 325 Mg Tablet PO 650 mg Q4H PRN Administration Mild Pain (1-3) or Fever Albuterol/Ipratropium 3 ml 07/30/24 20:00 08/01/24 08:35 Ipratropium 0.5 Mg/Albuterol Sulfate 2.5 Mg Ampul.Neb 3 Ml INHALATION 3 ml Q6HRT FELICIA Administration Alprazolam 0.25 mg 07/31/24 13:17 08/01/24 03:44 Alprazolam (*Crx) 0.25 Mg Tablet PO 0.25 mg TID PRN Administration Anxiety Enoxaparin Sodium 40 mg 07/31/24 09:00 08/01/24 09:30 Enoxaparin 40 Mg/0.4 Ml Syringe SUB-Q 40 mg DAILY FELICIA Administration Fluticasone/Umeclidinium/Vilanterol 1 puff 08/01/24 08:00 08/01/24 08:35 Fluticasone/Umeclidin/Vilanter 100-62.5-25 Mcg Ellipta INHALATION 1 puff DAILYRT FELICIA Administration Guaifenesin 1,200 mg 07/30/24 21:00 08/01/24 09:31 Guaifenesin 12 Hr 600 Mg Tabcr PO 1,200 mg Q12HR FELICIA Administration Ceftriaxone Sodium 1 gm in 50 mls @ 100 mls/hr 07/31/24 12:00 08/01/24 12:36 Rocephin 1 Gm/Ns 50 Ml IVPB Infused Q24H FELICIA Infusion Azithromycin 500 mg in 250 mls @ 250 mls/hr 07/31/24 12:00 08/01/24 12:06 Zithromax IVPB 250 mls/hr Q24H FELICIA Administration Ondansetron HCl 4 mg 07/30/24 16:53 Ondansetron Inj 4 Mg/2 Ml Vial IV PUSH Q4H PRN Nausea Pantoprazole Sodium 40 mg 07/31/24 21:00 08/01/24 09:30 Pantoprazole 40 Mg Tablet PO 40 mg Q12HR FELICIA Administration Prednisone 40 mg 08/01/24 08:00 08/01/24 09:31 Prednisone 20 Mg Tablet PO 40 mg DAILY@0800 FELICIA Administration Sertraline HCl 100 mg 08/01/24 09:00 08/01/24 09:30 Sertraline Hcl 50 Mg Tablet PO 100 mg DAILY FELICIA Administration Ursodiol 300 mg 07/31/24 17:00 08/01/24 09:31 Ursodiol 300 Mg Capsule PO 300 mg BID FELICIA Administration Radiology Results: ITS Impressions Chest X-Ray 08/01/24 11:40 IMPRESSION: 1. Small bilateral pleural effusions with associated mild bibasilar atelectasis versus less likely mild pulmonary edema or pneumonia. Labs Labs: Laboratory Results - last 24 hr 08/01/24 06:04 WBC 13.2 H RBC 4.46 Hgb 11.5 L Hct 38.5 MCV 86.3 MCH 25.8 L MCHC 29.9 L RDW 14.9 H Plt Count 256 MPV 12.0 H Immature Gran % (Auto) 0.6 H Neut % (Auto) 93.9 H Lymph % (Auto) 3.1 L Jennings % (Auto) 2.2 L Eos % (Auto) 0.0 Baso % (Auto) 0.2 Lymph # (Auto) 0.41 L Jennings # (Auto) 0.3 Eos # (Auto) 0.0 Baso # (Auto) 0.0 Abs Immat Gran (auto) 0.08 H Absolute Neuts (auto) 12.4 H Absolute Nucleated RBC 0.000 Band Neutrophils % 0 Nucleated RBC % 0.0 Platelet Estimate Adequate Hypochromasia 1+ Anisocytosis 1+ Schistocytes None seen Sodium 141 Potassium 3.8 Chloride 98 Carbon Dioxide 37 H Anion Gap 6 BUN 34 H Creatinine 0.86 Estim Creat Clear Calc 39 Estimated GFR > 60 Glucose 131 H Calcium 9.1 Magnesium 2.0 Total Bilirubin 0.3 AST 25 ALT 16 Alkaline Phosphatase 105 Total Protein 7.0 Albumin 3.7 Quality VTE Prophylaxis VTE prophylaxis: pharmacologic ordered
[2024-08-02] VITALS (20 sets, daily range): BP systolic 129–153; BP diastolic 54–70; PULSE 73–97; RESP 16–24; TEMP 36.1–36.6; O2SAT 91–96
[2024-08-02] MEDS: IPRATROPIUM 0.5 MG/ALBUTEROL SULFATE 2.5 MG AMPUL.NEB 3 ML INHALATION ×4 (01:48→20:38)
[2024-08-02 06:21] LABS: Basophils Percent Auto 0.2 % (0.2-1.2); Hemoglobin 11.1 g/dL (12.0-15.0); Immature Granulocyte Absolute 0.06 K/mm3 (0.00-0.031); Immature Granulocyte Percent A 0.5 % (0-0.5); Lymphocytes Percent Auto 7.8 % (18.3-44.2); Mean Corpuscular HGB Conc 29.2 g/dl (32-36); Mean Corpuscular Hemoglobin 25.3 pg (26-34); Mean Corpuscular Volume 86.8 fl (80-100); Mean Platelet Volume 11.9 fl (7.4-10.4); Monocytes Absolute Auto 0.8 K/mm3 (0.1-0.6); Monocytes Percent Auto 6.6 % (2.6-8.5); Neutrophils Absolute Auto 9.9 K/mm3 (1.3-6.7); Neutrophils Percent Auto 84.9 % (45.5-73.1); Platelet Count Result 262 k/mm3 (150-375); Red Blood Count 4.38 M/mm3 (4.2-5.4); Red Cell Distribution Width 14.9 % (11.5-14.5); White Blood Count 11.6 K/mm3 (4.5-10.0)
[2024-08-02 06:28] LABS: Alanine Aminotransferase 26 U/L (6-35); Albumin Level 3.4 g/dL (3.5-5.1); Alkaline Phosphatase 86 U/L (38-126); Anion Gap 5 mmol/L (4-12); Aspartate Amino Transferase 35 U/L (14-36); Bilirubin,Total 0.2 mg/dL (0.2-1.3); Blood Urea Nitrogen 35 mg/dL (7-17); Calcium 8.9 mg/dL (8.4-10.2); Carbon Dioxide 39 mmol/L (22-30); Chloride 99 mmol/L (98-107); Estimated CRCL calculation 36 ml/min; Estimated Glomerular Filt Rate 57; Glucose 89 mg/dL (65-110); Potassium 3.7 mmol/L (3.4-5.0); Sodium 143 mmol/L (137-145)
[2024-08-02 07:21] LABS: Hypochromasia 2+; Large Platelets Present; Platelet Estimate Adequate (Adequate)
[2024-08-02 07:22] LABS: Anisocytosis 1+; Schistocytes None Seen
[2024-08-02] MEDS: guaiFENesin 12 HR 600 MG TABCR 1200 MG PO ×2 (08:32→20:25)
[2024-08-02] MEDS: PANTOPRAZOLE 40 MG TABLET PO ×2 (08:32→20:26)
[2024-08-02] MEDS: NIFEdipine 30 MG TAB.ER.24 PO (08:33)
[2024-08-02] MEDS: predniSONE 20 MG TABLET 40 MG PO (08:33)
[2024-08-02] MEDS: ursodioL 300 MG CAPSULE PO ×2 (08:33→16:20)
[2024-08-02] MEDS: SERTRALINE HCL 50 MG TABLET 100 MG PO (08:33)
[2024-08-02] MEDS: ENOXAPARIN 40 MG/0.4 ML SYRINGE SUB-Q (08:34)
[2024-08-02] MEDS: FLUTICASONE/UMECLIDIN/VILANTER 100-62.5-25 MCG ELLIPTA 1 PUFF INHALATION (09:10)
[2024-08-02] MEDS: ALPRAZolam (*CRX) 0.25 MG TABLET PO ×3 (09:32→22:06)
[2024-08-02] MEDS: AZITHROMYCIN 250 MG TABLET 500 MG PO (12:43)
--- NOTE | 2024-08-02 16:05 | PM.IMPN ---
Progress Note: A&P Assessment and Plan (1) Acute exacerbation of chronic obstructive pulmonary disease (COPD): Code(s): J44.1 - Chronic obstructive pulmonary disease with (acute) exacerbation Status: Acute (2) Acute on chronic respiratory failure with hypoxia and hypercapnia: Code(s): J96.21 - Acute and chronic respiratory failure with hypoxia; J96.22 - Acute and chronic respiratory failure with hypercapnia Status: Acute (3) Pneumonia: Code(s): J18.9 - Pneumonia, unspecified organism Status: Acute (4) Hypertension: Code(s): I10 - Essential (primary) hypertension Status: Acute (5) Obstructive sleep apnea treated with BiPAP: Code(s): G47.33 - Obstructive sleep apnea (adult) (pediatric) Status: Acute (6) Anxiety: Code(s): F41.9 - Anxiety disorder, unspecified Status: Acute Plan Acute on chronic respiratory failure with hypercapnia and hypoxia From COPD exacerbation Continue Bronchodilators and Steroid Continue Abx currently at baseline oxygen, but very dyspneic CT chest ordered, start lasix IV meantime Monitor COPD exacerbation Continue above care Pneumonia CXR bibasilar infiltrates Blood and Sputum cultures Continue Rocephin and Azithromycin monitor HTN titrate home meds with clinical course J CARLOS continue nighttime BIPAP Anxiety continue home meds DVT prophylaxis on Sq Lovenox PT/OT eval Subjective Date/time seen: 08/02/24 16:05 Interval history: Comfortable at bedside Patient still feeling dyspneic CXR from yesterday showed possible Pneumonia vs pulm edema CT Chest ordered and started on Lasix Review of Systems Review of Systems: 12 systems were reviewed and are negative except for as per HPI. Exam Narrative: General: Comfortable at bedside HEENT: Slightly hard of hearing. She is wearing corrective lenses. PERRL, EOMI. Sclera anicteric. Oral mucosa moist. Neck: Supple. No JVD. Respiratory: Mildly tachypneic. She is able to speak in full sentences. Feels better after receiving Ativan. Significantly diminished air intake throughout with prolonged expiratory wheezing. Cardiovascular: Tachycardic with occasional ectopy. Gastrointestinal: Abdomen is soft, nontender, and nondistended with positive bowel sounds. Skin: Warm and dry. No rash or lesions on limited exam. Extremities: No cyanosis, clubbing, or edema. Radial and pedal pulses intact. No palpable knots or cords. Negative Keri sign bilaterally. Neurological: Alert. Cranial nerves 2-12 are grossly intact. Essential tremors of the head and arms. No gross focal deficits to casual conversation. Psychiatric: Pleasant and cooperative with normal mood. She is a bit anxious which she states is due to the neb. Objective Data Vital Signs Vital Signs: Vital Signs - 24 hr 08/01/24 20:00 08/01/24 20:29 08/01/24 20:29 Temperature Pulse Rate 110 H 82 Respiratory Rate 18 Blood Pressure Pulse Oximetry 92 Oxygen Delivery Nasal Cannula Oxygen Flow Rate 5 08/01/24 20:37 08/01/24 21:36 08/02/24 00:00 Temperature 97.7 F Pulse Rate 89 77 73 Respiratory Rate 18 20 Blood Pressure 162/71 H Pulse Oximetry 98 Oxygen Delivery Oxygen Flow Rate 08/02/24 01:48 08/02/24 01:48 08/02/24 01:58 Temperature Pulse Rate 75 75 77 Respiratory Rate 16 16 16 Blood Pressure Pulse Oximetry 91 Oxygen Delivery Autopap Oxygen Flow Rate 08/02/24 04:15 08/02/24 05:17 08/02/24 06:25 Temperature 97.8 F Pulse Rate 76 74 81 Respiratory Rate 24 H Blood Pressure 153/70 H Pulse Oximetry 93 95 Oxygen Delivery Nasal Cannula Oxygen Flow Rate 4 08/02/24 08:00 08/02/24 08:00 08/02/24 08:50 Temperature Pulse Rate 97 93 Respiratory Rate Blood Pressure Pulse Oximetry 94 Oxygen Delivery Nasal Cannula Nasal Cannula Oxygen Flow Rate 4 4 08/02/24 08:56 08/02/24 08:56 08/02/24 09:06 Temperature Pulse Rate 97 97 92 Respiratory Rate 20 20 20 Blood Pressure Pulse Oximetry 95 Oxygen Delivery Nasal Cannula Oxygen Flow Rate 4 08/02/24 12:00 08/02/24 13:42 08/02/24 13:42 Temperature Pulse Rate 94 88 88 Respiratory Rate 20 20 Blood Pressure Pulse Oximetry 96 Oxygen Delivery Nasal Cannula Oxygen Flow Rate 4 08/02/24 13:57 08/02/24 14:00 Temperature 97.0 F L Pulse Rate 93 93 Respiratory Rate 20 18 Blood Pressure 129/54 L Pulse Oximetry 94 Oxygen Delivery Oxygen Flow Rate Intake/Output Intake/Output: Intake & Output 07/30/24 07/31/24 08/01/24 08/02/24 23:59 23:59 23:59 23:59 Intake Total 300 1100 1398 658 Balance 300 1100 1398 658 Meds/Results Medications: Active Medications Generic Name Dose Route Start Last Admin Trade Name Freq PRN Reason Stop Dose Admin Acetaminophen 650 mg 07/30/24 16:53 07/30/24 17:11 Acetaminophen 325 Mg Tablet PO 650 mg Q4H PRN Administration Mild Pain (1-3) or Fever Albuterol/Ipratropium 3 ml 07/30/24 20:00 08/02/24 13:42 Ipratropium 0.5 Mg/Albuterol Sulfate 2.5 Mg Ampul.Neb 3 Ml INHALATION 3 ml Q6HRT FELICIA Administration Alprazolam 0.25 mg 07/31/24 13:17 08/02/24 09:32 Alprazolam (*Crx) 0.25 Mg Tablet PO 0.25 mg TID PRN Administration Anxiety Amoxicillin/Clavulanate Potassium 1 tablet 08/03/24 09:00 Amoxicillin/Clavulanate K 875-125 Mg Tab PO 08/03/24 21:01 Q12HR FELICIA Azithromycin 500 mg 08/02/24 12:35 08/02/24 12:43 Azithromycin 250 Mg Tablet PO 08/03/24 09:01 500 mg DAILY FELICIA Administration Enoxaparin Sodium 40 mg 07/31/24 09:00 08/02/24 08:34 Enoxaparin 40 Mg/0.4 Ml Syringe SUB-Q 40 mg DAILY FELICIA Administration Fluticasone/Umeclidinium/Vilanterol 1 puff 08/01/24 08:00 08/02/24 09:10 Fluticasone/Umeclidin/Vilanter 100-62.5-25 Mcg Ellipta INHALATION 1 puff DAILYRT FELICIA Administration Furosemide 40 mg 08/02/24 17:00 Furosemide Inj 40 Mg/4 Ml Vial IV PUSH BID FELICIA Guaifenesin 1,200 mg 07/30/24 21:00 08/02/24 08:32 Guaifenesin 12 Hr 600 Mg Tabcr PO 1,200 mg Q12HR FELICIA Administration Nifedipine 30 mg 08/02/24 09:00 08/02/24 08:33 Nifedipine 30 Mg Tab.Er.24 PO 30 mg DAILY FELICIA Administration Ondansetron HCl 4 mg 07/30/24 16:53 Ondansetron Inj 4 Mg/2 Ml Vial IV PUSH Q4H PRN Nausea Pantoprazole Sodium 40 mg 07/31/24 21:00 08/02/24 08:32 Pantoprazole 40 Mg Tablet PO 40 mg Q12HR FELICIA Administration Prednisone 40 mg 08/01/24 08:00 08/02/24 08:33 Prednisone 20 Mg Tablet PO 40 mg DAILY@0800 FELICIA Administration Sertraline HCl 100 mg 08/01/24 09:00 08/02/24 08:33 Sertraline Hcl 50 Mg Tablet PO 100 mg DAILY FELICIA Administration Ursodiol 300 mg 07/31/24 17:00 08/02/24 08:33 Ursodiol 300 Mg Capsule PO 300 mg BID FELICIA Administration Radiology Results: ITS Impressions Chest X-Ray 08/01/24 11:40 IMPRESSION: 1. Small bilateral pleural effusions with associated mild bibasilar atelectasis versus less likely mild pulmonary edema or pneumonia. Labs Labs: Laboratory Results - last 24 hr 08/02/24 05:48 WBC 11.6 H RBC 4.38 Hgb 11.1 L Hct 38.0 MCV 86.8 MCH 25.3 L MCHC 29.2 L RDW 14.9 H Plt Count 262 MPV 11.9 H Immature Gran % (Auto) 0.5 Neut % (Auto) 84.9 H Lymph % (Auto) 7.8 L Loving % (Auto) 6.6 Eos % (Auto) 0.0 Baso % (Auto) 0.2 Lymph # (Auto) 0.90 Loving # (Auto) 0.8 H Eos # (Auto) 0.0 Baso # (Auto) 0.0 Abs Immat Gran (auto) 0.06 H Absolute Neuts (auto) 9.9 H Absolute Nucleated RBC 0.000 Band Neutrophils % Not Reportable Nucleated RBC % 0.0 Platelet Estimate Adequate Large Platelets Present Hypochromasia 2+ Anisocytosis 1+ Schistocytes None seen Sodium 143 Potassium 3.7 Chloride 99 Carbon Dioxide 39 H Anion Gap 5 BUN 35 H Creatinine 0.94 Estim Creat Clear Calc 36 Estimated GFR 57 L Glucose 89 Calcium 8.9 Magnesium 2.0 Total Bilirubin 0.2 AST 35 ALT 26 Alkaline Phosphatase 86 Total Protein 7.0 Albumin 3.4 L Quality VTE Prophylaxis VTE prophylaxis: pharmacologic ordered
[2024-08-02] MEDS: FUROSEMIDE INJ 40 MG/4 ML VIAL IV PUSH (16:20)
[2024-08-02 16:23] LABS: Mycoplasma IgM Antibody Titer 339 U/mL
[2024-08-03] VITALS (9 sets, daily range): BP systolic 121–124; BP diastolic 50–56; PULSE 63–97; RESP 18–22; TEMP 36.3–36.6; O2SAT 93–95
[2024-08-03 01:23] LABS: Legionella pneumophila Ag Ur NOT DETECTED
[2024-08-03] MEDS: IPRATROPIUM 0.5 MG/ALBUTEROL SULFATE 2.5 MG AMPUL.NEB 3 ML INHALATION ×3 (01:35→14:14)
[2024-08-03 05:57] LABS: Basophils Percent Auto 0.2 % (0.2-1.2); Eosinophils Absolute Auto 0.1 K/mm3 (0-0.3); Eosinophils Percent Auto 0.6 % (0-4.4); Hemoglobin 11.7 g/dL (12.0-15.0); Immature Granulocyte Absolute 0.13 K/mm3 (0.00-0.031); Immature Granulocyte Percent A 1.5 % (0-0.5); Lymphocytes Absolute Auto 1.43 K/mm3 (0.9-3.2); Lymphocytes Percent Auto 16.2 % (18.3-44.2); Mean Corpuscular HGB Conc 29.3 g/dl (32-36); Mean Corpuscular Hemoglobin 26.3 pg (26-34); Mean Corpuscular Volume 89.9 fl (80-100); Mean Platelet Volume 11.5 fl (7.4-10.4); Monocytes Absolute Auto 0.7 K/mm3 (0.1-0.6); Monocytes Percent Auto 8.2 % (2.6-8.5); Neutrophils Absolute Auto 6.5 K/mm3 (1.3-6.7); Neutrophils Percent Auto 73.3 % (45.5-73.1); Platelet Count Result 258 k/mm3 (150-375); Red Blood Count 4.45 M/mm3 (4.2-5.4); White Blood Count 8.9 K/mm3 (4.5-10.0)
[2024-08-03 06:36] LABS: Albumin Level 3.5 g/dL (3.5-5.1); Chloride 93 mmol/L (98-107); Glucose 82 mg/dL (65-110); Potassium 3.4 mmol/L (3.4-5.0); Sodium 142 mmol/L (137-145)
[2024-08-03 06:58] LABS: Alanine Aminotransferase 24 U/L (6-35); Alkaline Phosphatase 90 U/L (38-126); Aspartate Amino Transferase 28 U/L (14-36); Bilirubin,Total 0.3 mg/dL (0.2-1.3); Blood Urea Nitrogen 28 mg/dL (7-17); Calcium 8.3 mg/dL (8.4-10.2); Carbon Dioxide > 40 mmol/L (22-30); Estimated CRCL calculation 37 ml/min; Estimated Glomerular Filt Rate 59; Magnesium 1.8 mg/dL (1.6-2.3)
[2024-08-03 07:13] LABS: Platelet Estimate Adequate (Adequate)
[2024-08-03 07:14] LABS: Hypochromasia 1+; Schistocytes None Seen
[2024-08-03] MEDS: FLUTICASONE/UMECLIDIN/VILANTER 100-62.5-25 MCG ELLIPTA 1 PUFF INHALATION (08:00)
[2024-08-03] MEDS: FUROSEMIDE INJ 40 MG/4 ML VIAL IV PUSH (08:26)
[2024-08-03] MEDS: ENOXAPARIN 40 MG/0.4 ML SYRINGE SUB-Q (08:26)
[2024-08-03] MEDS: predniSONE 20 MG TABLET 40 MG PO (08:27)
[2024-08-03] MEDS: guaiFENesin 12 HR 600 MG TABCR 1200 MG PO (08:27)
[2024-08-03] MEDS: AMOXICILLIN/CLAVULANATE K 875-125 MG TAB 1 TABLET PO (08:27)
[2024-08-03] MEDS: AZITHROMYCIN 250 MG TABLET 500 MG PO (08:27)
[2024-08-03] MEDS: ursodioL 300 MG CAPSULE PO ×2 (08:28→16:51)
[2024-08-03] MEDS: PANTOPRAZOLE 40 MG TABLET PO (08:28)
[2024-08-03] MEDS: NIFEdipine 30 MG TAB.ER.24 PO (08:28)
[2024-08-03] MEDS: SERTRALINE HCL 50 MG TABLET 100 MG PO (08:28)
[2024-08-03] MEDS: ALPRAZolam (*CRX) 0.25 MG TABLET PO ×2 (08:54→13:58)
--- NOTE | 2024-08-03 13:28 | P.DS_ITS ---
DS: Admitting Diagnosis Discharge Date 08/03/24 Admitting Diagnosis Shortness of breath and congestion DS: Discharge Diagnosis Discharge Diagnosis (1) Acute exacerbation of chronic obstructive pulmonary disease (COPD): Code(s): J44.1 - Chronic obstructive pulmonary disease with (acute) exacerbation Status: Acute (2) Pneumonia: Code(s): J18.9 - Pneumonia, unspecified organism Status: Acute DS: Summary Hospital Course Hospital Course: 83-year-old female with chronic respiratory failure with hypoxia on 3.5 to 4 L home oxygen, steroid dependent chronic obstructive pulmonary disease on prednisone 5 mg daily, obstructive sleep apnea on BiPAP, hypertension, depression, and anxiety who presented to the emergency department for evaluation of shortness of breath and congestion. evaluation in the ER noted Bilateral infiltrates on CXR, abg 7.383/63.3/59/36.9. Patient was started on Rocephin and Azithromycin and Steroid and bronchodilator. repeat CT chest showed bilateral pneumonia nd pericardial effusion. SHe is at her baseline oxygen and PT/OT evaluated and recommended home discharge Patient discharged on Levaquin and Flagyl, tapering prednisone and Lasix 20mg daily Patient noted she will follow up with her pipe fitter welding for pericardial effusion F/u with PCP in 3-5 days. Time Spent with Patient Time attestation: Total time spent providing and/or coordinating discharge services: DS: Data Data Completed and Pending Labs on day of discharge: Labs from last 24 hours 08/03/24 08/03/24 07/31/24 05:40 05:39 18:30 WBC 8.9 RBC 4.45 Hgb 11.7 L Hct 40.0 MCV 89.9 MCH 26.3 MCHC 29.3 L RDW 15.0 H Plt Count 258 MPV 11.5 H Immature Gran % (Auto) 1.5 H Neut % (Auto) 73.3 H Lymph % (Auto) 16.2 L [place] % (Auto) 8.2 Eos % (Auto) 0.6 Baso % (Auto) 0.2 Lymph # (Auto) 1.43 [place] # (Auto) 0.7 H Eos # (Auto) 0.1 Baso # (Auto) 0.0 Abs Immat Gran (auto) 0.13 H Absolute Neuts (auto) 6.5 Absolute Nucleated RBC 0.000 Band Neutrophils % Not Reportable Nucleated RBC % 0.0 Platelet Estimate Adequate Hypochromasia 1+ Schistocytes None seen Sodium 142 Potassium 3.4 Chloride 93 L Carbon Dioxide > 40 H Anion Gap BUN 28 H Creatinine 0.91 Estim Creat Clear Calc 37 Estimated GFR 59 Glucose 82 Calcium 8.3 L Magnesium 1.8 Total Bilirubin 0.3 AST 28 ALT 24 Alkaline Phosphatase 90 Total Protein 7.0 Albumin 3.5 Ur L.pneumophila Ag Not detected Mycoplasma pneumon IgM 07/31/24 05:55 WBC RBC Hgb Hct MCV MCH MCHC RDW Plt Count MPV Immature Gran % (Auto) Neut % (Auto) Lymph % (Auto) [place] % (Auto) Eos % (Auto) Baso % (Auto) Lymph # (Auto) [place] # (Auto) Eos # (Auto) Baso # (Auto) Abs Immat Gran (auto) Absolute Neuts (auto) Absolute Nucleated RBC Band Neutrophils % Nucleated RBC % Platelet Estimate Hypochromasia Schistocytes Sodium Potassium Chloride Carbon Dioxide Anion Gap BUN Creatinine Estim Creat Clear Calc Estimated GFR Glucose Calcium Magnesium Total Bilirubin AST ALT Alkaline Phosphatase Total Protein Albumin Ur L.pneumophila Ag Mycoplasma pneumon IgM 339 Preliminary micro results at discharge 07/31/24 19:46 Blood Culture - Preliminary Blood 07/31/24 17:08 Blood Culture - Preliminary Blood Discharge Plan Discharge Attending physician on discharge: Dara Mcdonald Discharging Clinician: Dara Mcdonald Anticipated Discharge Date/Time: 08/02/24 15:59 Patient Disposition: Home, Self-Care Activity: as tolerated Diet: as tolerated Patient Instructions: Antibiotic Form Patient Language: Lithuanian Stand Alone Forms: General Discharge Information Follow-up/Referrals: Sita Syed APRN [Primary Care Provider] - (F/u with PCP in 3-5 days ) Discharge Medications: New metronidazole 500 mg tablet 500 mg PO Q8H 5 Days Qty: 15 0RF furosemide [Lasix] 20 mg tablet 20 mg PO DAILY 30 Days Qty: 30 0RF levofloxacin 750 mg tablet 750 mg PO Q48H 10 Days Qty: 5 0RF prednisone 10 mg tablet 10 mg PO DIRECTED Qty: 32 0RF Rx Instructions: see taper instructions 4 tabs daily x 3 days, then 3 tabs daily x 3 days, 2 tabs daily x 3 days, 1 tab daily x 3 days, then 5mg daily x 3 days, then stop. Continued omeprazole 40 mg capsule,delayed release(DR/EC) 40 mg PO DAILY Qty: 90 1RF epinephrine [EpiPen 2-Juan] 0.3 mg/0.3 mL auto-injector 0.3 mg IM ONCE Qty: 2 1RF Rx Instructions: as a single dose; may repeat once. To be used in case of allergic reaction to Dupixent administration. Dupixent Pen 300 mg/2 mL pen injector 300 mg subcut .every 2 weeks Qty: 4 5RF Trelegy Ellipta 100-62.5-25 mcg blister with device 1 inh INHALATION DAILY Qty: 180 3RF Rx Instructions: Rinse mouth and spit after each use albuterol sulfate 2.5 mg /3 mL (0.083 %) solution for nebulization 2.5 mg inhalation Q4-6H PRN (Reason: shortness of breath or wheezing) albuterol sulfate 90 mcg/actuation HFA aerosol inhaler 1 - 2 puff inhalation Q4-6H PRN (Reason: shortness of breath or wheezing) Qty: 8.5 3RF PreserVision AREDS-2 250-90-40-1 mg Capsule 1 cap PO BID losartan 100 mg tablet See Rx Instructions .ROUTE .COMPLEX Qty: 90 3RF Dose Instruction: TAKE 1 TABLET BY MOUTH DAILY Rx Instructions: TAKE 1 TABLET BY MOUTH DAILY sertraline 100 mg tablet 100 mg PO DAILY Qty: 90 1RF ursodiol 300 mg capsule 300 mg PO BID Qty: 180 1RF nifedipine 30 mg tablet extended release 24hr 30 mg PO DAILY Qty: 90 1RF alprazolam 0.25 mg tablet 0.25 mg PO TID PRN (Reason: Anxiety) Qty: 90 0RF prednisone 5 mg tablet See Rx Instructions .ROUTE .COMPLEX Qty: 30 1RF Dose Instruction: TAKE 1/2 TABLET BY MOUTH DAILY Rx Instructions: TAKE 1/2 TABLET BY MOUTH DAILY cholecalciferol (vitamin D3) 25 mcg (1,000 unit) Tablet 50 mcg PO EVERY OTHER DAY Date of admission: 07/31/24 09:42 Primary Care Provider: Sita Syed Admitting Provider: Cristian Grande Attending physician on admission: Dara Mcdonald Condition: Stable
[2024-08-03 18:14] LABS: Pneumococcal Antigen Urine NOT DETECTED
== END 2024-08-03 18:10 | disposition home or self-care (01) | DRG 193 ==
LOC: ANHED 14:10 → ANH3MEDSUR 18:27
PROVIDERS: Physician Assistant; Student in an Organized Health Care Education/Training Program; Admitting Provider Internal Medicine; Emergency Provider Emergency Medicine; PCP Nurse Practitioner Family; Visit Provider Internal Medicine
DX: J18.9 Pneumonia, unspecified organism (principal); J96.21 Acute and chronic respiratory failure with hypoxia; J96.22 Acute and chronic respiratory failure with hypercapnia; J44.0 Chronic obstructive pulmonary disease with (acute) lower respiratory infection; J44.1 Chronic obstructive pulmonary disease with (acute) exacerbation; I31.39 Other pericardial effusion (noninflammatory); F41.9 Anxiety disorder, unspecified; F32.A Depression, unspecified; G47.33 Obstructive sleep apnea (adult) (pediatric); H35.30 Unspecified macular degeneration; D50.9 Iron deficiency anemia, unspecified; E78.2 Mixed hyperlipidemia; I10 Essential (primary) hypertension; M81.0 Age-related osteoporosis without current pathological fracture; Z99.81 Dependence on supplemental oxygen; Z85.828 Personal history of other malignant neoplasm of skin; Z98.42 Cataract extraction status, left eye; Z98.41 Cataract extraction status, right eye; Z90.710 Acquired absence of both cervix and uterus; Z87.891 Personal history of nicotine dependence; Z79.52 Long term (current) use of systemic steroids
CPT/HCPCS: 36415; 36600; 71046; 71250; 80048; 80053; 82375; 82805; 83050; 83735; 85018; 85025; 85027; 86738; 87040; 87070; 87205; 87449; 87637; 87641; 87899; 93005; 94640; 94667; 94668; 96365; 96368; 96375; 97161; 97165; 99291; A9270; G0378; J0456; J0696; J1650; J1940; J2060; J2919; J7512

== ENCOUNTER 2024-08-30 10:38 | Outpatient (CLI) | payer MEDICARE, SELFPAY ==
--- NOTE | ~2024-08-30 | XR_ITS ---
Clinical Indication: Pneumonia PA and lateral views of the chest: Comparison: 08/01/2024 Findings: Calcified granulomas are present bilaterally. Possible minimal pleural effusions. Cardiome diastinal silhouette is within normal limits. Compression fractures of T12 and L1 are present. Impression: Possible minimal pleural effusions. Calcified bilateral granulomas. Compression fractures of T12 and L1. Reviewed, dictated and finalized at location . Impression: Possible minimal pleural effusions. Calcified bilateral granulomas. Compression fractures of T12 and L1.
--- OUTSIDE RECORDS SUMMARY | 2024-08-30 11:34 | XMS_ITS | Encounter Summary ---
Author Organization [facility] Healthcare Address [address] [place] [id number] Care Team Providers Care Build Automation Engineer Name Role Phone Sita Syed NP Primary Care Provider Reason for Visit * Reason Comments Hospital Follow Up Encounter Details Date Type Department Care Team (Late st Contact Info) Description 08/30/2024 10:00 AM CDT Office Visit [facility] Cardiology [address] [place] [address] Shaunna Rizvi NP [address] [place] [address] Pericardial effusion (Primary Dx); History of recent pneumonia; Chronic diastolic heart failure (HCC); Hospital discharge follow-up Social History Tobacco Use Types Packs/Day Years Used Date Smoking Tobacco: Former Cigarettes Tobacco Cessation:Counseling Given: Not Answered Personal Safety Answer Date Recorded Getting School Help Needed Not on file 09/26 Comments Unknown Sex and Gender Information Value Date Recorded Sex Assigned at Not on file Legal Sex Female 9:05 AM 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 Gender Identity Not on file Sexual Orientation Not on file documented as of this encounter Last Filed Vital Signs Vital Sign Reading Time Taken Comments Blood Pressure 142/70 08/30/2024 10:05 AM CDT Pulse 107 08/30/2024 10:05 AM CDT Temperature - - Respiratory Rate - - Oxygen Saturation 97% 08/30/2024 10:05 AM CDT Inhaled Oxygen Concentration - - Weight 66.7 kg (147 lb) 08/30/2024 10:05 AM CDT Height 160 cm (5' 3 ) 08/30/2024 10:05 AM CDT Body Mass Index 26.04 08/30/2024 10:05 AM CDT documented in this encounter Progress Notes * Shaunna Rizvi NP - 08/30/2024 10:00 AM CDT [facility] Cardiology [address] [place] [id number] Date of Visit: 08/30/2024 Patient ID: Shara Pulido [id number] Chief Complaint Patient presents with Hospital Follow Up Shara Pulido is a 83 y.o. female who is a newly established patient of Dr. Raymundo with a historyof diastolic heart failure coming to the office for hospital follow-up after she was treated for COPD exacerbation and pneumonia. History of Present Illness: Shara Pulido is a 83 y.o. female with past history of COPD, chronic respiratory failure on homeoxygen, hypertension, hyperlipidemia, tobacco abuse. 01/23/2024 initial office consultation [address] Dr[address] Raymundo: Apparently patient presents to [facility] August 2023 with shortness of breath while he was in rehab. Apparently was in rehab due to right femoral neck fracture status post surgical repair. Continue to smoke. CTA in the emergency room showed no evidence of pulmonary embolism . Did show small pleural effusions and severe emphysema. White cell count 6.7, hemoglobin 10.3, platelets count 195, sodium 140, potassium 4, BUN 50 and creatinine 0.6, troponin negative, albumin 3.3 and normal liver enzymes. EKG reviewed analyzed myself normal sinus rhythm. Patient underwent IV diuretics and treated for COPD exacerbation as well. Patient was discharged home on aspirin 81 mg daily, nifedipine 30 mg daily, losartan 100 mg daily, Trelegy and albuterol. She comes today for follow-up appointment accompanied by her daughter. Denies chest pain, lower extremity edema, palpitations dizziness or syncope. She continues to be on home oxygen and has stable dyspnea on exertion. 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 08/30/2024 hospital follow-up visit with CUSTOMER ADVISOR SPECIALIST: She was admitted to [facility] on 07/30/2024 for complaint of shortness of breath and cough. She was treated for pneumonia and COPD exacerbation. Her chest CT showed a small pericardial effusion and she was advised to have outpatient follow-up with us. She was discharged on 08/03/2024. She returns to the office today accompanied by her daughter.After for first week back home she felt her breathing starting to get better. However about a week ago she started feeling like she was building up phlegm again but she can not expectorate it. Her weight at home has been stable around 144 lb. She has not had any swelling in her legs or chest pain. S he continues to refrain from smoking. Medical History: Past Medical History: Diagnosis Date COPD (chronic obstructive pulmonary disease) (HCC) Heart failure (HCC) Shortness of breath Past Surgical History: Procedure Laterality Date HYSTERECTOMY Social History Tobacco Use Smoking Status Former Types: Cigarettes Smokeless Tobacco Not on file Social History Tobacco Use Smoking status: Former Types: Cigarettes Smokeless tobacco: None Substance and Sexual Activity Drug use: Not Currently Sexual activity: None Alcohol Use: Not At Risk (09/18/2023) Received from [facility] Frequency of Alcohol Consumption: Never Average Number of Drinks: Patient does not drink Frequency of Binge Drinking: Not on file Family History Problem Relation Age of Onset Heart disease Mother Heart disease Father Review of Systems Constitutional: Negative for malaise/fatigue, weight gain and weight loss. Cardiovascular: Positive for dyspnea on exertion. Negative for chest pain, leg swelling, near-syncope, orthopnea, palpitations, paroxysmal nocturnal dyspnea and syncope. Respiratory: Positive for cough. Negative for shortness of breath and sleep disturbances due to breathing. Hematologic/Lymphatic: Negative for bleeding problem. Does not bruise/bleed easily. Vital Signs: BP 142/70 (BP Location: Left arm, Patient Position: Sitting) Pulse 107 Ht 160 cm (5' 3 ) Wt 66.7 kg (147 lb) SpO2 97% BMI 26.04 kg/m?? Physical Exam Constitutional: General: She is not in acute distress. Appearance: She is well-developed. Interventions: Nasal cannula in place. HENT: Head: Normocephalic and atraumatic. Eyes: General: No scleral icterus. Conjunctiva/sclera: Conjunctivae normal. Neck: Vascular: No JVD. Trachea: No tracheal deviation. Cardiovascular: Rate and Rhythm: Normal rate and regular rhythm. Heart sounds: Normal heart sounds. No murmur heard. No friction rub. Pulmonary: Effort: Pulmonary effort is normal. No respiratory distress. Breath sounds: Decreased breath sounds present. Comments: Wearing supplemental oxygen by nasal cannula Musculoskeletal: Right lower leg: No edema. Left lower leg: No edema. Skin: General: Skin is warm and dry. Neurological: Mental Status: She is alert and oriented to person, place, and time. Psychiatric: Mood and Affect: Mood normal. Behavior: Behavior normal. No Known Allergies Current Outpatient Medications: acetaminophen (TYLENOL) 325 mg tablet, Take 2 tablets (650 mg total) by mouth every 6 (six) hours as needed for pain, Disp: , Rfl: albuterol 0.63 mg/3 mL nebulizer solution, Take 3 mL (0.63 mg total) by nebulization every 6 (six) hours as needed for wheezing, Disp: , Rfl: albuterol HFA (PROVENTIL HFA,VENTOLIN HFA,PROAIR HFA) 90 mcg/actuation inhaler, Inhale 2 puffs every 6 (six) hours as needed for wheezing, Disp: , Rfl: ALPRAZolam (XANAX) 0.25 mg tablet, Take 1 tablet (0.25 mg total) by mouth 3 (three) times a day as needed for anxiety, Disp: , Rfl: coenzyme Q10 10 mg capsule, Take 1 capsule (10 mg total) by mouth daily, Disp: , Rfl: ferrous sulfate 325 mg (65 mg of elemental iron) tablet, Take 1 tablet (325 mg total) by mouth daily with breakfast, Disp: , Rfl: fluticasone/umeclidin/vilanter (TRELEGY ELLIPTA INHAL), Inhale, Disp: , Rfl: furosemide (LASIX) 20 mg tablet, Take 1 tablet (20 mg total) by mouth daily, Disp: , Rfl: losartan (COZAAR) 100 mg tablet, Take 1 tablet (100 mg total) by mouth daily, Disp: , Rfl: NIFEdipine (NIFEdipine CC) 30 mg 24 hr tablet, Take 1 tablet (30 mg total) by mouth daily, Disp: , Rfl: omeprazole (PriLOSEC) 40 mg capsule, Take 1 capsule (40 mg total) by mouth daily, Disp: , Rfl: predniSONE (DELTASONE) 2.5 mg tablet, Take by mouth daily, Disp: , Rfl: vit A/vit C/vit E/zinc/copper (PRESERVISION AREDS ORAL), Take by mouth, Disp: , Rfl: aspirin 81 mg enteric coated tablet, Take 1 tablet (81 mg total) by mouth daily (Patient not taking: Reported on 08/30/2024), Disp: , Rfl: sertraline (ZOLOFT) 100 mg tablet, Take 1 tablet (100 mg total) by mouth daily (Patient not taking:Reported on 08/30/2024), Disp: , Rfl: Lab Results Component Value Date POTASSIUM 4.6 02/24/2017 CREATININE 0.5 02/24/2017 EGFR 80 02/24/2017 CHOL 129 02/21/2017 TRIG 55 02/21/2017 LDLCALC 35 02/21/2017 HDL 83 (H) 02/21/2017 Lab Results Component Value Date WBC 12.9 (H) 02/24/2017 HGB 12.1 02/24/2017 HCT 39.6 02/24/2017 MCV 84.4 02/24/2017 No results found for this or any previous visit (from the past 4 hours). No results found for: POCCHOL , POCHDL , POCTRIG , POCLDL , POCNONHDL , POCCHLPL 03/10/2024 inpatient echocardiogram at [facility]: Normal LV size and systolic function with EF 65-70%, grade 1 diastolic dysfunction, moderate MAC, mild TR with PASP 51 mmHg. Assessment: Diagnoses and all orders for this visit: Pericardial effusion (Primary) History of recent pneumonia - XR Chest Pa Lateral 2 Views; Future Chronic diastolic heart failure (HCC) Hospital discharge follow-up Plan/Recommendations: She was recently hospitalized for pneumonia and COPD exacerbation. Her chest CT showed a small pericardial effusion. No friction rub was heard on exam. She does not have orthopnea or pleuritic chest pain. She does however feel like she is built up more phlegm over the past week. I will send her fora repeat chest x- ray. Repeat echo does not appear clinically indicated at this time but if she develops chest discomfort, pleuritic chest pain or orthopnea I will order a limited echo to reassess thepericardium. I explained the symptoms for her to watch for and notify the office if she would experience them. She and her daughter verbalized understanding. Otherwise I will follow up the phone whenI get the results of today's chest x-ray. Keep the previously scheduled follow-up visit Dr. Raymundo in December for her history of diastolic heart failure. Continue losartan and furosemide as well. 08/30/2024 Shaunna Rizvi ANP- Nurse Practitioner with [facility] This note is dictated and transcribed using DecisionDesk Direct Software. Mortar Mixer variancesmay occur. Despite proofreading, typographical errors may occur. documented in this encounter Plan of Treatment Scheduled Orders Name Type Priority Associated Diagnoses Orde r Schedule XR Chest Pa Lateral 2 Views Imaging Routine History of recent pneumonia Expected: 08/30/2024, Expires: 09/30/2024 documented as of this encounter Visit Diagnoses Diagnosis Pericardial effusion- Primary Unspecified disease of pericardium History of recent pneumonia Chronic diastolic heart failure (HCC) Chronic diastolic heart failure Hospital discharge follow-up Other follow-up examination documented in this encounter Historical Medications * This list may reflect changes made after this encounter. omeprazole (PriLOSEC) 40 mg capsule Take 1 capsule (40 mg total) by mouth daily 07/08/2024 furosemide (LASIX) 20 mg tablet Take 1 tablet (20 mg total) by mouth daily 08/04/2024 added in this encounter Care Teams Build Automation Engineer Relationship Specialty Start Date End Date Sita Syed NP [address] [place], [place] [id number] PCP - General Nurse Practitioner 01/23/24 documented as of this encounter
--- OUTSIDE RECORDS SUMMARY | 2024-08-30 11:34 | XMS_ITS | Clinical Summary ---
Author Organization [facility] [employer] Address [address] [place] [address] Care Team Providers Care Taxi Driver Supervisor Name Role Phone Marichuy Vasquez PA-C Primary Care Provider [phone] Source Comments [facility] [employer],non-owned Affiliates and Associated Physician Practices is amultiple site organization consisting of ambulatory clinics and hospital sitesin [place], [place], [place] and [place]. This disclosure is being madepursuant to the Care Everywhere program and may not contain all information available regarding this patient. Last updated 18.[facility] [employer] Allergies Active Allergy Reactions Criticality Noted Date Comments Levofloxacin Anaphylaxis High 09/17/2023 Medications * Be aware that medications may not be up to date on this document. Alwaysverify current medications with the patient. albuterol (Proventil;Eduardo tolin) (2.5 MG/3ML) 0.083% nebulizer solution Inhale 2.5 (two and one-half) mg by mouth 2 times daily as needed for Shortness of Breath 3 Active ALPRAZolam (Xanax) 0.25 MG tablet Take 1 (one) tablet by mouth 3 times daily as needed for Anxiety 4 Active Trelegy Ellipta 100-62.5-25 MCG/ACT Inhale 1 (one) puff by mouth once daily 4 Active losartan (Cozaar) 100 MG tablet Take 1 (one) tablet by mouth once daily 4 Active NIFEdipine CR osmotic 24hr (Procardia-XL) 30 MG tablet Take 1 (one) tablet by mouth once daily 4 Active predniSONE (Deltasone) 5 MG tablet Take 0.5 (one-half) tablet by mouth once daily For chronic COPD 4 Active sertraline (Zoloft) 100 MG tablet Take 1 (one) tablet by mouth once daily 4 Active acetaminophen (Tylenol) 325 MG tablet Take 2 (two) tablets by mouth every 6 hours as needed Maximum allowable Acetaminophen amount = 4 Grams (4000 mg) / 24 hours. 4 Active polyethylene glycol 3350 (Miralax) 17 g packet Take 17 (seventeen) g by mouth 2 times daily 4 Active apixaban (Eliquis) 5 MG tablet Take 0.5 (one-half) tablet by mouth 2 times daily for 32 days 30 tablet 1 4 Active apixaban (Eliquis) 2.5 MG tablet TAKE ONE TABLET BY MOUTH 2 TIMES A DAY FOR 32 DAYS 64 tablet 1 4 09/21/19 25 Active Active Problems Problem Noted Date Diagnosed Date Chronic respiratory failure with hypoxia 024 J CARLOS (obstructive sleep apnea) 09/18/2023 Essential hypertension 09/18/2023 Generalized anxiety disorder 09/18/2023 COPD (chronic obstructive pulmonary disease) Compression fracture of body of thoracic vertebr a 09/18/2023 Fall, initial encounter 09/17/2023 Other fracture of right femu r, initial encounter for closed fracture 09/17/2023 Immunizations Immunization Administration Dates Next Due COVID PFIZER 12+YR [...] and heating? Not hard at all 09/18/2023 [facility]at [facility] - Occupational Stress [...] place to sleep or slept in a intermediate (including now)? No 09/18/2023 Comments Unknown Sex and Gender Information Value Date Recorded Sex Assigned at Not on file Legal Sex Female 3:51 PM INSPECTOR REPAIRER Gender Identity Not on file Sexual Orientation [...] 2024 02/04/2023, 02/14/2022, 09/26/2021, Additional history exists DEPRESSION SCREENING 05/02/2024 INFLUENZA VACCINE (Season Ended) 2024 02/04/2023, 02/14/2022, 02/07/2021, Additional history exists DTAP/TDAP/TD VACCINES (2 - Td or Tdap) [...] this topic Medical Devices Implanted Type Area Business Banking Officer Device Identifier Shelf Expiration Date Model / Serial / Lot Spcr Cmnt 12mm Acld Unv Hip Dist Implanted:Qty: 1 on 09/18/2023 by Lulu Aguilar MD at [facility] Other (Type not listed) Right: [employer] 03/08/2028 [id number] / / [id number] Stem Fem 145mm Hip 127d 5 48mm Ofst Cmnt Implanted:Qty: 1 on 09/18/2023 by Lulu Aguilar MD at [facility] Other (Type not listed) Right: [employer] 10/07/2027 [id number] / / [id number] Head Biplr 46mm 28mm Uhr Unv Hip Cocr Implanted:Qty: 1 on 09/18/2023 by Lulu Aguilar MD at [facility] Other (Type not listed) Right: [employer] 08/25/2025 [id number] / / [id number] Head Fem +0mm Ofst Tpr 28mm Hip Blx D Implanted:Qty: 1 on 09/18/2023 by Lulu Aguilar MD at [facility] Other (Type not listed) Right: [employer] 03/14/2028 [id number] / / [id number] Cmnt Bone Smpx Ptbr Fd Radopq Prebl Implanted:Qty: 2 on 09/18/2023 by Lulu Aguilar MD at [facility] Other (Type not listed) Right: [employer] 12/30/2024 [id number] / / [id number] Insurance MEDICARE [facility] MEDICARE [facility] MEDICARE [facility] MEDICARE UHC MANAGED MEDICARE ADV [facility] Advance Directives * Full Code (Latest Code Status on File) Date Activated Date Inactivated Comments 09/17/2023 5:23 PM 09/21/2023 5:19 PM Care Teams Taxi Driver Supervisor Relationship Specialty Start Date End Date Marichuy Vasquez PA-C [address] [place] [address] PCP - General Physician Auger Mill Operator 09/17/23
--- OUTSIDE RECORDS SUMMARY | 2024-08-30 11:34 | XMS_ITS | Clinical Summary ---
Author Organization [facility] [address] Address [address] [place] [address] Care Team Providers Care Criminalist Technician Name Role Phone Sita Syed NP Primary Care Provider [phone] Allergies No known active allergies Medications ALPRAZolam [...] (six) hours as needed for wheezing Active furosemide (LASIX) 20 mg tablet Take 1 tablet (20 mg total) by mouth daily 5 Active omeprazole (PriLOSEC) 40 mg capsule Take 1 capsule (40 mg total) by mouth daily 5 Active Active Problems Problem Noted Date Diagnosed Date Chronic diastolic heart failure 01/23/2024 Essential hypertension 01/23/2024 Encounters Date Type Department Care Team Description 08/30/2024 10:00 AM CDT Office Visit [facility] Cardiology [address] [place] [address] Shaunna Rizvi NP Pericardial effusion (Primary Dx); History of recent pneumonia; Chronic diastolic heart failure (HCC); Hospital discharge follow-up from Last 3 Months Surgical History Surgery Date Site/Laterality Comments HYSTERECTOMY [...] on file Legal Sex Female 9:05 AM MI[employer]OSOFT BI ARCHITECT Gender Identity Not on file Sexual Orientation Not on file Obstetrics History Last Filed Vital Signs Vital Sign Reading Time Taken Comments Blood Pressure 142/70 08/30/2024 10:05 AM CDT Pulse 107 08/30/2024 10:05 AM CDT Temperature 36.6 C (97.8 F) 02/21/2017 5:24 PM CDT Respiratory Rate - - Oxygen Saturation 97% 08/30/2024 10:05 AM CDT Inhaled Oxygen Concentration - - Weight 66.7 kg (147 lb) 08/30/2024 10:05 AM CDT Height 160 cm (5' 3 ) 08/30/2024 10:05 AM CDT Body Mass Index 26.04 08/30/2024 10:05 AM CDT Plan of Treatment Health Maintenance Due Date Last Done Comments Depression Screening 1940 Fall Risk Assessment 1940 Osteoporosis Screening-Bone Density Scan 1940 Hepatitis B Screening 12/13/1958 Well Visit 65+ 12/13/2004 Zoster Vaccine (2 of 3) 06/27/2014 05/02/2014 Covid-19 Vaccine (7 - 4-2 5 season) 2024 02/04/2023, 02/14/2022, 09/26/2021, Additional history exists Influenza Vaccine (Season Ended) 2024 02/04/2023, 02/14/2022, 02/07/2021, Additional history exists DTaP/Tdap/Td Vaccine (2 - Td or Tdap) 12/28/2030 12/28/2020 Pneumococcal vaccine 65+ Completed 05/02/2014, 05/2013 Insurance MEDICARE [facility]ILROAD [facility] Care Teams Criminalist Technician Relationship Specialty Start Date End Date Sita Syed NP [address] [place] [address] PCP - General Nurse Practitioner 01/23/24
--- OUTSIDE RECORDS SUMMARY | 2024-08-30 11:34 | XMS_ITS | Referral Summary ---
Author Organization [facility] [address] [place] [address] [address] [place] [address] Care Team Providers Care Research Administrator Name Role Phone Sita Syed NP Primary Care Provider [phone] Encounters Date Type Department Care Team Description 08/30/2024 10:00 AM CDT Office Visit [facility] Medical [facility] Cardiology [address] [place] [address] Shaunna Rizvi NP Pericardial effusion (Primary Dx); History of recent pneumonia; Chronic diastolic heart failure (HCC); Hospital discharge follow-up from Last 3 Months Allergies No known active allergies Medications ALPRAZolam [...] on file 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
== END 2024-08-30 10:39 | disposition home or self-care (01) ==
PROVIDERS: PCP Nurse Practitioner Family; Visit Provider Nurse Practitioner Adult Health
DX: S22.080S Wedge compression fracture of T11-T12 vertebra, sequela (principal); S32.010S Wedge compression fracture of first lumbar vertebra, sequela; X58.XXXS Exposure to other specified factors, sequela; Z87.01 Personal history of pneumonia (recurrent)
CPT/HCPCS: 71046

== ENCOUNTER 2025-04-02 17:17 | Emergency (ER) | payer MEDICARE, SELFPAY ==
[2025-04-02] VITALS (7 sets, daily range): BP systolic 138–165; BP diastolic 66–81; PULSE 84–97; RESP 16–20; TEMP 36.9–37.1; O2SAT 87–95
--- NOTE | ~2025-04-02 | CT_ITS ---
CT abdomen pelvis w con INDICATION:RUQ/upper back/flank pain; hx gallstones . COMPARISON: None. TECHNIQUE: Axial images of the abdomen and pelvis were obtained following infusion of 100 mL Isovue 300. Dose optimization technique was utilized. FINDINGS: Left lower lobe airspace opacity is noted. There is a small hiatal hernia. The liver parenchyma is unremarkable. No intrahepatic mass or ductal dilatation is evident. The gallbladder is unremarkable. The pancreas and spleen are normal in appearance. Left adrenal nodule measures up to 2 cm. Right adrenal nodule measures 1.3 cm. The kidneys demonstrate symmetric uptake and excretion of contrast. Left renal cyst measures 0.9 cm. Right renal cyst measures 2 cm. There is no solid mass. There is no hydronephrosis. Evaluation of the stomach and bowel loops are limited due to lack of oral contrast. The appendix is not visualized however no secondary signs of appendicitis are identified. Colonic diverticulosis without evidence of acute diverticulitis. Small hiatal hernia. The bladder and rectum are normal. No free intraperitoneal fluid or air is evident. There is no significant retroperitoneal lymphadenopathy. The aorta, visceral vessels and renal arteries demonstrate normal caliber and patency. The lower thoracic and lumbar vertebrae are in normal alignment. IMPRESSION: Indeterminate left adrenal nodule measuring up to 2 cm Left lower lobe airspace opacity. Colonic diverticulosis is noted without evidence of acute diverticulitis. All CT scans at this facility are performed using low dose modulation techniques as appropriate to perform exam including the following: automated exposure control; use of iterative reconstruction technique; adjustment of the mA and/or kV according to patient size (this includes techniques or standardized protocols for targeted exams where dose is matched to indication/reason for exam). Reviewed, dictated and finalized at location S. WORK[employer]ACH[employer] IMPRESSION: Indeterminate left adrenal nodule measuring up to 2 cm Left lower lobe airspace opacity. Colonic diverticulosis is noted without evidence of acute diverticulitis. All CT scans at this facility are performed using low dose modulation techniqu es as appropriate to perform exam including the following: automated exposure c ontrol; use of iterative reconstruction technique; adjustment of the mA and/or kV according to patient size (this includes techniques or standardized protocol s for targeted exams where dose is matched to indication/reason for exam).
--- OUTSIDE RECORDS SUMMARY | 2025-04-02 20:23 | XMS_ITS | Encounter Summary ---
Author Organization [facility] Address [address] [place] [address] Care Team Providers Care Taco Maker Name Role Phone Sita Syed NP Primary Care Provider [phone] Encounter Details Date Type Department Care Team (Late st Contact Info) Description 08/02/2024 Orders Only [facility] Health Information Management [address] [place] [id number] Scanning, Provider Social History Tobacco Use Types Packs/Day Years Used Date Smoking Tobacco: Former Cigarettes Comments Unknown Sex and Gender Information Value Date Recorded Sex Assigned at Not on file 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 Gender Identity Not on file Sexual Orientation Not on file documented as of this encounter Plan of Treatment Not on file documented as of this encounter Procedures Procedure Name Priority Date/Time Associated Diagnosis Comments SCAN - RADIOLOGY/IMAGING 08/01/2024 documented in this encounter Results * SCAN - RADIOLOGY/IMAGING (08/01/2024) Anatomical Region Laterality Modality Other us Provider Scanning Edited Result - Final documented in this encounter Visit Diagnoses Not on filedocumented in this encounter Care Teams Taco Maker Relationship Specialty Start Date End Date Sita Syed NP [address] [place] [address] PCP - General Nurse Practitioner 01/23/24 documented as of this encounter
--- OUTSIDE RECORDS SUMMARY | 2025-04-02 20:24 | XMS_ITS | Clinical Summary ---
Author Organization [facility] [address] [place] [address] Care Team Providers Care Nutrition Counselor Name Role Phone Sita Syed NP Primary Care Provider [phone] Allergies Active Allergy Reactions Criticality Noted Date Comments Levothyroxine Hives Medium 01/28/2025 Medications ALPRAZolam (XANAX) 0.25 mg tablet Take [...] mg total) by mouth daily 5 Active ursodioL (ACTIGALL) 300 mg capsule Take 1 capsule (300 mg total) by mouth 2 (two) times a day 5 Active Active Problems Problem Noted Date Diagnosed Date Chronic diastolic heart failure 01/23/2024 Essential hypertension 01/23/2024 Encounters Date Type Department Care Team Description 01/28/2025 9:30 AM CDT Office Visit [facility] Cardiology [address] [address] [address] [place] [address] Italia Raymundo MD Chronic diastolic heart failure (HCC) (Primary Dx); Essential hypertension from Last 3 Months Surgical History Surgery Date Site/Laterality Comments HYSTERECTOMY Medical History Medical History Date Comments Shortness of breath Heart failure COPD (chronic obstructive pulmonary disease) Family History Medical History Relation Name Comments Heart disease Father Heart disease Mother Relation Name Status Comments Father Mother Social History Tobacco Use Types Packs/Day Years Used Date Smoking Tobacco: Former Cigarettes Tobacco Cessation:Counseling Given: Not Answered Comments Unknown Sex and Gender Information Value Date Recorded Sex Assigned at Not on file 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 Gender Identity Not on file Sexual Orientation Not on file Last Filed Vital Signs Vital Sign Reading Time Taken Comments Blood Pressure 124/68 01/28/2025 9:18 AM CDT Pulse 86 01/28/2025 9:18 AM CDT Temperature 36.6 C (97.8 F) 02/21/2017 5:24 PM CDT Respiratory Rate - - Oxygen Saturation 84% 01/28/2025 9:18 AM CDT 4l Inhaled Oxygen Concentration - - Weight 64.9 kg (143 lb) 01/28/2025 9:18 AM CDT Height 160 cm (5' 3) 01/28/2025 9:18 AM CDT Body Mass Index 25.33 01/28/2025 9:18 AM CDT Plan of Treatment Health Maintenance Due Date Last Done Comments Depression Screening 1940 Fall Risk Assessment 1940 Osteoporosis Screening-Bone Density Scan 1940 Hepatitis B Screening 12/13/1958 Well Visit 65+ 12/13/2004 Zoster Vaccine (2 of 3) 06/27/2014 05/02/2014 Covid-19 Vaccine (2024-2 6 season) 2024 02/04/2023, 02/14/2022, 09/26/2021, Additional history exists Influenza Vaccine (#1) 2024 , 02/14/2022, 02/07/2021, Additional history exists DTaP/Tdap/Td Vaccine (2 - Td or Tdap) 12/28/2030 12/28/2020 Pneumococcal vaccine 65+ Completed 05/02/2014, 05/2013 Insurance MEDICARE [employer] [facility] Care Teams Nutrition Counselor Relationship Specialty Start Date End Date WinterSita NP [address] [place] [address] PCP - General Nurse Practitioner 01/23/24
[2025-04-02 20:43] LABS: Hematocrit 40.5 % (37.0-47.0); Hemoglobin 12.2 g/dL (12.0-15.0); Immature Granulocyte Percent A 0.5 % (0-0.5); Lymphocytes Absolute Auto 0.69 K/mm3 (0.9-3.2); Mean Corpuscular HGB Conc 30.1 g/dl (32-36); Mean Corpuscular Hemoglobin 26.1 pg (26-34); Mean Corpuscular Volume 86.5 fl (80-100); Nucleated Red Blood Cells Absolute Auto 0.000 K/mm3 (0.0-0.012); Nucleated Red Blood Cells Perc 0.0 % (0.0-0.2); Platelet Count Result 210 k/mm3 (150-375); Red Blood Count 4.68 M/mm3 (4.2-5.4); White Blood Count 7.4 K/mm3 (4.5-10.0)
[2025-04-02 20:54] LABS: Alanine Aminotransferase 10 U/L (6-35); Albumin Level 4.0 g/dL (3.5-5.1); Alkaline Phosphatase 106 U/L (38-126); Aspartate Amino Transferase 24 U/L (14-36); Bilirubin,Total 0.5 mg/dL (0.2-1.3); Blood Urea Nitrogen 26 mg/dL (7-17); Calcium 9.1 mg/dL (8.4-10.2); Chloride 96 mmol/L (98-107); Estimated CRCL calculation 37 ml/min; Estimated Glomerular Filt Rate > 60; Glucose 97 mg/dL (65-110); Lipase 56 U/L (23-300); Potassium 3.9 mmol/L (3.4-5.0); Sodium 140 mmol/L (137-145); Total Protein 7.4 g/dL (6.3-8.2)
[2025-04-02 21:07] LABS: Add Urine Microscopic? YES; Appearance Urine Clear (Clear); Glucose Urine UA Negative (Negative); Leukocyte Esterase Ur 1+ LEU/UL (Negative); Need Manual Microscopic Reviewed; Nitrate Urine Positive (Negative); Specific Grav Ur 1.031 (1.001-1.035)
[2025-04-02 21:08] LABS: Carbon Dioxide > 40 mmol/L (22-30)
--- NOTE | 2025-04-02 21:29 | ED_ITS ---
HPI - Abdominal Pain General Chief Complaint: Abdominal Pain Stated Complaint: Lower Back pain-hx gallstones Time Seen by Provider: 04/02/25 20:07 Source: patient and family Mode of arrival: EMS Limitations: no limitations History of Present Illness HPI narrative: Patient presents with low back/flank pain that started on Tuesday as well as right sided /RUQ abdominal pain. No acute trauma/injury (though previous hip and back fractures). History of COPD for which she wears 4L NC at baseline. History of gallstones. Her PCP Sita Syed prescribed Ursodiol for this. She was out of it for a few days but restarted it yesterday. Previous abdominal surgery includes hysterectomy. She asked about shoulder pain she states she was having some left neck pain that perhaps radiated to left shoulder. No hematuria or dysuria. LBM was this morning. She usually has diarrhea but has been constipated for a few days. no bloody stool. She sees GI here. Has had decreased PO intake. Started feeling nauseated in the ED but attributes this to having not eaten. No vomiting. 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 Obstructive sleep apnea treated with BiPAP Chronic obstructive pulmonary disease Chronic respiratory failure with hypoxia, on home oxygen therapy Compression fracture of body of thoracic vertebra Osteoporosis Hearing loss Anxiety Iron deficiency anemia Macular degeneration of both eyes Mixed hyperlipidemia Basal cell carcinoma (BCC) of left nasal sidewall Hypertension Surgical History Surgical History History of hysterectomy for benign disease 1975 History of bilateral cataract extraction History of carpal tunnel release History of repair of hip fracture (09/18/23) R subcapital femoral neck fracture, [facility] Family History Family History Sibling Diabetes mellitus Family history of cardiovascular disease Family history of coronary artery disease Father Family history of cardiovascular disease Family history of malignant neoplasm Family history of emphysema Mother Family history of cardiovascular disease Other Asthma Social History Social History Social History: Surrogate medical decision maker: Swati Lau, daughter. Code status: Full code. Smoking packs per day: 1 Smoking cigarettes per day: 20.0 Years smoked: 65 Smoking pack-years: 65.00 Smoking status: Former smoker Tobacco type: cigarettes Second hand tobacco smoke exposure: Yes Smoking end date: 07/31/22 Additional smoking assessment comments: Pt states she has one cigarette per month Alcohol intake: never Substance use: never Substance use type: does not use Lack of Transportation: No Lack of Food: Never True Current Housing: I Have Housing Concerned About Future Housing: No Difficulty Paying Gas/Electric Bills: No Difficulty Paying for Meds: No Currently Unemployed: No Education: Grade School Difficulty w/ Childcare or Family Care: No Living arrangements: with family Additional living arrangements comments: daughter Occupation/Education: retired Spiritual care concerns: No Agree to blood products: Yes Exam 2 Narrative: GENERAL: Well-appearing, well-nourished, and in no acute distress. HEAD: Normocephalic, atraumatic. EYES: Non injected, non icteric ENT: Nares clear, no rhinorrhea or epistaxis. Gross auditory acuity intact. NECK: Supple. No meningismus. CHEST: Speaking in full sentences. No respiratory distress. NC in place, on home settings 4LPM. HEART: Regular rate and rhythm. . ABDOMEN: Soft, nondistended. No rigidity or guarding. Not peritoneal. Negative Dietrich sign. Back: R CVA tenderness. Not present on Left. EXTREMITIES: Normal range of motion. No lower extremity edema. SKIN: Warm, dry, no rash. NEURO: No focal deficits. Alert and oriented. Answering questions. Following commands. Normal speech without aphasia or dysarthria. PSYCH: Normal mood and affect. Course Vital Signs Vital signs: Vital Signs Temperature 98.5 F 04/02/25 17:39 Pulse Rate 97 04/02/25 17:39 Respiratory Rate 18 04/02/25 17:39 Blood Pressure 155/76 H 04/02/25 17:39 Pulse Oximetry 92 04/02/25 17:39 Oxygen Delivery Nasal Cannula 04/02/25 17:39 Oxygen Flow Rate 4 04/02/25 17:39 Temperature 98.4 F 04/03/25 00:00 Pulse Rate 84 04/03/25 00:00 Respiratory Rate 16 04/03/25 00:00 Blood Pressure 135/74 04/03/25 00:00 Pulse Oximetry 93 04/03/25 00:00 Oxygen Delivery Nasal Cannula 04/02/25 17:39 Oxygen Flow Rate 4 04/02/25 17:39 [facility] Narrative Medical decision making narrative: Patient presents with report of back/flank pain and RUQ pain. History of gallbladder issues for which PCP has prescribed Ursidiol. In the emergency department she is afebrile with vital signs notable for mild hypertension. She is initially noted to be 92% on her home O2 setting of 4 liters/liters nasal cannula however this does improve without interval intervention on baseline oxygenation. Ordered RUQ US but not performed due to hazardous material technician temporary restricted hours. UA concerning for UTI. No previous urine culture to guide therapy. Culture in process today. Chemistry shows BUN and hypercarbia, both of which are chronic. CBC with abnormalities on the differential but otherwise without anemia the thrombocytopenia or leukocytosis. Left lower lobe airspace opacity on imaging but she is without complaint. Considered lobar/basilar pneumonia but again, this is not the dominant affected side. However, discussed with patient and daughter who note her air filter (?) portable device had been noted to break and been full of debris when it was evaluated by hazardous material technician. Given this, will give Augmentin to address both possible issues of UTI/pyelonephritis and questionable pneumonia although noted that I had low suspicion for true pneumonia (allergic to Levaquin). They do ask about constipation and, although not commented on by radiologist in report, the stool burden I appreciate on my independent interpretation of CT is in the affected area so would advise a bowel regimen especially given she notes she has been constipated recently. Stool softeners/laxative prescribed. Differential Diagnosis Differential Diagnosis: biliary pathology; pancreatitis; strain/sprain; pyelonephritis; constipation; diverticulitis; kidney stone Lab Data [facility] Lab Attestation statement: I personally reviewed the patient's lab results. 04/02/25 20:28 04/02/25 20:28 Labs: Lab Results 04/02/25 04/02/25 Range/Units 20:28 20:39 WBC 7.4 (4.5-10.0) K/mm3 RBC 4.68 (4.2-5.4) M/mm3 Hgb 12.2 (12.0-15.0) g/dL Hct 40.5 (37.0-47.0) % MCV 86.5 (80-100) fl MCH 26.1 (26-34) pg MCHC 30.1 L (32-36) g/dl RDW 15.8 H (11.5-14.5) % Plt Count 210 (150-375) k/mm3 MPV 11.4 H (7.4-10.4) fl Immature Gran % (Auto) 0.5 (0-0.5) % Neut % (Auto) 79.3 H (45.5-73.1) % Lymph % (Auto) 9.3 L (18.3-44.2) % [place] % (Auto) 6.9 (2.6-8.5) % Eos % (Auto) 3.5 (0-4.4) % Baso % (Auto) 0.5 (0.2-1.2) % Lymph # (Auto) 0.69 L (0.9-3.2) K/mm3 [place] # (Auto) 0.5 (0.1-0.6) K/mm3 Eos # (Auto) 0.3 (0-0.3) K/mm3 Baso # (Auto) 0.0 (0.0-0.1) K/mm3 Abs Immat Gran (auto) 0.04 H (0.00-0.031) K/mm3 Absolute Neuts (auto) 5.9 (1.3-6.7) K/mm3 Absolute Nucleated RBC 0.000 (0.0-0.012) K/mm3 Nucleated RBC % 0.0 (0.0-0.2) % Sodium 140 (137-145) mmol/L Potassium 3.9 (3.4-5.0) mmol/L Chloride 96 L (98-107) mmol/L Carbon Dioxide > 40 H (22-30) mmol/L Anion Gap (4-12) mmol/L BUN 26 H (7-17) mg/dL Creatinine 0.81 (0.7-1.0) mg/dL Estim Creat Clear Calc 37 ml/min Estimated GFR > 60 (59 - ) Glucose 97 (65-110) mg/dL Calcium 9.1 (8.4-10.2) mg/dL Total Bilirubin 0.5 (0.2-1.3) mg/dL AST 24 (14-36) U/L ALT 10 (6-35) U/L Alkaline Phosphatase 106 (38-126) U/L Total Protein 7.4 (6.3-8.2) g/dL Albumin 4.0 (3.5-5.1) g/dL Lipase 56 (23-300) U/L Urine Color Yellow (Yellow) Urine Appearance Clear (Clear) Urine pH 5.0 (5.0-9.0) Ur Specific Flanagan 1.031 (1.001-1.035) Urine Protein Trace (Negative) mg/dL Urine Glucose (UA) Negative (Negative) mg/dL Urine Ketones 1+ H (Negative) mg/dL Ur Blood (Man) Negative (Negative) Urine Nitrate Positive H (Negative) Urine Bilirubin Negative (Negative) Urine Urobilinogen 1.0 (<2.0) mg/dL Add Ur Microanalysis Reviewed Leukocyte Esterase Rfl 1+ H (Negative) MEENA/UL Urine RBC 0-2 (0-2) /hpf Urine WBC 21-50 H (0-3) /hpf Ur Squamous Epith Cells Occasional (Few) /hpf Urine Bacteria 4+ H /hpf Urine Casts 6-10 Imaging Data Attestation: I personally reviewed and interpreted this imaging study as follows: My impression: ENlarged gallbladder but without significant surrounding changes on my independent interpretation. There does appear to be moderate stool burden just inferior to the gallbladder. Radiologist's impression: ITS Impressions Abdomen/Pelvis CT 04/02/25 22:41 IMPRESSION: Indeterminate left adrenal nodule measuring up to 2 cm Left lower lobe airspace opacity. Colonic diverticulosis is noted without evidence of acute diverticulitis. All CT scans at this facility are performed using low dose modulation techniques as appropriate to perform exam including the following: automated exposure control; use of iterative reconstruction technique; adjustment of the mA and/or kV according to patient size (this includes techniques or standardized protocols for targeted exams where dose is matched to indication/reason for exam). Discharge Plan Discharge Clinical Impression: UTI (urinary tract infection), Azotemia, Adrenal nodule, Abdominal pain, RUQ, Colon, diverticulosis, Opacity of lung on imaging study, Pyelonephritis, Constipation Patient Disposition: Home Condition: Stable Instructions: Antibiotic Form, Constipation (DC), Biliary Colic (ED), High Fiber Diet (ED), Kidney Infection (ED), Flank Pain (ED), Urinary Tract Infection in Older Adults (ED) Additional Instructions: As we discussed, you did have evidence of urinary tract infection and I suspect this has ascended and become a kidney infection known as pyelonephritis. You received your 1st dose of antibiotic in the emergency department the rest of the course has been prescribed. Your PCP can follow-up on the adrenal nodule that was seen on CT imaging. Given your longstanding issues with your gallbladder, the name of a general surgeon is listed below if you would like outpatient follow-up to discuss this and possibly elective removal. You had previous seen the GI provider listed below. On my review of the CT you did have a fair amount of stool in the right upper quadrant of your colon. Recommend a bowel regimen that includes maintaining hydration/drinking plenty of water, incorporating high fiber foods into diet, using psyllium/fiber/Metamucil, supplementing with Miralax and using magnesium citrate as needed as a laxative to produce a bowel movement. Patient Language: Niuean Prescriptions: New amoxicillin-pot clavulanate 875-125 mg tablet 1 tablet PO Q12H 7 Days Qty: 14 0RF psyllium husk [Metamucil] 0.4 gram capsule 0.4 g PO DAILY PRN (Reason: constipation) Qty: 30 0RF polyethylene glycol 3350 [Miralax] 17 gram/dose powder 17 g PO DAILY Qty: 119 0RF magnesium citrate Solution 150 ml PO DAILY PRN (Reason: constipation) Qty: 296 0RF No Action Trelegy Ellipta 100-62.5-25 mcg blister with device 1 inh INHALATION DAILY Qty: 180 3RF Rx Instructions: Rinse mouth and spit after each use Ohtuvayre 3 mg/2.5 mL suspension for nebulization 2.5 ml inhalation BID Qty: 150 11RF azithromycin 250 mg tablet See Rx Instructions PO .COMPLEX Qty: 6 0RF Rx Instructions: For 250 mg dose pack: take 500 mg today (day 1), then 250 mg for 4 days (days 2-5) PO prednisone 20 mg tablet 40 mg PO DAILY Qty: 10 0RF guaifenesin 600 mg tablet extended release 12hr 600 mg PO BID PRN (Reason: congestion) Qty: 60 1RF cetirizine [Zyrtec] 10 mg tablet 10 mg PO DAILY PRN (Reason: allergy symptoms) Qty: 30 1RF PreserVision AREDS-2 250-90-40-1 mg Capsule 1 cap PO BID albuterol sulfate 2.5 mg /3 mL (0.083 %) solution for nebulization 2.5 mg inhalation Q4-6H PRN (Reason: shortness of breath or wheezing) Qty: 180 5RF albuterol sulfate 90 mcg/actuation HFA aerosol inhaler 1 - 2 puff inhalation Q4-6H PRN (Reason: shortness of breath or wheezing) Qty: 8.5 1RF omeprazole 40 mg capsule,delayed release(DR/EC) See Rx Instructions .ROUTE .COMPLEX Qty: 90 0RF Dose Instruction: TAKE 1 CAPSULE BY MOUTH DAILY Rx Instructions: TAKE 1 CAPSULE BY MOUTH DAILY losartan 100 mg tablet See Rx Instructions .ROUTE .COMPLEX Qty: 90 1RF Dose Instruction: TAKE 1 TABLET BY MOUTH DAILY Rx Instructions: TAKE 1 TABLET BY MOUTH DAILY prednisone 5 mg tablet See Rx Instructions .ROUTE .COMPLEX Qty: 30 3RF Dose Instruction: TAKE 1/2 TABLET BY MOUTH DAILY Rx Instructions: TAKE 1/2 TABLET BY MOUTH DAILY furosemide 20 mg tablet See Rx Instructions .ROUTE .COMPLEX Qty: 90 1RF Dose Instruction: TAKE 1 TABLET BY MOUTH DAILY Rx Instructions: TAKE 1 TABLET BY MOUTH DAILY ursodiol 300 mg capsule See Rx Instructions .ROUTE .COMPLEX Qty: 180 1RF Dose Instruction: TAKE 1 CAPSULE BY MOUTH TWICE DAILY Rx Instructions: TAKE 1 CAPSULE BY MOUTH TWICE DAILY nifedipine 30 mg tablet extended release 24hr 30 mg PO DAILY Qty: 90 1RF sertraline 100 mg tablet 100 mg PO DAILY Qty: 90 1RF alprazolam 0.25 mg tablet 0.25 mg PO TID PRN (Reason: Anxiety) Qty: 90 0RF Follow-up/Referrals: Johanny Leong APRN [Advanced Practice Nurse, Gastroenterology] Manny Guevara DO [Physician, General Surgery] Sita Syed APRN [Primary Care Provider, Internal Medicine] Time of Disposition: 23:26
[2025-04-02] MEDS: MORPHINE SULFATE (*CRX) 4 MG/ML INJ 2 MG IV PUSH (22:57)
[2025-04-02] MEDS: KETOROLAC 15 MG/ML VIAL (*BKC) IV PUSH (23:15)
[2025-04-03] VITALS: BP 135/74; PULSE 84; RESP 16; TEMP 36.9; O2SAT 93
== END 2025-04-03 00:15 | disposition home or self-care (01) ==
PROVIDERS: Emergency Medicine; Emergency Provider Student in an Organized Health Care Education/Training Program; PCP Nurse Practitioner Family
DX: N12 Tubulo-interstitial nephritis, not specified as acute or chronic (principal); K57.90 Diverticulosis of intestine, part unspecified, without perforation or abscess without bleeding; E27.9 Disorder of adrenal gland, unspecified; K59.00 Constipation, unspecified; R91.8 Other nonspecific abnormal finding of lung field; R79.89 Other specified abnormal findings of blood chemistry; J44.9 Chronic obstructive pulmonary disease, unspecified; J96.11 Chronic respiratory failure with hypoxia; Z99.81 Dependence on supplemental oxygen; I10 Essential (primary) hypertension; E78.2 Mixed hyperlipidemia; M81.0 Age-related osteoporosis without current pathological fracture; D50.9 Iron deficiency anemia, unspecified; H35.30 Unspecified macular degeneration; G47.33 Obstructive sleep apnea (adult) (pediatric); Z85.828 Personal history of other malignant neoplasm of skin; Z87.891 Personal history of nicotine dependence; Z90.710 Acquired absence of both cervix and uterus; Z98.42 Cataract extraction status, left eye; Z98.41 Cataract extraction status, right eye; Z79.899 Other long term (current) drug therapy
CPT/HCPCS: 36415; 74177; 80053; 81001; 83690; 85025; 87077; 87086; 87186; 96374; 96375; 99284; A9270; J1885; J2270; Q9967

== ENCOUNTER 2025-04-10 10:34 | Inpatient (IN) | payer MEDICARE, SELFPAY ==
[2025-04-10] VITALS (25 sets, daily range): BP systolic 133–165; BP diastolic 72–96; PULSE 74–105; RESP 14–24; TEMP 36.5–36.7; O2SAT 91–100
--- NOTE | ~2025-04-10 | XR_ITS ---
Examination: XR chest 1V portable Clinical History: cough/GRICELDA Comparison: 08/30/2024 Technique: Portable AP Findings: Heart size normal. Mild bibasilar atelectasis and scarring. Emphysema. Hilar calcifications and calcified granulomata. No acute bony abnormality. IMPRESSION: 1. No definite abnormality given portable technique. Reviewed, dictated and finalized at location R. TENANCE SUPERINTENDENT
--- NOTE | ~2025-04-10 | XR_ITS ---
EXAMINATION: XR abdomen/kub 1V, 04/13/2025 13:45 INSTRUMENTATION SUPERVISOR HISTORY: Follow up constipation COMPARISON: No comparisons available. Technique: 3 view. Findings: There are dilated loops of large bowel the largest 7 cm the dilated small bowel loops the largest 4 cm. No free air. No abnormal calcifications No acute osseous abnormality. Impression: 1. Ileus versus early obstruction. Reviewed, dictated and finalized at location P. RUMENTATION SUPERVISOR Impression: 1. Ileus versus early obstruction.
--- NOTE | ~2025-04-10 | CT_ITS ---
Shara Pulido EXAMINATION: CT abdomen pelvis w con COMPARISON: None HISTORY: Constipation, abnormal abdominal X-ray TECHNIQUE: Axial images were obtained through the abdomen, pelvis post administration of IV contrast. Oral contrast was also administered. Coronal reconstruction images were obtained from the axial views. CT scan performed using dose optimization techniques including the following automated exposure control; adjustment of mA and/or kV; use of iterative reconstruction technique. Automatic exposure control was used to reduce radiation dose. Permanent radiation dose record is archived to PACS. FINDINGS: CT abdomen: LUNG BASES: The lung bases demonstrate chronic changes with scattered calcified granulomas and mild bronchiectasis. Mild cardiomegaly. LIVER: Mild cirrhotic change of the liver suspected. Mild hepatic steatosis. Portal vein patent. No intrahepatic biliary duct dilatation. SPLEEN: Unremarkable. KIDNEYS: Right Kidney: Right kidney superior poles of both cyst 2 x 2 cm. Left Kidney: Unremarkable. No calculi. No hydronephrosis ADRENAL GLANDS: Subcentimeter right adrenal nodule. Left adrenal nodule 2 x 2.5 cm incompletely evaluated, outpatient adrenal MRI suggested. PANCREAS: Mild pancreatic atrophy. GALLBLADDER/BILIARY: Unremarkable. No biliary dilatation. STOMACH AND ESOPHAGUS: Small hiatal hernia. The remaining stomach appears decompressed. BOWEL/MESENTERY: Bowel distention of the gallbladder. Moderate fecal content, no colitis or diverticulitis. Nonspecific fluid-filled loops of large bowel. Appendix appears unremarkable. No stranding within the mesentery. No thickened or dilated loops of small bowel. ADENOPATHY/RETROPERITONEUM: No lymphadenopathy. AORTA/VASCULATURE: Atherosclerotic changes of the aorta, no aneurysm. FREE FLUID OR FREE AIR: No free fluid.. CT pelvis: SOLID ORGANS/REPRODUCTIVE: Post hysterectomy. No adnexal mass. BLADDER: Within normal limits. OSSEOUS STRUCTURES: Right hip arthroplasty. No sclerotic or lytic lesions. OVERLYING SOFT TISSUES: Diastases of the abdominal wall noted. IMPRESSION: Nonspecific fluid-filled loops of large bowel but may relate to underlying diarrhea. Incidental findings detailed above Reviewed, dictated and finalized at location P. CODE INSPECTOR IMPRESSION: Nonspecific fluid-filled loops of large bowel but may relate to underlying diar valentin. Incidental findings detailed above
--- NOTE | ~2025-04-10 | XR_ITS ---
EXAMINATION: XR chest 1V portable DATE: 04/15/2025 13:05 INDICATION: Worsening cough TECHNIQUE: A single frontal view of the chest was obtained. COMPARISON: April 13 chest x-ray FINDINGS: Lungs appear improved in aeration. There is persistent bibasilar opacification left worse than right. Heart shadow normal. Evidence of old granulomatous disease stable. No pneumothorax or subphrenic free air seen. IMPRESSION: 1. Bibasilar infiltrates left worse than right. Aeration of the mid and upper lung artis appears improved. Reviewed, dictated and finalized at location A. PRINT MACHINE OPERATOR IMPRESSION: 1. Bibasilar infiltrates left worse than right. Aeration of the mid and upper l ross artis appears improved.
--- NOTE | ~2025-04-10 | XR_ITS ---
EXAMINATION: XR chest 1V portable COMPARISON: No comparisons available. HISTORY: Follow up shortness of breath FINDINGS: Moderate pulmonary venous congestion. Small basilar infiltrates. No pneumothorax. Moderate cardiomegaly. Mediastinal and hilar contours are within normal limits. Bony thorax no acute abnormality. Miscellaneous: None Impression: CHF. Superimposed probable pneumonia. The findings are progressed compared to the previous exam. Reviewed, dictated and finalized at location P. ICAL CARE CLINICAL NURSE SPECIALIST Impression: CHF. Superimposed probable pneumonia. The findings are progressed compared to t he previous exam.
--- NOTE | ~2025-04-10 | CT_ITS ---
EXAM/PROCEDURE: CT abdomen pelvis wo con HISTORY: abd pain, n/v COMPARISON: April 02, 2025 TECHNIQUE: Noncontrast enhanced CT of the abdomen and pelvis performed. FINDINGS: The bowel gas pattern is not obstructive with no free air free fluid or pneumatosis seen. 2.5 cm left adrenal nodule not grossly changed. No hydroureteronephrosis or gross CT evidence of acute cholecystitis or hepatitis. Appendix appears normal. Moderate to large amount of stool in the rectal vault region. Sigmoidal diverticula disease with no gross acute diverticulitis. Pelvis somewhat obscured by beam hardening and streak artifact associated right hip arthroplasty hardware which appears intact. Advanced degenerative changes in the lumbar spine. Chronic appearing compression fracture of L1, T11, and T10 Bibasilar fibrotic and atelectatic changes in the lower chest. Mild cardiomegaly. Mitral valvular calcification and coronary artery calcifications. No significant pericardial effusion seen. Bibasilar ectatic appearing changes left greater than right with some air bronchograms not clearly changed from the previous exam. IMPRESSION: 1. Directed noncontrast exam demonstrating no acute surgical abnormality. 2. Moderate to large amount of stool in the rectal vault region. 3. Bibasilar atelectatic or infiltrative changes in the visualized lung bases. 4. Several chronic appearing findings as above. Reviewed, dictated and finalized at location A. ER OPERATOR / GRADER
[2025-04-10 12:50] LABS: Hematocrit 44.0 % (37.0-47.0); Hemoglobin 13.4 g/dL (12.0-15.0); Immature Granulocyte Percent A 0.3 % (0-0.5); Lymphocytes Absolute Auto 0.89 K/mm3 (0.9-3.2); Mean Corpuscular HGB Conc 30.5 g/dl (32-36); Mean Corpuscular Hemoglobin 26.2 pg (26-34); Mean Corpuscular Volume 85.9 fl (80-100); Nucleated Red Blood Cells Absolute Auto 0.000 K/mm3 (0.0-0.012); Nucleated Red Blood Cells Perc 0.0 % (0.0-0.2); Platelet Count Result 264 k/mm3 (150-375); Red Blood Count 5.12 M/mm3 (4.2-5.4); White Blood Count 9.5 K/mm3 (4.5-10.0)
[2025-04-10 13:00] LABS: Alanine Aminotransferase 12 U/L (6-35); Albumin Level 4.1 g/dL (3.5-5.1); Alkaline Phosphatase 103 U/L (38-126); Anion Gap 3 mmol/L (4-12); Aspartate Amino Transferase 32 U/L (14-36); Bilirubin,Total 0.5 mg/dL (0.2-1.3); Blood Urea Nitrogen 14 mg/dL (7-17); Calcium 9.4 mg/dL (8.4-10.2); Carbon Dioxide 39 mmol/L (22-30); Chloride 95 mmol/L (98-107); Estimated Glomerular Filt Rate > 60; Glucose 93 mg/dL (65-110); Lipase 72 U/L (23-300); Potassium 4.3 mmol/L (3.4-5.0); Sodium 137 mmol/L (137-145); Total Protein 7.8 g/dL (6.3-8.2)
[2025-04-10 13:18] LABS: Alveolar/Arterial O2 Gradient 111.7 mmHg; Carboxyhemoglobin 1.0 % THb (0-2.0); Fractional Inspired Oxygen 34 %; HCO3 ABG 33.8 mEq/l (22.0-26.0); Methemoglobin ABG 0.3 %THb (0-1.5); Oxygen Content ABG 17.3 %vol (16.0-22.0); Oxygen Saturation ABG 92.2 % (95.0-100.0); PCO2 ABG 56.6 mmHg (35.0-45.0); PO2 ABG 64.8 mmHg (80.0-100.0); PO2 FiO2 Ratio Arterial Blood 1.91 %; Reduced Hemoglobin 6.8 %THb (0-5.0)
[2025-04-10 13:22] LABS: Liters per Minute 3.5 LPM; Modified Allen's Test Pass; Site Drawn RIGHT RADIAL
[2025-04-10] MEDS: cefTRIAXone 1 GM in SODIUM CHLORIDE 0.9% IV 50 ML 100 ML IVPB (13:37)
[2025-04-10] MEDS: SODIUM CHLORIDE 0.9% IV 1,000 ML 999 ML IV CONT (13:37)
--- NOTE | 2025-04-10 14:41 | PM.IMHP2 ---
H&P: HPI History of Present Illness Date/Time: 04/10/25 14:41 Chief Complaint: Abdominal pain Narrative: 84-year-old female with a past medical history of J CARLOS with BiPAP, 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 Patient was in the ED on 04/02/2025 with complaints of abdominal pain. Patient was diagnosed with a UTI and constipation. Also reported some nausea but no vomiting. Patient was started on Augmentin for UTI and possible pneumonia coverage, and laxatives before being discharged home. Patient saw her PCP this morning and was directed to go to the ED. She was noted to have increased dyspnea on exertion and an O2 saturation in the office of 78%. It was also discovered that her urine culture showed resistance to her prescribed Augmentin. The patient has been experiencing increased abdominal pain over the past 8-10 days. She is now vomiting and has only been able to tolerate 1 Augmentin daily due to nausea. She also complains of diarrhea. She has been sleeping in her recliner for the past 10 days since it is closer to the bathroom and easier to get to. Because of this, she has been unable to use her BiPAP at night. Her daughter mentions that the patient seems more foggy. She is worried about CO2 retention. Patient is dependent on home O2 at 4.5 L and has been hypoxic with activity despite her home oxygen. Patient denies fevers and chest pain. She describes her abdominal pain is a constant aching across the middle of her abdomen and radiating to her back. Initial vital signs 138/88, HR 105, respirations 16, afebrile and 93% on 4 L nasal cannula. Labs with no leukocytosis. ABG CO2 56.6, PO2 64.8, HC03 33.8. Creatinine 0.68. UA from 04/02 1+ ketones, positive nitrate, 1+ leukocyte esterase, 21-50 WBC, 4+ bacteria. Abdomen pelvis CT on 04/02 red indeterminate left adrenal node, left lower lobe airspace opacity, and chronic diverticulosis without diverticulitis. There is no mention of constipation on the radiology report however on my interpretation there is moderate stool burden throughout the colon with gaseous distension. Abdomen pelvis CT today reads moderate to large amount of stool in the rectal vault, bibasilar atelectasis or infiltrative changes in the bases. Chest x-ray with no definite abnormality. 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 Obstructive sleep apnea treated with BiPAP Chronic obstructive pulmonary disease Chronic respiratory failure with hypoxia, on home oxygen therapy Compression fracture of body of thoracic vertebra Osteoporosis Hearing loss Anxiety Iron deficiency anemia Macular degeneration of both eyes Mixed hyperlipidemia Basal cell carcinoma (BCC) of left nasal sidewall Hypertension Surgical History Surgical History History of hysterectomy for benign disease 1975 History of bilateral cataract extraction History of carpal tunnel release History of repair of hip fracture (09/18/23) R subcapital femoral neck fracture, [facility] Family History Family History Sibling Diabetes mellitus Family history of cardiovascular disease Family history of coronary artery disease Father Family history of cardiovascular disease Family history of malignant neoplasm Family history of emphysema Mother Family history of cardiovascular disease Other Asthma Social History Social History Social History: Surrogate medical decision maker: Swati Lau, daughter. Code status: Full code. Smoking packs per day: 1 Smoking cigarettes per day: 20.0 Years smoked: 65 Smoking pack-years: 65.00 Smoking status: Former smoker Tobacco type: cigarettes Second hand tobacco smoke exposure: Yes Smoking end date: 07/31/22 Additional smoking assessment comments: Pt states she has one cigarette per month Alcohol intake: never Substance use: never Substance use type: does not use Lack of Transportation: No Lack of Food: Never True Current Housing: I Have Housing Concerned About Future Housing: No Difficulty Paying Gas/Electric Bills: No Difficulty Paying for Meds: No Currently Unemployed: No Education: High School Diploma/GED Difficulty w/ Childcare or Family Care: No Living arrangements: with family Additional living arrangements comments: daughter Occupation/Education: retired Gender identity (if verbalized by the patient): Female Sexual Orientation (if Verbalized by the Patient): Straight or Heterosexual Spiritual care concerns: No Agree to blood products: Yes Meds Home Medications and Allergies Home Medications ?Medication ?Instructions ?Recorded ?Confirmed ?Type vit C 250 mg-vit E 90 mg-zinc 40 1 cap PO BID 09/22/23 04/10/25 History mg-copper 1 [id number] capsule (PreserVision AREDS-2) albuterol sulfate 2.5 mg/3 mL 2.5 mg (3 mL) inhalation Q4-6H PRN 09/18/24 04/10/25 Rx (0.083 %) solution for nebulization shortness of breath or wheezing #180 mL albuterol sulfate 90 mcg/actuation 1 - 2 puff inhalation Q4-6H PRN 10/02/24 04/10/25 Rx aerosol inhaler shortness of breath or wheezing #8.5 grams omeprazole 40 mg capsule,delayed See Rx Instructions .Route 10/12/24 04/10/25 Rx release .COMPLEX #90 caps ensifentrine 3 mg/2.5 mL 2.5 ml inhalation BID #150 mL 10/22/24 04/10/25 Rx suspension for nebulization (Ohtuvayre) fluticasone fur. 100 mcg-umeclid 1 inh inhalation DAILY #180 ea 10/22/24 04/10/25 Rx 62.5 mcg-vilant 25 mcg inhalat.powder (Trelegy Ellipta) losartan 100 mg tablet See Rx Instructions .Route 11/21/24 04/10/25 Rx .COMPLEX #90 tabs prednisone 5 mg tablet See Rx Instructions .Route 01/29/25 04/10/25 Rx .COMPLEX #30 tabs furosemide 20 mg tablet See Rx Instructions .Route 03/04/25 04/10/25 Rx .COMPLEX #90 tabs ursodiol 300 mg capsule See Rx Instructions .Route 03/26/25 04/10/25 Rx .COMPLEX #180 caps nifedipine 30 mg tablet,extended 30 mg PO DAILY #90 tabs 04/01/25 04/10/25 Rx release 24 hr sertraline 100 mg tablet 100 mg PO DAILY #90 tabs 04/01/25 04/10/25 Rx alprazolam 0.25 mg tablet 0.25 mg PO TID PRN Anxiety #90 tabs 04/03/25 04/10/25 Rx Allergies Allergy/AdvReac Type Severity Reaction Status Date / Time levofloxacin Allergy Unknown Itching,Hiv Verified 04/10/25 18:24 es Vital Signs Vital Signs - 24 hr 04/10/25 10:49 04/10/25 12:37 04/10/25 12:56 Temperature 97.7 F Pulse Rate 105 H 102 H 99 Respiratory Rate 16 20 20 Blood Pressure 138/88 164/86 H 149/74 H Pulse Oximetry 93 100 96 Oxygen Delivery Nasal Cannula Nasal Cannula Oxygen Flow Rate 4 4 04/10/25 13:46 04/10/25 14:08 Temperature Pulse Rate 85 91 Respiratory Rate 16 20 Blood Pressure 148/80 H Pulse Oximetry 100 97 Oxygen Delivery BiPAP Oxygen Flow Rate Exam Narrative: GENERAL: Appears comfortable on BiPAP HEAD: Normocephalic, atraumatic. EYES: PERRLA. Conjunctivae clear. NOSE: no drainage. THROAT: Not assessed while on BiPAP NECK: Trachea midline. No adenopathy, no masses. RESPIRATORY: Airway patent, respirations nonlabored. Breath sounds diminished bilaterally CARDIOVASCULAR: Regular rate and rhythm BREASTS: Defer GASTROINTESTINAL: Abdomen is soft and distended. No organomegaly. Bowel sounds hypoactive in all quadrants GENITOURINARY: Defer MUSCULOSKELETAL: Moves all extremities. No gross deformities. SKIN: Warm, dry, normal color. NEURO: A&O X4. Speech clear PSYCHIATRIC: Normal interaction Results Labs Labs: Short CBC 04/10/25 Range/Units 12:39 WBC 9.5 (4.5-10.0) K/mm3 Hgb 13.4 (12.0-15.0) g/dL Hct 44.0 (37.0-47.0) % Plt Count 264 (150-375) k/mm3 [facility] 04/10/25 12:39 Sodium 137 Potassium 4.3 Chloride 95 L Carbon Dioxide 39 H BUN 14 D Creatinine 0.68 L Glucose 93 Calcium 9.4 Liver Function 04/10/25 Range/Units 12:39 Total Bilirubin 0.5 (0.2-1.3) mg/dL AST 32 (14-36) U/L ALT 12 (6-35) U/L Alkaline Phosphatase 103 (38-126) U/L Albumin 4.1 (3.5-5.1) g/dL Quality VTE Prophylaxis VTE prophylaxis: pharmacologic ordered Assessment and Plan Assessment and plan (1) Acute on chronic respiratory failure with hypoxia and hypercapnia: Code(s): J96.21 - Acute and chronic respiratory failure with hypoxia; J96.22 - Acute and chronic respiratory failure with hypercapnia Status: Acute Assessment and Plan: Patient with history COPD dependent on home O2 at 4.5 L and J CARLOS with BiPAP at night. Sleeping in her recliner for the past 10 days for easier access to the bathroom but has not been using her BiPAP due to this. ABG with hypercarbia. Patient placed on BiPAP for a few hours in the ED to help her blow off CO2. - albuterol nebulizer p.r.n.. Continue Trelegy - continue home O2 of 4.5 L during day. BiPAP at night - continue prednisone 2.5 mg daily (2) UTI (urinary tract infection): Qualifiers: Urinary tract infection type: acute cystitis Hematuria presence: without hematuria Qualified Code(s): N30.00 - Acute cystitis without hematuria Code(s): N39.0 - Urinary tract infection, site not specified Status: Acute Assessment and Plan: Patient initially diagnosed with UTI on 04/02 and prescribed Augmentin. - UA from 04/02 1+ ketones, positive nitrate, 1+ leukocyte esterase, 21-50 WBC, 4+ bacteria. - UC grew E coli resistant to Augmentin - started on Ceftriaxone on 04/10 (3) Constipation: Qualifiers: Constipation type: unspecified constipation type Qualified Code(s): K59.00 - Constipation, unspecified Code(s): K59.00 - Constipation, unspecified Status: Acute Assessment and Plan: Stool burden noted on initial CT on 04/02. Redemonstrated on today's imaging. -soapsuds enema x1. May repeat if adequate results are not achieved -MiraLax daily (4) Nausea vomiting and diarrhea: Code(s): R11.2 - Nausea with vomiting, unspecified; R19.7 - Diarrhea, unspecified Status: Acute Assessment and Plan: Nausea and vomiting for the past 10 days. Likely related to a combination of constipation, UTI. -normal saline at 75 started on 04/10 -monitor fluid status, respiratory status -hold home Lasix for now -Zofran p.r.n. (5) Essential (primary) hypertension: Code(s): I10 - Essential (primary) hypertension Status: Chronic Assessment and Plan: Continue losartan, nifedipine Plan Diet: Heart healthy DVT prophylaxis: Lovenox lines/drains: PIV Fluids: 1 L bolus in ED NS at 75 started on 04/10 Code status: Full Prior Studies I have reviewed the following patient records and this information was taken into consideration when formulating the assessment and plan.: previous labs, previous ER visits, previous hospitalizations and previous clinic visits Time Spent with Patient Time with patient: 45 - 74 minutes Hospitalist [facility] Advance Care Plan I have confirmed that the patient's Advanced Care Plan is present, code status is documented, or surrogate decision maker is listed in patient medical record.: Yes Medication Reconciliation I have utilized all available resources to obtain, update and review the patients current medications (includes all prescriptions, OTC, herbals, cannabis, and nutritional supplements).: Yes
[2025-04-10] MEDS: MORPHINE SULFATE (*CRX) 2 MG/ML INJ (14:51)
[2025-04-10] MEDS: MIDAZOLAM HCL (*CRX) 2 MG/2 ML VIAL IV PUSH (15:10)
--- NOTE | 2025-04-10 15:42 | ED_ITS ---
HPI - Abdominal Pain General Chief Complaint: Abdominal Pain Stated Complaint: abd pain Time Seen by Provider: 04/10/25 12:53 History of Present Illness HPI narrative: Patient presenting here with abdominal pain, she was diagnosed with a UTI but tried 1 dose of the Augmentin, got nauseous, stop taking them, and her symptoms have continued on. She is also reporting some diarrhea. She has also not been able to use her CPAP night and her daughter is concerned for CO2 narcosis Related Data Home Medications ?Medication ?Instructions ?Recorded ?Confirmed ?Last Taken ?Type vit C 250 mg-vit E 90 mg-zinc 40 1 cap PO BID 09/22/23 04/10/25 07/30/24 08:00 History mg-copper 1 qc-balpjr-qgwijt capsule (PreserVision AREDS-2) Allergies Allergy/AdvReac Type Severity Reaction Status Date / Time levofloxacin Allergy Unknown Itching,Hiv Verified 04/10/25 10:54 es Review of Systems 2 Review of Systems: All systems reviewed & are unremarkable except as noted in HPI and below PMFSH Past Medical History Medical History 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 Obstructive sleep apnea treated with BiPAP Chronic obstructive pulmonary disease Chronic respiratory failure with hypoxia, on home oxygen therapy Compression fracture of body of thoracic vertebra Osteoporosis Hearing loss Anxiety Iron deficiency anemia Macular degeneration of both eyes Mixed hyperlipidemia Basal cell carcinoma (BCC) of left nasal sidewall Hypertension Surgical History Surgical History History of hysterectomy for benign disease 1975 History of bilateral cataract extraction History of carpal tunnel release History of repair of hip fracture (09/18/23) R subcapital femoral neck fracture, [facility] Family History Family History Sibling Diabetes mellitus Family history of cardiovascular disease Family history of coronary artery disease Father Family history of cardiovascular disease Family history of malignant neoplasm Family history of emphysema Mother Family history of cardiovascular disease Other Asthma Social History Social History Social History: Surrogate medical decision maker: Swati Lau, daughter. Code status: Full code. Smoking packs per day: 1 Smoking cigarettes per day: 20.0 Years smoked: 65 Smoking pack-years: 65.00 Smoking status: Former smoker Tobacco type: cigarettes Second hand tobacco smoke exposure: Yes Smoking end date: 07/31/22 Additional smoking assessment comments: Pt states she has one cigarette per month Alcohol intake: never Substance use: never Substance use type: does not use Lack of Transportation: No Lack of Food: Never True Current Housing: I Have Housing Concerned About Future Housing: No Difficulty Paying Gas/Electric Bills: No Difficulty Paying for Meds: No Currently Unemployed: No Education: Grade School Difficulty w/ Childcare or Family Care: No Living arrangements: with family Additional living arrangements comments: daughter Occupation/Education: retired Gender identity (if verbalized by the patient): Female Sexual Orientation (if Verbalized by the Patient): Straight or Heterosexual Spiritual care concerns: No Agree to blood products: Yes Exam 2 Narrative: EXAMINATION OF ORGAN SYSTEMS/BODY AREAS: Constitutional: Vital signs per nursing GENERAL:No acute distress, non-toxic appearing. HEAD: Normal with no signs of head trauma. EYES: EOMI, conjunctiva normal ENT: Hearing grossly intact LUNGS: Nonlabored breathing. HEART: Regular rate and rhythm ABD: Soft, nontender to palpation EXT: Normal range of motion SKIN: No rashes or lesions. NEURO: Alert. No gross focal sensory or strength deficits. PSYCH: Normal affect Course Vital Signs Vital signs: Vital Signs Temperature 97.7 F 04/10/25 10:49 Pulse Rate 105 H 04/10/25 10:49 Respiratory Rate 16 04/10/25 10:49 Blood Pressure 138/88 04/10/25 10:49 Pulse Oximetry 93 04/10/25 10:49 Oxygen Delivery Nasal Cannula 04/10/25 10:49 Oxygen Flow Rate 4 04/10/25 10:49 Temperature 97.7 F 04/10/25 10:49 Pulse Rate 86 04/10/25 14:47 Respiratory Rate 18 04/10/25 14:47 Blood Pressure 133/74 04/10/25 14:47 Pulse Oximetry 97 04/10/25 14:47 Oxygen Delivery BiPAP 04/10/25 14:08 Oxygen Flow Rate 4 04/10/25 12:56 MDM MDM Narrative Medical decision making narrative: Electronic medical record was reviewed. Patient presented to the ED with complaint of abdominal pain; she had recent diagnosis of UTI but could not tolerate the Augmentin since she was getting diarrhea and nausea from it. Vitals were within acceptable limits. Physical exam revealed abdomen soft with some slight distension. Based on the patient's history and physical exam, my differential includes but is not limited to gastritis, gastroenteritis, cholecystitis, pancreatitis, appendicitis. IV access was established by nursing staff. Patient was given zofran, fluids, I did check her last urine culture with susceptibilities to ceftriaxone and Bactrim, will be given dose of ceftriaxone here. CBC, BMP, lipase, LFTs, bilirubin and alk phos were obtained. Labs were pertinent for elevated CO2 on ABG. Decision was made to obtain a CT-abdomen to evaluate for acute abdominal process. CT-abdomen per radiology interpretation is unremarkable for acute intra-abdominal process, no signs of hydronephrosis, cholecystitis, appendicitis. Patient does feel better, she did feel outpatient antibiotics due to the nausea vomiting, will admit her for 1 night. BiPAP started here for several hours and on re-evaluation she does feel better, will take her off BiPAP now. Discussed with hospitalist for admission. Differential Diagnosis Differential Diagnosis: gastritis, gastroenteritis, cholecystitis, pancreatitis, appendicitis, UTI, CO2 narcosis Lab Data 04/10/25 12:39 04/10/25 12:39 Labs: Lab Results 04/10/25 04/10/25 Range/Units 12:39 13:10 WBC 9.5 (4.5-10.0) K/mm3 RBC 5.12 (4.2-5.4) M/mm3 Hgb 13.4 (12.0-15.0) g/dL Hct 44.0 (37.0-47.0) % MCV 85.9 (80-100) fl MCH 26.2 (26-34) pg MCHC 30.5 L (32-36) g/dl RDW 15.7 H (11.5-14.5) % Plt Count 264 (150-375) k/mm3 MPV 10.6 H (7.4-10.4) fl Immature Gran % (Auto) 0.3 (0-0.5) % Neut % (Auto) 81.7 H (45.5-73.1) % Lymph % (Auto) 9.3 L (18.3-44.2) % [place] % (Auto) 6.3 (2.6-8.5) % Eos % (Auto) 1.9 (0-4.4) % Baso % (Auto) 0.5 (0.2-1.2) % Lymph # (Auto) 0.89 L (0.9-3.2) K/mm3 [place] # (Auto) 0.6 (0.1-0.6) K/mm3 Eos # (Auto) 0.2 (0-0.3) K/mm3 Baso # (Auto) 0.1 (0.0-0.1) K/mm3 Abs Immat Gran (auto) 0.03 (0.00-0.031) K/mm3 Absolute Neuts (auto) 7.8 H (1.3-6.7) K/mm3 Absolute Nucleated RBC 0.000 (0.0-0.012) K/mm3 Nucleated RBC % 0.0 (0.0-0.2) % Methemoglobin 0.3 (0-1.5) %THb Sodium 137 (137-145) mmol/L Potassium 4.3 (3.4-5.0) mmol/L Chloride 95 L (98-107) mmol/L Carbon Dioxide 39 H (22-30) mmol/L Anion Gap 3 L (4-12) mmol/L BUN 14 D (7-17) mg/dL Creatinine 0.68 L (0.7-1.0) mg/dL Estim Creat Clear Calc Not Reportable Estimated GFR > 60 (59 - ) Glucose 93 (65-110) mg/dL Lactic Acid 1.2 (0.7-2.0) mmol/L Calcium 9.4 (8.4-10.2) mg/dL Total Bilirubin 0.5 (0.2-1.3) mg/dL AST 32 (14-36) U/L ALT 12 (6-35) U/L Alkaline Phosphatase 103 (38-126) U/L Total Protein 7.8 (6.3-8.2) g/dL Albumin 4.1 (3.5-5.1) g/dL Lipase 72 (23-300) U/L ABG Data ABG results: 04/10/25 13:10 Puncture Site Right radial ABG pH 7.394 ABG pCO2 56.6 H ABG pO2 64.8 L ABG PO2/FiO2 Ratio 1.91 ABG HCO3 33.8 H ABG O2 Saturation 92.2 L ABG O2 Content 17.3 ABG Base Excess 7.2 A-a Gradient 111.7 Oxyhemoglobin 91.9 Carboxyhemoglobin 1.0 Reduced Hemoglobin 6.8 H Total Hemoglobin 13.4 O2 Delivery Device Nasal cannula O2 Liters/Min 3.5 FiO2 34 Imaging Data Radiologist's impression: ITS Impressions Abdomen/Pelvis CT 04/10/25 13:31 IMPRESSION: 1. Directed noncontrast exam demonstrating no acute surgical abnormality. 2. Moderate to large amount of stool in the rectal vault region. 3. Bibasilar atelectatic or infiltrative changes in the visualized lung bases. 4. Several chronic appearing findings as above. Chest X-Ray 04/10/25 14:13 IMPRESSION: 1. No definite abnormality given portable technique. Discharge Plan Discharge Clinical Impression: UTI (urinary tract infection) COPD (chronic obstructive pulmonary disease) Qualifiers: COPD type: unspecified COPD Qualified Code(s): J44.9 - Chronic obstructive pulmonary disease, unspecified Patient Disposition: Still a Patient Condition: Stable
--- NOTE | 2025-04-10 17:23 | WPCEDHO ---
ED Hand Off Checklist All vitals saved: YES IV Site documented: YES All med administrations documented: YES Triage Note Triage Note Patient to ED for evaluation of 04/10/25 12:56 abd pain that radiates to her back. Patient seen at our facility last week and dx with UTI, pyelo. Patient has been noncompliant with rx received at her most recent visit; reports she has been unable to take her abx because they are too strong . Patient alert and oriented, but [place]. Patient daughter in triage providing additional information. Per patient daughter, her mother has been unable to sleep in her bed and use her regular oxygen machine. Patient daughter states they are concerned for CO2 build up and that her mom has been acting more confused. Patient has pmh COPD and is on 4- 4.5L O2 NC at all times. RN agrees with this assessment. Pt family states her abx made her sick and unable to eat. Allergies levofloxacin Allergy (Unknown, Verified 04/10/25 10:54) Itching,Hives Family History (Last Reviewed 04/10/25 @ 09:39 by Zofia Fishman [facility]) Sibling Diabetes mellitus Family history of cardiovascular disease Family history of coronary artery disease Father Family history of cardiovascular disease Family history of malignant neoplasm Family history of emphysema Mother Family history of cardiovascular disease Other Asthma Administered/Completed Medications Discontinued Medications Ceftriaxone Sodium 1 gm/ (Sodium Chloride) 50 mls @ 100 mls/hr IVPB ONCE STA Stop: 04/10/25 13:38 Last Infusion: 04/10/25 15:09 Dose: Infused Documented By: Admin: 04/10/25 13:37 Dose: 100 mls/hr Documented By: YURIY Sodium Chloride (Normal Saline Iv) 1,000 mls @ 999 mls/hr IV CONT .Q1H1M STA Stop: 04/10/25 14:11 Last Infusion: 04/10/25 15:32 Dose: Infused Documented By: Admin: 04/10/25 13:37 Dose: 999 mls/hr Documented By: YURIY Midazolam HCl (Midazolam Hcl (*Crx) 2 Mg/2 Ml Vial) 2 mg IV PUSH ONCE ONE Stop: 04/10/25 14:58 Last Admin: 04/10/25 15:10 Dose: 2 mg Documented By: WENDY Morphine Sulfate (Morphine Sulfate (*Crx) 2 Mg/Ml Inj) Confirm Administered Dose 2 mg .ROUTE .STK-MED ONE Stop: 04/10/25 14:50 Last Admin: 04/10/25 14:51 Dose: 2 mg Documented By: YURIY Morphine Sulfate (Morphine Sulfate (*Crx) 4 Mg/Ml Inj) 2 mg IV PUSH ONCE STA Stop: 04/10/25 14:51 Last Admin: 04/10/25 14:52 Dose: Not Given Documented By: YURIY Non-Admin Reason: Duplicate Dose Interventions/Assessments IV / Saline Lock, Insert Start: 04/10/25 12:30 Freq: STAT Status: Active Protocol: Document 04/10/25 12:41 KNW (Rec: 04/10/25 12:41 KNW [id number]) IV Assessment Peripheral Access Left Antecubital IV Catheter Access Initiated IV Insertion Date 04/10/25 IV Insertion Time 12:41 Catheter Gauge 18 IV Insertion 1 Attempts Ultrasound Used for No Placement IV Site Assessment WNL IV Care and WNL Maintenance PA: Gastrointestinal Assessment Start: 04/10/25 10:35 Freq: Status: Active Protocol: Document 04/10/25 13:02 MCO (Rec: 04/10/25 13:03 MCO [id number]) GI Assessment Gastrointestinal Diarrhea,Nausea,Pain Symptoms Description Soft,Tender Pattern Diarrhea Flatus Present Date of Last Bowel 04/09/25 Movement Stool Liquid Characterisitics Last Vital Signs Temperature 97.7 F 04/10/25 10:49 Pulse Rate 92 04/10/25 17:14 Respiratory Rate 14 04/10/25 17:14 Pulse Oximetry 97 04/10/25 17:14 Blood Pressure 133/74 04/10/25 14:47 Blood Pressure Mean 86 04/10/25 14:47 Blood Pressure Position Supine 04/10/25 13:46 Oxygen Delivery BiPAP 04/10/25 14:08 Oxygen Flow Rate 4 04/10/25 12:56 Weight 64.4 kg 04/10/25 12:56 Last Result - Abnormals Only MCHC 30.5 g/dl (32-36) L 04/10/25 12:39 RDW 15.7 % (11.5-14.5) H 04/10/25 12:39 MPV 10.6 fl (7.4-10.4) H 04/10/25 12:39 Neut % (Auto) 81.7 % (45.5-73.1) H 04/10/25 12:39 Lymph % (Auto) 9.3 % (18.3-44.2) L 04/10/25 12:39 Lymph # (Auto) 0.89 K/mm3 (0.9-3.2) L 04/10/25 12:39 Absolute Neuts (auto) 7.8 K/mm3 (1.3-6.7) H 04/10/25 12:39 ABG pCO2 56.6 mmHg (35.0-45.0) H 04/10/25 13:10 ABG pO2 64.8 mmHg (80.0-100.0) L 04/10/25 13:10 ABG HCO3 33.8 mEq/l (22.0-26.0) H 04/10/25 13:10 ABG O2 Saturation 92.2 % (95.0-100.0) L 04/10/25 13:10 Reduced Hemoglobin 6.8 %THb (0-5.0) H 04/10/25 13:10 Chloride 95 mmol/L (98-107) L 04/10/25 12:39 Carbon Dioxide 39 mmol/L (22-30) H 04/10/25 12:39 Anion Gap 3 mmol/L (4-12) L 04/10/25 12:39 Creatinine 0.68 mg/dL (0.7-1.0) L 04/10/25 12:39 Most Recent Suicide Severity Rating Suicide Severity Rating NO RISK INDICATED 04/10/25 12:56
[2025-04-10] MEDS: PANTOPRAZOLE 40 MG TABLET PO (19:45)
[2025-04-10] MEDS: SODIUM CHLORIDE 0.9% IV 1,000 ML 75 ML IV CONT (19:46)
[2025-04-10] MEDS: MORPHINE SULFATE (*CRX) 4 MG/ML INJ 2 MG IV PUSH (19:47)
--- OUTSIDE RECORDS SUMMARY | 2025-04-10 20:03 | XMS_ITS | Clinical Summary ---
Author Organization [facility] Address [address] [place] [address] Care Team Providers Care Assembly Loader Name Role Phone Marichuy Vasquez PA-C Primary Care Provider [phone] Source Comments [facility],non-owned Affiliates and Associated Physician Practices is amultiple site organization consisting of ambulatory clinics and hospital sitesin [place], [place], [place] and [place]. This disclosure is being madepursuant to the Care Everywhere program and may not contain all information available regarding this patient. Last updated 18.[facility] Allergies Active Allergy Reactions Criticality Noted Date [...] FOR 32 DAYS 64 tablet 1 4 Active Active Problems Problem Noted Date Diagnosed [...] and heating? Not hard at all 09/18/2023 [facility] [employer] - Occupational Stress [...] place to sleep or slept in a senior care (including now)? 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 Gender Identity Not on file Sexual Orientation [...] 1:00 PM CDT Height 162.6 cm (5' 4) 10/24/2023 1:00 PM CDT Body Mass Index 28.67 10/24/2023 1:00 PM CDT Plan of Treatment Health Maintenance Due Date Last Done Comments BONE DENSITY TESTING 1940 ZOSTER VACCINE (2 of 3) 06/27/2014 05/02/2014 DEPRESSION SCREENING 05/02/2024 MEDICARE AWV CALENDAR YEAR 2024 COVID-19 VACCINE ( season) 2024 02/04/2023, 02/14/2022, 09/26/2021, Additional history exists INFLUENZA VACCINE (#1) 2024 , 02/14/2022, 02/07/2021, Additional history exists DTAP/TDAP/TD VACCINES [...] this topic Medical Devices Implanted Type Area Soil Fertility Specialist Device Identifier Shelf Expiration Date Model / Serial / Lot Spcr Cmnt 12mm Acld Unv Hip Dist Implanted:Qty: 1 on 09/18/2023 by Lulu Aguilar MD at [facility] Other (Type not listed) Right: [employer] 03/08/2028 [id number] / / [id number] Stem Fem 145mm Hip 127d 5 48mm Ofst Cmnt Implanted:Qty: 1 on 09/18/2023 by Lulu Aguilar MD at [facility] Other (Type not listed) Right: [employer] 10/07/2027 [id number] / / [id number] Head Biplr 46mm 28mm Uhr Unv Hip Cocr Implanted:Qty: 1 on 09/18/2023 by Lulu Aguilar MD at [facility] Other (Type not listed) Right: [employer] 08/25/2025 [id number] / / [id number] Head Fem +0mm Ofst Tpr 28mm Hip Blx D Implanted:Qty: 1 on 09/18/2023 by Lulu Aguilar MD at [facility] Other (Type not listed) Right: [employer] [place] 03/14/2028 [id number] / / [id number] Cmnt Bone Smpx Ptbr Fd Radopq Prebl Implanted:Qty: 2 on 09/18/2023 by Lulu Aguilar MD at [facility] Other (Type not listed) Right: [employer] 12/30/2024 [id number] / / [id number] Insurance MEDICARE [facility] MEDICARE [facility] UHC MANAGED MEDICARE ADV [facility] Advance Directives * Full Code (Latest Code Status on File) Date Activated Date Inactivated Comments 09/17/2023 5:23 PM 09/21/2023 5:19 PM Care Teams Assembly Loader Relationship Specialty Start Date End Date Marichuy Vasquez PA-C [address] [place] [address] PCP - General Physician Director Day Care Center 09/17/23
--- OUTSIDE RECORDS SUMMARY | 2025-04-10 20:03 | XMS_ITS | Clinical Summary ---
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
--- OUTSIDE RECORDS SUMMARY | 2025-04-10 20:03 | XMS_ITS | Encounter Summary ---
Author Organization [facility] Address [address] [place] [address] Care Team Providers Care Waterworks Operator Name Role Phone Sita Syed NP Primary Care Provider Encounter Details Date Type Department Care Team (Late st Contact Info) Description 08/02/2024 Orders Only [facility] Health Information Management [address] [place] [id number] Scanning, Provider Social History Tobacco Use Types Packs/Day Years Used Date Smoking Tobacco: Former Cigarettes Comments Unknown Sex and Gender Information Value Date Recorded Sex Assigned at Not on file 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
[2025-04-10] MEDS: ENOXAPARIN 40 MG/0.4 ML SYRINGE SUB-Q (21:14)
[2025-04-10] MEDS: ALPRAZolam (*CRX) 0.25 MG TABLET PO (22:55)
[2025-04-11] VITALS (10 sets, daily range): BP systolic 133–156; BP diastolic 57–76; PULSE 70–104; RESP 16–26; TEMP 36–36.4; O2SAT 88–96
[2025-04-11] MEDS: MORPHINE SULFATE (*CRX) 4 MG/ML INJ 2 MG IV PUSH ×3 (02:21→22:11)
[2025-04-11 06:31] LABS: Hematocrit 37.7 % (37.0-47.0); Hemoglobin 11.0 g/dL (12.0-15.0); Immature Granulocyte Percent A 0.4 % (0-0.5); Lymphocytes Absolute Auto 0.96 K/mm3 (0.9-3.2); Mean Corpuscular HGB Conc 29.2 g/dl (32-36); Mean Corpuscular Hemoglobin 25.7 pg (26-34); Mean Corpuscular Volume 88.1 fl (80-100); Nucleated Red Blood Cells Absolute Auto 0.000 K/mm3 (0.0-0.012); Nucleated Red Blood Cells Perc 0.0 % (0.0-0.2); Platelet Count Result 198 k/mm3 (150-375); Red Blood Count 4.28 M/mm3 (4.2-5.4); White Blood Count 8.2 K/mm3 (4.5-10.0)
[2025-04-11 06:55] LABS: Anion Gap 3 mmol/L (4-12); Blood Urea Nitrogen 13 mg/dL (7-17); Calcium 8.4 mg/dL (8.4-10.2); Carbon Dioxide 34 mmol/L (22-30); Chloride 99 mmol/L (98-107); Estimated CRCL calculation 43 ml/min; Estimated Glomerular Filt Rate > 60; Glucose 79 mg/dL (65-110); Potassium 3.7 mmol/L (3.4-5.0); Sodium 136 mmol/L (137-145)
[2025-04-11 07:25] LABS: Hypochromasia 1+
[2025-04-11 07:26] LABS: Anisocytosis Occasional; Ovalocytes 1+; Schistocytes None Seen
[2025-04-11] MEDS: LOSARTAN POTASSIUM 100 MG TABLET BY MOUTH (08:39)
[2025-04-11] MEDS: SERTRALINE HCL 50 MG TABLET 100 MG PO (08:39)
[2025-04-11] MEDS: PANTOPRAZOLE 40 MG TABLET PO ×2 (08:39→16:45)
[2025-04-11] MEDS: ALPRAZolam (*CRX) 0.25 MG TABLET PO ×2 (10:20→19:57)
[2025-04-11] MEDS: SODIUM CHLORIDE 0.9% IV 1,000 ML 75 ML IV CONT ×2 (10:27→23:47)
--- NOTE | 2025-04-11 14:38 | P.PNIM_ITS ---
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 Sleeping in her recliner for the past 10 days for easier access to the bathroom but has not been using her BiPAP due to this. ABG with hypercarbia. Patient placed on BiPAP for a few hours in the ED to help her blow off CO2. - albuterol nebulizer p.r.n.. Continue Trelegy - continue home O2 of 4.5 L during day. BiPAP at night - continue prednisone 2.5 mg daily (2) UTI (urinary tract infection): Qualifiers: Hematuria presence: without hematuria Urinary tract infection type: acute cystitis Qualified Code(s): N30.00 - Acute cystitis without hematuria Code(s): N39.0 - Urinary tract infection, site not specified Status: Acute Assessment and Plan: Patient initially diagnosed with UTI on 04/02 and prescribed Augmentin. - UA from 04/02 1+ ketones, positive nitrate, 1+ leukocyte esterase, 21-50 WBC, 4+ bacteria. - UC grew E coli resistant to Augmentin - started on Ceftriaxone on 04/10 (3) Constipation: Qualifiers: Constipation type: unspecified constipation type Qualified Code(s): K59.00 - Constipation, unspecified Code(s): K59.00 - Constipation, unspecified Status: Acute Assessment and Plan: Stool burden noted on initial CT on 04/02. Redemonstrated on today's imaging. -soapsuds enema x1. May repeat if adequate results are not achieved -MiraLax daily (4) Nausea vomiting and diarrhea: Code(s): R11.2 - Nausea with vomiting, unspecified; R19.7 - Diarrhea, unspecified Status: Acute Assessment and Plan: Nausea and vomiting for the past 10 days. Likely related to a combination of constipation, UTI. -normal saline at 75 started on 04/10 -monitor fluid status, respiratory status -hold home Lasix for now -Zofran p.r.n. (5) Essential (primary) hypertension: Code(s): I10 - Essential (primary) hypertension Status: Chronic Assessment and Plan: Continue losartan, nifedipine Plan patient with chronic constipation was given enema which did help and getting Miralax will add colace, patient also recurrent UTI was recently treated with Augmentin, patient is being treated with ceftriaxone, patient clincal symptoms are improving stats feeling better compared when she arrived, her daughter is present, gave updates. Diet: Heart healthy DVT prophylaxis: Lovenox lines/drains: PIV Fluids: 1 L bolus in ED NS at 75 started on 04/10 Code status: Full Subjective Date/time seen: 04/11/25 14:38 Interval history: Abdominal pain Narrative: 84-year-old female with a past medical history of J CARLOS with BiPAP, 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 Patient was in the ED on 04/02/2025 with complaints of abdominal pain. Patient was diagnosed with a UTI and constipation. Also reported some nausea but no vomiting. Patient was started on Augmentin for UTI and possible pneumonia coverage, and laxatives before being discharged home. Patient saw her PCP this morning and was directed to go to the ED. She was noted to have increased dyspnea on exertion and an O2 saturation in the office of 78%. It was also discovered that her urine culture showed resistance to her prescribed Augmentin. The patient has been experiencing increased abdominal pain over the past 8-10 days. She is now vomiting and has only been able to tolerate 1 Augmentin daily due to nausea. She also complains of diarrhea. She has been sleeping in her recliner for the past 10 days since it is closer to the bathroom and easier to get to. Because of this, she has been unable to use her BiPAP at night. Her daughter mentions that the patient seems more foggy. She is worried about CO2 retention. Patient is dependent on home O2 at 4.5 L and has been hypoxic with activity despite her home oxygen. Patient denies fevers and chest pain. She describes her abdominal pain is a constant aching across the middle of her abdomen and radiating to her back. Initial vital signs 138/88, HR 105, respirations 16, afebrile and 93% on 4 L nasal cannula. Labs with no leukocytosis. ABG CO2 56.6, PO2 64.8, HC03 33.8. Creatinine 0.68. UA from 04/02 1+ ketones, positive nitrate, 1+ leukocyte esterase, 21-50 WBC, 4+ bacteria. Abdomen pelvis CT on 04/02 red indeterminate left adrenal node, left lower lobe airspace opacity, and chronic diverticulosis without diverticulitis. There is no mention of constipation on the radiology report however on my interpretation there is moderate stool burden throughout the colon with gaseous distension. Abdomen pelvis CT today reads moderate to large amount of stool in the rectal vault, bibasilar atelectasis or infiltrative changes in the bases. Chest x-ray with no definite abnormality. patient with chronic constipation was given enema which did help and getting Miralax will add colace, patient also recurrent UTI was recently treated with Augmentin, patient is being treated with ceftriaxone, patient clincal symptoms are improving stats feeling better compared when she arrived, her daughter is present, gave updates. Review of Systems Review of Systems: All systems reviewed & are unremarkable except as noted in HPI and below Exam Narrative: Patient is comfortable, NAD HEENT: eyes are clear and none icteric LUNGS:CTA HEART: RR S1S2 ABD: BS+, Soft and nontender Lower extremities: no edema SKIN: nonjaundiced Neuro: grossly intact. Objective Data Vital Signs Vital Signs: Vital Signs - 24 hr 04/10/25 14:45 04/10/25 14:47 04/10/25 17:14 Temperature Pulse Rate 87 86 92 Respiratory Rate 17 18 14 Blood Pressure 133/74 Pulse Oximetry 95 97 97 Oxygen Delivery Oxygen Flow Rate 04/10/25 19:45 04/10/25 21:55 04/10/25 23:10 Temperature 36.7 C Pulse Rate 96 91 96 Respiratory Rate 21 H 18 21 H Blood Pressure 165/77 H Pulse Oximetry 93 91 93 Oxygen Delivery Nasal Cannula BiPAP Oxygen Flow Rate 4 04/11/25 05:27 04/11/25 07:43 04/11/25 08:00 Temperature 36.4 C L Pulse Rate 78 Respiratory Rate 18 Blood Pressure 156/76 H Pulse Oximetry 96 94 92 Oxygen Delivery Nasal Cannula Nasal Cannula Oxygen Flow Rate 4 4 04/11/25 14:00 Temperature 36.0 C L Pulse Rate 104 H Respiratory Rate 18 Blood Pressure 133/62 Pulse Oximetry 94 Oxygen Delivery Oxygen Flow Rate Intake/Output Intake/Output: Intake & Output 04/08/25 04/09/25 04/10/25 04/11/25 23:59 23:59 23:59 23:59 Intake Total 1050 1390 Balance 1050 1390 Meds/Results Medications: Active Medications Generic Name Dose Route Start Last Admin Trade Name Freq PRN Reason Stop Dose Admin Acetaminophen 650 mg 04/10/25 23:34 Acetaminophen 325 Mg Tablet PO Q6H PRN Mild Pain (1-3) or Fever Albuterol 2.5 mg 04/10/25 19:08 Albuterol Sulfate Neb 2.5 Mg/3 Ml Inh INHALATION Q4HRT PRN Shortness Of Breath Or Wheezing Albuterol 2.5 mg 04/11/25 09:17 Albuterol Sulfate Neb 2.5 Mg/3 Ml Inh INHALATION Q4-6H PRN Shortness Of Breath Or Wheezing Albuterol 2 puff 04/11/25 09:17 Albuterol Sulfate (*Sp) Aerosol 1 Puff INHALATION Q4-6H PRN Shortness Of Breath Or Wheezing Alprazolam 0.25 mg 04/10/25 19:02 04/11/25 10:20 Alprazolam (*Crx) 0.25 Mg Tablet PO 0.25 mg TID PRN Administration Anxiety Enoxaparin Sodium 40 mg 04/10/25 21:00 04/10/25 21:14 Enoxaparin 40 Mg/0.4 Ml Syringe SUB-Q 40 mg HS FELICIA Administration Fluticasone/Umeclidinium/Vilanterol 1 puff 04/11/25 09:00 04/11/25 07:40 Fluticasone/Umeclidin/Vilanter 100-62.5-25 Mcg Ellipta INHALATION Not Given DAILY FELICIA Furosemide 20 mg 04/11/25 09:00 Furosemide 20 Mg Tablet BY MOUTH On Hold: 04/11/25 09:00 DAILY FELICIA Sodium Chloride 1,000 mls @ 75 mls/hr 04/10/25 19:10 04/11/25 10:27 Normal Saline Iv IV CONT 75 mls/hr .[id number] FELICIA Administration Ceftriaxone Sodium 1 gm/ 50 mls @ 100 mls/hr 04/11/25 14:00 Sodium Chloride IVPB Q24H FELICIA Losartan Potassium 100 mg 04/11/25 09:00 04/11/25 08:39 Losartan Potassium 100 Mg Tablet BY MOUTH 100 mg DAILY FELICIA Administration Miscellaneous Information 1 each 04/11/25 00:01 Albutrol Hfa And Neb Have Duplicate Prn Indications. Please D/C One. XX 05/11/25 00:00 CLARIFY [facility] Miscellaneous Information 1 each 04/11/25 00:01 Ensifentrine Nonformulary. Can Patient Use From Home Or Hold Till Discharge? XX 05/11/25 00:00 CLARIFY [facility] Morphine Sulfate 2 mg 04/10/25 14:50 04/11/25 10:20 Morphine Sulfate (*Crx) 4 Mg/Ml Inj IV PUSH 2 mg Q4H PRN Administration Pain Rated 7-10 Multivitamins/Minerals 1 tablet 04/11/25 17:00 Opti-Gen Tab PO BID [facility] Nifedipine 30 mg 04/11/25 09:00 04/11/25 08:39 Nifedipine 30 Mg Tab.Er.24 PO 30 mg DAILY [facility] Administration Non-Formulary Medication 2.5 ml 04/11/25 17:00 Ensifentrine [Ohtuvayre] INHALATION 05/11/25 16:59 BID [facility] Ondansetron HCl 4 mg 04/10/25 14:50 Ondansetron Inj 4 Mg/2 Ml Vial IV PUSH Q6H PRN Nausea And Vomiting Pantoprazole Sodium 40 mg 04/10/25 19:15 04/11/25 08:39 Pantoprazole 40 Mg Tablet PO 40 mg BID FELICIA Administration Polyethylene Glycol 17 gm 04/11/25 09:00 04/11/25 08:39 Polyethylene Glycol 3350 17 Gm Powd.Pack PO 17 gm QAM [facility] Administration Prednisone 2.5 mg 04/11/25 09:00 04/11/25 08:38 Prednisone 2.5 Mg Tablet PO 2.5 mg DAILY FELICIA Administration Sertraline HCl 100 mg 04/11/25 09:00 04/11/25 08:39 Sertraline Hcl 50 Mg Tablet PO 100 mg DAILY [facility] Administration Ursodiol 300 mg 04/10/25 19:05 04/11/25 08:39 Ursodiol 300 Mg Capsule BY MOUTH 300 mg BID FELICIA Administration Radiology Results: ITS Impressions Abdomen/Pelvis CT 04/10/25 13:31 IMPRESSION: 1. Directed noncontrast exam demonstrating no acute surgical abnormality. 2. Moderate to large amount of stool in the rectal vault region. 3. Bibasilar atelectatic or infiltrative changes in the visualized lung bases. 4. Several chronic appearing findings as above. Chest X-Ray 04/10/25 14:13 IMPRESSION: 1. No definite abnormality given portable technique. Labs Labs: Laboratory Results - last 24 hr 04/11/25 06:09 WBC 8.2 RBC 4.28 Hgb 11.0 L Hct 37.7 MCV 88.1 MCH 25.7 L MCHC 29.2 L RDW 15.8 H Plt Count 198 MPV 10.7 H Immature Gran % (Auto) 0.4 Neut % (Auto) 76.9 H Lymph % (Auto) 11.8 L [place] % (Auto) 7.1 Eos % (Auto) 3.1 Baso % (Auto) 0.7 Lymph # (Auto) 0.96 [place] # (Auto) 0.6 Eos # (Auto) 0.3 Baso # (Auto) 0.1 Abs Immat Gran (auto) 0.03 Absolute Neuts (auto) 6.3 Absolute Nucleated RBC 0.000 Band Neutrophils % Not Reportable Nucleated RBC % 0.0 Platelet Estimate Adequate Large Platelets Present Hypochromasia 1+ Anisocytosis Occasional Ovalocytes 1+ Maura Cells Not Reportable Schistocytes None seen Sodium 136 L Potassium 3.7 Chloride 99 Carbon Dioxide 34 H Anion Gap 3 L BUN 13 Creatinine 0.71 Estim Creat Clear Calc 43 Estimated GFR > 60 Glucose 79 Calcium 8.4 Quality VTE Prophylaxis VTE prophylaxis: pharmacologic ordered
[2025-04-11] MEDS: OPTI-GEN TAB 1 TABLET PO (16:45)
[2025-04-11] MEDS: cefTRIAXone 1 GM in SODIUM CHLORIDE 0.9% IV 50 ML 100 ML IVPB (16:45)
[2025-04-11] MEDS: ENOXAPARIN 40 MG/0.4 ML SYRINGE SUB-Q (20:14)
[2025-04-11] MEDS: ALBUTEROL SULFATE NEB 2.5 MG/3 ML INH INHALATION (20:51)
[2025-04-12] VITALS (8 sets, daily range): BP systolic 149–163; BP diastolic 61–69; PULSE 80–105; RESP 18–22; TEMP 35.9–37.1; O2SAT 93–98
[2025-04-12] MEDS: ONDANSETRON INJ 4 MG/2 ML VIAL IV PUSH (01:37)
[2025-04-12] MEDS: MORPHINE SULFATE (*CRX) 4 MG/ML INJ 2 MG IV PUSH ×2 (01:39→09:21)
[2025-04-12 06:10] LABS: Hematocrit 36.7 % (37.0-47.0); Hemoglobin 10.8 g/dL (12.0-15.0); Mean Corpuscular HGB Conc 29.4 g/dl (32-36); Mean Corpuscular Hemoglobin 25.7 pg (26-34); Mean Corpuscular Volume 87.4 fl (80-100); Platelet Count Result 209 k/mm3 (150-375); Red Blood Count 4.20 M/mm3 (4.2-5.4); White Blood Count 7.3 K/mm3 (4.5-10.0)
[2025-04-12 06:34] LABS: Anion Gap 1 mmol/L (4-12); Blood Urea Nitrogen 11 mg/dL (7-17); Calcium 8.4 mg/dL (8.4-10.2); Carbon Dioxide 36 mmol/L (22-30); Chloride 100 mmol/L (98-107); Estimated CRCL calculation 43 ml/min; Estimated Glomerular Filt Rate > 60; Glucose 95 mg/dL (65-110); Magnesium 1.9 mg/dL (1.6-2.3); Potassium 3.9 mmol/L (3.4-5.0); Sodium 137 mmol/L (137-145)
[2025-04-12] MEDS: OPTI-GEN TAB 1 TABLET PO ×2 (09:16→16:39)
[2025-04-12] MEDS: PANTOPRAZOLE 40 MG TABLET PO ×2 (09:16→16:39)
[2025-04-12] MEDS: SERTRALINE HCL 50 MG TABLET 100 MG PO (09:16)
[2025-04-12] MEDS: LOSARTAN POTASSIUM 100 MG TABLET BY MOUTH (09:16)
[2025-04-12] MEDS: FLUTICASONE/UMECLIDIN/VILANTER 100-62.5-25 MCG ELLIPTA 1 PUFF INHALATION (12:37)
[2025-04-12] MEDS: ACETAMINOPHEN 325 MG TABLET 650 MG PO (12:38)
[2025-04-12] MEDS: cefTRIAXone 1 GM in SODIUM CHLORIDE 0.9% IV 50 ML 100 ML IVPB (14:33)
--- NOTE | 2025-04-12 15:12 | PM.IMPN2 ---
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 Sleeping in her recliner for the past 10 days for easier access to the bathroom but has not been using her BiPAP due to this. ABG with hypercarbia. Patient placed on BiPAP for a few hours in the ED to help her blow off CO2. - albuterol nebulizer p.r.n.. Home inhaler not available (Ohtuvmykelre), family bringing from home. Schedule duonebs for now - continue home O2 of 4.5 L during day. BiPAP at night - continued prednisone 2.5 mg daily (2) UTI (urinary tract infection): Qualifiers: Hematuria presence: without hematuria Urinary tract infection type: acute cystitis Qualified Code(s): N30.00 - Acute cystitis without hematuria Code(s): N39.0 - Urinary tract infection, site not specified Status: Acute Assessment and Plan: Patient initially diagnosed with UTI on 04/02 and prescribed Augmentin. - UA from 04/02 1+ ketones, positive nitrate, 1+ leukocyte esterase, 21-50 WBC, 4+ bacteria. - UC grew E coli resistant to Augmentin - started on Ceftriaxone 04/10-04/13 (3) Constipation: Qualifiers: Constipation type: unspecified constipation type Qualified Code(s): K59.00 - Constipation, unspecified Code(s): K59.00 - Constipation, unspecified Status: Acute Assessment and Plan: Stool burden noted on initial CT on 04/02. Redemonstrated on today's imaging. -soapsuds enema x1. only a small BM and liquid --Repeat soapsuds enema --Bisacodyl suppository BID --Miralax 2 packets q2 x3 --Change to full liquid diet until able to have a BM (4) Nausea vomiting and diarrhea: Code(s): R11.2 - Nausea with vomiting, unspecified; R19.7 - Diarrhea, unspecified Status: Acute Assessment and Plan: Nausea and vomiting for the past 10 days. Likely related to a combination of constipation, UTI. -normal saline at 75 started on 04/10--stop since drinking fluids, risk for fluid overload -monitor fluid status, respiratory status -hold home Lasix for now -Zofran p.r.n. (5) Essential (primary) hypertension: Code(s): I10 - Essential (primary) hypertension Status: Chronic Assessment and Plan: Continue losartan, nifedipine Plan patient with chronic constipation was given enema which did help and getting Miralax will add colace, patient also recurrent UTI was recently treated with Augmentin, patient is being treated with ceftriaxone, patient clincal symptoms are improving stats feeling better compared when she arrived, her daughter is present, gave updates. 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 Nauseated this morning, no vomiting. Only had a small BM last night Start miralax q2 x3. Bisacodyl q12 x2, repeat soap suds enema. Low threshhold to repeat imaging. Change to full liquid diet Stop fluids. Schedule nebs q6 Exam Narrative: General - Awake and alert. No acute distress Eyes - PERRLA, EOM intact ENT - No thrush, No erythema Neck - No noticeable or palpable swelling Lymph Nodes - No lymphadenopathy Cardiovascular - RRR no m/r/g, no JVD Lungs: Rare expiratory wheezes Skin - Skin warm and dry, no wounds or rashes Abdomen - Normal bowel sounds, abdomen soft, tender bilaterally Extremities - No edema, cyanosis or clubbing Musculoskeletal - 5/5 strength, normal range of motion, no swollen or erythematous joints. Neurological ? Alert and oriented x 3, CN 2-12 grossly intact. Psych: Normal mood and affect Objective Data Vital Signs Vital Signs: Vital Signs - 24 hr 04/11/25 20:00 04/11/25 20:35 04/11/25 20:52 Temperature 97.4 F L Pulse Rate 92 93 Respiratory Rate 16 22 H Blood Pressure 140/57 L Pulse Oximetry 94 88 L Oxygen Delivery Nasal Cannula Oxygen Flow Rate 4 04/11/25 20:59 04/11/25 21:04 04/11/25 22:22 Temperature Pulse Rate 91 70 Respiratory Rate 20 26 H Blood Pressure Pulse Oximetry 92 95 Oxygen Delivery Nasal Cannula BiPAP Oxygen Flow Rate 4 04/12/25 06:00 04/12/25 09:15 Temperature 97.8 F Pulse Rate 84 Respiratory Rate 18 Blood Pressure 149/61 H Pulse Oximetry 98 95 Oxygen Delivery Nasal Cannula Oxygen Flow Rate 4 Intake/Output Intake/Output: Intake & Output 04/09/25 04/10/25 04/11/25 04/12/25 23:59 23:59 23:59 23:59 Intake Total 1050 3280 287 Balance 1050 3280 287 Meds/Results Medications: Active Medications Generic Name Dose Route Start Last Admin Trade Name Freq PRN Reason Stop Dose Admin Acetaminophen 650 mg 04/10/25 23:34 04/12/25 12:38 Acetaminophen 325 Mg Tablet PO 650 mg Q6H PRN Administration Mild Pain (1-3) or Fever Albuterol 2.5 mg 04/11/25 09:17 Albuterol Sulfate Neb 2.5 Mg/3 Ml Inh INHALATION Q4-6H PRN Shortness Of Breath Or Wheezing Albuterol 2 puff 04/11/25 09:17 Albuterol Sulfate (*Sp) Aerosol 1 Puff INHALATION Q4-6H PRN Shortness Of Breath Or Wheezing Alprazolam 0.25 mg 04/10/25 19:02 04/11/25 19:57 Alprazolam (*Crx) 0.25 Mg Tablet PO 0.25 mg TID PRN Administration Anxiety Enoxaparin Sodium 40 mg 04/10/25 21:00 04/11/25 20:14 Enoxaparin 40 Mg/0.4 Ml Syringe SUB-Q 40 mg HS FELICIA Administration Fluticasone/Umeclidinium/Vilanterol 1 puff 04/12/25 11:55 04/12/25 12:37 Fluticasone/Umeclidin/Vilanter 100-62.5-25 Mcg Ellipta INHALATION 1 puff DAILYRT FELICIA Administration Furosemide 20 mg 04/11/25 09:00 Furosemide 20 Mg Tablet BY MOUTH On Hold: 04/11/25 09:00 DAILY FELICIA Sodium Chloride 1,000 mls @ 75 mls/hr 04/10/25 19:10 04/11/25 23:47 Normal Saline Iv IV CONT 75 mls/hr .[id number] FELICIA Administration Ceftriaxone Sodium 1 gm/ 50 mls @ 100 mls/hr 04/11/25 14:00 04/12/25 14:33 Sodium Chloride IVPB 100 mls/hr Q24H FELICIA Administration Losartan Potassium 100 mg 04/11/25 09:00 04/12/25 09:16 Losartan Potassium 100 Mg Tablet BY MOUTH 100 mg DAILY FELICIA Administration Miscellaneous Information 1 each 04/11/25 00:01 Ensifentrine Nonformulary. Can Patient Use From Home Or Hold Till Discharge? XX 05/11/25 00:00 CLARIFY FELICIA Morphine Sulfate 2 mg 04/10/25 14:50 04/12/25 09:21 Morphine Sulfate (*Crx) 4 Mg/Ml Inj IV PUSH 2 mg Q4H PRN Administration Pain Rated 7-10 Multivitamins/Minerals 1 tablet 04/11/25 17:00 04/12/25 09:16 Opti-Gen Tab PO 1 tablet BID FELICIA Administration Nifedipine 30 mg 04/11/25 09:00 04/12/25 09:16 Nifedipine 30 Mg Tab.Er.24 PO 30 mg DAILY FELICIA Administration Non-Formulary Medication 2.5 ml 04/11/25 17:00 Ensifentrine [Ohtuvayre] INHALATION 05/11/25 16:59 BID FELICIA Ondansetron HCl 4 mg 04/10/25 14:50 04/12/25 01:37 Ondansetron Inj 4 Mg/2 Ml Vial IV PUSH 4 mg Q6H PRN Administration Nausea And Vomiting Pantoprazole Sodium 40 mg 04/10/25 19:15 04/12/25 09:16 Pantoprazole 40 Mg Tablet PO 40 mg BID FELICIA Administration Polyethylene Glycol 17 gm 04/11/25 09:00 04/12/25 09:16 Polyethylene Glycol 3350 17 Gm Powd.Pack PO 17 gm QAM FELICIA Administration Prednisone 2.5 mg 04/11/25 09:00 04/12/25 09:16 Prednisone 2.5 Mg Tablet PO 2.5 mg DAILY FELICIA Administration Sertraline HCl 100 mg 04/11/25 09:00 04/12/25 09:16 Sertraline Hcl 50 Mg Tablet PO 100 mg DAILY FELICIA Administration Ursodiol 300 mg 04/10/25 19:05 04/12/25 09:16 Ursodiol 300 Mg Capsule BY MOUTH 300 mg BID FELICIA Administration Radiology Results: ITS Impressions Abdomen/Pelvis CT 04/10/25 13:31 IMPRESSION: 1. Directed noncontrast exam demonstrating no acute surgical abnormality. 2. Moderate to large amount of stool in the rectal vault region. 3. Bibasilar atelectatic or infiltrative changes in the visualized lung bases. 4. Several chronic appearing findings as above. Chest X-Ray 04/10/25 14:13 IMPRESSION: 1. No definite abnormality given portable technique. Labs Labs: Laboratory Results - last 24 hr 04/12/25 05:49 WBC 7.3 RBC 4.20 Hgb 10.8 L Hct 36.7 L MCV 87.4 MCH 25.7 L MCHC 29.4 L RDW 15.5 H Plt Count 209 MPV 11.0 H Sodium 137 Potassium 3.9 Chloride 100 Carbon Dioxide 36 H Anion Gap 1 L BUN 11 Creatinine 0.71 Estim Creat Clear Calc 43 Estimated GFR > 60 Glucose 95 Calcium 8.4 Magnesium 1.9 Quality VTE Prophylaxis VTE prophylaxis: pharmacologic ordered Hospitalist [facility] Advance Care Plan I have confirmed that the patient's Advanced Care Plan is present, code status is documented, or surrogate decision maker is listed in patient medical record.: Yes Medication Reconciliation I have utilized all available resources to obtain, update and review the patients current medications (includes all prescriptions, OTC, herbals, cannabis, and nutritional supplements).: Yes
--- NOTE | 2025-04-12 18:15 | PHAR ---
home med verified ensifentrine 3mg/2.5ml inhale 2.5ml bid
[2025-04-12] MEDS: IPRATROPIUM 0.5 MG/ALBUTEROL SULFATE 2.5 MG (BASE) AMPUL.NEB 3 ML INHALATION (20:13)
[2025-04-12] MEDS: ENOXAPARIN 40 MG/0.4 ML SYRINGE SUB-Q (20:30)
[2025-04-12] MEDS: ALPRAZolam (*CRX) 0.25 MG TABLET PO (20:30)
[2025-04-13] VITALS (14 sets, daily range): BP systolic 152–162; BP diastolic 62–73; PULSE 88–111; RESP 16–20; TEMP 36.4–36.6; O2SAT 90–98
[2025-04-13] MEDS: IPRATROPIUM 0.5 MG/ALBUTEROL SULFATE 2.5 MG (BASE) AMPUL.NEB 3 ML INHALATION ×2 (02:27→08:05)
[2025-04-13] MEDS: ACETAMINOPHEN 325 MG TABLET 650 MG PO ×3 (03:12→20:32)
[2025-04-13 06:42] LABS: Hematocrit 35.7 % (37.0-47.0); Hemoglobin 10.8 g/dL (12.0-15.0); Mean Corpuscular HGB Conc 30.3 g/dl (32-36); Mean Corpuscular Hemoglobin 26.3 pg (26-34); Mean Corpuscular Volume 87.1 fl (80-100); Platelet Count Result 207 k/mm3 (150-375); Red Blood Count 4.10 M/mm3 (4.2-5.4); White Blood Count 6.5 K/mm3 (4.5-10.0)
[2025-04-13 07:29] LABS: Blood Urea Nitrogen 6 mg/dL (7-17); Calcium 9.1 mg/dL (8.4-10.2); Carbon Dioxide > 40 mmol/L (22-30); Chloride 96 mmol/L (98-107); Estimated CRCL calculation 45 ml/min; Estimated Glomerular Filt Rate > 60; Glucose 108 mg/dL (65-110); Magnesium 1.8 mg/dL (1.6-2.3); Potassium 3.7 mmol/L (3.4-5.0); Sodium 136 mmol/L (137-145)
[2025-04-13] MEDS: FLUTICASONE/UMECLIDIN/VILANTER 100-62.5-25 MCG ELLIPTA 1 PUFF INHALATION (08:06)
[2025-04-13] MEDS: SERTRALINE HCL 50 MG TABLET 100 MG PO (08:18)
[2025-04-13] MEDS: PANTOPRAZOLE 40 MG TABLET PO ×2 (08:19→16:38)
[2025-04-13] MEDS: LOSARTAN POTASSIUM 100 MG TABLET BY MOUTH (08:19)
[2025-04-13] MEDS: OPTI-GEN TAB 1 TABLET PO ×2 (08:19→16:38)
[2025-04-13] MEDS: ALPRAZolam (*CRX) 0.25 MG TABLET PO ×2 (08:46→16:41)
--- NOTE | 2025-04-13 10:26 | P.PNIM_ITS ---
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 Sleeping in her recliner for the past 10 days for easier access to the bathroom but has not been using her BiPAP due to this. ABG with hypercarbia. Patient placed on BiPAP for a few hours in the ED for acute respiratory failure with hypoxia/hypercarbia - Home inhaler not available (Ohtuvayre), family brought from home overnight. Scheduled BID --Change duonebs to atrovent TID, change albuterol to prn for mild tachycardia, tremors this morning - continue home O2 of 4.5 L during day. BiPAP at night. Check VBG in AM - continued prednisone 2.5 mg daily --Follows with pulmonary, Dr. Mack/Josy BAINS If worsening, consider consult --Resume home lasix 20mg po daily today --Chest x-ray today (2) UTI (urinary tract infection): Qualifiers: Hematuria presence: without hematuria Urinary tract infection type: acute cystitis Qualified Code(s): N30.00 - Acute cystitis without hematuria Code(s): N39.0 - Urinary tract infection, site not specified Status: Acute Assessment and Plan: Patient initially diagnosed with UTI on 04/02 and prescribed Augmentin. - UA from 04/02 1+ ketones, positive nitrate, 1+ leukocyte esterase, 21-50 WBC, 4+ bacteria. - UC grew E coli resistant to Augmentin - started on Ceftriaxone 04/10-04/13. Last dose today. Not reporting dysuria today. Had irritation from purewick yesterday (3) Constipation: Qualifiers: Constipation type: unspecified constipation type Qualified Code(s): K59.00 - Constipation, unspecified Code(s): K59.00 - Constipation, unspecified Status: Acute Assessment and Plan: Possible chronic constipation, she reports frequent watery stools which could be overflow Stool burden noted on initial CT on 04/02, also noted on CT 04/10. Check KUB today s/p soapsuds enema x2 04/11 & 04/12. Had several small BM's. s/p 3 packs of miralax 04/12 Declined bisacodyl suppositories. Large soft stool 04/13. Nausea resolved, abdominal pain resolving --Schedule miralax TID x1 day, then BID. Schedule Senna BID --Changed to full liquid diet 04/13. Likely resume regular diet later today or tomorrow --KUB today --Follow up with PCP, could consider GI follow up (4) Nausea vomiting and diarrhea: Code(s): R11.2 - Nausea with vomiting, unspecified; R19.7 - Diarrhea, unspecified Status: Acute Assessment and Plan: Nausea and vomiting for the past 10 days. Likely related to a combination of constipation, UTI. Nausea resolved. No vomiting overnight -normal saline at 75 started on 04/10--stopped 04/12 since drinking fluids, risk for fluid overload -monitor fluid status, respiratory status -resume home Lasix 20mg daily today -Estela p.r.nLynda (5) Essential (primary) hypertension: Code(s): I10 - Essential (primary) hypertension Status: Chronic Assessment and Plan: Continue losartan, nifedipine Plan patient with chronic constipation was given enema which did help and getting Miralax will add colace, patient also recurrent UTI was recently treated with Augmentin, patient is being treated with ceftriaxone, patient clincal symptoms are improving stats feeling better compared when she arrived, her daughter is present, gave updates. 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 Abdominal pain resolved to right abdomen, was having pain to left abdomen but improved after she had a large soft BM today CO2 elevated >40 on BMP overnight. Wore CPAP part of the night, interrupted for a breathing treatment, which she feels has been helping. Feeling more short of breath with exertion today but not wheezing. Slightly tachycardic on exam, mild tremors. Family was able to bring in home nebulizer medication (ensifentrine 3mg/2.5mg) BID. Change albuterol to prn in case contributing to tachycardia Review of Systems Review of Systems: All systems reviewed & are unremarkable except as noted in HPI and below Exam Narrative: General - Awake and alert. No acute distress Eyes - PERRLA, EOM intact ENT - No thrush, No erythema Neck - No noticeable or palpable swelling Lymph Nodes - No lymphadenopathy Cardiovascular - RRR no m/r/g, no JVD Lungs: Decreased, no wheezing Skin - Skin warm and dry, no wounds or rashes Abdomen - Normal bowel sounds, abdomen soft, minimal discomfort to left abdomen Extremities - No edema, cyanosis or clubbing Musculoskeletal - 5/5 strength, normal range of motion, no swollen or erythematous joints. Neurological ? Alert and oriented x 3, CN 2-12 grossly intact. Psych: Normal mood and affect Objective Data Vital Signs Vital Signs: Vital Signs - 24 hr 04/12/25 14:00 04/12/25 19:55 04/12/25 20:15 Temperature 96.6 F L 98.7 F Pulse Rate 105 H 100 93 Respiratory Rate 18 18 22 H Blood Pressure 163/66 H 150/69 H Pulse Oximetry 95 93 Oxygen Delivery Oxygen Flow Rate 04/12/25 20:19 04/12/25 20:24 04/12/25 22:45 Temperature Pulse Rate 93 93 80 Respiratory Rate 20 18 Blood Pressure Pulse Oximetry 93 95 Oxygen Delivery Nasal Cannula BiPAP Oxygen Flow Rate 4 04/13/25 02:28 04/13/25 02:36 04/13/25 05:42 Temperature 97.8 F Pulse Rate 92 91 88 Respiratory Rate 20 20 17 Blood Pressure 161/73 H Pulse Oximetry 98 Oxygen Delivery Oxygen Flow Rate 04/13/25 08:08 04/13/25 08:08 04/13/25 08:20 Temperature Pulse Rate 94 94 94 Respiratory Rate 20 20 Blood Pressure Pulse Oximetry 92 94 Oxygen Delivery Nasal Cannula Nasal Cannula Oxygen Flow Rate 4 4 Intake/Output Intake/Output: Intake & Output 04/10/25 04/11/25 04/12/25 04/13/25 23:59 23:59 23:59 23:59 Intake Total 1050 3280 1467 824 Balance 1050 3280 1467 824 Meds/Results Medications: Active Medications Generic Name Dose Route Start Last Admin Trade Name Freq PRN Reason Stop Dose Admin Acetaminophen 650 mg 04/10/25 23:34 04/13/25 03:12 Acetaminophen 325 Mg Tablet PO 650 mg Q6H PRN Administration Mild Pain (1-3) or Fever Albuterol 2 puff 04/11/25 09:17 Albuterol Sulfate (*Sp) Aerosol 1 Puff INHALATION Q4-6H PRN Shortness Of Breath Or Wheezing Albuterol/Ipratropium 3 ml 04/12/25 20:00 04/13/25 08:05 Ipratropium 0.5 Mg/Albuterol Sulfate 2.5 Mg (Base) Ampul.Neb 3 Ml INHALATION 3 ml Q6HRT FELICIA Administration Alprazolam 0.25 mg 04/10/25 19:02 04/13/25 08:46 Alprazolam (*Crx) 0.25 Mg Tablet PO 0.25 mg TID PRN Administration Anxiety Bisacodyl 10 mg 04/12/25 21:00 04/13/25 08:51 Bisacodyl 10 Mg Suppository RECTAL 04/14/25 09:01 Not Given Q12HR FELICIA Enoxaparin Sodium 40 mg 04/10/25 21:00 04/12/25 20:30 Enoxaparin 40 Mg/0.4 Ml Syringe SUB-Q 40 mg HS FELICIA Administration Fluticasone/Umeclidinium/Vilanterol 1 puff 04/12/25 11:55 04/13/25 08:06 Fluticasone/Umeclidin/Vilanter 100-62.5-25 Mcg Ellipta INHALATION 1 puff DAILYRT FELICIA Administration Furosemide 20 mg 04/11/25 09:00 Furosemide 20 Mg Tablet BY MOUTH On Hold: 04/11/25 09:00 DAILY FELICIA Ceftriaxone Sodium 1 gm/ 50 mls @ 100 mls/hr 04/11/25 14:00 04/12/25 15:03 Sodium Chloride IVPB 04/13/25 14:29 Infused Q24H FELICIA Infusion Losartan Potassium 100 mg 04/11/25 09:00 04/13/25 08:19 Losartan Potassium 100 Mg Tablet BY MOUTH 100 mg DAILY FELICIA Administration Morphine Sulfate 2 mg 04/10/25 14:50 04/12/25 09:21 Morphine Sulfate (*Crx) 4 Mg/Ml Inj IV PUSH 2 mg Q4H PRN Administration Pain Rated 7-10 Multivitamins/Minerals 1 tablet 04/11/25 17:00 04/13/25 08:19 Opti-Gen Tab PO 1 tablet BID FELICIA Administration Nifedipine 30 mg 04/11/25 09:00 04/13/25 08:19 Nifedipine 30 Mg Tab.Er.24 PO 30 mg DAILY FELICIA Administration Home Med ( 2.5 ml 04/11/25 20:00 Ensifentrine [ INHALATION 05/11/25 19:59 Ohtuvayre] 3 Mg/2.5 Q12HRT FELICIA Ml Suspension For Nebulization) Ondansetron HCl 4 mg 04/10/25 14:50 04/12/25 01:37 Ondansetron Inj 4 Mg/2 Ml Vial IV PUSH 4 mg Q6H PRN Administration Nausea And Vomiting Pantoprazole Sodium 40 mg 04/10/25 19:15 04/13/25 08:19 Pantoprazole 40 Mg Tablet PO 40 mg BID FELICIA Administration Polyethylene Glycol 17 gm 04/11/25 09:00 04/13/25 08:19 Polyethylene Glycol 3350 17 Gm Powd.Pack PO 17 gm QAM FELICIA Administration Prednisone 2.5 mg 04/11/25 09:00 04/13/25 08:18 Prednisone 2.5 Mg Tablet PO 2.5 mg DAILY FELICIA Administration Sertraline HCl 100 mg 04/11/25 09:00 04/13/25 08:18 Sertraline Hcl 50 Mg Tablet PO 100 mg DAILY FELICIA Administration Ursodiol 300 mg 04/10/25 19:05 04/13/25 08:19 Ursodiol 300 Mg Capsule BY MOUTH 300 mg BID FELICIA Administration Radiology Results: ITS Impressions Abdomen/Pelvis CT 04/10/25 13:31 IMPRESSION: 1. Directed noncontrast exam demonstrating no acute surgical abnormality. 2. Moderate to large amount of stool in the rectal vault region. 3. Bibasilar atelectatic or infiltrative changes in the visualized lung bases. 4. Several chronic appearing findings as above. Chest X-Ray 04/10/25 14:13 IMPRESSION: 1. No definite abnormality given portable technique. Labs Labs: Laboratory Results - last 24 hr 04/13/25 06:13 WBC 6.5 RBC 4.10 L Hgb 10.8 L Hct 35.7 L MCV 87.1 MCH 26.3 MCHC 30.3 L RDW 15.5 H Plt Count 207 MPV 10.9 H Sodium 136 L Potassium 3.7 Chloride 96 L Carbon Dioxide > 40 H Anion Gap BUN 6 L D Creatinine 0.67 L Estim Creat Clear Calc 45 Estimated GFR > 60 Glucose 108 Calcium 9.1 Magnesium 1.8 Quality VTE Prophylaxis VTE prophylaxis: pharmacologic ordered Hospitalist MIPS Advance Care Plan I have confirmed that the patient's Advanced Care Plan is present, code status is documented, or surrogate decision maker is listed in patient medical record.: Yes Medication Reconciliation I have utilized all available resources to obtain, update and review the patients current medications (includes all prescriptions, OTC, herbals, cannabis, and nutritional supplements).: Yes
[2025-04-13] MEDS: cefTRIAXone 1 GM in SODIUM CHLORIDE 0.9% IV 50 ML 100 ML IVPB (13:37)
[2025-04-13] MEDS: IPRATROPIUM BR 0.02% INH SOLN 0.5 MG/2.5 ML VIAL INHALATION ×2 (14:38→19:37)
[2025-04-13] MEDS: SENNOSIDES 8.6 MG TABLET PO (16:39)
--- NOTE | 2025-04-13 19:51 | PCRCNOTE ---
Home med, Ohtuvayre, not given. Per patient a special nebulizer is required to administer medication. Patient was ok with only receiving duo neb.
[2025-04-13] MEDS: ENOXAPARIN 40 MG/0.4 ML SYRINGE SUB-Q (20:12)
[2025-04-13] MEDS: MORPHINE SULFATE (*CRX) 4 MG/ML INJ 2 MG IV PUSH (23:06)
[2025-04-14] VITALS (16 sets, daily range): BP systolic 127–161; BP diastolic 69–73; PULSE 89–109; RESP 12–20; TEMP 36.1–36.7; O2SAT 90–98
[2025-04-14] MEDS: ALPRAZolam (*CRX) 0.25 MG TABLET PO ×3 (00:14→20:37)
[2025-04-14 05:58] LABS: Fractional Inspired Oxygen 40 %; HCO3 VBG 40.2 mEq/l (24.0-30.0); PCO2 VBG 60.6 mmHg (42.0-48.0)
[2025-04-14 06:08] LABS: PO2 VBG < 27.0 mmHg (35.0-45.0); pH VBG 7.440 (7.300-7.400)
[2025-04-14 06:09] LABS: Liters per Minute 4.0 LPM
[2025-04-14 07:02] LABS: Hematocrit 39.2 % (37.0-47.0); Hemoglobin 11.7 g/dL (12.0-15.0); Mean Corpuscular HGB Conc 29.8 g/dl (32-36); Mean Corpuscular Hemoglobin 26.1 pg (26-34); Mean Corpuscular Volume 87.5 fl (80-100); Platelet Count Result 246 k/mm3 (150-375); Red Blood Count 4.48 M/mm3 (4.2-5.4); White Blood Count 7.5 K/mm3 (4.5-10.0)
[2025-04-14] MEDS: IPRATROPIUM BR 0.02% INH SOLN 0.5 MG/2.5 ML VIAL INHALATION ×2 (07:06→13:12)
[2025-04-14] MEDS: FLUTICASONE/UMECLIDIN/VILANTER 100-62.5-25 MCG ELLIPTA 1 PUFF INHALATION (07:14)
[2025-04-14 07:23] LABS: Blood Urea Nitrogen 5 mg/dL (7-17); Calcium 8.9 mg/dL (8.4-10.2); Carbon Dioxide > 40 mmol/L (22-30); Chloride 95 mmol/L (98-107); Estimated CRCL calculation 47 ml/min; Estimated Glomerular Filt Rate > 60; Glucose 87 mg/dL (65-110); Magnesium 1.8 mg/dL (1.6-2.3); Potassium 3.7 mmol/L (3.4-5.0); Sodium 139 mmol/L (137-145)
[2025-04-14] MEDS: SERTRALINE HCL 50 MG TABLET 100 MG PO (08:01)
[2025-04-14] MEDS: LOSARTAN POTASSIUM 100 MG TABLET BY MOUTH (08:01)
[2025-04-14] MEDS: FUROSEMIDE 20 MG TABLET BY MOUTH (08:01)
[2025-04-14] MEDS: PANTOPRAZOLE 40 MG TABLET PO ×2 (08:01→16:40)
[2025-04-14] MEDS: OPTI-GEN TAB 1 TABLET PO ×2 (08:01→16:40)
[2025-04-14] MEDS: SENNOSIDES 8.6 MG TABLET PO ×2 (08:02→16:40)
--- NOTE | 2025-04-14 09:54 | PM.IMPN2 ---
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 Sleeping in her recliner for the past 10 days for easier access to the bathroom but has not been using her BiPAP due to this. ABG with hypercarbia. Patient placed on BiPAP for a few hours in the ED for acute respiratory failure with hypoxia/hypercarbia - Home inhaler not available (Ohtuvayre), family brought from home overnight. Scheduled BID --Change duonebs to atrovent TID, change albuterol to prn for mild tachycardia, tremors this morning - continue home O2 of 4.5 L during day. BiPAP at night. Check VBG in AM - continued prednisone 2.5 mg daily --Follows with pulmonary, Dr. Mack/Josy BAINS If worsening, consider consult --Resume home lasix 20mg po daily today --Chest x-ray today (2) UTI (urinary tract infection): Qualifiers: Hematuria presence: without hematuria Urinary tract infection type: acute cystitis Qualified Code(s): N30.00 - Acute cystitis without hematuria Code(s): N39.0 - Urinary tract infection, site not specified Status: Acute Assessment and Plan: Patient initially diagnosed with UTI on 04/02 and prescribed Augmentin. - UA from 04/02 1+ ketones, positive nitrate, 1+ leukocyte esterase, 21-50 WBC, 4+ bacteria. - UC grew E coli resistant to Augmentin - started on Ceftriaxone 04/10-04/13. Last dose today. Not reporting dysuria today. Had irritation from purewick yesterday completed antibiotics (3) Constipation: Qualifiers: Constipation type: unspecified constipation type Qualified Code(s): K59.00 - Constipation, unspecified Code(s): K59.00 - Constipation, unspecified Status: Acute Assessment and Plan: Possible chronic constipation, she reports frequent watery stools which could be overflow Stool burden noted on initial CT on 04/02, also noted on CT 04/10. Check KUB today s/p soapsuds enema x2 04/11 & 04/12. Had several small BM's. s/p 3 packs of miralax 04/12 Declined bisacodyl suppositories. Large soft stool 04/13. Nausea resolved, abdominal pain resolving --Schedule miralax TID x1 day, then BID. Schedule Senna BID --Changed to full liquid diet 04/13. Likely resume regular diet later today or tomorrow --KUB today --Follow up with PCP, could consider GI follow up . (4) Nausea vomiting and diarrhea: Code(s): R11.2 - Nausea with vomiting, unspecified; R19.7 - Diarrhea, unspecified Status: Acute Assessment and Plan: Nausea and vomiting for the past 10 days. Likely related to a combination of constipation, UTI. Nausea resolved. No vomiting overnight -normal saline at 75 started on 04/10--stopped 04/12 since drinking fluids, risk for fluid overload -monitor fluid status, respiratory status -resume home Lasix 20mg daily today -Zofran p.r.n. KUB: Ileus versus early obstruction. pt abd exam is unremarkable but she is still c/o nausea. no vomiting. will consult surgery (5) Essential (primary) hypertension: Code(s): I10 - Essential (primary) hypertension Status: Chronic Assessment and Plan: Continue losartan, nifedipine Plan patient with chronic constipation was given enema which did help and getting Miralax will add colace, patient also recurrent UTI was recently treated with Augmentin, patient is being treated with ceftriaxone, patient clincal symptoms are improving stats feeling better compared when she arrived, her daughter is present, gave updates. Diet: Heart healthy DVT prophylaxis: Lovenox lines/drains: PIV Fluids: 1 L bolus in ED NS at 75 started on 04/10 Code status: Full Medical Record Review I have reviewed the following patient records and this information was taken into consideration when formulating the assessment and plan.: previous labs, previous hospitalizations and previous clinic visits Time Spent With Patient Time with patient: 25 - 35 minutes Subjective Date/time seen: 04/14/25 09:54 Interval history: On 4L O2 2 BM's yesterday but small amount after an enema. Abdominal pain resolved to right abdomen, was having pain to left abdomen but improved after she had a large soft BM today CO2 elevated >40 on BMP overnight. Wore CPAP part of the night, interrupted for a breathing treatment, which she feels has been helping. Feeling more short of breath with exertion today but not wheezing. Slightly tachycardic on exam, mild tremors. Family was able to bring in home nebulizer medication (ensifentrine 3mg/2.5mg) BID. Change albuterol to prn in case contributing to tachycardia 04/14 pt is seen and examined. She denies vomiting but reports nausea. no abd pain. breathing is the same- sob with any activity. Review of Systems Review of Systems: All systems reviewed & are unremarkable except as noted in HPI and below Exam Narrative: General - Awake and alert. No acute distress Eyes - PERRLA, EOM intact ENT - No thrush, No erythema Neck - No noticeable or palpable swelling Lymph Nodes - No lymphadenopathy Cardiovascular - RRR no m/r/g, no JVD Lungs: Decreased, no wheezing Skin - Skin warm and dry, no wounds or rashes Abdomen - Normal bowel sounds, abdomen soft, minimal discomfort to left abdomen Extremities - No edema, cyanosis or clubbing Musculoskeletal - 5/5 strength, normal range of motion, no swollen or erythematous joints. Neurological ? Alert and oriented x 3, CN 2-12 grossly intact. Psych: Normal mood and affect Objective Data Vital Signs Vital Signs: Vital Signs - 24 hr 04/13/25 14:00 04/13/25 14:40 04/13/25 14:40 Temperature 97.8 F Pulse Rate 110 H 106 H 106 H Respiratory Rate 16 20 20 Blood Pressure 152/62 H Pulse Oximetry 92 93 Oxygen Delivery Nasal Cannula Oxygen Flow Rate 4 Fraction of Inspired Oxygen 04/13/25 14:47 04/13/25 16:00 04/13/25 19:37 Temperature Pulse Rate 104 H 110 H 103 H Respiratory Rate 20 20 Blood Pressure Pulse Oximetry Oxygen Delivery Oxygen Flow Rate Fraction of Inspired Oxygen 04/13/25 19:43 04/13/25 19:59 04/13/25 20:00 Temperature Pulse Rate 103 H Respiratory Rate 20 20 Blood Pressure Pulse Oximetry 95 95 Oxygen Delivery Nasal Cannula Nasal Cannula Oxygen Flow Rate 4 4 Fraction of Inspired Oxygen 04/13/25 20:00 04/13/25 20:04 04/14/25 00:00 Temperature 97.6 F Pulse Rate 111 H 108 H 106 H Respiratory Rate 18 Blood Pressure 162/65 H Pulse Oximetry 90 Oxygen Delivery Oxygen Flow Rate Fraction of Inspired Oxygen 04/14/25 04:00 04/14/25 04:33 04/14/25 07:05 Temperature 96.9 F L Pulse Rate 92 89 94 Respiratory Rate 17 20 Blood Pressure 161/71 H Pulse Oximetry 96 98 Oxygen Delivery Nasal Cannula Oxygen Flow Rate 4 Fraction of Inspired Oxygen 36 04/14/25 07:07 04/14/25 07:14 04/14/25 08:00 Temperature Pulse Rate 98 97 Respiratory Rate 20 20 Blood Pressure Pulse Oximetry 97 Oxygen Delivery Nasal Cannula Oxygen Flow Rate 4 Fraction of Inspired Oxygen 04/14/25 08:00 Temperature Pulse Rate 97 Respiratory Rate Blood Pressure Pulse Oximetry Oxygen Delivery Oxygen Flow Rate Fraction of Inspired Oxygen Intake/Output Intake/Output: Intake & Output 04/11/25 04/12/25 04/13/25 04/14/25 23:59 23:59 23:59 23:59 Intake Total 3280 1467 1304 120 Balance 3280 1467 1304 120 Meds/Results Medications: Active Medications Generic Name Dose Route Start Last Admin Trade Name Freq PRN Reason Stop Dose Admin Acetaminophen 650 mg 04/10/25 23:34 04/13/25 20:32 Acetaminophen 325 Mg Tablet PO 650 mg Q6H PRN Administration Mild Pain (1-3) or Fever Albuterol 2 puff 04/11/25 09:17 Albuterol Sulfate (*Sp) Aerosol 1 Puff INHALATION Q4-6H PRN Shortness Of Breath Or Wheezing Albuterol 2.5 mg 04/13/25 13:21 Albuterol Sulfate Neb 2.5 Mg/3 Ml Inh INHALATION Q4HRT PRN Shortness Of Breath Alprazolam 0.25 mg 04/10/25 19:02 04/14/25 09:34 Alprazolam (*Crx) 0.25 Mg Tablet PO 0.25 mg TID PRN Administration Anxiety Enoxaparin Sodium 40 mg 04/10/25 21:00 04/13/25 20:12 Enoxaparin 40 Mg/0.4 Ml Syringe SUB-Q 40 mg HS FELICIA Administration Fluticasone/Umeclidinium/Vilanterol 1 puff 04/12/25 11:55 04/14/25 07:14 Fluticasone/Umeclidin/Vilanter 100-62.5-25 Mcg Ellipta INHALATION 1 puff DAILYRT FELICIA Administration Furosemide 20 mg 04/11/25 09:00 04/14/25 08:01 Furosemide 20 Mg Tablet BY MOUTH 20 mg DAILY FELICIA Administration Ipratropium [place] 0.5 mg 04/13/25 20:00 04/14/25 07:06 Ipratropium Br 0.02% Inh Soln 0.5 Mg/2.5 Ml Vial INHALATION 0.5 mg TID FELICIA Administration Losartan Potassium 100 mg 04/11/25 09:00 04/14/25 08:01 Losartan Potassium 100 Mg Tablet BY MOUTH 100 mg DAILY FELICIA Administration Morphine Sulfate 2 mg 04/10/25 14:50 04/13/25 23:06 Morphine Sulfate (*Crx) 4 Mg/Ml Inj IV PUSH 2 mg Q4H PRN Administration Pain Rated 7-10 Multivitamins/Minerals 1 tablet 04/11/25 17:00 04/14/25 08:01 Opti-Gen Tab PO 1 tablet BID FELICIA Administration Nifedipine 30 mg 04/11/25 09:00 04/14/25 08:02 Nifedipine 30 Mg Tab.Er.24 PO 30 mg DAILY FELICIA Administration Home Med ( 2.5 ml 04/11/25 20:00 04/13/25 19:50 Ensifentrine [ INHALATION 05/11/25 19:59 2.5 ml Ohtuvayre] 3 Mg/2.5 Q12HRT FELICIA Administration Ml Suspension For Nebulization) Ondansetron HCl 4 mg 04/10/25 14:50 04/12/25 01:37 Ondansetron Inj 4 Mg/2 Ml Vial IV PUSH 4 mg Q6H PRN Administration Nausea And Vomiting Pantoprazole Sodium 40 mg 04/10/25 19:15 04/14/25 08:01 Pantoprazole 40 Mg Tablet PO 40 mg BID FELICIA Administration Polyethylene Glycol 17 gm 04/14/25 21:00 Polyethylene Glycol 3350 17 Gm Powd.Pack PO BID FELICIA Prednisone 2.5 mg 04/11/25 09:00 04/14/25 08:01 Prednisone 2.5 Mg Tablet PO 2.5 mg DAILY FELICIA Administration Senna 8.6 mg 04/13/25 17:00 04/14/25 08:02 Sennosides 8.6 Mg Tablet PO 8.6 mg BID FELICIA Administration Sertraline HCl 100 mg 04/11/25 09:00 04/14/25 08:01 Sertraline Hcl 50 Mg Tablet PO 100 mg DAILY FELICIA Administration Ursodiol 300 mg 04/10/25 19:05 04/14/25 08:01 Ursodiol 300 Mg Capsule BY MOUTH 300 mg BID FELICIA Administration Radiology Results: ITS Impressions Abdomen/Pelvis CT 04/10/25 13:31 IMPRESSION: 1. Directed noncontrast exam demonstrating no acute surgical abnormality. 2. Moderate to large amount of stool in the rectal vault region. 3. Bibasilar atelectatic or infiltrative changes in the visualized lung bases. 4. Several chronic appearing findings as above. Chest X-Ray 04/13/25 14:04 Impression: CHF. Superimposed probable pneumonia. The findings are progressed compared to the previous exam. Abdomen X-Ray 04/13/25 14:05 Impression: 1. Ileus versus early obstruction. Labs Labs: Laboratory Results - last 24 hr 04/14/25 04/14/25 05:49 05:52 WBC 7.5 RBC 4.48 Hgb 11.7 L Hct 39.2 MCV 87.5 MCH 26.1 MCHC 29.8 L RDW 15.6 H Plt Count 246 MPV 11.2 H VBG pH 7.440 H* VBG pCO2 60.6 H VBG pO2 < 27.0 L VBG HCO3 40.2 H O2 Delivery Device Nasal cannula O2 Liters/Min 4.0 FiO2 40 Sodium 139 Potassium 3.7 Chloride 95 L Carbon Dioxide > 40 H Anion Gap BUN 5 L Creatinine 0.64 L Estim Creat Clear Calc 47 Estimated GFR > 60 Glucose 87 Calcium 8.9 Magnesium 1.8 Quality VTE Prophylaxis VTE prophylaxis: pharmacologic ordered
[2025-04-14] MEDS: MORPHINE SULFATE (*CRX) 4 MG/ML INJ 2 MG IV PUSH (13:07)
--- NOTE | 2025-04-14 14:36 | P.CONGS_ITS ---
Assessment and Plan Assessment and plan (1) Constipation: Qualifiers: Constipation type: unspecified constipation type Qualified Code(s): K 59.00 - Constipation, unspecified Code(s): K59.00 - Constipation, unspecified Status: Acute Assessment and Plan: * I reviewed the imaging and discussed the findings with the patient. She has been moving her bowels since admission, therefore bowel obstruction or ileus seems less likely. Will get a follow-up CT to see if there are any significant changes in the past 4 days. If this does not show obstruction then would simply recommend continuing bowel stimulation with no other surgical recommendations. (2) Abdominal pain: Code(s): R10.9 - Unspecified abdominal pain Status: Acute History of Present Illness Consult details Consult date: 04/14/25 Reason for consult: other (abnormal abdominal x-ray) Requesting physician: Jinny Triplett APRN Narrative: This is an 84-year-old woman who I am asked to see for findings of a possible obstruction on abdominal x-ray. She had presented to the emergency department on 04/10/2025 with abdominal pain. Her symptoms had started after starting antibiotics for a UTI. She also states that she has been having some abdominal pains off and on since . A CT in the emergency department was unremarkable other than a moderate to large amount of stool in the rectal vault. She was diagnosed with the UTI and admitted for further treatment. She has been moving her bowels but is not passing much flatus. She still continues to have some abdominal pain. Follow-up abdominal x-ray today showed possible small bowel obstruction versus ileus. Her only abdominal history is a hysterectomy many years ago. She has had a colonoscopy before but she states that has been many years as well. Review of Systems 2 Review of Systems: All systems reviewed & are unremarkable except as noted in HPI and below Eyes: Eyes: Denies change in vision ENT: Denies hearing loss, Denies neck pain and Denies sore throat Cardiovascular: Cardiovascular: Denies chest pain and Denies dyspnea Respiratory: Respiratory: Denies cough, Denies dyspnea and Denies wheezing Gastrointestinal: Gastrointestinal: Reports as per HPI Genitourinary: Genitourinary: Denies hematuria and Denies dysuria Musculoskeletal: Musculoskeletal: Denies arthralgias, Denies joint swelling and Denies neck pain Allergic/Immunologic: Allergic/Immunologic: Denies wheezing PMFSH Past Medical History Medical History (Reviewed 04/10/25 @ 09:39 by Zofia Fishman [facility]) 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 Obstructive sleep apnea treated with BiPAP Chronic obstructive pulmonary disease Chronic respiratory failure with hypoxia, on home oxygen therapy Compression fracture of body of thoracic vertebra Osteoporosis Hearing loss Anxiety Iron deficiency anemia Macular degeneration of both eyes Mixed hyperlipidemia Basal cell carcinoma (BCC) of left nasal sidewall Hypertension Surgical History Surgical History (Reviewed 04/10/25 @ 09:39 by Zofia Fishman [facility]) History of hysterectomy for benign disease 1974 History of bilateral cataract extraction History of carpal tunnel release History of repair of hip fracture (09/18/23) R subcapital femoral neck fracture, [facility] Family History Family History (Reviewed 04/10/25 @ 09:39 by Zofia Fishman [facility]) Sibling Diabetes mellitus Family history of cardiovascular disease Family history of coronary artery disease Father Family history of cardiovascular disease Family history of malignant neoplasm Family history of emphysema Mother Family history of cardiovascular disease Other Asthma Social History Social History (Reviewed 04/10/25 @ 09:39 by Zofia Fishman [facility]) Social History: Surrogate medical decision maker: Swati Lau, daughter. Code status: Full code. Smoking packs per day: 1 Smoking cigarettes per day: 20.0 Years smoked: 65 Smoking pack-years: 65.00 Smoking status: Former smoker Tobacco type: cigarettes Second hand tobacco smoke exposure: Yes Smoking end date: 07/31/22 Additional smoking assessment comments: Pt states she has one cigarette per month Alcohol intake: never Substance use: never Substance use type: does not use Lack of Transportation: No Lack of Food: Never True Current Housing: I Have Housing Concerned About Future Housing: No Difficulty Paying Gas/Electric Bills: No Difficulty Paying for Meds: No Currently Unemployed: No Education: High School Diploma/GED Difficulty w/ Childcare or Family Care: No Living arrangements: with family Additional living arrangements comments: daughter Occupation/Education: retired Gender identity (if verbalized by the patient): Female Sexual Orientation (if Verbalized by the Patient): Straight or Heterosexual Spiritual care concerns: No Agree to blood products: Yes Meds Home Medications and Allergies Home Medications ?Medication ?Instructions ?Recorded ?Confirmed ?Type vit C 250 mg-vit E 90 mg-zinc 40 1 cap PO BID 09/22/23 04/10/25 History mg-copper 1 [id number] capsule (PreserVision AREDS-2) albuterol sulfate 2.5 mg/3 mL 2.5 mg (3 mL) inhalation Q4-6H PRN 09/18/24 04/10/25 Rx (0.083 %) solution for nebulization shortness of breat h or wheezing #180 mL albuterol sulfate 90 mcg/actuation 1 - 2 puff inhalati on Q4-6H PRN 10/02/24 04/10/25 Rx aerosol inhaler shortness of breath or wheez ing #8.5 grams omeprazole 40 mg capsule,delayed See Rx Instructions . Route 10/12/24 04/10/25 Rx release .COMPLEX #90 caps ensifentrine 3 mg/2.5 mL 2.5 ml inhalation BID #150 m L 10/22/24 04/10/25 Rx suspension for nebulization (Ohtuvayre) fluticasone fur. 100 mcg-umeclid 1 inh inhalation KD Y #180 ea 10/22/24 04/10/25 Rx 62.5 mcg-vilant 25 mcg inhalat.powder (Trelegy Ellipta) losartan 100 mg tablet See Rx Instructions .Route 0 11/21/24 04/10/25 Rx .COMPLEX #90 tabs prednisone 5 mg tablet See Rx Instructions .Route 0 01/29/25 04/10/25 Rx .COMPLEX #30 tabs furosemide 20 mg tablet See Rx Instructions .Route 1 05/04/24 04/10/25 Rx .COMPLEX #90 tabs ursodiol 300 mg capsule See Rx Instructions .Route 1 05/26/24 04/10/25 Rx .COMPLEX #180 caps nifedipine 30 mg tablet,extended 30 mg PO DAILY #90 ta bs 04/01/25 04/10/25 Rx release 24 hr sertraline 100 mg tablet 100 mg PO DAILY #90 tabs 05/2604/10/25 Rx alprazolam 0.25 mg tablet 0.25 mg PO TID PRN Anxiety # 90 tabs 04/03/25 04/10/25 Rx Allergies Allergy/AdvReac Type Severity Reaction Status Date / Time levofloxacin Allergy Unknown Itching,Hiv Verified 04/10/25 18:24 es Vital Signs Vital Signs - 24 hr 04/13/25 14:40 04/13/25 14:40 04/13/25 14:47 Temperature Pulse Rate 106 H 106 H 104 H Respiratory Rate 20 20 20 Blood Pressure Pulse Oximetry 93 Oxygen Delivery Nasal Cannula Oxygen Flow Rate 4 Fraction of Inspired Oxygen 04/13/25 16:00 04/13/25 19:37 04/13/25 19:43 Temperature Pulse Rate 110 H 103 H 103 H Respiratory Rate 20 20 Blood Pressure Pulse Oximetry Oxygen Delivery Oxygen Flow Rate Fraction of Inspired Oxygen 04/13/25 19:59 04/13/25 20:00 04/13/25 20:00 Temperature Pulse Rate 111 H Respiratory Rate 20 Blood Pressure Pulse Oximetry 95 95 Oxygen Delivery Nasal Cannula Nasal Cannula Oxygen Flow Rate 4 4 Fraction of Inspired Oxygen 04/13/25 20:04 04/14/25 00:00 04/14/25 04:00 Temperature 97.6 F Pulse Rate 108 H 106 H 92 Respiratory Rate 18 Blood Pressure 162/65 H Pulse Oximetry 90 Oxygen Delivery Oxygen Flow Rate Fraction of Inspired Oxygen 04/14/25 04:33 04/14/25 07:05 04/14/25 07:07 Temperature 96.9 F L Pulse Rate 89 94 98 Respiratory Rate 17 20 20 Blood Pressure 161/71 H Pulse Oximetry 96 98 Oxygen Delivery Nasal Cannula Oxygen Flow Rate 4 Fraction of Inspired Oxygen 36 04/14/25 07:14 04/14/25 08:00 04/14/25 08:00 Temperature Pulse Rate 97 97 Respiratory Rate 20 Blood Pressure Pulse Oximetry 97 Oxygen Delivery Nasal Cannula Oxygen Flow Rate 4 Fraction of Inspired Oxygen 04/14/25 12:00 04/14/25 13:12 04/14/25 13:20 Temperature Pulse Rate 109 H 97 98 Respiratory Rate 20 20 Blood Pressure Pulse Oximetry Oxygen Delivery Oxygen Flow Rate Fraction of Inspired Oxygen Exam 2 Const: General: alert; No acute distress Orientation/consciousness: patient oriented x3 Limitations: no limitations HENMT: Head: normocephalic and atraumatic Ears: hearing grossly normal bilaterally Face/Nose/Sinus: Normal external nose present and Normal nares present Mouth: Yes Normal oral and palatal mucosa present and Yes moist mucous membranes Eyes: General: appearance normal, both eyes and all related structures C onjunctivae: conjunctivae normal Sclera: sclerae normal Pupils: Equal, round and reactive pupils present EOM: EOMs intact bilaterally Neck: Neck: normal visual inspection, full ROM, no lymphadenopathy, supple and no JVD Lymphatic: no lymphadenopathy noted Chest: Chest palpation & inspection: normal inspection of the chest Resp: Effort & Inspection: normal respiratory effort and able to speak in complete sentences Auscultation: clear to auscultation bilaterally P ercussion: percussion normal Cardio: Jugular venous distension: no JVD Rate: regular rate Rhythm: r egular rhythm Heart sounds: S1 normal heart sound present and S2 normal heart sound present Peripheral pulses: Peripheral pulses 2+ throughout GI: Inspection: normal to inspection Auscultation: normal bowel sounds : General: Yes no CVA tenderness Back/Spine/Pelvis: Back: no CVA tenderness Skin: General skin exam: normal color and dry skin Neuro: General: patient oriented x3, gait normal, moves all extremities, no focal motor deficits and CN's II-XI intact bilaterally Cranial nerves: Yes Equal, round and reactive pupils present Speech: normal speech Extrem: General: normal to inspection and capillary refill normal Results Labs 04/14/25 05:49 04/14/25 05:49 Labs: Abnormal lab results 04/14/25 04/14/25 Range/Units 05:49 05:52 Hgb 11.7 L (12.0-15.0) g/dL MCHC 29.8 L (32-36) g/dl RDW 15.6 H (11.5-14.5) % MPV 11.2 H (7.4-10.4) fl VBG pH 7.440 H* (7.300-7.400) VBG pCO2 60.6 H (42.0-48.0) mmHg VBG pO2 < 27.0 L (35.0-45.0) mmHg VBG HCO3 40.2 H (24.0-30.0) mEq/l Chloride 95 L (98-107) mmol/L Carbon Dioxide > 40 H (22-30) mmol/L BUN 5 L (7-17) mg/dL Creatinine 0.64 L (0.7-1.0) mg/dL Diabetes panel 04/14/25 Range/Units 05:49 Sodium 139 (137-145) mmol/L Potassium 3.7 (3.4-5.0) mmol/L Chloride 95 L (98-107) mmol/L Carbon Dioxide > 40 H (22-30) mmol/L BUN 5 L (7-17) mg/dL Creatinine 0.64 L (0.7-1.0) mg/dL Glucose 87 (65-110) mg/dL Calcium 8.9 (8.4-10.2) mg/dL Calcium panel 04/14/25 Range/Units 05:49 Calcium 8.9 (8.4-10.2) mg/dL Pituitary panel 04/14/25 Range/Units 05:49 Sodium 139 (137-145) mmol/L Potassium 3.7 (3.4-5.0) mmol/L Chloride 95 L (98-107) mmol/L Carbon Dioxide > 40 H (22-30) mmol/L BUN 5 L (7-17) mg/dL Creatinine 0.64 L (0.7-1.0) mg/dL Glucose 87 (65-110) mg/dL Calcium 8.9 (8.4-10.2) mg/dL Adrenal panel 04/14/25 Range/Units 05:49 Sodium 139 (137-145) mmol/L Potassium 3.7 (3.4-5.0) mmol/L Chloride 95 L (98-107) mmol/L Carbon Dioxide > 40 H (22-30) mmol/L BUN 5 L (7-17) mg/dL Creatinine 0.64 L (0.7-1.0) mg/dL Glucose 87 (65-110) mg/dL Calcium 8.9 (8.4-10.2) mg/dL All other labs normal. Imaging Additional studies: ITS Impressions Abdomen/Pelvis CT 04/10/25 13:31 IMPRESSION: 1. Directed noncontrast exam demonstrating no acute surgical abnormality. 2. Moderate to large amount of stool in the rectal vault region. 3. Bibasilar atelectatic or infiltrative changes in the visualized lung bases. 4. Several chronic appearing findings as above. Chest X-Ray 04/10/25 14:13 IMPRESSION: 1. No definite abnormality given portable technique. Chest X-Ray 04/13/25 14:04 Impression: CHF. Superimposed probable pneumonia. The findings are progressed compared to the previous exam. Abdomen X-Ray 04/13/25 14:05 Impression: 1. Ileus versus early obstruction.
[2025-04-14] MEDS: ACETAMINOPHEN 325 MG TABLET 650 MG PO (20:36)
[2025-04-14] MEDS: ENOXAPARIN 40 MG/0.4 ML SYRINGE SUB-Q (20:37)
[2025-04-15] VITALS (17 sets, daily range): BP systolic 126–144; BP diastolic 59–95; PULSE 79–104; RESP 12–21; TEMP 36.1–36.8; O2SAT 89–96
[2025-04-15 06:04] LABS: Hematocrit 41.6 % (37.0-47.0); Hemoglobin 12.4 g/dL (12.0-15.0); Mean Corpuscular HGB Conc 29.8 g/dl (32-36); Mean Corpuscular Hemoglobin 25.9 pg (26-34); Mean Corpuscular Volume 87.0 fl (80-100); Platelet Count Result 282 k/mm3 (150-375); Red Blood Count 4.78 M/mm3 (4.2-5.4); White Blood Count 7.9 K/mm3 (4.5-10.0)
[2025-04-15 06:32] LABS: Blood Urea Nitrogen 10 mg/dL (7-17); Calcium 9.0 mg/dL (8.4-10.2); Carbon Dioxide > 40 mmol/L (22-30); Chloride 90 mmol/L (98-107); Estimated CRCL calculation 29 ml/min; Estimated Glomerular Filt Rate 49; Glucose 88 mg/dL (65-110); Magnesium 1.9 mg/dL (1.6-2.3); Potassium 3.7 mmol/L (3.4-5.0); Sodium 136 mmol/L (137-145)
[2025-04-15] MEDS: MORPHINE SULFATE (*CRX) 4 MG/ML INJ 2 MG IV PUSH ×2 (08:01→13:17)
[2025-04-15] MEDS: IPRATROPIUM BR 0.02% INH SOLN 0.5 MG/2.5 ML VIAL INHALATION ×3 (08:12→17:17)
[2025-04-15] MEDS: FLUTICASONE/UMECLIDIN/VILANTER 100-62.5-25 MCG ELLIPTA 1 PUFF INHALATION (08:14)
[2025-04-15] MEDS: PANTOPRAZOLE 40 MG TABLET PO ×2 (08:29→16:56)
[2025-04-15] MEDS: OPTI-GEN TAB 1 TABLET PO ×2 (08:29→16:56)
[2025-04-15] MEDS: FUROSEMIDE 20 MG TABLET BY MOUTH (08:29)
[2025-04-15] MEDS: SENNOSIDES 8.6 MG TABLET PO ×2 (08:29→16:55)
[2025-04-15] MEDS: SERTRALINE HCL 50 MG TABLET 100 MG PO (08:30)
[2025-04-15] MEDS: LOSARTAN POTASSIUM 100 MG TABLET BY MOUTH (08:30)
--- NOTE | 2025-04-15 12:01 | PM.IMPN2 ---
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 ABG with hypercarbia. - Home inhaler not available (Ohtuvayre), family brought from home overnight. Scheduled BID --Change duonebs to atrovent TID, change albuterol to prn for mild tachycardia, tremors this morning - continue home O2 of 4.5 L during day. BiPAP at night. - continued prednisone 2.5 mg daily --Follows with pulmonary, Dr. Mack/Josy BAINS If worsening, consider consult. --Resume home lasix 20mg po daily today --Chest x-ray on 04/13/25 shows superimposed probable pneumonia, which is worse from admitting CXR. Will cover for HAP with cefepime and doxy. --She is from home. PT and OT for discharge planning ordered. (2) Hospital-acquired pneumonia: Code(s): J18.9 - Pneumonia, unspecified organism; Y95 - Nosocomial condition Status: Acute Assessment and Plan: --Chest x-ray on 04/13/25 shows superimposed probable pneumonia, which is worse from admitting CXR. Will cover for HAP with cefepime and doxy. --Order CXR due to worsening dyspnea and cough. --Discussed with ID pharm; will cover for HAP starting today 04/15/25. (3) UTI (urinary tract infection): Qualifiers: Hematuria presence: without hematuria Urinary tract infection type: acute cystitis Qualified Code(s): N30.00 - Acute cystitis without hematuria Code(s): N39.0 - Urinary tract infection, site not specified Status: Resolved Assessment and Plan: Patient initially diagnosed with UTI on 04/02 and prescribed Augmentin. - UA from 04/02 1+ ketones, positive nitrate, 1+ leukocyte esterase, 21-50 WBC, 4+ bacteria. - UC grew E coli resistant to Augmentin - started on Ceftriaxone 04/10-04/13. Last dose today. Not reporting dysuria today. Had irritation from purewick yesterday completed antibiotics (4) Constipation: Qualifiers: Constipation type: unspecified constipation type Qualified Code(s): K59.00 - Constipation, unspecified Code(s): K59.00 - Constipation, unspecified Status: Resolved Assessment and Plan: Possible chronic constipation, she reports frequent watery stools which could be overflow Stool burden noted on initial CT on 04/02, also noted on CT 04/10. s/p soapsuds enema x2 04/11 & 04/12. Had several small BM's. s/p 3 packs of miralax 04/12 Declined bisacodyl suppositories. Large soft stool 04/13. Nausea resolved, abdominal pain resolving --Schedule miralax TID x1 day, then BID. Schedule Senna BID --KUB showed possible Ileus vs SBO. CT abd/pelvis is normal. Patient now having normal bowel function. --General surgery consulted and they recommended repeat CT today and then if that does not show obstruction, then continue bowel stimulation. . Resolved. (5) Nausea vomiting and diarrhea: Code(s): R11.2 - Nausea with vomiting, unspecified; R19.7 - Diarrhea, unspecified Status: Resolved Assessment and Plan: Nausea and vomiting for the past 10 days. Likely related to a combination of constipation, UTI. Nausea resolved. No vomiting overnight -normal saline at 75 started on 04/10--stopped 04/12 since drinking fluids, risk for fluid overload -monitor fluid status, respiratory status -resume home Lasix 20mg daily -Zofran p.r.n. Resolved. (6) Essential (primary) hypertension: Code(s): I10 - Essential (primary) hypertension Status: Chronic Assessment and Plan: Continue losartan, nifedipine Plan Diet: Heart healthy DVT prophylaxis: Lovenox lines/drains: PIV Code status: Full Subjective Date/time seen: 04/15/25 12:01 Interval history: Patient coughing a lot when I entered the room today. She says her shortness of breath is at baseline. Her cough as worsened. She plans to discharge home with her daughter and son-in-law. She is independent at baseline. All looking through the notes she has not been up out of bed since she has been hospitalized. She has not had PT and OT. Ordered PT and OT today. According to the patient and her daughter she is unstable with transferring to the commode. Wait on PT and OT notes to return to see what they recommend for discharge planning. Exam Narrative: GENERAL: uncomfortable breathing efforts. NECK: no lymphadenopathy RESPIRATORY: Lungs distant likely due to late stage COPD, increased AP lateral diameter. SOB with talking. Non-productive cough. CARDIO: Distant heart sounds due to COPD, Regular rate and rhythm GI: soft, nontender, bowel sounds present SKIN/EXTREMITIES: no rashes, no edema, no redness or tenderness NEURO: PROM intact, answers questions appropriately, A&O x4 Objective Data Vital Signs Vital Signs: Vital Signs - 24 hr 04/14/25 13:12 04/14/25 13:20 04/14/25 14:00 Temperature 98.0 F Pulse Rate 97 98 108 H Respiratory Rate 20 20 18 Blood Pressure 127/73 Pulse Oximetry 93 Oxygen Delivery Oxygen Flow Rate Fraction of Inspired Oxygen 04/14/25 16:00 04/14/25 19:50 04/14/25 20:00 Temperature Pulse Rate 108 H 98 98 Respiratory Rate 20 Blood Pressure Pulse Oximetry 91 Oxygen Delivery Nasal Cannula Oxygen Flow Rate 4 Fraction of Inspired Oxygen 36 04/14/25 20:37 04/14/25 22:23 04/15/25 00:00 Temperature 97.7 F Pulse Rate 96 89 79 Respiratory Rate 18 12 Blood Pressure 142/69 H Pulse Oximetry 90 91 Oxygen Delivery BiPAP Oxygen Flow Rate Fraction of Inspired Oxygen 04/15/25 04:00 04/15/25 05:23 04/15/25 05:55 Temperature 97 F L Pulse Rate 89 90 98 Respiratory Rate 12 18 Blood Pressure 144/59 H Pulse Oximetry 92 89 L Oxygen Delivery BiPAP Oxygen Flow Rate Fraction of Inspired Oxygen 04/15/25 08:00 04/15/25 08:00 04/15/25 08:15 Temperature Pulse Rate 104 H 89 Respiratory Rate 20 Blood Pressure Pulse Oximetry 95 Oxygen Delivery Nasal Cannula Oxygen Flow Rate 4 Fraction of Inspired Oxygen 04/15/25 08:15 04/15/25 08:19 Temperature Pulse Rate 89 92 Respiratory Rate 20 20 Blood Pressure Pulse Oximetry 96 Oxygen Delivery Nasal Cannula Oxygen Flow Rate 4 Fraction of Inspired Oxygen 36 Intake/Output Intake/Output: Intake & Output 04/12/25 04/13/25 04/14/25 04/15/25 23:59 23:59 23:59 23:59 Intake Total 1467 1304 710 600 Output Total 500 Balance 1467 1304 710 100 Meds/Results Medications: Active Medications Generic Name Dose Route Start Last Admin Trade Name Freq PRN Reason Stop Dose Admin Acetaminophen 650 mg 04/10/25 23:34 04/14/25 20:36 Acetaminophen 325 Mg Tablet PO 650 mg Q6H PRN Administration Mild Pain (1-3) or Fever Albuterol 2 puff 04/11/25 09:17 Albuterol Sulfate (*Sp) Aerosol 1 Puff INHALATION Q4-6H PRN Shortness Of Breath Or Wheezing Albuterol 2.5 mg 04/13/25 13:21 Albuterol Sulfate Neb 2.5 Mg/3 Ml Inh INHALATION Q4HRT PRN Shortness Of Breath Alprazolam 0.25 mg 04/10/25 19:02 04/14/25 20:37 Alprazolam (*Crx) 0.25 Mg Tablet PO 0.25 mg TID PRN Administration Anxiety Enoxaparin Sodium 40 mg 04/10/25 21:00 04/14/25 20:37 Enoxaparin 40 Mg/0.4 Ml Syringe SUB-Q 40 mg HS FELICIA Administration Fluticasone/Umeclidinium/Vilanterol 1 puff 04/12/25 11:55 04/15/25 08:14 Fluticasone/Umeclidin/Vilanter 100-62.5-25 Mcg Ellipta INHALATION 1 puff DAILYRT FELICIA Administration Furosemide 20 mg 04/11/25 09:00 04/15/25 08:29 Furosemide 20 Mg Tablet BY MOUTH 20 mg DAILY FELICIA Administration Ipratropium [place] 0.5 mg 04/13/25 20:00 04/15/25 08:12 Ipratropium Br 0.02% Inh Soln 0.5 Mg/2.5 Ml Vial INHALATION 0.5 mg TID FELICIA Administration Losartan Potassium 100 mg 04/11/25 09:00 04/15/25 08:30 Losartan Potassium 100 Mg Tablet BY MOUTH 100 mg DAILY FELICIA Administration Morphine Sulfate 2 mg 04/10/25 14:50 04/15/25 08:01 Morphine Sulfate (*Crx) 4 Mg/Ml Inj IV PUSH 2 mg Q4H PRN Administration Pain Rated 7-10 Multivitamins/Minerals 1 tablet 04/11/25 17:00 04/15/25 08:29 Opti-Gen Tab PO 1 tablet BID FELICIA Administration Nifedipine 30 mg 04/11/25 09:00 04/15/25 08:30 Nifedipine 30 Mg Tab.Er.24 PO 30 mg DAILY FELICIA Administration Home Med ( 2.5 ml 04/11/25 20:00 04/13/25 19:50 Ensifentrine [ INHALATION 05/11/25 19:59 2.5 ml Ohtuvayre] 3 Mg/2.5 Q12HRT FELICIA Administration Ml Suspension For Nebulization) Ondansetron HCl 4 mg 04/10/25 14:50 04/12/25 01:37 Ondansetron Inj 4 Mg/2 Ml Vial IV PUSH 4 mg Q6H PRN Administration Nausea And Vomiting Pantoprazole Sodium 40 mg 04/10/25 19:15 04/15/25 08:29 Pantoprazole 40 Mg Tablet PO 40 mg BID FELICIA Administration Polyethylene Glycol 17 gm 04/14/25 21:00 04/15/25 08:30 Polyethylene Glycol 3350 17 Gm Powd.Pack PO 17 gm BID FELICIA Administration Prednisone 2.5 mg 04/11/25 09:00 04/15/25 08:29 Prednisone 2.5 Mg Tablet PO 2.5 mg DAILY FELICIA Administration Senna 8.6 mg 04/13/25 17:00 04/15/25 08:29 Sennosides 8.6 Mg Tablet PO 8.6 mg BID FELICIA Administration Sertraline HCl 100 mg 04/11/25 09:00 04/15/25 08:30 Sertraline Hcl 50 Mg Tablet PO 100 mg DAILY FELICIA Administration Ursodiol 300 mg 04/10/25 19:05 04/15/25 08:29 Ursodiol 300 Mg Capsule BY MOUTH 300 mg BID FELICIA Administration Radiology Results: ITS Impressions Chest X-Ray 04/13/25 14:04 Impression: CHF. Superimposed probable pneumonia. The findings are progressed compared to the previous exam. Abdomen X-Ray 04/13/25 14:05 Impression: 1. Ileus versus early obstruction. Abdomen/Pelvis CT 04/14/25 15:03 IMPRESSION: Nonspecific fluid-filled loops of large bowel but may relate to underlying diarrhea. Incidental findings detailed above Labs Labs: Laboratory Results - last 24 hr 04/15/25 05:43 WBC 7.9 RBC 4.78 Hgb 12.4 Hct 41.6 MCV 87.0 MCH 25.9 L MCHC 29.8 L RDW 15.7 H Plt Count 282 MPV 10.5 H Sodium 136 L Potassium 3.7 Chloride 90 L Carbon Dioxide > 40 H Anion Gap BUN 10 D Creatinine 1.07 H Estim Creat Clear Calc 29 Estimated GFR 49 L Glucose 88 Calcium 9.0 Magnesium 1.9
[2025-04-15] MEDS: DOXYCYCLINE HYCLATE 100 MG TABLET PO ×2 (13:18→20:18)
[2025-04-15] MEDS: CEFEPIME 1 GM in SODIUM CHLORIDE 0.9% IV 50 ML 100 ML IVPB ×2 (13:22→20:28)
[2025-04-15 15:23] LABS: MRSA (PCR) NOT DETECTED (NOT DETECTE)
[2025-04-15] MEDS: ENOXAPARIN 40 MG/0.4 ML SYRINGE SUB-Q (20:18)
[2025-04-15] MEDS: ALPRAZolam (*CRX) 0.25 MG TABLET PO (20:30)
[2025-04-16] VITALS (18 sets, daily range): BP systolic 111–151; BP diastolic 50–89; PULSE 90–113; RESP 16–25; TEMP 36.2–36.9; O2SAT 91–96
[2025-04-16] MEDS: ONDANSETRON INJ 4 MG/2 ML VIAL IV PUSH ×2 (03:14→09:46)
--- NOTE | 2025-04-16 03:14 | PC.NURSE ---
patient refusing to wear bipapm second time of education given on importance of compliance. Patient went back to 4L N/C at her request andf zofran given for nausea
--- NOTE | 2025-04-16 06:06 | ECG_ITS ---
Test Date: 2025-04-16 06:32:02 Measurements Intervals [place] Rate: 86 P: 0 MD: 0 QRS: -10 QRSD: 137 T: -20 QT: 390 QTc: 469 Interpretive Statements PROBABLY SINUS RHYTHM WITH ATRIAL AND VENTRICULAR PREMATURE COMPLEXES (SIGNIFICANT BASELINE ARTIFACT) RIGHT BUNDLE BRANCH BLOCK BASELINE ARTIFACT- I, II, III, AVR, AVL, AVF, V1-V6 ABNORMAL ECG Compared to ECG 07/30/2024 12:52:25 NO SIGNIFICANT CHANGE Electronically Signed On 04-16-2025 08:12:48 OUTSOLE SCHEDULER by David Carter D.O.
[2025-04-16 06:19] LABS: Hematocrit 41.5 % (37.0-47.0); Hemoglobin 12.5 g/dL (12.0-15.0); Mean Corpuscular HGB Conc 30.1 g/dl (32-36); Mean Corpuscular Hemoglobin 26.2 pg (26-34); Mean Corpuscular Volume 87.0 fl (80-100); Platelet Count Result 261 k/mm3 (150-375); Red Blood Count 4.77 M/mm3 (4.2-5.4); White Blood Count 8.1 K/mm3 (4.5-10.0)
[2025-04-16 06:44] LABS: Blood Urea Nitrogen 14 mg/dL (7-17); Calcium 8.9 mg/dL (8.4-10.2); Carbon Dioxide > 40 mmol/L (22-30); Chloride 91 mmol/L (98-107); Estimated CRCL calculation 36 ml/min; Estimated Glomerular Filt Rate > 60; Glucose 96 mg/dL (65-110); Magnesium 1.6 mg/dL (1.6-2.3); Potassium 3.7 mmol/L (3.4-5.0); Sodium 136 mmol/L (137-145)
[2025-04-16] MEDS: DOXYCYCLINE HYCLATE 100 MG TABLET PO ×2 (08:51→20:10)
[2025-04-16] MEDS: OPTI-GEN TAB 1 TABLET PO ×2 (08:51→17:03)
[2025-04-16] MEDS: SERTRALINE HCL 50 MG TABLET 100 MG PO (08:51)
[2025-04-16] MEDS: LOSARTAN POTASSIUM 100 MG TABLET BY MOUTH (08:51)
[2025-04-16] MEDS: PANTOPRAZOLE 40 MG TABLET PO ×2 (08:51→17:03)
[2025-04-16] MEDS: FUROSEMIDE 20 MG TABLET BY MOUTH (08:51)
[2025-04-16] MEDS: ALPRAZolam (*CRX) 0.25 MG TABLET PO ×2 (08:52→20:11)
[2025-04-16] MEDS: CEFEPIME 1 GM in SODIUM CHLORIDE 0.9% IV 50 ML 100 ML IVPB ×2 (08:52→20:10)
[2025-04-16] MEDS: IPRATROPIUM BR 0.02% INH SOLN 0.5 MG/2.5 ML VIAL INHALATION ×2 (09:16→14:44)
--- NOTE | 2025-04-16 09:54 | PCPTNOTE ---
Attempted therapy evaluations 0920 with respiratory, 0950 patient reports she is too fatigued right now. Will follow.
[2025-04-16] MEDS: CALCIUM CARBONATE (TUMS) 500 MG (200 MG ELEMENTAL) PO (10:51)
[2025-04-16] MEDS: MAGNESIUM SULF 1 GM/D5W 100 ML 1 GM/100 ML BAG IVPB (13:07)
--- NOTE | 2025-04-16 13:53 | P.PNIM_ITS ---
Assessment and Plan Assessment and Plan (1) Acute on chronic respiratory failure with hypoxia and hypercapnia: Code(s): J96.21 - Acute and chronic respiratory failure with hypoxia; J96.22 - Acute and chronic respiratory failure with hypercapnia Status: Acute (2) Hospital-acquired pneumonia: Code(s): J18.9 - Pneumonia, unspecified organism; Y95 - Nosocomial condition Status: Acute (3) UTI (urinary tract infection): Qualifiers: Hematuria presence: without hematuria Urinary tract infection type: acute cystitis Qualified Code(s): N30.00 - Acute cystitis without hematuria Code(s): N39.0 - Urinary tract infection, site not specified Status: Resolved (4) Constipation: Qualifiers: Constipation type: unspecified constipation type Qualified Code(s): K59.00 - Constipation, unspecified Code(s): K59.00 - Constipation, unspecified Status: Resolved (5) Nausea vomiting and diarrhea: Code(s): R11.2 - Nausea with vomiting, unspecified; R19.7 - Diarrhea, unspecified Status: Resolved (6) Essential (primary) hypertension: Code(s): I10 - Essential (primary) hypertension Status: Chronic Plan 84-year-old female with a past medical history of J CARLOS with BiPAP, 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 Patient was in the ED on 04/02/2025 with complaints of abdominal pain. Patient was diagnosed with a UTI and constipation. Also reported some nausea but no vomiting. Patient was started on Augmentin for UTI and possible pneumonia coverage, and laxatives before being discharged home. Patient saw her PCP this morning and was directed to go to the ED. She was noted to have increased dyspnea on exertion and an O2 saturation in the office of 78%. It was also discovered that her urine culture showed resistance to her prescribed Augmentin. (1) Acute on chronic respiratory failure with hypoxia and hypercapnia: Continue with O2 support Continue with bronchodilators Continue with prednisone Follows up with Pulmonary Continue with Lasix PT/OT Chest x-ray with possible overlying pneumonia as well Continue with doxycycline, cefepime Supplement magnesium (2) UTI (urinary tract infection): E coli in urine On cefepime (3) Constipation: Resolved Appreciate surgery . (4) Essential (primary) hypertension: Continue losartan, nifedipine 5. Code status: Full 6. DVT prophylaxis: Lovenox 7. Disposition: Pending improvement Time Spent With Patient Time with patient: 25 - 35 minutes Subjective Date/time seen: 04/16/25 13:53 Interval history: Complains of indigestion Tachycardic with exertion Review of Systems Review of Systems: All systems reviewed & are unremarkable except as noted in HPI and below Exam Narrative: GENERAL: No acute distress NECK: no lymphadenopathy RESPIRATORY: Lungs distant likely due to late stage COPD, increased AP lateral diameter. SOB with talking. Non-productive cough. CARDIO: Distant heart sounds due to COPD, Regular rate and rhythm GI: soft, nontender, bowel sounds present SKIN/EXTREMITIES: no rashes, no edema, no redness or tenderness NEURO: PROM intact, answers questions appropriately, A&O x4 Objective Data Vital Signs Vital Signs: Vital Signs - 24 hr 04/15/25 14:00 04/15/25 16:00 04/15/25 17:17 Temperature 98.3 F Pulse Rate 97 96 83 Respiratory Rate 16 20 Blood Pressure 126/95 H Pulse Oximetry 91 Oxygen Delivery Oxygen Flow Rate 04/15/25 17:21 04/15/25 20:00 04/15/25 20:00 Temperature Pulse Rate 80 96 Respiratory Rate 20 Blood Pressure Pulse Oximetry 90 Oxygen Delivery Nasal Cannula Oxygen Flow Rate 4 04/15/25 21:07 04/15/25 21:36 04/16/25 00:00 Temperature 97.2 F L Pulse Rate 96 90 Respiratory Rate 21 H 18 Blood Pressure 137/64 Pulse Oximetry 90 Oxygen Delivery BiPAP Oxygen Flow Rate 04/16/25 00:32 04/16/25 04:00 04/16/25 06:00 Temperature 97.4 F L Pulse Rate 104 H 91 Respiratory Rate 25 H 16 Blood Pressure 151/67 H Pulse Oximetry 94 Oxygen Delivery BiPAP Oxygen Flow Rate 04/16/25 08:00 04/16/25 08:00 04/16/25 08:50 Temperature Pulse Rate 104 H Respiratory Rate Blood Pressure Pulse Oximetry 95 Oxygen Delivery Nasal Cannula Nasal Cannula Oxygen Flow Rate 4 5 Intake/Output Intake/Output: Intake & Output 04/13/25 04/14/25 04/15/25 04/16/25 23:59 23:59 23:59 23:59 Intake Total 8557 303 3464 580 Output Total 500 Balance 1304 710 720 580 Meds/Results Medications: Active Medications Generic Name Dose Route Start Last Admin Trade Name Freq PRN Reason Stop Dose Admin Acetaminophen 650 mg 04/10/25 23:34 04/14/25 20:36 Acetaminophen 325 Mg Tablet PO 650 mg Q6H PRN Administration Mild Pain (1-3) or Fever Albuterol 2 puff 04/11/25 09:17 Albuterol Sulfate (*Sp) Aerosol 1 Puff INHALATION Q4-6H PRN Shortness Of Breath Or Wheezing Albuterol 2.5 mg 04/13/25 13:21 Albuterol Sulfate Neb 2.5 Mg/3 Ml Inh INHALATION Q4HRT PRN Shortness Of Breath Alprazolam 0.25 mg 04/10/25 19:02 04/16/25 08:52 Alprazolam (*Crx) 0.25 Mg Tablet PO 0.25 mg TID PRN Administration Anxiety Calcium Carbonate 200 mg 04/16/25 10:25 04/16/25 10:51 Calcium Carbonate (Tums) 500 Mg (200 Mg Elemental) PO 200 mg Q6H PRN Administration Indigestion Doxycycline Hyclate 100 mg 04/15/25 12:30 04/16/25 08:51 Doxycycline Hyclate 100 Mg Tablet PO 04/19/25 21:01 100 mg Q12HR FELICIA Administration Enoxaparin Sodium 40 mg 04/10/25 21:00 04/15/25 20:18 Enoxaparin 40 Mg/0.4 Ml Syringe SUB-Q 40 mg HS FELICIA Administration Fluticasone/Umeclidinium/Vilanterol 1 puff 04/12/25 11:55 04/15/25 08:14 Fluticasone/Umeclidin/Vilanter 100-62.5-25 Mcg Ellipta INHALATION 1 puff DAILYRT FELICIA Administration Furosemide 20 mg 04/11/25 09:00 04/16/25 08:51 Furosemide 20 Mg Tablet BY MOUTH 20 mg DAILY FELICIA Administration Cefepime HCl 1 gm/ Sodium 50 mls @ 100 mls/hr 04/15/25 12:25 04/16/25 08:52 Chloride IVPB 100 mls/hr Q12HR FELICIA Administration Ipratropium [place] 0.5 mg 04/16/25 08:00 04/16/25 09:16 Ipratropium Br 0.02% Inh Soln 0.5 Mg/2.5 Ml Vial INHALATION 0.5 mg TIDRT FELICIA Administration Losartan Potassium 100 mg 04/11/25 09:00 04/16/25 08:51 Losartan Potassium 100 Mg Tablet BY MOUTH 100 mg DAILY FELICIA Administration Morphine Sulfate 2 mg 04/10/25 14:50 04/15/25 13:17 Morphine Sulfate (*Crx) 4 Mg/Ml Inj IV PUSH 2 mg Q4H PRN Administration Pain Rated 7-10 Multivitamins/Minerals 1 tablet 04/11/25 17:00 04/16/25 08:51 Opti-Gen Tab PO 1 tablet BID FELICIA Administration Nifedipine 30 mg 04/11/25 09:00 04/16/25 08:51 Nifedipine 30 Mg Tab.Er.24 PO 30 mg DAILY FELICIA Administration Home Med ( 2.5 ml 04/11/25 20:00 04/13/25 19:50 Ensifentrine [ INHALATION 05/11/25 19:59 2.5 ml Ohtuvayre] 3 Mg/2.5 Q12HRT FELICIA Administration Ml Suspension For Nebulization) Ondansetron HCl 4 mg 04/10/25 14:50 04/16/25 09:46 Ondansetron Inj 4 Mg/2 Ml Vial IV PUSH 4 mg Q6H PRN Administration Nausea And Vomiting Pantoprazole Sodium 40 mg 04/10/25 19:15 04/16/25 08:51 Pantoprazole 40 Mg Tablet PO 40 mg BID FELICIA Administration Polyethylene Glycol 17 gm 04/14/25 21:00 04/16/25 08:52 Polyethylene Glycol 3350 17 Gm Powd.Pack PO Not Given BID FELICIA Prednisone 2.5 mg 04/11/25 09:00 04/16/25 08:51 Prednisone 2.5 Mg Tablet PO 2.5 mg DAILY FELICIA Administration Senna 8.6 mg 04/13/25 17:00 04/16/25 08:52 Sennosides 8.6 Mg Tablet PO Not Given BID FELICIA Sertraline HCl 100 mg 04/11/25 09:00 04/16/25 08:51 Sertraline Hcl 50 Mg Tablet PO 100 mg DAILY FELICIA Administration Ursodiol 300 mg 04/10/25 19:05 04/16/25 08:52 Ursodiol 300 Mg Capsule BY MOUTH 300 mg BID FELICIA Administration Radiology Results: ITS Impressions Abdomen X-Ray 04/13/25 14:05 Impression: 1. Ileus versus early obstruction. Abdomen/Pelvis CT 04/14/25 15:03 IMPRESSION: Nonspecific fluid-filled loops of large bowel but may relate to underlying diarrhea. Incidental findings detailed above Chest X-Ray 04/15/25 13:16 IMPRESSION: 1. Bibasilar infiltrates left worse than right. Aeration of the mid and upper lung artis appears improved. Labs Labs: Laboratory Results - last 24 hr 04/15/25 04/16/25 13:59 05:42 WBC 8.1 RBC 4.77 Hgb 12.5 Hct 41.5 MCV 87.0 MCH 26.2 MCHC 30.1 L RDW 15.7 H Plt Count 261 MPV 11.2 H Sodium 136 L Potassium 3.7 Chloride 91 L Carbon Dioxide > 40 H Anion Gap BUN 14 Creatinine 0.85 Estim Creat Clear Calc 36 Estimated GFR > 60 Glucose 96 Calcium 8.9 Magnesium 1.6 Nasal MRSA (PCR) Not detected Quality VTE Prophylaxis VTE prophylaxis: pharmacologic ordered
[2025-04-16] MEDS: ENOXAPARIN 40 MG/0.4 ML SYRINGE SUB-Q (20:12)
[2025-04-16] MEDS: MORPHINE SULFATE (*CRX) 4 MG/ML INJ 2 MG IV PUSH (21:19)
[2025-04-17] VITALS (16 sets, daily range): BP systolic 115–140; BP diastolic 47–69; PULSE 78–110; RESP 16–26; TEMP 36.3–36.6; O2SAT 91–98
[2025-04-17 06:47] LABS: Hematocrit 36.8 % (37.0-47.0); Hemoglobin 11.0 g/dL (12.0-15.0); Mean Corpuscular HGB Conc 29.9 g/dl (32-36); Mean Corpuscular Hemoglobin 26.1 pg (26-34); Mean Corpuscular Volume 87.2 fl (80-100); Platelet Count Result 245 k/mm3 (150-375); Red Blood Count 4.22 M/mm3 (4.2-5.4); White Blood Count 9.0 K/mm3 (4.5-10.0)
[2025-04-17] MEDS: FLUTICASONE/UMECLIDIN/VILANTER 100-62.5-25 MCG ELLIPTA 1 PUFF INHALATION (07:10)
[2025-04-17 07:12] LABS: Blood Urea Nitrogen 24 mg/dL (7-17); Calcium 8.4 mg/dL (8.4-10.2); Carbon Dioxide > 40 mmol/L (22-30); Chloride 92 mmol/L (98-107); Estimated CRCL calculation 27 ml/min; Estimated Glomerular Filt Rate 44; Glucose 99 mg/dL (65-110); Magnesium 1.7 mg/dL (1.6-2.3); Potassium 3.6 mmol/L (3.4-5.0); Sodium 136 mmol/L (137-145)
[2025-04-17] MEDS: CEFEPIME 1 GM in SODIUM CHLORIDE 0.9% IV 50 ML 100 ML IVPB ×2 (08:50→21:16)
[2025-04-17] MEDS: FUROSEMIDE 20 MG TABLET BY MOUTH (08:51)
[2025-04-17] MEDS: SERTRALINE HCL 50 MG TABLET 100 MG PO (08:51)
[2025-04-17] MEDS: DOXYCYCLINE HYCLATE 100 MG TABLET PO ×2 (08:51→21:13)
[2025-04-17] MEDS: LOSARTAN POTASSIUM 100 MG TABLET BY MOUTH (08:51)
[2025-04-17] MEDS: SENNOSIDES 8.6 MG TABLET PO ×2 (08:51→16:28)
[2025-04-17] MEDS: OPTI-GEN TAB 1 TABLET PO ×2 (08:51→16:28)
[2025-04-17] MEDS: PANTOPRAZOLE 40 MG TABLET PO ×2 (08:52→16:28)
[2025-04-17] MEDS: ACETAMINOPHEN 325 MG TABLET 650 MG PO (10:20)
[2025-04-17] MEDS: ALPRAZolam (*CRX) 0.25 MG TABLET PO (10:20)
--- NOTE | 2025-04-17 12:12 | PCNWS ---
Weekly nutritional screen. Patient is tolerating current Heart healthy diet with adequate intake, 50-90%. No weight loss reported. No nutritional needs at this time.
--- NOTE | 2025-04-17 14:07 | PM.IMPN2 ---
Assessment and Plan Assessment and Plan (1) Acute on chronic respiratory failure with hypoxia and hypercapnia: Code(s): J96.21 - Acute and chronic respiratory failure with hypoxia; J96.22 - Acute and chronic respiratory failure with hypercapnia Status: Acute (2) Hospital-acquired pneumonia: Code(s): J18.9 - Pneumonia, unspecified organism; Y95 - Nosocomial condition Status: Acute (3) UTI (urinary tract infection): Qualifiers: Hematuria presence: without hematuria Urinary tract infection type: acute cystitis Qualified Code(s): N30.00 - Acute cystitis without hematuria Code(s): N39.0 - Urinary tract infection, site not specified Status: Resolved (4) Constipation: Qualifiers: Constipation type: unspecified constipation type Qualified Code(s): K59.00 - Constipation, unspecified Code(s): K59.00 - Constipation, unspecified Status: Resolved (5) Nausea vomiting and diarrhea: Code(s): R11.2 - Nausea with vomiting, unspecified; R19.7 - Diarrhea, unspecified Status: Resolved (6) Essential (primary) hypertension: Code(s): I10 - Essential (primary) hypertension Status: Chronic Plan 84-year-old female with a past medical history of J CARLOS with BiPAP, 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 Patient was in the ED on 04/02/2025 with complaints of abdominal pain. Patient was diagnosed with a UTI and constipation. Also reported some nausea but no vomiting. Patient was started on Augmentin for UTI and possible pneumonia coverage, and laxatives before being discharged home. Patient saw her PCP this morning and was directed to go to the ED. She was noted to have increased dyspnea on exertion and an O2 saturation in the office of 78%. It was also discovered that her urine culture showed resistance to her prescribed Augmentin. (1) Acute on chronic respiratory failure with hypoxia and hypercapnia: Continue with O2 support Continue with bronchodilators Continue with prednisone Follows up with Pulmonary Continue with Lasix PT/OT Chest x-ray with possible overlying pneumonia as well Continue with doxycycline, cefepime Supplement magnesium (2) UTI (urinary tract infection): E coli in urine On cefepime follow urine c/s will downgrade to po in anticipation for discharge in the next day or two (3) Constipation: Resolved . (4) Essential (primary) hypertension: Continue losartan, nifedipine 5. Code status: Full 6. DVT prophylaxis: Lovenox 7. Disposition: Pending improvement Medical Record Review I have reviewed the following patient records and this information was taken into consideration when formulating the assessment and plan.: previous labs Time Spent With Patient Time with patient: 25 - 35 minutes Subjective Date/time seen: 04/17/25 14:07 Interval history: Pt reports 50 % back to her baseline, NO longer having abd pain. Complains of some indigestion but able to keep food down. Tachycardic with exertion Review of Systems Review of Systems: All systems reviewed & are unremarkable except as noted in HPI and below Exam Narrative: GENERAL: No acute distress NECK: no lymphadenopathy RESPIRATORY: Lungs distant likely due to late stage COPD, increased AP lateral diameter. SOB with talking. Non-productive cough. CARDIO: Distant heart sounds due to COPD, Regular rate and rhythm GI: soft, nontender, bowel sounds present SKIN/EXTREMITIES: no rashes, no edema, no redness or tenderness NEURO: PROM intact, answers questions appropriately, A&O x4 Objective Data Vital Signs Vital Signs: Vital Signs - 24 hr 04/16/25 14:44 04/16/25 14:44 04/16/25 14:58 Temperature Pulse Rate 110 H 99 Respiratory Rate 18 16 Blood Pressure Pulse Oximetry 91 Oxygen Delivery Nasal Cannula Nasal Cannula Oxygen Flow Rate 4 5 04/16/25 15:43 04/16/25 15:49 04/16/25 15:56 Temperature Pulse Rate 103 H 107 H Respiratory Rate 20 20 Blood Pressure Pulse Oximetry 96 Oxygen Delivery Nasal Cannula Oxygen Flow Rate 4 04/16/25 16:00 04/16/25 20:00 04/16/25 20:00 Temperature Pulse Rate 108 H 96 Respiratory Rate Blood Pressure Pulse Oximetry 91 Oxygen Delivery Nasal Cannula Oxygen Flow Rate 4 04/16/25 20:27 04/16/25 20:48 04/16/25 22:00 Temperature 97.1 F L Pulse Rate 100 95 Respiratory Rate 20 25 H Blood Pressure 118/89 Pulse Oximetry 91 92 91 Oxygen Delivery Nasal Cannula BiPAP Oxygen Flow Rate 4 04/17/25 02:00 04/17/25 04:00 04/17/25 04:24 Temperature 97.4 F L Pulse Rate 89 88 88 Respiratory Rate 19 20 Blood Pressure 136/47 L Pulse Oximetry 92 98 Oxygen Delivery BiPAP Oxygen Flow Rate 04/17/25 07:11 04/17/25 07:11 04/17/25 07:25 Temperature Pulse Rate 90 95 Respiratory Rate 16 20 Blood Pressure Pulse Oximetry 96 Oxygen Delivery Nasal Cannula Oxygen Flow Rate 4 04/17/25 08:51 Temperature Pulse Rate 86 Respiratory Rate Blood Pressure Pulse Oximetry 92 Oxygen Delivery Nasal Cannula Oxygen Flow Rate 4 Intake/Output Intake/Output: Intake & Output 04/14/25 04/15/25 04/16/25 04/17/25 23:59 23:59 23:59 23:59 Intake Total 710 1220 1180 540 Output Total 500 Balance 425 726 6155 540 Meds/Results Medications: Active Medications Generic Name Dose Route Start Last Admin Trade Name Freq PRN Reason Stop Dose Admin Acetaminophen 650 mg 04/10/25 23:34 04/17/25 10:20 Acetaminophen 325 Mg Tablet PO 650 mg Q6H PRN Administration Mild Pain (1-3) or Fever Albuterol 2 puff 04/11/25 09:17 Albuterol Sulfate (*Sp) Aerosol 1 Puff INHALATION Q4-6H PRN Shortness Of Breath Or Wheezing Albuterol 2.5 mg 04/13/25 13:21 Albuterol Sulfate Neb 2.5 Mg/3 Ml Inh INHALATION Q4HRT PRN Shortness Of Breath Alprazolam 0.25 mg 04/10/25 19:02 04/17/25 10:20 Alprazolam (*Crx) 0.25 Mg Tablet PO 0.25 mg TID PRN Administration Anxiety Calcium Carbonate 200 mg 04/16/25 10:25 04/16/25 10:51 Calcium Carbonate (Tums) 500 Mg (200 Mg Elemental) PO 200 mg Q6H PRN Administration Indigestion Doxycycline Hyclate 100 mg 04/15/25 12:30 04/17/25 08:51 Doxycycline Hyclate 100 Mg Tablet PO 04/19/25 21:01 100 mg Q12HR FELICIA Administration Enoxaparin Sodium 40 mg 04/10/25 21:00 04/16/25 20:12 Enoxaparin 40 Mg/0.4 Ml Syringe SUB-Q 40 mg HS FELICIA Administration Fluticasone/Umeclidinium/Vilanterol 1 puff 04/12/25 11:55 04/17/25 07:10 Fluticasone/Umeclidin/Vilanter 100-62.5-25 Mcg Ellipta INHALATION 1 puff DAILYRT FELICIA Administration Furosemide 20 mg 04/11/25 09:00 04/17/25 08:51 Furosemide 20 Mg Tablet BY MOUTH 20 mg DAILY FELICIA Administration Cefepime HCl 1 gm/ Sodium 50 mls @ 100 mls/hr 04/15/25 12:25 04/17/25 08:50 Chloride IVPB 100 mls/hr Q12HR FELICIA Administration Ipratropium [place] 0.5 mg 04/16/25 08:00 04/16/25 14:44 Ipratropium Br 0.02% Inh Soln 0.5 Mg/2.5 Ml Vial INHALATION 0.5 mg On Hold: 04/16/25 15:55 TIDRT FELICIA Administration Losartan Potassium 100 mg 04/11/25 09:00 04/17/25 08:51 Losartan Potassium 100 Mg Tablet BY MOUTH 100 mg DAILY FELICIA Administration Morphine Sulfate 2 mg 04/10/25 14:50 04/16/25 21:19 Morphine Sulfate (*Crx) 4 Mg/Ml Inj IV PUSH 2 mg Q4H PRN Administration Pain Rated 7-10 Multivitamins/Minerals 1 tablet 04/11/25 17:00 04/17/25 08:51 Opti-Gen Tab PO 1 tablet BID FELICIA Administration Nifedipine 30 mg 04/11/25 09:00 04/17/25 08:52 Nifedipine 30 Mg Tab.Er.24 PO 30 mg DAILY FELICIA Administration Home Med ( 2.5 ml 04/11/25 20:00 04/17/25 07:10 Ensifentrine [ INHALATION 05/11/25 19:59 2.5 ml Ohtuvayre] 3 Mg/2.5 Q12HRT FELICIA Administration Ml Suspension For Nebulization) Ondansetron HCl 4 mg 04/10/25 14:50 04/16/25 09:46 Ondansetron Inj 4 Mg/2 Ml Vial IV PUSH 4 mg Q6H PRN Administration Nausea And Vomiting Pantoprazole Sodium 40 mg 04/10/25 19:15 04/17/25 08:52 Pantoprazole 40 Mg Tablet PO 40 mg BID FELICIA Administration Polyethylene Glycol 17 gm 04/14/25 21:00 04/17/25 08:54 Polyethylene Glycol 3350 17 Gm Powd.Pack PO 17 gm BID FELICIA Administration Prednisone 2.5 mg 04/11/25 09:00 04/17/25 08:51 Prednisone 2.5 Mg Tablet PO 2.5 mg DAILY FELICIA Administration Senna 8.6 mg 04/13/25 17:00 04/17/25 08:51 Sennosides 8.6 Mg Tablet PO 8.6 mg BID FELICIA Administration Sertraline HCl 100 mg 04/11/25 09:00 04/17/25 08:51 Sertraline Hcl 50 Mg Tablet PO 100 mg DAILY FELICIA Administration Ursodiol 300 mg 04/10/25 19:05 04/17/25 08:51 Ursodiol 300 Mg Capsule BY MOUTH 300 mg BID FELICIA Administration Radiology Results: ITS Impressions Abdomen X-Ray 04/13/25 14:05 Impression: 1. Ileus versus early obstruction. Abdomen/Pelvis CT 04/14/25 15:03 IMPRESSION: Nonspecific fluid-filled loops of large bowel but may relate to underlying diarrhea. Incidental findings detailed above Chest X-Ray 04/15/25 13:16 IMPRESSION: 1. Bibasilar infiltrates left worse than right. Aeration of the mid and upper lung artis appears improved. Labs Labs: Laboratory Results - last 24 hr 04/17/25 06:14 WBC 9.0 RBC 4.22 Hgb 11.0 L Hct 36.8 L MCV 87.2 MCH 26.1 MCHC 29.9 L RDW 15.8 H Plt Count 245 MPV 10.9 H Sodium 136 L Potassium 3.6 Chloride 92 L Carbon Dioxide > 40 H Anion Gap BUN 24 H D Creatinine 1.16 H Estim Creat Clear Calc 27 Estimated GFR 44 L Glucose 99 Calcium 8.4 Magnesium 1.7 Quality VTE Prophylaxis VTE prophylaxis: pharmacologic ordered
[2025-04-17] MEDS: ENOXAPARIN 40 MG/0.4 ML SYRINGE SUB-Q (21:18)
[2025-04-18] VITALS (13 sets, daily range): BP systolic 147–166; BP diastolic 75–82; PULSE 69–101; RESP 18–23; TEMP 36.2–36.6; O2SAT 89–96
[2025-04-18] MEDS: MORPHINE SULFATE (*CRX) 4 MG/ML INJ 2 MG IV PUSH (03:24)
[2025-04-18] MEDS: ONDANSETRON INJ 4 MG/2 ML VIAL IV PUSH ×2 (03:30→16:47)
[2025-04-18 06:39] LABS: Hematocrit 38.7 % (37.0-47.0); Hemoglobin 11.5 g/dL (12.0-15.0); Mean Corpuscular HGB Conc 29.7 g/dl (32-36); Mean Corpuscular Hemoglobin 25.8 pg (26-34); Mean Corpuscular Volume 87.0 fl (80-100); Platelet Count Result 234 k/mm3 (150-375); Red Blood Count 4.45 M/mm3 (4.2-5.4); White Blood Count 7.5 K/mm3 (4.5-10.0)
[2025-04-18 06:56] LABS: Blood Urea Nitrogen 25 mg/dL (7-17); Calcium 8.4 mg/dL (8.4-10.2); Chloride 95 mmol/L (98-107); Estimated CRCL calculation 35 ml/min; Estimated Glomerular Filt Rate 60; Glucose 93 mg/dL (65-110); Magnesium 1.6 mg/dL (1.6-2.3); Potassium 4.2 mmol/L (3.4-5.0); Sodium 138 mmol/L (137-145)
[2025-04-18 07:04] LABS: Carbon Dioxide > 40 mmol/L (22-30)
[2025-04-18] MEDS: FLUTICASONE/UMECLIDIN/VILANTER 100-62.5-25 MCG ELLIPTA 1 PUFF INHALATION (08:06)
[2025-04-18] MEDS: OPTI-GEN TAB 1 TABLET PO ×2 (10:43→16:47)
[2025-04-18] MEDS: FUROSEMIDE 20 MG TABLET BY MOUTH (10:43)
[2025-04-18] MEDS: DOXYCYCLINE HYCLATE 100 MG TABLET PO ×2 (10:43→20:03)
[2025-04-18] MEDS: LOSARTAN POTASSIUM 100 MG TABLET BY MOUTH (10:44)
[2025-04-18] MEDS: SENNOSIDES 8.6 MG TABLET PO (10:44)
[2025-04-18] MEDS: PANTOPRAZOLE 40 MG TABLET PO ×2 (10:44→16:47)
[2025-04-18] MEDS: SERTRALINE HCL 50 MG TABLET 100 MG PO (10:44)
[2025-04-18] MEDS: NITROFURANTOIN MONOHYD MACROCR 100 MG CAP PO ×2 (10:44→20:03)
[2025-04-18] MEDS: ACETAMINOPHEN 325 MG TABLET 650 MG PO (10:56)
[2025-04-18] MEDS: ALPRAZolam (*CRX) 0.25 MG TABLET PO ×2 (10:57→21:51)
--- NOTE | 2025-04-18 14:45 | P.PNIM_ITS ---
Assessment and Plan Assessment and Plan (1) Acute on chronic respiratory failure with hypoxia and hypercapnia: Code(s): J96.21 - Acute and chronic respiratory failure with hypoxia; J96.22 - Acute and chronic respiratory failure with hypercapnia Status: Acute (2) Hospital-acquired pneumonia: Code(s): J18.9 - Pneumonia, unspecified organism; Y95 - Nosocomial condition Status: Acute (3) UTI (urinary tract infection): Qualifiers: Hematuria presence: without hematuria Urinary tract infection type: acute cystitis Qualified Code(s): N30.00 - Acute cystitis without hematuria Code(s): N39.0 - Urinary tract infection, site not specified Status: Resolved (4) Constipation: Qualifiers: Constipation type: unspecified constipation type Qualified Code(s): K59.00 - Constipation, unspecified Code(s): K59.00 - Constipation, unspecified Status: Resolved (5) Nausea vomiting and diarrhea: Code(s): R11.2 - Nausea with vomiting, unspecified; R19.7 - Diarrhea, unspecified Status: Resolved (6) Essential (primary) hypertension: Code(s): I10 - Essential (primary) hypertension Status: Chronic Plan 84-year-old female with a past medical history of J CARLOS with BiPAP, 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 Patient was in the ED on 04/02/2025 with complaints of abdominal pain. Patient was diagnosed with a UTI and constipation. Also reported some nausea but no vomiting. Patient was started on Augmentin for UTI and possible pneumonia coverage, and laxatives before being discharged home. Patient saw her PCP this morning and was directed to go to the ED. She was noted to have increased dyspnea on exertion and an O2 saturation in the office of 78%. It was also discovered that her urine culture showed resistance to her prescribed Augmentin. (1) Acute on chronic respiratory failure with hypoxia and hypercapnia: Continue with O2 support Continue with bronchodilators Continue with prednisone Follows up with Pulmonary Continue with Lasix PT/OT Chest x-ray with possible overlying pneumonia as well Continue with doxycycline, cefepime Supplement magnesium (2) UTI (urinary tract infection): E coli in urine On cefepime follow urine c/s will downgrade to po in anticipation for discharge in the next day or two -augmentin and doxy to complete the course of antibiotics (3) Constipation: Resolved . (4) Essential (primary) hypertension: Continue losartan, nifedipine 5. Code status: Full 6. DVT prophylaxis: Lovenox 7. Disposition: Pending improvement Medical Record Review I have reviewed the following patient records and this information was taken into consideration when formulating the assessment and plan.: previous labs Time Spent With Patient Time with patient: 25 - 35 minutes Subjective Date/time seen: 04/18/25 14:45 Interval history: Pt reports 60 % back to her baseline, NO longer having abd pain. Complains of some indigestion but able to keep food down. intermittent nausea Tachycardic with exertion. Review of Systems Review of Systems: All systems reviewed & are unremarkable except as noted in HPI and below Exam 2 Narrative: GENERAL: No acute distress NECK: no lymphadenopathy RESPIRATORY: Lungs distant likely due to late stage COPD, increased AP lateral diameter. SOB with talking. Non-productive cough. CARDIO: Distant heart sounds due to COPD, Regular rate and rhythm GI: soft, nontender, bowel sounds present SKIN/EXTREMITIES: no rashes, no edema, no redness or tenderness NEURO: PROM intact, answers questions appropriately, A&O x4 Const: General: comfortable Objective Data Vital Signs Vital Signs: Vital Signs - 24 hr 04/17/25 15:46 04/17/25 15:56 04/17/25 16:00 Temperature Pulse Rate 97 98 98 Respiratory Rate 20 20 Blood Pressure Pulse Oximetry Oxygen Delivery Oxygen Flow Rate Fraction of Inspired Oxygen 04/17/25 20:00 04/17/25 21:16 04/17/25 21:27 Temperature Pulse Rate 94 89 Respiratory Rate 16 Blood Pressure Pulse Oximetry 94 91 Oxygen Delivery Nasal Cannula High Flow Nasal Cannula Oxygen Flow Rate 4 5 Fraction of Inspired Oxygen 04/17/25 22:00 04/17/25 22:00 04/17/25 22:00 Temperature 97.6 F Pulse Rate 78 Respiratory Rate 16 26 H Blood Pressure 115/69 Pulse Oximetry 95 94 Oxygen Delivery BiPAP BiPAP Oxygen Flow Rate Fraction of Inspired Oxygen 36 04/18/25 00:00 04/18/25 04:00 04/18/25 06:00 Temperature 97.4 F L Pulse Rate 92 87 93 Respiratory Rate 22 H Blood Pressure 166/75 H Pulse Oximetry 93 Oxygen Delivery Oxygen Flow Rate Fraction of Inspired Oxygen 12/18/25 08:11 04/18/25 08:16 04/18/25 08:16 Temperature Pulse Rate 92 95 Respiratory Rate 20 20 Blood Pressure Pulse Oximetry 90 Oxygen Delivery Nasal Cannula Oxygen Flow Rate 4 Fraction of Inspired Oxygen Intake/Output Intake/Output: Intake & Output 04/15/25 04/16/25 04/17/25 04/18/25 23:59 23:59 23:59 23:59 Intake Total 1220 1180 2160 222 Output Total 500 Balance 720 1180 2160 222 Meds/Results Medications: Active Medications Generic Name Dose Route Start Last Admin Trade Name Freq PRN Reason Stop Dose Admin Acetaminophen 650 mg 04/10/25 23:34 04/18/25 10:56 Acetaminophen 325 Mg Tablet PO 650 mg Q6H PRN Administration Mild Pain (1-3) or Fever Albuterol 2 puff 04/11/25 09:17 Albuterol Sulfate (*Sp) Aerosol 1 Puff INHALATION Q4-6H PRN Shortness Of Breath Or Wheezing Albuterol 2.5 mg 04/13/25 13:21 Albuterol Sulfate Neb 2.5 Mg/3 Ml Inh INHALATION Q4HRT PRN Shortness Of Breath Alprazolam 0.25 mg 04/10/25 19:02 04/18/25 10:57 Alprazolam (*Crx) 0.25 Mg Tablet PO 0.25 mg TID PRN Administration Anxiety Amoxicillin/Clavulanate Potassium 1 tablet 04/18/25 09:30 04/18/25 10:44 Amoxicillin/Clavulanate K 875-125 Mg Tab PO 04/21/25 09:01 1 tablet Q12HR FELICIA Administration Calcium Carbonate 200 mg 04/16/25 10:25 04/16/25 10:51 Calcium Carbonate (Tums) 500 Mg (200 Mg Elemental) PO 200 mg Q6H PRN Administration Indigestion Doxycycline Hyclate 100 mg 04/15/25 12:30 04/18/25 10:43 Doxycycline Hyclate 100 Mg Tablet PO 04/19/25 21:01 100 mg Q12HR FELICIA Administration Enoxaparin Sodium 40 mg 04/10/25 21:00 04/17/25 21:18 Enoxaparin 40 Mg/0.4 Ml Syringe SUB-Q 40 mg HS FEILCIA Administration Fluticasone/Umeclidinium/Vilanterol 1 puff 04/12/25 11:55 04/18/25 08:06 Fluticasone/Umeclidin/Vilanter 100-62.5-25 Mcg Ellipta INHALATION 1 puff DAILYRT FELICIA Administration Furosemide 20 mg 04/11/25 09:00 04/18/25 10:43 Furosemide 20 Mg Tablet BY MOUTH 20 mg DAILY FELICIA Administration Ipratropium [place] 0.5 mg 04/16/25 08:00 04/16/25 14:44 Ipratropium Br 0.02% Inh Soln 0.5 Mg/2.5 Ml Vial INHALATION 0.5 mg On Hold: 04/16/25 15:55 TIDRT FELICIA Administration Losartan Potassium 100 mg 04/11/25 09:00 04/18/25 10:44 Losartan Potassium 100 Mg Tablet BY MOUTH 100 mg DAILY FELICIA Administration Morphine Sulfate 2 mg 04/10/25 14:50 04/18/25 03:24 Morphine Sulfate (*Crx) 4 Mg/Ml Inj IV PUSH 2 mg Q4H PRN Administration Pain Rated 7-10 Multivitamins/Minerals 1 tablet 04/11/25 17:00 04/18/25 10:43 Opti-Gen Tab PO 1 tablet BID FELICIA Administration Nifedipine 30 mg 04/11/25 09:00 04/18/25 10:44 Nifedipine 30 Mg Tab.Er.24 PO 30 mg DAILY FELICIA Administration Nitrofurantoin Macrocrystals 100 mg 04/18/25 09:30 04/18/25 10:44 Nitrofurantoin Monohyd Macrocr 100 Mg Cap PO 04/19/25 21:01 100 mg Q12HR FELICIA Administration Home Med ( 2.5 ml 04/11/25 20:00 04/18/25 08:11 Ensifentrine [ INHALATION 05/11/25 19:59 2.5 ml Ohtuvayre] 3 Mg/2.5 Q12HRT FELICIA Administration Ml Suspension For Nebulization) Ondansetron HCl 4 mg 04/10/25 14:50 04/18/25 03:30 Ondansetron Inj 4 Mg/2 Ml Vial IV PUSH 4 mg Q6H PRN Administration Nausea And Vomiting Pantoprazole Sodium 40 mg 04/10/25 19:15 04/18/25 10:44 Pantoprazole 40 Mg Tablet PO 40 mg BID FELICIA Administration Polyethylene Glycol 17 gm 04/14/25 21:00 04/18/25 10:45 Polyethylene Glycol 3350 17 Gm Powd.Pack PO Not Given BID FELICIA Prednisone 2.5 mg 04/11/25 09:00 04/18/25 10:44 Prednisone 2.5 Mg Tablet PO 2.5 mg DAILY FELICIA Administration Senna 8.6 mg 04/13/25 17:00 04/18/25 10:44 Sennosides 8.6 Mg Tablet PO 8.6 mg BID FELICIA Administration Sertraline HCl 100 mg 04/11/25 09:00 04/18/25 10:44 Sertraline Hcl 50 Mg Tablet PO 100 mg DAILY FELICIA Administration Ursodiol 300 mg 04/10/25 19:05 04/18/25 10:43 Ursodiol 300 Mg Capsule BY MOUTH 300 mg BID FELICIA Administration Radiology Results: ITS Impressions Abdomen X-Ray 04/13/25 14:05 Impression: 1. Ileus versus early obstruction. Abdomen/Pelvis CT 04/14/25 15:03 IMPRESSION: Nonspecific fluid-filled loops of large bowel but may relate to underlying diarrhea. Incidental findings detailed above Chest X-Ray 04/15/25 13:16 IMPRESSION: 1. Bibasilar infiltrates left worse than right. Aeration of the mid and upper lung artis appears improved. Labs Labs: Laboratory Results - last 24 hr 04/18/25 06:20 WBC 7.5 RBC 4.45 Hgb 11.5 L Hct 38.7 MCV 87.0 MCH 25.8 L MCHC 29.7 L RDW 15.7 H Plt Count 234 MPV 11.4 H Sodium 138 Potassium 4.2 Chloride 95 L Carbon Dioxide > 40 H Anion Gap BUN 25 H Creatinine 0.89 Estim Creat Clear Calc 35 Estimated GFR 60 Glucose 93 Calcium 8.4 Magnesium 1.6 Quality VTE Prophylaxis VTE prophylaxis: pharmacologic ordered
[2025-04-18] MEDS: ENOXAPARIN 40 MG/0.4 ML SYRINGE SUB-Q (20:03)
[2025-04-19] VITALS (10 sets, daily range): BP systolic 136–159; BP diastolic 64–69; PULSE 72–114; RESP 16–23; TEMP 36.7–37.6; O2SAT 90–96
[2025-04-19] MEDS: CALCIUM CARBONATE (TUMS) 500 MG (200 MG ELEMENTAL) PO ×2 (03:34→11:01)
[2025-04-19 06:30] LABS: Hematocrit 39.1 % (37.0-47.0); Hemoglobin 11.9 g/dL (12.0-15.0); Mean Corpuscular HGB Conc 30.4 g/dl (32-36); Mean Corpuscular Hemoglobin 26.2 pg (26-34); Mean Corpuscular Volume 86.1 fl (80-100); Platelet Count Result 229 k/mm3 (150-375); Red Blood Count 4.54 M/mm3 (4.2-5.4); White Blood Count 6.8 K/mm3 (4.5-10.0)
[2025-04-19 06:50] LABS: Blood Urea Nitrogen 23 mg/dL (7-17); Calcium 9.0 mg/dL (8.4-10.2); Chloride 92 mmol/L (98-107); Estimated CRCL calculation 36 ml/min; Estimated Glomerular Filt Rate > 60; Glucose 93 mg/dL (65-110); Magnesium 1.5 mg/dL (1.6-2.3); Potassium 4.0 mmol/L (3.4-5.0); Sodium 139 mmol/L (137-145)
[2025-04-19] MEDS: FLUTICASONE/UMECLIDIN/VILANTER 100-62.5-25 MCG ELLIPTA 1 PUFF INHALATION (08:12)
[2025-04-19 08:13] LABS: Carbon Dioxide > 40 mmol/L (22-30)
[2025-04-19] MEDS: LOSARTAN POTASSIUM 100 MG TABLET BY MOUTH (09:59)
[2025-04-19] MEDS: OPTI-GEN TAB 1 TABLET PO ×2 (09:59→16:30)
[2025-04-19] MEDS: ALPRAZolam (*CRX) 0.25 MG TABLET PO ×2 (09:59→15:11)
[2025-04-19] MEDS: PANTOPRAZOLE 40 MG TABLET PO ×2 (09:59→16:30)
[2025-04-19] MEDS: NITROFURANTOIN MONOHYD MACROCR 100 MG CAP PO (10:00)
[2025-04-19] MEDS: FUROSEMIDE 20 MG TABLET BY MOUTH (10:00)
[2025-04-19] MEDS: DOXYCYCLINE HYCLATE 100 MG TABLET PO (10:00)
[2025-04-19] MEDS: SERTRALINE HCL 50 MG TABLET 100 MG PO (10:00)
--- NOTE | 2025-04-19 12:44 | P.DS_ITS ---
DS: Admitting Diagnosis Discharge Date 04/19 Admitting Diagnosis sob DS: Discharge Diagnosis Discharge Diagnosis (1) Acute on chronic respiratory failure with hypoxia and hypercapnia: Code(s): J96.21 - Acute and chronic respiratory failure with hypoxia; J96.22 - Acute and chronic respiratory failure with hypercapnia Status: Acute (2) Hospital-acquired pneumonia: Code(s): J18.9 - Pneumonia, unspecified organism; Y95 - Nosocomial condition Status: Acute (3) UTI (urinary tract infection): Qualifiers: Hematuria presence: without hematuria Urinary tract infection type: acute cystitis Qualified Code(s): N30.00 - Acute cystitis without hematuria Code(s): N39.0 - Urinary tract infection, site not specified Status: Resolved (4) Constipation: Qualifiers: Constipation type: unspecified constipation type Qualified Code(s): K59.00 - Constipation, unspecified Code(s): K59.00 - Constipation, unspecified Status: Resolved (5) Nausea vomiting and diarrhea: Code(s): R11.2 - Nausea with vomiting, unspecified; R19.7 - Diarrhea, unspecified Status: Resolved (6) Essential (primary) hypertension: Code(s): I10 - Essential (primary) hypertension Status: Chronic DS: Summary Hospital Course Hospital Course: 84-year-old female with a past medical history of J CARLOS with BiPAP, 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 Patient was in the ED on 04/02/2025 with complaints of abdominal pain. Patient was diagnosed with a UTI and constipation. Also reported some nausea but no vomiting. Patient was started on Augmentin for UTI and possible pneumonia coverage, and laxatives before being discharged home. Patient saw her PCP this morning and was directed to go to the ED. She was noted to have increased dyspnea on exertion and an O2 saturation in the office of 78%. It was also discovered that her urine culture showed resistance to her prescribed Augmentin. (1) Acute on chronic respiratory failure with hypoxia and hypercapnia: Continue with O2 support - she is back to 4 l per NC Continue with bronchodilators- she has duonebs at home as well Continue with prednisone Follows up with Pulmonary Continue with Lasix PT/OT Chest x-ray with possible overlying pneumonia as well Continue with doxycycline, cefepime Supplement magnesium - downgraded to augmentin/doxy (2) UTI (urinary tract infection): E coli in urine On cefepime follow urine c/s will downgrade to po in anticipation for discharge in the next day or two -one more dose of nitrofurantoin to complete the course of antibiotics (3) Constipation: Resolved (4) Essential (primary) hypertension: Continue losartan, nifedipine CT abdomen pelvis w con HISTORY: Constipation, abnormal abdominal X-ray TECHNIQUE: Axial images were obtained through the abdomen, pelvis post administration of IV contrast. Oral contrast was also administered. Coronal reconstruction images were obtained from the axial views. CT scan performed using dose optimization techniques including the following automated exposure control; adjustment of mA and/or kV; use of iterative reconstruction technique. Automatic exposure control was used to reduce radiation dose. Permanent radiation dose record is archived to PACS. FINDINGS: CT abdomen: LUNG BASES: The lung bases demonstrate chronic changes with scattered calcified granulomas and mild bronchiectasis. Mild cardiomegaly. LIVER: Mild cirrhotic change of the liver suspected. Mild hepatic steatosis. Por suresh vein patent. No intrahepatic biliary duct dilatation. SPLEEN: Unremarkable. KIDNEYS: Right Kidney: Right kidney superior poles of both cyst 2 x 2 cm. Left Kidney: Unremarkable. No calculi. No hydronephrosis ADRENAL GLANDS: Subcentimeter right adrenal nodule. Left adrenal nodule 2 x 2.5 cm incompletely evaluated, outpatient adrenal MRI suggested. PANCREAS: Mild pancreatic atrophy. GALLBLADDER/BILIARY: Unremarkable. No biliary dilatation. STOMACH AND ESOPHAGUS: Small hiatal hernia. The remaining stomach appears decompressed. BOWEL/MESENTERY: Bowel distention of the gallbladder. Moderate fecal content, no colitis or diverticulitis. Nonspecific fluid-filled loops of large bowel. Appendix appears unremarkable. No stranding within the mesentery. No thickened or dilated loops of small bowel. ADENOPATHY/RETROPERITONEUM: No lymphadenopathy. AORTA/VASCULATURE: Atherosclerotic changes of the aorta, no aneurysm. FREE FLUID OR FREE AIR: No free fluid.. CT pelvis: SOLID ORGANS/REPRODUCTIVE: Post hysterectomy. No adnexal mass. BLADDER: Within normal limits. OSSEOUS STRUCTURES: Right hip arthroplasty. No sclerotic or lytic lesions. OVERLYING SOFT TISSUES: Diastases of the abdominal wall noted. IMPRESSION: Nonspecific fluid-filled loops of large bowel but may relate to underlying diarrhea. Incidental findings detailed above Time Spent with Patient Time attestation: Total time spent providing and/or coordinating discharge services: Exam Narrative: GENERAL: No acute distress NECK: no lymphadenopathy RESPIRATORY: increased AP lateral diameter. SOB with exercion, on 4l- her baseline. Non-productive cough. CARDIO: Distant heart sounds due to COPD, Regular rate and rhythm GI: soft, nontender, bowel sounds present SKIN/EXTREMITIES: no rashes, no edema, no redness or tenderness NEURO: PROM intact, answers questions appropriately, A&O x4 Const: General: comfortable DS: Data Data Completed and Pending Labs on day of discharge: Labs from last 24 hours 04/19/25 05:58 WBC 6.8 RBC 4.54 Hgb 11.9 L Hct 39.1 MCV 86.1 MCH 26.2 MCHC 30.4 L RDW 15.5 H Plt Count 229 MPV 11.1 H Sodium 139 Potassium 4.0 Chloride 92 L Carbon Dioxide > 40 H Anion Gap BUN 23 H Creatinine 0.86 Estim Creat Clear Calc 36 Estimated GFR > 60 Glucose 93 Calcium 9.0 Magnesium 1.5 L Discharge Plan Discharge Attending physician on discharge: Joel Palacios Consulting providers: Rena Triplett Discharging Clinician: Jinny Triplett Patient Disposition: Home Activity: may shower Diet: heart healthy Discharge Instructions: DISCHARGE INSTRUCTIONS Your Diagnosis: * Pneumonia and breathing difficulties * Urinary tract infection (UTI) * Constipation (now resolved) Medications: You must finish ALL your antibiotics even if you feel better: * Augmentin 875/125 mg - Take 1 pill every 12 hours for 4 more doses * Doxycycline 100 mg - Take 1 pill every 12 hours for 1 more dose * Nitrofurantoin 100 mg - Take 1 pill every 12 hours for 1 more dose * Continue all your regular home medications (blood pressure pills, etc.) At Home: * Use your oxygen as prescribed (usually 4 liters per minute) * Use your BiPAP machine every night while sleeping * Continue breathing treatments as directed * Walk around the house several times a day to keep your lungs clear * Drink plenty of fluids unless your doctor told you otherwise Call 911 or Return to the Emergency Room if you have: * Trouble breathing or shortness of breath that gets worse * Oxygen levels below 88% on your home monitor * Chest pain * Confusion or extreme drowsiness * Fever over 101?F * Coughing up blood Follow-Up Appointments: * Pulmonology (lung doctor) - schedule appointment * Primary care doctor - within 1-2 weeks * MRI scan - your doctor will schedule this to check a finding on your CT scan Questions? Call your primary care doctor's office. Patient Instructions: Antibiotic Form Patient Language: Upper Sorbian Stand Alone Forms: General Discharge Information Follow-up/Referrals: Sita Syed APRN [Primary Care Provider, Internal Medicine] - 2 Weeks Discharge Medications: New doxycycline hyclate 100 mg Tablet 100 mg PO Q12HR Qty: 1 0RF nitrofurantoin monohyd/m-cryst [Macrobid] 100 mg Capsule 100 mg PO Q12HR Qty: 1 0RF amoxicillin-pot clavulanate 875-125 mg tablet 1 tablet PO Q12H Qty: 4 0RF Continued Trelegy Ellipta 100-62.5-25 mcg blister with device 1 inh INHALATION DAILY Qty: 180 3RF Rx Instructions: Rinse mouth and spit after each use Ohtuvayre 3 mg/2.5 mL suspension for nebulization 2.5 ml inhalation BID Qty: 150 11RF PreserVision AREDS-2 250-90-40-1 mg Capsule 1 cap PO BID albuterol sulfate 2.5 mg /3 mL (0.083 %) solution for nebulization 2.5 mg inhalation Q4-6H PRN (Reason: shortness of breath or wheezing) Qty: 180 5RF albuterol sulfate 90 mcg/actuation HFA aerosol inhaler 1 - 2 puff inhalation Q4-6H PRN (Reason: shortness of breath or wheezing) Qty: 8.5 1RF omeprazole 40 mg capsule,delayed release(DR/EC) See Rx Instructions .ROUTE .COMPLEX Qty: 90 0RF Dose Instruction: TAKE 1 CAPSULE BY MOUTH DAILY Rx Instructions: TAKE 1 CAPSULE BY MOUTH DAILY losartan 100 mg tablet See Rx Instructions .ROUTE .COMPLEX Qty: 90 1RF Dose Instruction: TAKE 1 TABLET BY MOUTH DAILY Rx Instructions: TAKE 1 TABLET BY MOUTH DAILY prednisone 5 mg tablet See Rx Instructions .ROUTE .COMPLEX Qty: 30 3RF Dose Instruction: TAKE 1/2 TABLET BY MOUTH DAILY Rx Instructions: TAKE 1/2 TABLET BY MOUTH DAILY furosemide 20 mg tablet See Rx Instructions .ROUTE .COMPLEX Qty: 90 1RF Dose Instruction: TAKE 1 TABLET BY MOUTH DAILY Rx Instructions: TAKE 1 TABLET BY MOUTH DAILY ursodiol 300 mg capsule See Rx Instructions .ROUTE .COMPLEX Qty: 180 1RF Dose Instruction: TAKE 1 CAPSULE BY MOUTH TWICE DAILY Rx Instructions: TAKE 1 CAPSULE BY MOUTH TWICE DAILY nifedipine 30 mg tablet extended release 24hr 30 mg PO DAILY Qty: 90 1RF sertraline 100 mg tablet 100 mg PO DAILY Qty: 90 1RF alprazolam 0.25 mg tablet 0.25 mg PO TID PRN (Reason: Anxiety) Qty: 90 0RF Date of admission: 04/11/25 10:01 Primary Care Provider: Sita Syed Admitting Provider: Harmony Beavers Attending physician on admission: Harmony Beavers Condition: Stable Quality VTE Prophylaxis VTE prophylaxis: pharmacologic ordered Hospitalist MIPS Heart Failure (Exclusion) Patient has history of Heart Transplant or Left Ventricular Assistive Device?: No IF YES, STOP HERE Heart Failure (Qualifier) Patient has current or prior documentation of LVEF less than or equal to 40%, or mod/servere depressed LVSF?: No IF NO, STOP HERE
== END 2025-04-19 18:00 | disposition home or self-care (01) | DRG 689 ==
LOC: ANHED 15:06 → ANH3MEDSUR 15:58
PROVIDERS: Internal Medicine Critical Care Medicine; Nurse Practitioner Acute Care; Nurse Practitioner Adult Health; Physician Assistant; Admitting Provider Family Medicine; Emergency Provider Emergency Medicine; PCP Nurse Practitioner Family; Visit Provider Nurse Practitioner
DX: N30.00 Acute cystitis without hematuria (principal); J18.9 Pneumonia, unspecified organism; J96.21 Acute and chronic respiratory failure with hypoxia; J96.22 Acute and chronic respiratory failure with hypercapnia; Z16.29 Resistance to other single specified antibiotic; J44.0 Chronic obstructive pulmonary disease with (acute) lower respiratory infection; B96.20 Unspecified Escherichia coli [E. coli] as the cause of diseases classified elsewhere; D50.9 Iron deficiency anemia, unspecified; E78.2 Mixed hyperlipidemia; F41.9 Anxiety disorder, unspecified; G47.33 Obstructive sleep apnea (adult) (pediatric); H35.30 Unspecified macular degeneration; H91.90 Unspecified hearing loss, unspecified ear; I10 Essential (primary) hypertension; K59.09 Other constipation; M81.0 Age-related osteoporosis without current pathological fracture; Z99.89 Dependence on other enabling machines and devices; Z85.828 Personal history of other malignant neoplasm of skin; Z99.81 Dependence on supplemental oxygen; Z98.41 Cataract extraction status, right eye; Z98.42 Cataract extraction status, left eye; Z87.891 Personal history of nicotine dependence
CPT/HCPCS: 36415; 36600; 71045; 74018; 74176; 74177; 80048; 80053; 82375; 82803; 82805; 83050; 83605; 83690; 83735; 85018; 85025; 85027; 87641; 93005; 94002; 94003; 94640; 96365; 96366; 96375; 97110; 97161; 97166; 97530; 97535; 99285; A9270; G0378; J0692; J0696; J1650; J2250; J2270; J2405; J3475; J7030; Q9967